=== PATIENT | female | born 1945 | race Caucasian/White ===

== ENCOUNTER 2018-10-01 12:56 | Outpatient (REF) | payer MEDICARE, SELFPAY ==
[2018-10-01 21:15] LABS: Anion Gap 10.9 mmol/L (3-11); BUN 9 mg/dL (7-18); CO2 28.1 mmol/L (21.0-32.0); CREATININE 0.77 mg/dL (0.55-1.02); Calcium 9.1 mg/dL (8.5-10.1); Chloride 94 mmol/L (98-107); Glucose 87 mg/dL (70-100); Potassium 4.7 mmol/L (3.5-5.1); Sodium 133 mmol/L (136-145)
== END 2018-10-01 13:16 ==
LOC: NCHCN 12:56
PROVIDERS: PCP Internal Medicine; Visit Provider Internal Medicine
DX: E78.5 Hyperlipidemia, unspecified (principal); I10 Essential (primary) hypertension; I25.10 Atherosclerotic heart disease of native coronary artery without angina pectoris; F32.9 Major depressive disorder, single episode, unspecified
CPT/HCPCS: 80048

== ENCOUNTER 2019-01-02 12:38 | Outpatient (REF) | payer MEDICARE, SELFPAY ==
[2019-01-02 22:15] LABS: Abs Immature Grans 0.01 k/cumm (0.0-0.09); Absolute Basophil Count 0.03 k/cumm (0.0-0.2); Absolute Eosinophil Count 0.17 k/cumm (0.0-0.7); Absolute Lymphocyte Count 0.64 k/cumm (1.2-3.4); Absolute Monocyte Count 0.81 k/cumm (0.11-0.7); Absolute Neutrophil Count 7.31 k/cumm (1.2-6.7); Basophils % 0.3; Eosinophils % 1.9; HCT 35.8 % (36.0-46.0); HGB 12.7 g/dL (12.0-15.5); Immature Grans % 0.1; Lymphocytes % 7.1; Mean Corp. HGB Concentration 35.5 g/dL (32.0-36.0); Mean Corpuscular Hemoglobin 39.1 pg (27.0-33.0); Mean Corpuscular Volume 110.2 fL (80-95); Mean Platelet Volume 11.1 fL (8.0-11.0); Neutrophils % 81.6; Platelet Count 246 x1000/uL (130-400); RBC 3.25 m/cumm (4.00-5.20); RBC Distribution Width 13.1 % (11.7-14.6); White Blood Cell Count 8.97 k/cumm (4.4-10.8)
[2019-01-02 22:22] LABS: ALT 22 U/L (12-78); AST 42 U/L (15-37); Albumin 3.4 g/dL (3.4-5.0); Alkaline Phosphatase 153 U/L (46-116); Anion Gap 14.2 mmol/L (3-11); BUN 5 mg/dL (7-18); Bilirubin, Total 0.6 mg/dL (0.2-1.0); C-Reactive Protein 1.33 mg/dL (0.0-0.3); CO2 22.8 mmol/L (21.0-32.0); CREATININE 0.86 mg/dL (0.55-1.02); Calcium 8.7 mg/dL (8.5-10.1); Chloride 95 mmol/L (98-107); Glucose 78 mg/dL (70-100); Potassium 4.5 mmol/L (3.5-5.1); Sodium 132 mmol/L (136-145); Total Protein 7.5 g/dL (6.4-8.2)
[2019-01-02 22:28] LABS: Macrocytosis 3+
== END 2019-01-02 12:58 ==
LOC: NCHCN 12:38
PROVIDERS: PCP Internal Medicine; Visit Provider Internal Medicine
DX: R21 Rash and other nonspecific skin eruption (principal)
CPT/HCPCS: 80053; 85025; 86140

== ENCOUNTER 2019-01-03 13:14 | Inpatient (IN) | payer MEDICARE, SELFPAY ==
[2019-01-03 13:16] VITALS: BP 108/72; PULSE 84; RESP 16; TEMP 36.4; O2SAT 96
[2019-01-03 14:16] LABS: Abs Immature Grans 0.02 k/cumm (0.0-0.09); Absolute Basophil Count 0.04 k/cumm (0.0-0.2); Absolute Eosinophil Count 0.15 k/cumm (0.0-0.7); Absolute Lymphocyte Count 0.64 k/cumm (1.2-3.4); Absolute Monocyte Count 0.88 k/cumm (0.11-0.7); Basophils % 0.4; Eosinophils % 1.4; HCT 36.7 % (36.0-46.0); Immature Grans % 0.2; Lymphocytes % 5.9; Mean Corp. HGB Concentration 35.4 g/dL (32.0-36.0); Mean Corpuscular Volume 110.2 fL (80-95); Mean Platelet Volume 10.3 fL (8.0-11.0); Monocytes % 8.1; Platelet Count 255 x1000/uL (130-400); RBC 3.33 m/cumm (4.00-5.20); RBC Distribution Width 13.1 % (11.7-14.6); White Blood Cell Count 10.85 k/cumm (4.4-10.8)
[2019-01-03 14:17] LABS: Absolute Neutrophil Count 9.11 k/cumm (1.2-6.7)
[2019-01-03 14:21] LABS: PTT Activated 22.3 sec (21.0-31.4); Prothrombin Time 9.9 sec (9.3-11.0)
--- NOTE | 2019-01-03 14:24 | DI.RAD_ITS ---
SYMPTOMS/DIAGNOSIS: RASH, CONCERN FOR BLAIR-JOHNSONS PA AND LATERAL CHEST: The heart is not enlarged. The lungs are predominantly clear and mildly hyperinflated. No pleural effusion seen. CONCLUSION: No evidence of acute disease.
[2019-01-03 14:39] LABS: Macrocytosis 3+
[2019-01-03 14:40] LABS: Hypochromasia 1+
[2019-01-03] MEDS: CLINDAMYCIN 600 MG/50 ML BAG 100 MG IVPB (14:52)
[2019-01-03] MEDS: Normal Saline 1,000 ML 1000 ML IV (14:53)
[2019-01-03 15:07] LABS: ESR 29 mm/hr (0-30)
[2019-01-03 15:08] LABS: ALT 14 U/L (12-78); AST 31 U/L (15-37); Albumin 3.4 g/dL (3.4-5.0); Alkaline Phosphatase 152 U/L (46-116); Anion Gap 12.2 mmol/L (3-11); BUN 8 mg/dL (7-18); Bilirubin, Total 1.3 mg/dL (0.2-1.0); C-Reactive Protein 2.71 mg/dL (0.0-0.3); CO2 21.8 mmol/L (21.0-32.0); CREATININE 0.92 mg/dL (0.55-1.02); Calcium 8.8 mg/dL (8.5-10.1); Chloride 96 mmol/L (98-107); Estimated GFR 59.67 (mL/min/1.73m2); Glucose 106 mg/dL (70-100); Potassium 4.7 mmol/L (3.5-5.1); Sodium 130 mmol/L (136-145); Total Protein 7.8 g/dL (6.4-8.2)
[2019-01-03] MEDS: methylPREDNISolone SUCC 125 MG VIAL 60 MG IVP (15:15)
[2019-01-03] MEDS: CIPROFLOXACIN 400 MG/200 ML BAG 200 MG IVPB (15:16)
--- NOTE | 2019-01-03 15:27 | ED.GENADUL_ITS ---
Discharge Plan Disposition Patient Disposition: [facility] INPATIENT Condition: Fair Discharge Details Chief Complaint: RashLesion Clinical Impression: Drug rash, Cellulitis Admit Date/Time: 01/03/19 16:27 Admit Provider: Fred Germain Attending Provider: Fred Germain Primary Care Provider: Jose Gonzalez ED Provider: Tariq Monsivais Discharge Data Discharge Date/Time-TO BE ENTERED AT DEPARTURE: 01/03/19 17:28 Medical Decision Making <Tariq Monsivais NP - Last Filed: 01/04/19 09:27> Patient presenting to the emergency department for chief complaint of left lower leg infection. Patient states that she was scratched by a cat almost a week ago. Patient thought this would heal up on its own but it did not and so she saw her primary care provider 3 days ago and was placed upon Bactrim. Patient had 4 doses of Bactrim and started developing a rash. Patient states that rash started around the site of the infection but then spread diffusely throughout her whole body. Patient denies any pain or discomfort, burning sensation or itching sensation. Physical exam shows a diffuse macular rash that is present on the entire body, palmar surfaces and does have some oral mucosal involvement. Patient has negative Nikolsky sign and no skin sloughing noted except for some crusting around the oral mucosa and around the naris. Patient does have some white patches to the tongue. Plan to establish IV access, check labs, treat patient's left lower leg infection with clindamycin and Cipro, give IV fluids, give steroids. Differential diagnosis to include severe drug reaction, cellulitis, diffuse reaction to cat scratch, SJS/TENS. Review of labs show a mild leukocytosis, CMP with some lab findings to suggest dehydration, negative urinalysis, negative chest x-ray. Using scorten grading system patient only scores a 1 for Tapia-Nikhil/tens syndrome. Called hospitalist Dr. Germain he for admission of the patient due to significant cellulitis with drug reaction rash but at this time I feel patient is stable to state our facility given question of SJS. After discussion of this case he requested dermatology consult before accepting patient. Sp[facility] with [facility] Ramos at [facility] who after thorough discussion of clinical course doubts its SJS and feels this is more diffuse drug reaction. She recommended topical steroid cream with hydrocortisone 2.5% to be used on the face and triamcinolone cream 0.1% to be used on the remainder of the body. She states that we may call for any further needs of consultation but at this time does not feel the patient needs to be transferred to their facility. Patient is in agreement with admission for further observation and IV antibiotics. Re-spoke with hospitalist who agreed to admit patient. <Rich Boone DO - Last Filed: 01/03/19 16:04> . HPI <Tariq Monsivais NP - Last Filed: 01/04/19 09:27> General Mode of arrival: ambulatory . Date/Time Provider Initiated Documentation: 01/03/19 13:23 . Limitations to Documentation: no limitations . Information obtained by: patient and RN notes reviewed . History of Present Illness 73 year old F presents to the emergency department with the chief complaint of Rash, infection from skin cat scratch, described as severe, Quality is described as other (Denies pain), and is localized to the left and lower extremity. Patient started experiencing this week(s) (1) and it has been constant. Other factors that worsen symptoms (Diffuse rash started after 4 doses of Bactrim) . Patient notes no other symptoms.. Related Data Home Medications Medication Instructions Recorded Confirmed aspirin, buffered 325 mg PO DAILY 01/29/13 01/03/19 fluoxetine 20 mg PO DAILY 01/29/13 01/03/19 loratadine [Claritin] 10 mg PO DAILY 01/29/13 01/03/19 lovastatin 20 mg PO QPM 01/29/13 01/03/19 amlodipine 5 mg PO DAILY 08/22/14 01/03/19 albuterol sulfate [Ventolin Hfa] 1 - 2 puff INHALATION QID PRN PRN 12/07/16 01/03/19 budesonide-formoterol [Symbicort 1 puff INHALATION BID 12/07/16 01/03/19 160/4.5 Mcg Inhaler] metoprolol tartrate 50 mg PO BID 12/07/16 01/03/19 nitroglycerin [Nitrostat] 0.4 mg SUBLINGUAL DIRECTED 12/07/16 01/03/19 bacitracin 1 applic TOPICAL DAILY 01/03/19 01/03/19 sulfamethoxazole-trimethoprim 1 tab PO BID 01/03/19 01/03/19 [Bactrim DS] Allergies Allergy/AdvReac Type Severity Reaction Status Date / Time lisinopril Allergy Intermediate lips Unverified 12/29/16 06:05 swelled sulfamethoxazole Allergy Intermediate Hives Unverified 01/03/19 13:30 [From Bactrim] trimethoprim [From Bactrim] Allergy Intermediate Hives Unverified 01/03/19 13:30 Penicillins AdvReac Intermediate Hives Unverified 12/29/16 06:05 General Stated Complaint: RashLesion TY: 3 Review of Systems <Tariq Monsivais NP - Last Filed: 01/04/19 09:27> Constitutional Denies body ache(s), Denies chills and Denies fever(s) Cardiovascular Denies chest pain and Denies dyspnea Respiratory Denies dyspnea Gastrointestinal Denies abdominal pain, Denies nausea and Denies vomiting Integumentary/Breasts Reports as per HPI and Reports rash Neurologic Denies sensory deficit PFSH <Tariq Monsivais NP - Last Filed: 01/04/19 09:27> Medical History (Updated 01/03/19 @ 18:43 by Fred Germain MD) Asthma (Chronic) CAD (coronary artery disease) (Chronic) Hyperlipidemia (Acute) Hypertension (Chronic) Social History Smoking/Tobacco Use Status: Former Tobacco Use Drug use: Never Do you feel safe at home: Yes Do you feel safe in your relationship?: Yes Exam <Tariq Monsivais NP - Last Filed: 01/04/19 09:27> Const General: cooperative, no acute distress and not ill appearing Orientation: alert, awake and oriented x3 HENMT Mouth: moist mucous membranes Resp Effort & Inspection: normal respiratory effort, able to speak in complete sentences and no respiratory distress Auscultation: clear to auscultation bilaterally Cardio Rate: regular rate Rhythm: regular rhythm Heart Sounds: S1 normal, S2 normal, no click, no gallops, no murmurs and no rubs Skin Rashes: rashes noted maculopapular rash diffuse full body borders irregular, color red, morphology, surface blanching, dry, erythematous and flaking (Around lips and nares) and other (Negative Nikolsky sign); nontender Wounds: wounds noted puncture wound left anterior lower leg with surrounding erythema Neuro General: alert, awake, oriented x3, moves all extremities and no focal motor deficits Sensory Exam: no sensory deficits noted Course <Tariq Monsivais NP - Last Filed: 01/04/19 09:27> Vital Signs Temperature 36.4 C L 01/03/19 13:16 Pulse 84 01/03/19 13:16 Respiratory Rate 16 01/03/19 13:16 Blood Pressure 108/72 01/03/19 13:16 Pulse Oximetry 96 01/03/19 13:16 Temperature 36.4 C L 01/03/19 13:16 Temperature Source Skin 01/03/19 13:16 Pulse 84 01/03/19 13:16 Respiratory Rate 16 01/03/19 13:16 Respiratory Effort Non-Labored 01/03/19 13:29 Blood Pressure 108/72 01/03/19 13:16 Blood Pressure Position Sitting 01/03/19 13:16 Pulse Oximetry 96 01/03/19 13:16 Oxygen Delivery Method Room Air 01/03/19 13:16 Oxygen Flow Rate 0 01/03/19 13:16 Pain Level 0 01/03/19 13:16 Lab/Test Results Lab/Test Results: Laboratory Tests Range/Units 01/03/19 01/03/19 01/03/19 13:55 13:55 14:47 WBC (4.4-10.8) k/cumm 10.85 H RBC (4.00-5.20) m/cumm 3.33 L Hgb (12.0-15.5) g/dL 13.0 Hct (36.0-46.0) % 36.7 MCV (80-95) fL 110.2 H MCH (27.0-33.0) pg 39.0 H MCHC (32.0-36.0) g/dL 35.4 RDW (11.7-14.6) % 13.1 Plt Count (130-400) x1000/uL 255 MPV (8.0-11.0) fL 10.3 Immature Gran % 0.2 Neutrophils % 84.0 Lymphocytes % 5.9 Monocytes % 8.1 Eosinophils % 1.4 Basophils % 0.4 Absolute Neutrophils (1.2-6.7) k/cumm 9.11 H Absolute Lymphocytes (1.2-3.4) k/cumm 0.64 L Absolute Monocytes (0.11-0.7) k/cumm 0.88 H Absolute Eosinophils (0.0-0.7) k/cumm 0.15 Absolute Basophils (0.0-0.2) k/cumm 0.04 Differential Comment RBC Morphology See below Hypochromasia 1+ Macrocytosis 3+ ESR (0-30) mm/hr 29 PT (9.3-11.0) sec 9.9 INR (0.9-1.1) 1.0 APTT (21.0-31.4) sec 22.3 Sodium (136-145) mmol/L 130 L Potassium (3.5-5.1) mmol/L 4.7 Chloride (98-107) mmol/L 96 L Carbon Dioxide (21.0-32.0) mmol/L 21.8 Anion Gap (3-11) mmol/L 12.2 H BUN (7-18) mg/dL 8 Creatinine (0.55-1.02) mg/dL 0.92 Estimated GFR/1.73 m2 (mL/min/1.73m2) 59.67 Glucose (70-100) mg/dL 106 H Calcium (8.5-10.1) mg/dL 8.8 Total Bilirubin (0.2-1.0) mg/dL 1.3 H AST (15-37) U/L 31 ALT (12-78) U/L 14 Alkaline Phosphatase (46-116) U/L 152 H C-Reactive Protein (0.0-0.3) mg/dL 2.71 H Total Protein (6.4-8.2) g/dL 7.8 Albumin (3.4-5.0) g/dL 3.4
[2019-01-03] MEDS: Normal Saline 500 ML IV (16:18)
[2019-01-03 17:14] LABS: Bilirubin Negative (Negative); Blood Negative (Negative); Clarity Clear (Clear); Glucose Negative (Negative); Ketones Trace mg/dL (Negative); Leukocyte Esterase Moderate (Negative); Nitrite Negative (Negative); Specific Gravity <= 1.005 (1.005-1.025)
[2019-01-03 17:22] LABS: Bacteria Negative HPF (Negative); C & S Indicated? No/Sq. Contamination; Casts Negative LPF (Negative); Crystals Negative HPF (Negative); Epithelial Cells Moderate HPF (Negative); Mucus Negative (Negative); Other Cells Negative (Negative); RBC Negative (0-2)
[2019-01-03] MEDS: Normal Saline 1,000 ML 150 ML IV ×2 (17:42→20:50)
[2019-01-03 17:47] VITALS: BP 126/88; PULSE 82; RESP 18; TEMP 36.8; O2SAT 97
[2019-01-03 17:50] VITALS: BP 126/88; PULSE 82; RESP 18; TEMP 36.8; O2SAT 97
--- NOTE | 2019-01-03 18:13 | HPE_ITS ---
Date of service: 01/03/19 Time of Service: 18:20 Assessment and Plan (1) Cellulitis: Current visit: Yes Status: Acute Evidence of nonpurulent LLE infection at site of abrasion - no signs of systemic toxicity with lack of hypotension, fever, or tachycardia, and presence of minimal leukocytosis only. - Will initiate oral therapy for b-hemolytic strep with oral Cephalexin and monitor closely. If systemic illness develops consider change to Ceftriaxone. Monitor for signs of allergic reaction given PCN allergy. If purulence develops will broaden to include MRSA coverage as well. (2) Drug rash: Current visit: Yes Status: Acute Likely drug reaction to treatment with Bactrim. Received IV Steroids in the ED. Recommendations for addition of low potency topical steroid to the face, and higher potency for the body. Consider addition of H1 onofre and prednisone as well. (3) CAD (coronary artery disease): Current visit: Yes Status: Chronic Continue daily ASA, statin, and BB. Appears quiescent. (4) Hypertension: Current visit: Yes Status: Chronic Continue CCB, BB therapy. (5) DVT prophylaxis: Current visit: Yes Status: Acute SC Lovenox. History of Present Illness Chief Complaint: Rash Narrative: 73 year old woman with a history of asthma, admitted from [facility] Emergency Department with a diagnosis of LLE Cellulitis and Drug rash. Mrs. Jiang has a past Medical History significant for CAD, HTN, asthma, Allergic Rhinitis, and Cataracts. She reports a scratch from her cat on the left leg that became infected. She subsequently sought care with her PCP who prescribed her TMP-SMX. Unfortunately after 4 doses of this medication she developed an onset of a fairly diffuse rash that involved her extremities, back, and face. She presented to the ED for further evaluation. Work-up revealed evidence of a mild leukocytosis, but she was afebrile, normotensive, and nontachycardic. Discussion with Derm via ED provider provided likely diagnosis of drug rash as opposed to Tapia Nikhil Syndrome or Toxic Epidermal Necrolysis. She was admitted for further evaluation and treatment of both the rash and the cellulitis. Review of Systems Review of Systems All systems reviewed & are unremarkable except as noted in HPI and below [facility] Medical History (Updated 01/03/19 @ 18:43 by Fred Germain MD) Asthma (Chronic) CAD (coronary artery disease) (Chronic) Hyperlipidemia (Acute) Hypertension (Chronic) Social History Smoking/Tobacco Use Status: Former Tobacco Use Drug use: Never Do you feel safe at home: Yes Do you feel safe in your relationship?: Yes Meds Home Medications Medication Instructions Recorded Confirmed Type aspirin, buffered 325 mg PO DAILY 01/29/13 01/03/19 History fluoxetine 20 mg PO DAILY 01/29/13 01/03/19 History loratadine [Claritin] 10 mg PO DAILY 01/29/13 01/03/19 History lovastatin 20 mg PO QPM 01/29/13 01/03/19 History amlodipine 5 mg PO DAILY 08/22/14 01/03/19 History albuterol sulfate [Ventolin Hfa] 1 - 2 puff INHALATION QID PRN PRN 12/07/16 01/03/19 History budesonide-formoterol [Symbicort 1 puff INHALATION BID 12/07/16 01/03/19 History 160/4.5 Mcg Inhaler] metoprolol tartrate 50 mg PO BID 12/07/16 01/03/19 History nitroglycerin [Nitrostat] 0.4 mg SUBLINGUAL DIRECTED 12/07/16 01/03/19 History bacitracin 1 applic TOPICAL DAILY 01/03/19 01/03/19 History sulfamethoxazole-trimethoprim 1 tab PO BID 01/03/19 01/03/19 History [Bactrim DS] Allergies Allergy/AdvReac Type Severity Reaction Status Date / Time lisinopril Allergy Intermediate lips Unverified 12/29/16 06:05 swelled sulfamethoxazole Allergy Intermediate Hives Unverified 01/03/19 13:30 [From Bactrim] trimethoprim [From Bactrim] Allergy Intermediate Hives Unverified 01/03/19 13:30 Penicillins AdvReac Intermediate Hives Unverified 12/29/16 06:05 Exam Narrative Exam Narrative: General: Patient appears comfortable, AAOX3, NAD Neck: Supple Skin: Evidence of a maculopapular rash on b/l LE, UE, and back. Also with dry appearing, erythematous rash with irregular borders around the lips and nares. LLE with evidence of warmth and erythema surrounding the lower anterior pedersen with circumferential spread across the leg surrounding the anterior puncture wound - warm to touch CV: Regular, nontachycardic, S1S2, No rubs, murmurs, or gallops. Pulmonary: Clear to auscultation bilaterally, no crackles, wheezing, or rhonchi Abdomen: + Bowel Sounds, soft, nontender, nondistended Vascular: No lower extremity edema Psych: Normal mood and affect. Results Labs : 01/03/19 13:55 01/03/19 14:47 Laboratory Results - last 24 hr 01/03/19 01/03/19 01/03/19 13:55 13:55 14:47 WBC 10.85 H RBC 3.33 L Hgb 13.0 Hct 36.7 MCV 110.2 H MCH 39.0 H MCHC 35.4 RDW 13.1 Plt Count 255 MPV 10.3 Immature Gran % 0.2 Neutrophils % 84.0 Lymphocytes % 5.9 Monocytes % 8.1 Eosinophils % 1.4 Basophils % 0.4 Absolute Neutrophils 9.11 H Absolute Lymphocytes 0.64 L Absolute Monocytes 0.88 H Absolute Eosinophils 0.15 Absolute Basophils 0.04 Differential Comment RBC Morphology See below Hypochromasia 1+ Macrocytosis 3+ ESR 29 PT 9.9 INR 1.0 APTT 22.3 Sodium 130 L Potassium 4.7 Chloride 96 L Carbon Dioxide 21.8 Anion Gap 12.2 H BUN 8 Creatinine 0.92 Estimated GFR/1.73 m2 59.67 Glucose 106 H Calcium 8.8 Total Bilirubin 1.3 H AST 31 ALT 14 Alkaline Phosphatase 152 H C-Reactive Protein 2.71 H Total Protein 7.8 Albumin 3.4 Urine Color Urine Clarity Urine pH Ur Specific Isabela Urine Protein Urine Ketones Urine Blood Urine Nitrite Urine Bilirubin Urine Urobilinogen Ur Leukocyte Esterase Urine RBC Urine WBC Ur Epithelial Cells Urine Crystals Urine Bacteria Urine Casts Urine Mucus Urine Other Ur Culture Indicated? Urine Glucose 01/03/19 17:00 WBC RBC Hgb Hct MCV MCH MCHC RDW Plt Count MPV Immature Gran % Neutrophils % Lymphocytes % Monocytes % Eosinophils % Basophils % Absolute Neutrophils Absolute Lymphocytes Absolute Monocytes Absolute Eosinophils Absolute Basophils Differential Comment RBC Morphology Hypochromasia Macrocytosis ESR PT INR APTT Sodium Potassium Chloride Carbon Dioxide Anion Gap BUN Creatinine Estimated GFR/1.73 m2 Glucose Calcium Total Bilirubin AST ALT Alkaline Phosphatase C-Reactive Protein Total Protein Albumin Urine Color Yellow Urine Clarity Clear Urine pH 6.0 Ur Specific Isabela <= 1.005 Urine Protein Negative Urine Ketones Trace H Urine Blood Negative Urine Nitrite Negative Urine Bilirubin Negative Urine Urobilinogen 1.0 H Ur Leukocyte Esterase Moderate H Urine RBC Negative Urine WBC 5-10 Ur Epithelial Cells Moderate Urine Crystals Negative Urine Bacteria Negative Urine Casts Negative Urine Mucus Negative Urine Other Negative Ur Culture Indicated? No/sq. contamination Urine Glucose Negative Last Vital Signs Temp 36.8 C 01/03/19 17:50 Pulse 82 01/03/19 17:50 Resp 18 01/03/19 17:50 BP 126/88 01/03/19 17:50 Pulse Ox 97 01/03/19 17:50
[2019-01-03] MEDS: Enoxaparin 40 MG/0.4 ML SYR SC (18:24)
[2019-01-03] MEDS: Cephalexin 500 MG CAP PO ×2 (18:24→23:28)
--- NOTE | 2019-01-03 18:58 | CMPROGNOTE_ITS ---
- If Service Date Differs Date of service: 01/03/19 Time of Service: 18:58 Care Management Progress Note S/O: CM met with Jamilah in the ED she is alert and engaged. She has a dog and one cat at home. CM assisted her in contacting a friend that will care for the animals while she is in the hospital. CM confirmed that friend Jordy will care for them and is able to get into the home. Jamilah is hopeful she will only be here over night. She lives alone in [place] and has friends that are [place] p[place]ive in the community. A: Jamilah is a 73 year old female admitted with cellulitis and drug rash. P: Jamilah will return home when medically ready for discharge CM to continue to provide support discharge planning.
[2019-01-03 19:55] VITALS: O2SAT 97
[2019-01-03] MEDS: Metoprolol 50 MG TAB PO (19:56)
[2019-01-03] MEDS: Lovastatin 20 MG TAB PO (19:56)
[2019-01-03] MEDS: Triamcinolone 0.1% CR 15 GM TUBE TP (19:56)
[2019-01-03] MEDS: Budesonide/Formoterol 160/4.5 6 GM 60 PUFF INH IH (19:56)
[2019-01-04] VITALS: BP 117/72; PULSE 73; RESP 16; TEMP 37; O2SAT 95
[2019-01-04] MEDS: Normal Saline 1,000 ML 150 ML IV ×4 (03:19→22:53)
[2019-01-04] MEDS: Cephalexin 500 MG CAP PO ×3 (06:38→18:28)
[2019-01-04 07:00] LABS: Absolute Lymphocyte Count 0.29 k/cumm (1.2-3.4); Absolute Monocyte Count 0.16 k/cumm (0.11-0.7); Absolute Neutrophil Count 4.06 k/cumm (1.2-6.7); HCT 30.6 % (36.0-46.0); HGB 10.6 g/dL (12.0-15.5); Lymphocytes % 6.4; Mean Corp. HGB Concentration 34.6 g/dL (32.0-36.0); Mean Corpuscular Hemoglobin 38.3 pg (27.0-33.0); Mean Corpuscular Volume 110.5 fL (80-95); Mean Platelet Volume 10.3 fL (8.0-11.0); Monocytes % 3.5; Neutrophils % 90.1; Platelet Count 183 x1000/uL (130-400); RBC 2.77 m/cumm (4.00-5.20); RBC Distribution Width 12.9 % (11.7-14.6); White Blood Cell Count 4.51 k/cumm (4.4-10.8)
[2019-01-04 07:05] LABS: Anion Gap 9.5 mmol/L (3-11); BUN 6 mg/dL (7-18); CO2 20.5 mmol/L (21.0-32.0); CREATININE 0.55 mg/dL (0.55-1.02); Calcium 7.7 mg/dL (8.5-10.1); Chloride 102 mmol/L (98-107); Glucose 135 mg/dL (70-100); Potassium 4.3 mmol/L (3.5-5.1); Sodium 132 mmol/L (136-145)
[2019-01-04 07:21] VITALS: BP 113/72; PULSE 89; RESP 17; TEMP 37.1; O2SAT 98
[2019-01-04] MEDS: FLUoxetine 20 MG CAP PO (08:00)
[2019-01-04] MEDS: amLODIPine 5 MG TAB PO (08:00)
[2019-01-04] MEDS: Loratidine 10 MG TAB PO (08:01)
[2019-01-04] MEDS: Metoprolol 50 MG TAB PO ×2 (08:01→19:59)
[2019-01-04] MEDS: Aspirin E.C. 325 MG TABEC PO (08:01)
[2019-01-04] MEDS: Triamcinolone 0.1% CR 15 GM TUBE TP ×3 (08:02→19:59)
[2019-01-04] MEDS: Budesonide/Formoterol 160/4.5 6 GM 60 PUFF INH IH ×2 (08:09→19:59)
--- NOTE | 2019-01-04 13:54 | WOUNDCARE ---
Wound Care Report Pt seen at bedside. Pleasant and agreeable to consult. JULIETA wrap and dry gauze removed from mis pedersen of LLE. No drainage, no open areas noted. Rash with purpura characteristics noted around LLE cellulitis area, currently being treated w/topical steroid creams per H&P report. Pt denies discomfort, pain 0/10. Weak pedal pulse palpated, foot cool, cap refill sluggish 6 seconds. I have no recommendations from a wound treatment standpoint at this time as there is no open area on the left lower leg to make recommendations for. If anything changes or the area deteriorates feel free to consult wound team again. photos in chart. Thank you.
--- NOTE | 2019-01-04 14:30 | PGE_ITS ---
Date of Service Date of service: 01/04/19 Time of Service: 14:30 Assessment and Plan (1) Cellulitis: Current visit: Yes Status: Acute Evidence of nonpurulent LLE infection at site of abrasion - no signs of systemic toxicity with lack of hypotension, fever, or tachycardia. Minimal initial leukocytosis has resolved. - Appears improved on oral therapy for b-hemolytic strep with oral Cephalexin. If systemic illness develops consider change to Ceftriaxone. No evidence of reaction given PCN allergy. If purulence develops will broaden to include MRSA coverage as well. Currently appears to be improving. Will monitor for additional 24 hours, and consider discharge if continued improvement tomorrow. (2) Drug rash: Current visit: Yes Status: Acute Likely drug reaction to treatment with Bactrim - improved. Received IV Steroids in the ED. Recommendations for addition of low potency topical steroid to the face, and higher potency for the body. Consider addition of H1 onofre and prednisone as well, but right now appears to be improving. Continue to mabel tor. (3) CAD (coronary artery disease): Current visit: Yes Status: Chronic Continue daily ASA, statin, and BB. Appears quiescent. (4) Hypertension: Current visit: Yes Status: Chronic Continue CCB, BB therapy. (5) DVT prophylaxis: Current visit: Yes Status: Acute SC Lovenox. Subjective Interval history since last seen: 73 year old woman with a history of asthma, admitted from [facility] Emergency Department with a diagnosis of LLE Cellulitis and Drug rash. Mrs. Jiang has a past Medical History significant for CAD, HTN, asthma, Allergic Rhinitis, and Cataracts. She reports a scratch from her cat on the left leg that became infected. She subsequently sought care with her PCP who prescribed her TMP-SMX. Unfortunately after 4 doses of this medication she developed an onset of a fairly diffuse rash that involved her extremities, back, and face. She presented to the ED for further evaluation. Work-up revealed evidence of a mild leukocytosis, but she was afebrile, normotensive, and nontachycardic. Discussion with Derm via ED provider provided a very likely diagnosis of drug rash as opposed to Tapia Nikhil Syndrome or Toxic Epidermal Necrolysis. She was admitted for further evaluation and treatment of both the rash and the cellulitis. This morning Mrs. Jiang appears improved. She reports improvement in the rash, and her exam appears to be progressing appropriately. No overnight events reported. Remains afebrile. Exam Narrative Exam Narrative: General: Patient appears comfortable, AAOX3, NAD Neck: Supple Skin: Maculopapular rash on b/l LE, UE, and back appears improved. Also with dry appearing, erythematous rash with irregular borders around the lips and nares, appears improved as well. LLE with evidence of warmth and erythema surrounding the lower anterior pedersen with circumferential spread across the leg surrounding the anterior puncture wound - warm to touch, now less erythematous and weepy, also appears to be improving. CV: Regular, nontachycardic, S1S2, No rubs, murmurs, or gallops. Pulmonary: Clear to auscultation bilaterally, no crackles, wheezing, or rhonchi Abdomen: + Bowel Sounds, soft, nontender, nondistended Vascular: Mild LLE extremity edema Psych: Normal mood and affect. Objective Objective Clinical Data: Abnormal lab results 01/03/19 01/03/19 01/04/19 Range/Units 14:47 17:00 06:25 RBC (4.00-5.20) m/cumm Hgb (12.0-15.5) g/dL Hct (36.0-46.0) % MCV (80-95) fL MCH (27.0-33.0) pg Absolute Lymphocytes (1.2-3.4) k/cumm Sodium 130 L 132 L (136-145) mmol/L Chloride 96 L (98-107) mmol/L Carbon Dioxide 20.5 L (21.0-32.0) mmol/L Anion Gap 12.2 H (3-11) mmol/L BUN 6 L (7-18) mg/dL Glucose 106 H 135 H (70-100) mg/dL Calcium 7.7 L (8.5-10.1) mg/dL Total Bilirubin 1.3 H (0.2-1.0) mg/dL Alkaline Phosphatase 152 H (46-116) U/L C-Reactive Protein 2.71 H (0.0-0.3) mg/dL Urine Ketones Trace H (Negative) mg/dL Urine Urobilinogen 1.0 H (Up TO 0.2) EU/dL Ur Leukocyte Esterase Moderate H (Negative) 01/04/19 Range/Units 06:25 RBC 2.77 L (4.00-5.20) m/cumm Hgb 10.6 L D (12.0-15.5) g/dL Hct 30.6 L (36.0-46.0) % MCV 110.5 H (80-95) fL MCH 38.3 H (27.0-33.0) pg Absolute Lymphocytes 0.29 L (1.2-3.4) k/cumm Sodium (136-145) mmol/L Chloride (98-107) mmol/L Carbon Dioxide (21.0-32.0) mmol/L Anion Gap (3-11) mmol/L BUN (7-18) mg/dL Glucose (70-100) mg/dL Calcium (8.5-10.1) mg/dL Total Bilirubin (0.2-1.0) mg/dL Alkaline Phosphatase (46-116) U/L C-Reactive Protein (0.0-0.3) mg/dL Urine Ketones (Negative) mg/dL Urine Urobilinogen (Up TO 0.2) EU/dL Ur Leukocyte Esterase (Negative) Vital Signs Temperature 37.1 C 01/04/19 07:21 Temperature Source Tympanic 01/04/19 07:21 Pulse 89 01/04/19 07:21 Pulse Rhythm Irregular 01/04/19 08:30 Respiratory Rate 17 01/04/19 07:21 Respiratory Effort Non-Labored 01/04/19 08:30 Respiratory Depth Normal 01/04/19 08:30 Respiratory Pattern Normal 01/04/19 08:30 Blood Pressure 113/72 01/04/19 07:21 Blood Pressure Position Sitting 01/03/19 13:16 Pulse Oximetry 98 01/04/19 07:21 Oxygen Delivery Method Room Air 01/04/19 07:21 Oxygen Flow Rate 0 01/04/19 07:21 Pain Level 0 01/04/19 07:21 Comment 01/03/19 17:47 Intake & Output 01/03/19 01/04/19 01/04/19 23:59 11:59 23:59 Intake Total 1520 / 1520 2.5 / 2342.5 250 / 2342.5 Balance 1520 / 1520 2.5 / 2342.5 250 / 2342.5 Weight 53.977 kg Intake: IV 1520 / 1520 1971.5 / 1971.5 Oral 120 / 370 250 / 370 Other: Urine Color Yellow Urine Appearance Clear Clear Comment pt flushed before I could measure Voiding Methods Toilet Toilet Laboratory Results WBC 4.51 k/cumm (4.4-10.8) D 01/04/19 06:25 RBC 2.77 m/cumm (4.00-5.20) L 01/04/19 06:25 Hgb 10.6 g/dL (12.0-15.5) L D 01/04/19 06:25 Hct 30.6 % (36.0-46.0) L 01/04/19 06:25 MCV 110.5 fL (80-95) H 01/04/19 06:25 MCH 38.3 pg (27.0-33.0) H 01/04/19 06:25 MCHC 34.6 g/dL (32.0-36.0) 01/04/19 06:25 RDW 12.9 % (11.7-14.6) 01/04/19 06:25 Plt Count 183 x1000/uL (130-400) 01/04/19 06:25 MPV 10.3 fL (8.0-11.0) 01/04/19 06:25 Immature Gran % 0.0 01/04/19 06:25 90.1 01/04/19 06:25 6.4 01/04/19 06:25 3.5 01/04/19 06:25 0.0 01/04/19 06:25 0.0 01/04/19 06:25 Absolute Neutrophils 4.06 k/cumm (1.2-6.7) 01/04/19 06:25 Absolute Lymphocytes 0.29 k/cumm (1.2-3.4) L 01/04/19 06:25 Absolute Monocytes 0.16 k/cumm (0.11-0.7) 01/04/19 06:25 Absolute Eosinophils 0.00 k/cumm (0.0-0.7) 01/04/19 06:25 Absolute Basophils 0.00 k/cumm (0.0-0.2) 01/04/19 06:25 01/03/19 13:55 RBC Morphology See below 01/03/19 13:55 1+ 01/03/19 13:55 3+ 01/03/19 13:55 ESR 29 mm/hr (0-30) 01/03/19 13:55 PT 9.9 sec (9.3-11.0) 01/03/19 13:55 INR 1.0 (0.9-1.1) 01/03/19 13:55 APTT 22.3 sec (21.0-31.4) 01/03/19 13:55 Sodium 132 mmol/L (136-145) L 01/04/19 06:25 Potassium 4.3 mmol/L (3.5-5.1) 01/04/19 06:25 Chloride 102 mmol/L (98-107) 01/04/19 06:25 Carbon Dioxide 20.5 mmol/L (21.0-32.0) L 01/04/19 06:25 9.5 mmol/L (3-11) 01/04/19 06:25 BUN 6 mg/dL (7-18) L 01/04/19 06:25 0.55 mg/dL (0.55-1.02) D 01/04/19 06:25 >= 60.00 (mL/min/1.73m2) 01/04/19 06:25 Glucose 135 mg/dL (70-100) H 01/04/19 06:25 Calcium 7.7 mg/dL (8.5-10.1) L 01/04/19 06:25 1.3 mg/dL (0.2-1.0) H 01/03/19 14:47 AST 31 U/L (15-37) 01/03/19 14:47 ALT 14 U/L (12-78) 01/03/19 14:47 152 U/L (46-116) H 01/03/19 14:47 2.71 mg/dL (0.0-0.3) H 01/03/19 14:47 7.8 g/dL (6.4-8.2) 01/03/19 14:47 3.4 g/dL (3.4-5.0) 01/03/19 14:47 Yellow (Yellow) 01/03/19 17:00 Clear (Clear) 01/03/19 17:00 6.0 (5-8) 01/03/19 17:00 Ur Specific [place] <= 1.005 (1.005-1.025) 01/03/19 17:00 Negative mg/dL (Negative) 01/03/19 17:00 Trace mg/dL (Negative) H 01/03/19 17:00 Negative (Negative) 01/03/19 17:00 Negative (Negative) 01/03/19 17:00 Negative (Negative) 01/03/19 17:00 1.0 EU/dL (Up TO 0.2) H 01/03/19 17:00 Ur Leukocyte Esterase Moderate (Negative) H 01/03/19 17:00 Negative (0-2) 01/03/19 17:00 5-10 HPF (0-5) 01/03/19 17:00 Ur Epithelial Cells Moderate HPF (Negative) 01/03/19 17:00 Negative HPF (Negative) 01/03/19 17:00 Negative HPF (Negative) 01/03/19 17:00 Negative LPF (Negative) 01/03/19 17:00 Negative (Negative) 01/03/19 17:00 Negative (Negative) 01/03/19 17:00 Ur Culture Indicated? No/sq. contamination 01/03/19 17:00 Negative mg/dL (Negative) 01/03/19 17:00
--- NOTE | 2019-01-04 15:03 | CHAPLAIN ---
Jamilah was sitting up watching tv when I visited. She told me she is likely not being discharged today and she disappointed about that. She has a friend taking care of her cat and dog for her so she is relieved about that. Jamilah lives in the apartment building next to the [facility]. Stephan knows Jr Arias, an [employer] employee who lives in the same apartment building, and she gave me permission to let Jr know that she is here. She would like him to turn her rent check into the advent for her. Jamilah was very pleasant and easily engaged in conversation. The reaction to her medication has given her a blistery rash on her face, and she is worried about how that looks, and will look when she goes out.
[2019-01-04 15:52] VITALS: BP 122/73; PULSE 82; RESP 17; TEMP 37.2; O2SAT 99
--- NOTE | 2019-01-04 15:55 | PHARADMIT ---
Addendum entered by Rodrigo Arango III 01/05/19 12:23: Pharmacy Note Subjective MD described ADR as Cuqtqw-Evwykwf-oive, has multiple lesions. Sent up Large TAC 0.1% tube and Magic Mouth wash for mouth lesions. Objective VS-OK K+3.4 Na-138 Other Labs-WNL, Assessment Cellulitis treated with Keflex (PCN allergy noted) Plan Patient report rash improving, continue present therapy. Original Note: Admission Pharmacy Clinical Review cellulitis, drug reaction Code Status Full Code Current Weight 53.977 kg Renally Cleared and Narrow Therapeutic Index Meds Crcl ~70.1 mL/min using IBW (vs LBW shown by [employer]) current meds okay QTc Value / Action Taken n/a BP Control, Fever BP 122/73 afebrile Electrolytes reviewed Na 132 DVT Prophylaxis enoxaparin Opiate Usage / Scheduled Bowel Regimen Ordered no/prn Plt/SCr for Heparin / Enoxaparin plt 183 SCr 0.55 INR for Warfarin n/a H/H stable, WBC/Bands h/h 10.6/30.6 wbc 4.51 Antibiotic appropriateness cephalexin Cultures and Sensitivities none Surgical ABX d/c within 24 hr n/a DM control / Insulin Dosing BG Heart Failure (Check EF%) (JULIETA's, B-Block, Diuretics) amlodipine, metoprolol IV to PO Switch n/a Home Meds Reviewed yes Home Meds Not Ordered albuterol, bacitracin, bactrim(pt had drug reaction to this med) Comments
--- NOTE | 2019-01-04 18:02 | PDOC.CMIN ---
- If Service Date Differs Date of service: 01/04/19 Time of Service: 18:02 Care Management Initial Assess REASON FOR HOSPITALIZATION:: Cellulitis, Drug reaction PAST MEDICAL HISTORY/PAST SURGICAL HISTORY:: Asthma (Chronic). CAD (coronary artery disease) (Chronic). Hyperlipidemia (Acute). Hypertension (Chronic) PREVIOUS FUNCTIONAL STATUS/SOCIAL/FAMILY SUPPORTS:: Jamilah lives in [place], [place] in an apartment with her Cat and Dog. She is independent with ADL's. She has several people in the community she sees as supportive. 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 She drives and is indepedent going to appointments. CURRENT FUNCTIONAL STATUS:: Jamilah is alert she is engaged during assessment. She feels her rash is improving. She is picking at it CM encourged her to not scratch at it to prevent furthur irritation. Jamilah reports she is independent at home and has some good friends in the community helping her with her animals. ADVANCE DIRECTIVES:: Advance directive on file Has patient been provided with information about the portal?: Yes Did the patient sign up for the portal?: No CODE STATUS:: Full Code INSURANCE COVERAGE / FINANCIAL ISSUES:: Medicare CURRENT HOME/COMMUNITY SERVICES/EQUIPMENT:: None PRIMARY CARE PHYSICIAN:: POTENTIAL DISCHARGE NEEDS:: Follow up with primary care as directed PATIENT/FAMILY EDUCATION NEEDS:: Discharged education and self management and limitations TRANSPORTATION:: Jamilah will transport herself home tme if discharge her car is in the parking lot. PLAN:: Jamilah is receiving IV fluids, and oral antibiotics she has a wound consult. Anticipate she will be discharged over the weekend. CM to continue to provide support discharge disposition.
[2019-01-04] MEDS: Enoxaparin 40 MG/0.4 ML SYR SC (18:28)
[2019-01-04 19:48] VITALS: BP 122/73; PULSE 83; RESP 17; TEMP 37.2; O2SAT 99
[2019-01-04] MEDS: Lovastatin 20 MG TAB PO (19:59)
[2019-01-05 00:03] VITALS: BP 127/76; PULSE 78; RESP 18; TEMP 37.2; O2SAT 98
[2019-01-05] MEDS: Cephalexin 500 MG CAP PO ×4 (00:06→17:30)
[2019-01-05] MEDS: Normal Saline 1,000 ML 150 ML IV ×3 (05:41→19:42)
[2019-01-05 07:27] VITALS: BP 131/64; PULSE 91; RESP 19; TEMP 36.7; O2SAT 98
[2019-01-05 07:27] LABS: Abs Immature Grans 0.01 k/cumm (0.0-0.09); Absolute Basophil Count 0.02 k/cumm (0.0-0.2); Absolute Eosinophil Count 0.08 k/cumm (0.0-0.7); Absolute Monocyte Count 0.57 k/cumm (0.11-0.7); Absolute Neutrophil Count 3.75 k/cumm (1.2-6.7); Basophils % 0.4; Eosinophils % 1.6; HCT 33.1 % (36.0-46.0); HGB 11.4 g/dL (12.0-15.5); Immature Grans % 0.2; Lymphocytes % 11.9; Mean Corp. HGB Concentration 34.4 g/dL (32.0-36.0); Mean Corpuscular Hemoglobin 38.8 pg (27.0-33.0); Mean Corpuscular Volume 112.6 fL (80-95); Mean Platelet Volume 10.1 fL (8.0-11.0); Monocytes % 11.3; Neutrophils % 74.6; Platelet Count 185 x1000/uL (130-400); RBC 2.94 m/cumm (4.00-5.20); RBC Distribution Width 13.4 % (11.7-14.6); White Blood Cell Count 5.03 k/cumm (4.4-10.8)
[2019-01-05 07:37] LABS: Anion Gap 9.6 mmol/L (3-11); BUN 7 mg/dL (7-18); CO2 24.4 mmol/L (21.0-32.0); CREATININE 0.52 mg/dL (0.55-1.02); Calcium 8.1 mg/dL (8.5-10.1); Chloride 104 mmol/L (98-107); Glucose 82 mg/dL (70-100); Potassium 3.4 mmol/L (3.5-5.1); Sodium 138 mmol/L (136-145)
[2019-01-05] MEDS: Budesonide/Formoterol 160/4.5 6 GM 60 PUFF INH IH ×2 (07:39→20:24)
[2019-01-05] MEDS: amLODIPine 5 MG TAB PO (07:59)
[2019-01-05] MEDS: FLUoxetine 20 MG CAP PO (08:00)
[2019-01-05] MEDS: Loratidine 10 MG TAB PO (08:00)
[2019-01-05] MEDS: Aspirin E.C. 325 MG TABEC PO (08:00)
[2019-01-05] MEDS: Metoprolol 50 MG TAB PO ×2 (08:00→20:23)
[2019-01-05 08:36] LABS: Diff Comment RBC Morph Reviewed; Macrocytosis 2+
[2019-01-05] MEDS: Triamcinolone 0.1% CR 15 GM TUBE TP (10:04)
[2019-01-05] MEDS: Potassium Chloride 20 MEQ TABCR 40 MEQ PO (10:49)
--- NOTE | 2019-01-05 14:10 | PDOC.CMPRO ---
Care Management Progress Note S/O: Jamilah was lying in bed when CM met with her. She was quite pleasant in interaction and shared concerns regarding returning home, possibly at a different functional level. CM reviewed hospitalization and safe discharge planning considerations and reviewed levels of support. Jamilah reporting her income monthly is approx $1,130: she reports having [employer] for prescription coverage. She reports being quite independent at baseline but shares concerns that it may take her a few weeks to return to her baseline. She will not consider SNF and reported she would consider other options reviewed by this specifications writer. A: 73 year old female admitted to [facility] 01/03/19 for Cellulitis, Drug Reaction P: CM reviewed community based supports with Jamilah including MOW and COA options counseling, SASH, VNA, home delivery. Jamilah reports wanting more help at home but is hesitant to agree and feels she will recover quickly once able to return home. CM continues to follow.
[2019-01-05] MEDS: Triamcinolone 0.1% CR 80 GM TUBE TP ×2 (14:56→20:24)
[2019-01-05 15:41] VITALS: BP 102/67; PULSE 81; RESP 18; TEMP 37; O2SAT 97
--- NOTE | 2019-01-05 16:42 | W.PM.PROGNOT ---
Date of Service Date of service: 01/05/19 Time of Service: 16:42 Assessment and Plan (1) Cellulitis: Current visit: Yes Status: Acute LLE - improving, but slowly Tolerating keflex - revisit tomorrow - if improving, ok to discharge home. If not, would convert to IV therapy. (2) Drug rash: Current visit: Yes Status: Acute Drug reaction to Bactrim - Slow to improve. Continue triamcinonolone (may have to upgrade to clobetasol). Will reassess in am. (3) CAD (coronary artery disease): Current visit: Yes Status: Chronic Continue daily ASA, statin, and BB. No signs/sx of ACS. (4) Hypertension: Current visit: Yes Status: Chronic Continue CCB, BB therapy. (5) DVT prophylaxis: Current visit: Yes Status: Acute SC Lovenox. Subjective Interval history since last seen: States she thinks her rash is getting better. Denies any lesions inside her mouth, but does have them outside on her lips. Rash is not itchy, but she has been picking at it. Denies dizziness, chest pain, shortness of breath, pain on swallowing, nausea, vomiting. Denies any genital lesions. Exam Narrative Exam Narrative: General: very pleasant elderly female, A&Ox3, seen picking at her crusted lesions and encouraged not to do that HEENT: EOMI, dry MM, crusted over lesions under the nose and around the mouth, but not inside the mouth Heart: RRR, no m/r/g Lungs: CTAB GI: abdomen is soft, nontender, nondistended Extremities: no e/c/c BLE's; maculopapular Rash B distal lower extremities, petechiae B feet. L tibial surface with an area of cellulitis, not actually adjacent to where the cat scratch was. Objective Objective Clinical Data: Abnormal lab results 01/05/19 01/05/19 Range/Units 06:37 06:37 RBC 2.94 L (4.00-5.20) m/cumm Hgb 11.4 L (12.0-15.5) g/dL Hct 33.1 L (36.0-46.0) % MCV 112.6 H (80-95) fL MCH 38.8 H (27.0-33.0) pg Absolute Lymphocytes 0.60 L (1.2-3.4) k/cumm Potassium 3.4 L (3.5-5.1) mmol/L Creatinine 0.52 L (0.55-1.02) mg/dL Calcium 8.1 L (8.5-10.1) mg/dL Vital Signs Temperature 37.0 C 01/05/19 15:41 Temperature Source Tympanic 01/05/19 15:41 Pulse 81 01/05/19 15:41 Pulse Rhythm Regular 01/04/19 20:03 Respiratory Rate 18 01/05/19 15:41 Respiratory Effort Non-Labored 01/05/19 04:36 Respiratory Depth Normal 01/05/19 04:36 Respiratory Pattern Normal 01/05/19 04:36 Blood Pressure 102/67 01/05/19 15:41 Blood Pressure Position Sitting 01/03/19 13:16 Pulse Oximetry 97 01/05/19 15:41 Oxygen Delivery Method Room Air 01/05/19 15:41 Oxygen Flow Rate 0 01/05/19 15:41 Pain Level 0 01/05/19 15:41 Comment 01/03/19 17:47 Intake & Output 01/04/19 01/05/19 01/05/19 23:59 11:59 23:59 Intake Total 2385 / 4477.5 2060 / 2840 780 / 2840 Balance 2385 / 4477.5 2060 / 2840 780 / 2840 Intake: IV 1895 / 3867.5 1500 / 1980 480 / 1980 Oral 490 / 610 560 / 860 300 / 860 Other: Urine Color Yellow Yellow Urine Appearance Clear Clear Urine Odor Normal Comment pt up to the bathroom several times this shift Stool Size Large Stool Characteristics Formed Brown Voiding Methods Toilet Toilet Toilet Laboratory Results WBC 5.03 k/cumm (4.4-10.8) 01/05/19 06:37 RBC 2.94 m/cumm (4.00-5.20) L 01/05/19 06:37 Hgb 11.4 g/dL (12.0-15.5) L 01/05/19 06:37 Hct 33.1 % (36.0-46.0) L 01/05/19 06:37 MCV 112.6 fL (80-95) H 01/05/19 06:37 MCH 38.8 pg (27.0-33.0) H 01/05/19 06:37 MCHC 34.4 g/dL (32.0-36.0) 01/05/19 06:37 RDW 13.4 % (11.7-14.6) 01/05/19 06:37 Plt Count 185 x1000/uL (130-400) 01/05/19 06:37 MPV 10.1 fL (8.0-11.0) 01/05/19 06:37 Immature Gran % 0.2 01/05/19 06:37 74.6 01/05/19 06:37 11.9 01/05/19 06:37 11.3 01/05/19 06:37 1.6 01/05/19 06:37 0.4 01/05/19 06:37 Absolute Neutrophils 3.75 k/cumm (1.2-6.7) 01/05/19 06:37 Absolute Lymphocytes 0.60 k/cumm (1.2-3.4) L 01/05/19 06:37 Absolute Monocytes 0.57 k/cumm (0.11-0.7) 01/05/19 06:37 Absolute Eosinophils 0.08 k/cumm (0.0-0.7) 01/05/19 06:37 Absolute Basophils 0.02 k/cumm (0.0-0.2) 01/05/19 06:37 Rbc morph reviewed 01/05/19 06:37 RBC Morphology See below 01/05/19 06:37 1+ 01/03/19 13:55 2+ 01/05/19 06:37 ESR 29 mm/hr (0-30) 01/03/19 13:55 PT 9.9 sec (9.3-11.0) 01/03/19 13:55 INR 1.0 (0.9-1.1) 01/03/19 13:55 APTT 22.3 sec (21.0-31.4) 01/03/19 13:55 Sodium 138 mmol/L (136-145) 01/05/19 06:37 Potassium 3.4 mmol/L (3.5-5.1) L 01/05/19 06:37 Chloride 104 mmol/L (98-107) 01/05/19 06:37 Carbon Dioxide 24.4 mmol/L (21.0-32.0) 01/05/19 06:37 9.6 mmol/L (3-11) 01/05/19 06:37 BUN 7 mg/dL (7-18) 01/05/19 06:37 0.52 mg/dL (0.55-1.02) L 01/05/19 06:37 >= 60.00 (mL/min/1.73m2) 01/05/19 06:37 Glucose 82 mg/dL (70-100) D 01/05/19 06:37 Calcium 8.1 mg/dL (8.5-10.1) L 01/05/19 06:37 1.3 mg/dL (0.2-1.0) H 01/03/19 14:47 AST 31 U/L (15-37) 01/03/19 14:47 ALT 14 U/L (12-78) 01/03/19 14:47 152 U/L (46-116) H 01/03/19 14:47 2.71 mg/dL (0.0-0.3) H 01/03/19 14:47 7.8 g/dL (6.4-8.2) 01/03/19 14:47 3.4 g/dL (3.4-5.0) 01/03/19 14:47 Yellow (Yellow) 01/03/19 17:00 Clear (Clear) 01/03/19 17:00 6.0 (5-8) 01/03/19 17:00 Ur Specific [place] <= 1.005 (1.005-1.025) 01/03/19 17:00 Negative mg/dL (Negative) 01/03/19 17:00 Trace mg/dL (Negative) H 01/03/19 17:00 Negative (Negative) 01/03/19 17:00 Negative (Negative) 01/03/19 17:00 Negative (Negative) 01/03/19 17:00 1.0 EU/dL (Up TO 0.2) H 01/03/19 17:00 Ur Leukocyte Esterase Moderate (Negative) H 01/03/19 17:00 Negative (0-2) 01/03/19 17:00 5-10 HPF (0-5) 01/03/19 17:00 Ur Epithelial Cells Moderate HPF (Negative) 01/03/19 17:00 Negative HPF (Negative) 01/03/19 17:00 Negative HPF (Negative) 01/03/19 17:00 Negative LPF (Negative) 01/03/19 17:00 Negative (Negative) 01/03/19 17:00 Negative (Negative) 01/03/19 17:00 Ur Culture Indicated? No/sq. contamination 01/03/19 17:00 Negative mg/dL (Negative) 01/03/19 17:00
[2019-01-05] MEDS: Enoxaparin 40 MG/0.4 ML SYR SC (17:30)
[2019-01-05] MEDS: Lovastatin 20 MG TAB PO (20:23)
[2019-01-05 20:28] VITALS: BP 115/73; PULSE 86; RESP 16; TEMP 37; O2SAT 96
[2019-01-06] MEDS: Cephalexin 500 MG CAP PO ×3 (01:05→11:24)
[2019-01-06] MEDS: Normal Saline 1,000 ML 150 ML IV (02:30)
[2019-01-06 07:50] LABS: Abs Immature Grans 0.02 k/cumm (0.0-0.09); Absolute Basophil Count 0.02 k/cumm (0.0-0.2); Absolute Eosinophil Count 0.12 k/cumm (0.0-0.7); Absolute Lymphocyte Count 0.75 k/cumm (1.2-3.4); Absolute Monocyte Count 0.39 k/cumm (0.11-0.7); Absolute Neutrophil Count 2.07 k/cumm (1.2-6.7); Basophils % 0.6; Eosinophils % 3.6; HCT 35.8 % (36.0-46.0); HGB 12.2 g/dL (12.0-15.5); Immature Grans % 0.6; Lymphocytes % 22.3; Mean Corp. HGB Concentration 34.1 g/dL (32.0-36.0); Mean Corpuscular Hemoglobin 38.6 pg (27.0-33.0); Mean Corpuscular Volume 113.3 fL (80-95); Mean Platelet Volume 9.5 fL (8.0-11.0); Monocytes % 11.6; Neutrophils % 61.3; Platelet Count 190 x1000/uL (130-400); RBC 3.16 m/cumm (4.00-5.20); RBC Distribution Width 13.5 % (11.7-14.6); White Blood Cell Count 3.37 k/cumm (4.4-10.8)
[2019-01-06 08:08] VITALS: BP 132/82; PULSE 82; RESP 17; TEMP 36.4; O2SAT 97
[2019-01-06 08:08] LABS: Basophilic Stippling Present; Diff Comment RBC Morph Reviewed; Macrocytosis 3+; Polychromasia Present
[2019-01-06 08:09] LABS: Anion Gap 9.1 mmol/L (3-11); BUN 10 mg/dL (7-18); C-Reactive Protein 0.86 mg/dL (0.0-0.3); CO2 25.9 mmol/L (21.0-32.0); Calcium 8.2 mg/dL (8.5-10.1); Chloride 102 mmol/L (98-107); Glucose 85 mg/dL (70-100); Magnesium 1.2 mg/dL (1.8-2.4); Potassium 3.7 mmol/L (3.5-5.1); Sodium 137 mmol/L (136-145)
[2019-01-06] MEDS: Budesonide/Formoterol 160/4.5 6 GM 60 PUFF INH IH ×2 (08:34→19:49)
[2019-01-06] MEDS: FLUoxetine 20 MG CAP PO (09:14)
[2019-01-06] MEDS: amLODIPine 5 MG TAB PO (09:14)
[2019-01-06] MEDS: Metoprolol 50 MG TAB PO (09:14)
[2019-01-06] MEDS: Aspirin E.C. 325 MG TABEC PO (09:15)
[2019-01-06] MEDS: Loratidine 10 MG TAB PO (09:15)
[2019-01-06] MEDS: predniSONE 20 MG TAB 40 MG PO (10:32)
[2019-01-06] MEDS: Normal Saline Flush 10 ML SYR IVP ×2 (11:07→19:51)
[2019-01-06] MEDS: Normal Saline 500 ML IV (11:23)
--- NOTE | 2019-01-06 11:24 | PDOC.CMPRO ---
Care Management Progress Note S/O: Jamilah was lying in bed when CM met with her. She reported feeling much more confident in returning home and feeling stronger and feels she will be able to manage without increased supports. CM continues to follow. A: 73 year old female admitted to [facility] 01/03/19 for Cellulitis, Drug Reaction P: CM reviewed community based supports with Jamilah including MOW and COA options counseling, SASH, VNA, home delivery. Jamilah reports feeling she will be able to manage on her own at home. CM continues to follow.
[2019-01-06] MEDS: MAGNESIUM SULFATE 4 GM/100 ML BAG IVPB (11:29)
[2019-01-06] MEDS: Triamcinolone 0.1% CR 80 GM TUBE TP ×3 (11:32→19:50)
[2019-01-06 15:25] VITALS: BP 126/64; PULSE 80; RESP 16; TEMP 36.6; O2SAT 98
--- NOTE | 2019-01-06 16:10 | PGE_ITS ---
Date of Service Date of service: 01/06/19 Time of Service: 16:11 Assessment and Plan (1) Cellulitis: Current visit: Yes Status: Acute LLE - improving slowly. Convert keflex to IV ancef. (2) Drug rash: Current visit: Yes Status: Acute Drug reaction to Bactrim - Slow to improve. Continue triamcinonolone (may have to upgrade to clobetasol). I added systemic prednisone and pepcid today. (3) CAD (coronary artery disease): Current visit: Yes Status: Chronic Continue daily ASA, statin, and BB. No signs/sx of ACS. (4) Hypertension: Current visit: Yes Status: Chronic Continue CCB, BB therapy. (5) DVT prophylaxis: Current visit: Yes Status: Acute SC Lovenox. Subjective Interval history since last seen: Ms Jiang states she is really looking forward to going home, but she is worried she may not be able to do everything she needs to for herself. She is requesting PT/OT consults. She thinks left her leg is less red and less swollen. The rash remains, it is not itchy and not tender. She denies dizziness, chest pain, shortness of breath, nausea. Exam Narrative Exam Narrative: General: very pleasant elderly female, A&Ox3, mildly anxious, sitting up in a chair HEENT: EOMI, MMM, crusted over lesions under the nose and around the mouth - look better; no stomatitis. Heart: RRR, no m/r/g Lungs: CTAB GI: abdomen is soft, nontender, nondistended Extremities: no e/c/c BLE's; maculopapular Rash B distal lower extremities, petechiae B feet - slightly better. L tibial surface with an area of cellulitis, not actually adjacent to where the cat scratch was - I am not sure that this truly looks better. Objective Objective Clinical Data: Abnormal lab results 01/06/19 01/06/19 Range/Units 07:30 07:30 WBC 3.37 L D (4.4-10.8) k/cumm RBC 3.16 L (4.00-5.20) m/cumm Hct 35.8 L (36.0-46.0) % MCV 113.3 H (80-95) fL MCH 38.6 H (27.0-33.0) pg Absolute Lymphocytes 0.75 L (1.2-3.4) k/cumm Calcium 8.2 L (8.5-10.1) mg/dL Magnesium 1.2 L (1.8-2.4) mg/dL C-Reactive Protein 0.86 H (0.0-0.3) mg/dL Vital Signs Temperature 36.6 C 01/06/19 15:25 Temperature Source Tympanic 01/06/19 15:25 Pulse 80 01/06/19 15:25 Pulse Rhythm Irregular 01/06/19 09:16 Respiratory Rate 16 01/06/19 15:25 Respiratory Effort Non-Labored 01/06/19 09:16 Respiratory Depth Normal 01/06/19 09:16 Respiratory Pattern Normal 01/06/19 09:16 Blood Pressure 126/64 01/06/19 15:25 Blood Pressure Position Sitting 01/03/19 13:16 Pulse Oximetry 98 01/06/19 15:25 Oxygen Delivery Method Room Air 01/06/19 15:25 Oxygen Flow Rate 0 01/06/19 15:25 Pain Level 0 01/06/19 08:08 Comment 01/03/19 17:47 Intake & Output 01/05/19 01/06/19 01/06/19 23:59 11:59 23:59 Intake Total 2205 / 4265 2355 / 2355 Balance 2205 / 4265 2355 / 2355 Intake: IV 1425 / 2925 1984 / 1984 Oral 780 / 1340 370 / 370 Other: Urine Color Yellow Urine Appearance Clear Clear Urine Odor Normal Comment pt up to the bathroom several times this shift Voided in toilet, not measured pt voiding independently in the bathroom Stool Size Small Stool Characteristics Liquid Liquid Brown Voiding Methods Toilet Toilet Laboratory Results WBC 3.37 k/cumm (4.4-10.8) L D 01/06/19 07:30 RBC 3.16 m/cumm (4.00-5.20) L 01/06/19 07:30 Hgb 12.2 g/dL (12.0-15.5) 01/06/19 07:30 Hct 35.8 % (36.0-46.0) L 01/06/19 07:30 MCV 113.3 fL (80-95) H 01/06/19 07:30 MCH 38.6 pg (27.0-33.0) H 01/06/19 07:30 MCHC 34.1 g/dL (32.0-36.0) 01/06/19 07:30 RDW 13.5 % (11.7-14.6) 01/06/19 07:30 Plt Count 190 x1000/uL (130-400) 01/06/19 07:30 MPV 9.5 fL (8.0-11.0) 01/06/19 07:30 Immature Gran % 0.6 01/06/19 07:30 61.3 01/06/19 07:30 22.3 01/06/19 07:30 11.6 01/06/19 07:30 3.6 01/06/19 07:30 0.6 01/06/19 07:30 Absolute Neutrophils 2.07 k/cumm (1.2-6.7) 01/06/19 07:30 Absolute Lymphocytes 0.75 k/cumm (1.2-3.4) L 01/06/19 07:30 Absolute Monocytes 0.39 k/cumm (0.11-0.7) 01/06/19 07:30 Absolute Eosinophils 0.12 k/cumm (0.0-0.7) 01/06/19 07:30 Absolute Basophils 0.02 k/cumm (0.0-0.2) 01/06/19 07:30 Rbc morph reviewed 01/06/19 07:30 RBC Morphology See below 01/06/19 07:30 Present 01/06/19 07:30 1+ 01/03/19 13:55 Present 01/06/19 07:30 3+ 01/06/19 07:30 ESR 29 mm/hr (0-30) 01/03/19 13:55 PT 9.9 sec (9.3-11.0) 01/03/19 13:55 INR 1.0 (0.9-1.1) 01/03/19 13:55 APTT 22.3 sec (21.0-31.4) 01/03/19 13:55 Sodium 137 mmol/L (136-145) 01/06/19 07:30 Potassium 3.7 mmol/L (3.5-5.1) 01/06/19 07:30 Chloride 102 mmol/L (98-107) 01/06/19 07:30 Carbon Dioxide 25.9 mmol/L (21.0-32.0) 01/06/19 07:30 9.1 mmol/L (3-11) 01/06/19 07:30 BUN 10 mg/dL (7-18) 01/06/19 07:30 0.60 mg/dL (0.55-1.02) 01/06/19 07:30 >= 60.00 (mL/min/1.73m2) 01/06/19 07:30 Glucose 85 mg/dL (70-100) 01/06/19 07:30 Calcium 8.2 mg/dL (8.5-10.1) L 01/06/19 07:30 Magnesium 1.2 mg/dL (1.8-2.4) L 01/06/19 07:30 1.3 mg/dL (0.2-1.0) H 01/03/19 14:47 AST 31 U/L (15-37) 01/03/19 14:47 ALT 14 U/L (12-78) 01/03/19 14:47 152 U/L (46-116) H 01/03/19 14:47 0.86 mg/dL (0.0-0.3) H 01/06/19 07:30 7.8 g/dL (6.4-8.2) 01/03/19 14:47 3.4 g/dL (3.4-5.0) 01/03/19 14:47 Yellow (Yellow) 01/03/19 17:00 Clear (Clear) 01/03/19 17:00 6.0 (5-8) 01/03/19 17:00 Ur Specific [place] <= 1.005 (1.005-1.025) 01/03/19 17:00 Negative mg/dL (Negative) 01/03/19 17:00 Trace mg/dL (Negative) H 01/03/19 17:00 Negative (Negative) 01/03/19 17:00 Negative (Negative) 01/03/19 17:00 Negative (Negative) 01/03/19 17:00 1.0 EU/dL (Up TO 0.2) H 01/03/19 17:00 Ur Leukocyte Esterase Moderate (Negative) H 01/03/19 17:00 Negative (0-2) 01/03/19 17:00 5-10 HPF (0-5) 01/03/19 17:00 Ur Epithelial Cells Moderate HPF (Negative) 01/03/19 17:00 Negative HPF (Negative) 01/03/19 17:00 Negative HPF (Negative) 01/03/19 17:00 Negative LPF (Negative) 01/03/19 17:00 Negative (Negative) 01/03/19 17:00 Negative (Negative) 01/03/19 17:00 Ur Culture Indicated? No/sq. contamination 01/03/19 17:00 Negative mg/dL (Negative) 01/03/19 17:00
[2019-01-06] MEDS: Lactobacillus Acidophilus CAP 1 CAP PO ×2 (16:33→19:47)
[2019-01-06] MEDS: Enoxaparin 40 MG/0.4 ML SYR SC (17:41)
[2019-01-06] MEDS: Famotidine 20 MG TAB PO (19:49)
[2019-01-06] MEDS: Lovastatin 20 MG TAB PO (19:49)
[2019-01-06] MEDS: Magnesium Chloride 64 MG TABCR PO (19:49)
[2019-01-06 23:22] VITALS: BP 119/77; PULSE 84; RESP 16; TEMP 36.7; O2SAT 97
[2019-01-07 07:45] LABS: Abs Immature Grans 0.02 k/cumm (0.0-0.09); Absolute Basophil Count 0.03 k/cumm (0.0-0.2); Absolute Eosinophil Count 0.03 k/cumm (0.0-0.7); Absolute Monocyte Count 0.56 k/cumm (0.11-0.7); Absolute Neutrophil Count 4.44 k/cumm (1.2-6.7); Basophils % 0.5; Eosinophils % 0.5; HCT 33.9 % (36.0-46.0); HGB 11.9 g/dL (12.0-15.5); Immature Grans % 0.4; Lymphocytes % 10.6; Mean Corp. HGB Concentration 35.1 g/dL (32.0-36.0); Mean Corpuscular Hemoglobin 39.4 pg (27.0-33.0); Mean Corpuscular Volume 112.3 fL (80-95); Mean Platelet Volume 10.4 fL (8.0-11.0); Monocytes % 9.9; Neutrophils % 78.1; Platelet Count 189 x1000/uL (130-400); RBC 3.02 m/cumm (4.00-5.20); RBC Distribution Width 13.1 % (11.7-14.6); White Blood Cell Count 5.68 k/cumm (4.4-10.8)
[2019-01-07 07:47] LABS: Anion Gap 7.9 mmol/L (3-11); BUN 20 mg/dL (7-18); CO2 27.1 mmol/L (21.0-32.0); Calcium 8.4 mg/dL (8.5-10.1); Chloride 102 mmol/L (98-107); Glucose 90 mg/dL (70-100); Magnesium 2.2 mg/dL (1.8-2.4); Potassium 3.9 mmol/L (3.5-5.1); Sodium 137 mmol/L (136-145)
[2019-01-07] MEDS: Budesonide/Formoterol 160/4.5 6 GM 60 PUFF INH IH ×2 (07:52→20:57)
[2019-01-07 08:17] VITALS: BP 124/84; PULSE 68; RESP 18; TEMP 36.6; O2SAT 97
[2019-01-07] MEDS: Magnesium Chloride 64 MG TABCR PO ×2 (09:13→20:56)
[2019-01-07] MEDS: FLUoxetine 20 MG CAP PO (09:14)
[2019-01-07] MEDS: Lactobacillus Acidophilus CAP 1 CAP PO ×3 (09:14→20:57)
[2019-01-07] MEDS: predniSONE 20 MG TAB 40 MG PO (09:15)
[2019-01-07] MEDS: Loratidine 10 MG TAB PO (09:15)
[2019-01-07] MEDS: Famotidine 20 MG TAB PO ×2 (09:15→20:57)
[2019-01-07] MEDS: Aspirin E.C. 325 MG TABEC PO (09:15)
[2019-01-07] MEDS: Metoprolol 50 MG TAB PO ×2 (09:16→20:57)
[2019-01-07] MEDS: amLODIPine 5 MG TAB PO (09:16)
[2019-01-07] MEDS: Normal Saline Flush 10 ML SYR IVP ×3 (09:17→21:48)
[2019-01-07] MEDS: Triamcinolone 0.1% CR 80 GM TUBE TP ×3 (09:18→20:57)
--- NOTE | 2019-01-07 09:18 | IN_ITS ---
Date of service: 01/07/19 Time of Service: 08:41 PT Notes Inpatient Physical Therapy Evaluation Date: 01/07/2019 Referring Doctor: Irlanda Tavarez MD PT Orders: PT CONSULT: Eval/treat Precautions: Fall. Standard. Patient Profile/Admitting Diagnosis: Patient is a 73-year-old female who presented to the ED on 01/03/2019 with chief complaints of leg left leg infection from a cat scratch last weekend. She was diagnosed with left leg cellulitis, drug-induced rash, CAD, and HTN. PMHX: Medical History (Updated 01/03/19 @ 18:43 by Fred Germain MD) Asthma (Chronic) CAD (coronary artery disease) (Chronic) Hyperlipidemia (Acute) Hypertension (Chronic) Social History/Home Situation: Patient lives alone and an apartment with 2 steps to enter, rails on both sides but she states that they are wide so she is only able to hold on one side at a time. She is independent with all aspects of ADLs and still drives. She goes to outpatient PT services under the minimally supervised program. Current Functional Limitations: None Equipment Owned/DME: None Subjective: Patient agreeable to a PT consult. She is pleasant and cooperative. She looks forward to going home today and is agreeable to continuing with outpatient physical therapy services as she had before. Objective: General Observation: Patient seen resting on recliner chair by the side of the bed. Erythema to distal half of left leg, scratch manuel seen on the left medial aspect middle shaft of the leg. Mental Status: Alert and oriented x4 Pain: 0/10 ROM: Right Lower Extremity: Hip flexion WFL. Hip abduction WFL. Knee flexion WFL. Ankle dorsiflexion WFL. Ankle plantarflexion WFL. Left Lower Extremity: Hip flexion WFL. Hip abduction WFL. Knee flexion WFL. Ankle dorsiflexion WFL. Ankle plantarflexion WFL. Strength: Right Lower Extremity: Hip flexors 4-/5. Hip abductors 4-/5. Knee flexors 4-/5. Knee extensors 4-/5. Ankle dorsiflexors 4-/5. Ankle plantarflexors 4-/5. Left Lower Extremity:Hip flexors 4/5. Hip abductors 4/5. Knee flexors 4/5. Knee extensors 4/5. Ankle dorsiflexors 4/5. Ankle plantarflexors 4/5. Sensation: Intact as to pain and pressure on bilateral lower extremities. Bed Mobility/Transfers: Rolling independent Supine to sit independent Sit to supine independent Sit to stand independent Stand to sit independent Bed to chair independent Chair to bed independent Gait: Patient was able to tolerate level surface ambulation of 150 feet without an assistive device with full weight bearing requiring only supervision from this therapist with minimal shortness of breath observed at the end of. Gait pattern on except for age-related decrease in gait velocity. Balance: Static Sitting: Normal Dynamic Sitting: Normal Static Standing: Good Dynamic Standing: Good Special Tests: Mobility Limitations Standardized Measure [facility] AM-PAC 6 clicks Basic Mobility Inpatient Short Form: Raw Score: 22 CMS Score: 20% deficit 30-second chair rice score 7 signifying fair lower extremity muscle strength and at moderate risk for falls. Informed Consent/Education: Patient instructed in purpose of PT consult and plan of care. Assessment: Patient presents with clinical signs and symptoms consistent with current/admitting diagnoses that have resulted to mobility limitations, gait instability, generalized weakness, and impairment of motor control as demonstrated by the following impairment level findings: 1. Decreased strength to B LE major muscle groups 2. Impaired sitting/standing balance 3. Impaired activity tolerance 4. Limitation of joint range of motion in [] Impairments are contributing to the following functional limitations: 1. Dependent bed mobility skills 2. Increased dependence with transfers 3. Inability to safely ambulate without assistive device and physical assistance 4. Increase completion time for mobility ADL performance 5. Increased fall risk 6. Inability to negotiate steps alone safely Patient is assessed as a 19269 low complexity based on the following: History: 73-year-old cognitively intact female with premorbid independent level now diagnosed with left leg cellulitis, drug rash, CAD, and hypertension Examination: Demonstrable impairment in strength, balance, and range of motion with underlying impairments and functional limitations as documented above Presentation:Evolving Decision Makin low complexity Goals: Goals X1 week 1. Supine-Sit independent 2. Sit-Supine independent 3. Sit-Stand independent 4. Stand-Sit independent 5. Bed-Chair independent 6. Chair-Bed independent 7. Independent gait on level surface with use of least restrictive device for at least 300 feet without report of pain nor dyspnea 8. Independent stair negotiation while holding onto bilateral rails for at least 10 steps without report of pain nor dyspnea 9. Independent with home exercise program 10. Good static and dynamic standing balance/tolerance Plan of Care/Treatment Plan: 1-2x/day, 7 days/week x 1 week. Plan of care has been reviewed with the [employer] providing the service under Physical Therapy direction. Initiate Physical Therapy intervention for strengthening, bed mobility, transfers, gait, stairs, balance training, use of assistive device. DISCHARGE RECOMMENDATIONS: Patient will benefit from outpatient PT services in order to progress mobility level using no device, assess home safety, identify additional equipment needs, and establish a functional maintenance program that will increase ability of patient to remain at home. TREATMENT CODE/TIME: 58619 x 27 minutes beginning at 8:41 AM. Thank you very much for this referral. Lanny Pedraza PT, DPT, CLT [facility]
--- NOTE | 2019-01-07 11:18 | OTIE_ITS ---
Occupational Therapy Notes Inpatient Occupational Therapy Evaluation Date: 01/07/19 Referring Doctor:Irlanda Tavarez MD OT Orders: Eval and Treat Precautions: Standard PATIENT PROFILE/ADMITTING DIAGNOSIS: Pt is a 73 year old female was admitted to [facility] for a drug rash and cellulitis in her (L) LE due to a cat scratch. She went to see her PCP who placed her on Bactrim. She had an allergic reaction to the drug and was admitted through the ER. Past Medical History: Medical History (Updated 01/03/19 @ 18:43 by Fred Germain MD) Asthma (Chronic) CAD (coronary artery disease) (Chronic) Hyperlipidemia (Acute) Hypertension (Chronic) Social History/Home Situation: Pt lives alone in an apartment in [facility] with her cat and dog. She is totally (I) at baseline with her ADLs/IADLs. She (I) drives and cooks and cleans. She notes that her car was recently told it was unsafe to drive. She is concerned about how she will get groceries when she gets home. She also states that this makes her worried about her meals because she knows she does not have food at home. Equipment owned/DME: Grab bars SUBJECTIVE: Pt was lying in bed when OT arrived. She was agreeable to OT session and notes that she at times is nervous about going back home. OBJECTIVE: General Observation: Pleasant and answers questions appropriately Mental Status: A&Ox4 Pain: no c/o pain ROM: RUE AROM WNL L UE AROM WNL STRENGTH: RUE 4/5 throughout LUE 4/5 throughout FUNCTIONAL MOBILITY/ADLS: Transfers no assistive device Supine-sit (I) Sit-Stand (I) Stand-sit (I) Bed-Chair (S) BATHING Sitting in chair Bathing UE (I) washing face Bathing LE NT DRESSING Sitting in chair Dressing UE NT Dressing LE (I) with don and doffing (B) socks, (I) with pulling up and down underwear. GROOMING Standing at sink (I) with brishing hair TOILETING on toilet, (I) EATING Sitting in chair (I) BALANCE: Static sitting Normal Dynamic Sitting Normal Static Standing Normal Dynamic Standing Good SPECIAL TESTS: Daily Activity Limitations Standardized Measure [facility] ?6 clicks? Daily Activity Inpatient Short Form: Raw score: 23 Standardized score: 51.12 CMS score: 15.86% INFORMED CONSENT/EDUCATION: Pt instructed in purpose of OT Consult and plan of care. ASSESSMENT: Patient is a 73-year-old female referred to occupational therapy services with diagnosis of drug rash and cellulitis. Patient presents with clinical signs and symptoms consistent with dx. Pt functionally is very (I) with her ADLs/IADLs. She is concerned about her community mobility with her car not being able to drive and her food because she has no way to get food. She has functional ROM required for ADLs. She is unsure about transferring in and out of her bathtub. Pt states that she is being discharged home today. If pt does not go home today OT will (A) pt with transfers in and out of tub/shower to increase (I) in her bathing routine. AMPAC score 23, CMS score 15.86% Patient is assessed as a Low 68835 complexity based on the following: History: See Above Examination: See Above Presentation: Evolving Decision Making: AMPAC score 23, CMS score 15.86% GOALS Goals x1 week 1. Transfers- Pt will be able to (I) transfer in and out of tub shower (I) without vc. PLAN OF CARE/TREATMENT PLAN: 1x/day, 5 days/ week x 1week Initiate Occupational Therapy Services for bathing, dressing, grooming, toileting, eating, transfer training. DISCHARGE RECOMMENDATIONS Home when medically cleared per MD. TREATMENT TIME/MINUTES/CODES 99737, 07901, 30 minutes (07:35) Simona He OTR/L [facility]
--- NOTE | 2019-01-07 13:42 | PT.INTREAT ---
Date of service: 01/07/19 Time of Service: 01:18 PT Notes Inpatient Physical Therapy Treatment Note [facility] Date: 01/07/2019 PRECAUTIONS: Fall. Standard. SUBJECTIVE: I need to build up my strength and need to get better at walking. Patient looks forward to going home whenever safe to do so. Patient denies dizziness, headache, and left leg pain throughout PT session. OBJECTIVE: Patient was in bathroom upon arrival of this PT. She was able to walk from bathroom back to chair on the side of the bed without any LOB. PAIN: 0/10 BED MOBILITY/TRANSFERS Rolling L/R: Independent Supine-sit: Independent Sit-supine: Independent Sit-stand: Independent Stand-sit: Independent Bed-Chair: Independent Chair-bed: Independent GAIT Assistive Device: No assistive device Weight bearing: FWB Assist: Supervision Distance: 150 feet on level surface ambulation with mild breathlessness observed. Deviation: Age-related decrease in gait velocity. THEREX: Patient was able to tolerate seated resistance exercises consisting of hip flexion, LAQ, hip ER/clamshell exercise, ankle eversion exercise. Patient was able to tolerate 30?second sit to stand exercises x6 with arms across chest. STAIRS: Patient was able to tolerate up-and-down three 4 inch steps and two 6 inch steps while holding onto one rail with only supervision assist provided without complaints of any discomfort on the left leg. ASSESSMENT: Patient demonstrates good tolerance to physical therapy session today without undue difficulty nor complaints of pain. PLAN: Continue per POC in anticipation of discharge to home whenever safe with plan to reinstate outpatient physical therapy services as previously. TREATMENT CODE/TIME: 9753 0 x 10 minutes, 9711 0 x 11 minutes, beginning at 1:18 PM.
--- NOTE | 2019-01-07 14:48 | PGE_ITS ---
Date of Service Date of service: 01/07/19 Time of Service: 14:48 Assessment and Plan (1) Cellulitis: Current visit: Yes Status: Acute LLE - much better on ancef. Will continue through tomorrow morning. (2) Drug rash: Current visit: Yes Status: Acute Drug reaction to Bactrim - improved. Continue triamcinonolone/hydrocortisone. Continue systemic prednisone (5 days total) and pepcid. (3) CAD (coronary artery disease): Current visit: Yes Status: Chronic Continue daily ASA, statin, and BB. No signs/sx of ACS. (4) Hypertension: Current visit: Yes Status: Chronic Continue CCB, BB therapy. (5) DVT prophylaxis: Current visit: Yes Status: Acute SC Lovenox. (6) Discharge planning issues: Current visit: Yes Status: Acute Full code Expected discharge tomorrow am with outpatient PT. Subjective Interval history since last seen: Ms Jiang states she is feeling better today. She recognizes her L leg looks better, but she is anxious about going home today because it's not yet back to normal. She did well with PT. Denies dizziness, chest pain, shortness of breath, nausea, vomiting. She feels she'll be ready to go home first thing tomorrow morning. Exam Narrative Exam Narrative: General: very pleasant elderly female, A&Ox3, mildly anxious, sitting up in a chair HEENT: EOMI, MMM, crusted over lesions under the nose and around the mouth are much improved, very few are still visible. Heart: RRR, no m/r/g Lungs: CTAB GI: abdomen is soft, nontender, nondistended Extremities: no e/c/c BLE's; maculopapular Rash B distal lower extremities - much better. L tibial surface with an area of cellulitis, much better, but still erythematous. Objective Objective Clinical Data: Abnormal lab results 01/07/19 01/07/19 Range/Units 06:25 06:25 RBC 3.02 L (4.00-5.20) m/cumm Hgb 11.9 L (12.0-15.5) g/dL Hct 33.9 L (36.0-46.0) % MCV 112.3 H (80-95) fL MCH 39.4 H (27.0-33.0) pg Absolute Lymphocytes 0.60 L (1.2-3.4) k/cumm BUN 20 H D (7-18) mg/dL Calcium 8.4 L (8.5-10.1) mg/dL Vital Signs Temperature 36.6 C 01/07/19 08:17 Temperature Source Tympanic 01/07/19 08:17 Pulse 68 01/07/19 08:17 Pulse Rhythm Regular 01/07/19 05:45 Respiratory Rate 18 01/07/19 08:17 Respiratory Effort Non-Labored 01/07/19 05:45 Respiratory Depth Normal 01/07/19 05:45 Respiratory Pattern Normal 01/07/19 05:45 Blood Pressure 124/84 01/07/19 08:17 Blood Pressure Position Sitting 01/03/19 13:16 Pulse Oximetry 97 01/07/19 08:17 Oxygen Delivery Method Room Air 01/07/19 08:17 Oxygen Flow Rate 0 01/07/19 08:17 Pain Level 0 01/07/19 08:17 Comment 01/03/19 17:47 Intake & Output 01/06/19 01/07/19 01/07/19 23:59 11:59 23:59 Intake Total 130 / 2485 830 / 1200 370 / 1200 Balance 130 / 2485 830 / 1200 370 / 1200 Intake: IV 1994 100 / 100 Oral 120 / 490 730 / 1100 370 / 1100 Other: Urine Appearance Clear Comment pt voiding independently in the bathroom Laboratory Results WBC 5.68 k/cumm (4.4-10.8) D 01/07/19 06:25 RBC 3.02 m/cumm (4.00-5.20) L 01/07/19 06:25 Hgb 11.9 g/dL (12.0-15.5) L 01/07/19 06:25 Hct 33.9 % (36.0-46.0) L 01/07/19 06:25 MCV 112.3 fL (80-95) H 01/07/19 06:25 MCH 39.4 pg (27.0-33.0) H 01/07/19 06:25 MCHC 35.1 g/dL (32.0-36.0) 01/07/19 06:25 RDW 13.1 % (11.7-14.6) 01/07/19 06:25 Plt Count 189 x1000/uL (130-400) 01/07/19 06:25 MPV 10.4 fL (8.0-11.0) 01/07/19 06:25 Immature Gran % 0.4 01/07/19 06:25 78.1 01/07/19 06:25 10.6 01/07/19 06:25 9.9 01/07/19 06:25 0.5 01/07/19 06:25 0.5 01/07/19 06:25 Absolute Neutrophils 4.44 k/cumm (1.2-6.7) 01/07/19 06:25 Absolute Lymphocytes 0.60 k/cumm (1.2-3.4) L 01/07/19 06:25 Absolute Monocytes 0.56 k/cumm (0.11-0.7) 01/07/19 06:25 Absolute Eosinophils 0.03 k/cumm (0.0-0.7) 01/07/19 06:25 Absolute Basophils 0.03 k/cumm (0.0-0.2) 01/07/19 06:25 Rbc morph reviewed 01/06/19 07:30 RBC Morphology See below 01/06/19 07:30 Present 01/06/19 07:30 1+ 01/03/19 13:55 Present 01/06/19 07:30 3+ 01/06/19 07:30 ESR 29 mm/hr (0-30) 01/03/19 13:55 PT 9.9 sec (9.3-11.0) 01/03/19 13:55 INR 1.0 (0.9-1.1) 01/03/19 13:55 APTT 22.3 sec (21.0-31.4) 01/03/19 13:55 Sodium 137 mmol/L (136-145) 01/07/19 06:25 Potassium 3.9 mmol/L (3.5-5.1) 01/07/19 06:25 Chloride 102 mmol/L (98-107) 01/07/19 06:25 Carbon Dioxide 27.1 mmol/L (21.0-32.0) 01/07/19 06:25 7.9 mmol/L (3-11) 01/07/19 06:25 BUN 20 mg/dL (7-18) H D 01/07/19 06:25 0.70 mg/dL (0.55-1.02) 01/07/19 06:25 >= 60.00 (mL/min/1.73m2) 01/07/19 06:25 Glucose 90 mg/dL (70-100) 01/07/19 06:25 Calcium 8.4 mg/dL (8.5-10.1) L 01/07/19 06:25 Magnesium 2.2 mg/dL (1.8-2.4) 01/07/19 06:25 1.3 mg/dL (0.2-1.0) H 01/03/19 14:47 AST 31 U/L (15-37) 01/03/19 14:47 ALT 14 U/L (12-78) 01/03/19 14:47 152 U/L (46-116) H 01/03/19 14:47 0.86 mg/dL (0.0-0.3) H 01/06/19 07:30 7.8 g/dL (6.4-8.2) 01/03/19 14:47 3.4 g/dL (3.4-5.0) 01/03/19 14:47 Yellow (Yellow) 01/03/19 17:00 Clear (Clear) 01/03/19 17:00 6.0 (5-8) 01/03/19 17:00 Ur Specific [place] <= 1.005 (1.005-1.025) 01/03/19 17:00 Negative mg/dL (Negative) 01/03/19 17:00 Trace mg/dL (Negative) H 01/03/19 17:00 Negative (Negative) 01/03/19 17:00 Negative (Negative) 01/03/19 17:00 Negative (Negative) 01/03/19 17:00 1.0 EU/dL (Up TO 0.2) H 01/03/19 17:00 Ur Leukocyte Esterase Moderate (Negative) H 01/03/19 17:00 Negative (0-2) 01/03/19 17:00 5-10 HPF (0-5) 01/03/19 17:00 Ur Epithelial Cells Moderate HPF (Negative) 01/03/19 17:00 Negative HPF (Negative) 01/03/19 17:00 Negative HPF (Negative) 01/03/19 17:00 Negative LPF (Negative) 01/03/19 17:00 Negative (Negative) 01/03/19 17:00 Negative (Negative) 01/03/19 17:00 Ur Culture Indicated? No/sq. contamination 01/03/19 17:00 Negative mg/dL (Negative) 01/03/19 17:00 Path Cons Comment 01/06/19 07:30
--- NOTE | 2019-01-07 15:36 | CHAPLAIN ---
Jamilah was sitting up in a chair having her lunch when I visited. She said she is feeling better and more confident about going home. She has been doing PT with therapists that she knows and she said she is feeling ready to go home. Her face looks much more clear today than when I saw her on Monday (01/04). She is looking forward to being home with her cat and dog, and getting out to do some walking. She drove herself here last week and a friend then came and picked up her car to take it to her electric shaver mechanic. Since looking at the car, her electric shaver mechanic has told her she shouldn't be driving this one and so she needs to get a new one, so this is a new worry for her.
[2019-01-07 16:09] VITALS: BP 98/66; PULSE 76; RESP 18; TEMP 36.6; O2SAT 99
--- NOTE | 2019-01-07 16:09 | PDOC.CMPRO ---
- If Service Date Differs Date of service: 01/07/19 Time of Service: 16:09 Care Management Progress Note S/O: CM met with Jamilah at the bedside she is alert she engaged with PT today and did well. PT recommends out patient PT Jamilah will consider. She is not ready for discharge home today anticipate she will be discharged on Monday pending improvement of cellutlitis. A:Jamilah is a 73 year old female admitted with Cellulitis, and Drug reaction. P: Jamilah continues to be monitored as inpatient and receive IV antibiotics. Anticipate she will be discharged home with outpatient PT services she will need a referral. Her car is here in the parking lot and she will transport herself home when medically ready.
[2019-01-07] MEDS: Enoxaparin 40 MG/0.4 ML SYR SC (17:24)
[2019-01-07] MEDS: Lovastatin 20 MG TAB PO (20:57)
[2019-01-07] MEDS: Normal Saline 500 ML IV (21:48)
[2019-01-08 00:04] VITALS: BP 127/79; PULSE 80; RESP 16; TEMP 36.8; O2SAT 97
[2019-01-08 07:20] VITALS: BP 127/80; PULSE 73; RESP 19; TEMP 37; O2SAT 98
[2019-01-08] MEDS: Budesonide/Formoterol 160/4.5 6 GM 60 PUFF INH IH (08:08)
--- NOTE | 2019-01-08 08:24 | PDOC.CMPRO ---
Care Management Progress Note Jamilah will transport home via private car with friend she had her car brought home. She would like to attend PT through [facility] and will need a referral at time of discharge. Addendum dictated by Liza Zambrano 01/07/192233 <Electronically signed by Liza Zambrano > 01/07/192233 Transcribed By: Liza Zambrano 01/07/192233 Cosigned by - If Service Date Differs Date of service: 01/07/19 Time of Service: 16:09 Care Management Progress Note S/O: CM met with Jamilah at the bedside she is alert she engaged with PT today and did well. PT recommends out patient PT Jamilah will consider. She is not ready for discharge home today anticipate she will be discharged on Monday pending improvement of cellutlitis. A:Jamilah is a 73 year old female admitted with Cellulitis, and Drug reaction. P: Jamilah continues to be monitored as inpatient and receive IV antibiotics. Anticipate she will be discharged home with outpatient PT services she will need a referral. Her car is here in the parking lot and she will transport herself home when medically ready. cc:
[2019-01-08] MEDS: Triamcinolone 0.1% CR 80 GM TUBE TP (09:05)
[2019-01-08] MEDS: Lactobacillus Acidophilus CAP 1 CAP PO (09:06)
[2019-01-08] MEDS: Famotidine 20 MG TAB PO (09:06)
[2019-01-08] MEDS: amLODIPine 5 MG TAB PO (09:06)
[2019-01-08] MEDS: Magnesium Chloride 64 MG TABCR PO (09:06)
[2019-01-08] MEDS: FLUoxetine 20 MG CAP PO (09:06)
[2019-01-08] MEDS: Aspirin E.C. 325 MG TABEC PO (09:06)
[2019-01-08] MEDS: Loratidine 10 MG TAB PO (09:06)
[2019-01-08] MEDS: predniSONE 20 MG TAB 40 MG PO (09:06)
[2019-01-08] MEDS: Metoprolol 50 MG TAB PO (09:07)
--- NOTE | 2019-01-08 10:10 | OT.INDS ---
Date of service: 01/08/19 Time of Service: 09:25 Occupational Therapy Notes Occupational Therapy Inpatient Discharge Summary Date: 01/08/19 Dates of Service: 01/07/19-01/08/19 Referring Doctor:Irlanda Tavarez MD OT Orders: Eval and Treat Precautions: Standard PATIENT PROFILE/ADMITTING DIAGNOSIS: Pt is a 73 year old female was admitted to [facility] for a drug rash and cellulitis in her (L) LE due to a cat scratch. She went to see her PCP who placed her on Bactrim. She had an allergic reaction to the drug and was admitted through the ER. Past Medical History: Medical History (Updated 01/03/19 @ 18:43 by Fred Germain MD) Asthma (Chronic) CAD (coronary artery disease) (Chronic) Hyperlipidemia (Acute) Hypertension (Chronic) Social History/Home Situation: Pt lives alone in an apartment in [facility] with her cat and dog. She is totally (I) at baseline with her ADLs/IADLs. She (I) drives and cooks and cleans. She notes that her car was recently told it was unsafe to drive. She is concerned about how she will get groceries when she gets home. She also states that this makes her worried about her meals because she knows she does not have food at home. Equipment owned/DME: Grab bars SUBJECTIVE: Pt was sitting in chair when OT arrived. She was agreeable to OT session and states that she plans to return home today. OBJECTIVE: ROM: RUE AROM WNL L UE AROM WNL STRENGTH: RUE 4/5 throughout LUE 4/5 throughout FUNCTIONAL MOBILITY/ADLS: Transfers no assistive device Supine-sit (I) Sit-Stand (I) Stand-sit (I) Bed-Chair (S) BATHING Sitting in chair Bathing UE (I) washing face standing at sink Transfers into bathtub- (I) with use of grab bar which pt has in her home environment. DRESSING Sitting in chair Dressing LE (I) with don and doffing (B) socks, (I) with pulling up and down underwear. GROOMING Standing at sink (I) with brushing hair, (I) brushing teeth TOILETING on toilet, (I) EATING Sitting in chair (I) BALANCE: Static sitting Normal Dynamic Sitting Normal Static Standing Normal Dynamic Standing Good ASSESSMENT: Patient is a 73-year-old female referred to occupational therapy services with diagnosis of drug rash and cellulitis. Patient was nervous at initial evaluation about going home and performing her ADLs. Based on assessment today she is totally (I) in her ADL routines and back to her baseline level of function. Pt was able to demonstrate increased (I) in transfers into bathtub. She performed this with out need of vc and (I). OT does feel that pt will be able to perform her ADLs safely in her home environment. OT will plan to discharge pt from skilled OT services at this time. GOALS- Met 1. Transfers- Pt will be able to (I) transfer in and out of tub shower (I) without vc. PLAN OF CARE/TREATMENT PLAN: Discharge pt from skilled OT services. DISCHARGE RECOMMENDATIONS Home when medically cleared per MD. OT recommends a shower seat/bench to increase pts functional safety with bathing routine. TREATMENT TIME/MINUTES/CODES [id number], 25 minutes (09:25) [facility]
--- NOTE | 2019-01-08 12:07 | W.PM.DS.N ---
Date of service: 01/08/19 Time of Service: 12:07 DS: Diagnosis Discharge Diagnosis (1) Cellulitis: Status: Acute (2) Drug rash: Status: Acute (3) CAD (coronary artery disease): Status: Chronic (4) Hypertension: Status: Chronic Discharge Plan Disposition Patient Disposition: HOME Condition: Improving Discharge Details Chief Complaint: RashLesion Clinical Impression: Drug rash, Cellulitis Reason For Visit: CELLULITIS, DRUG REACTION Admit Date/Time: 01/03/19 16:27 Admit Provider: Fred Germain Attending Provider: Fred Germain Primary Care Provider: Jose Gonzalez ED Provider: Tariq Monsivais Hospital Course Hospital Course: Jamilah Jiang is a very pleasant 73-year-old female with a past medical history significant for asthma, coronary artery disease, hypertension, allergic rhinitis and cataracts. She presented to the emergency department on 01/03/2019 with left lower extremity cellulitis and a drug rash. She reported that her cat had previously scratched her, she reports that she picked at the site, she subsequently saw her primary care provider who prescribed Bactrim. Unfortunately, after 4 doses of this medication she developed an onset of a fairly diffuse rash that involved her extremities, back, and face. She presented to the ED for further evaluation. Work-up revealed evidence of a mild leukocytosis, but she was afebrile, normotensive, and nontachycardic. Discussion with Derm via ED provider provided likely diagnosis of drug rash as opposed to Tapia Nikhil Syndrome or Toxic Epidermal Necrolysis. She was admitted for further evaluation and treatment of both the rash and the cellulitis. She was initially placed on oral cephalexin for the cellulitis. Dermatology recommendations included low potency topical steroids to her face and higher potency steroids topically to her body with consideration of an H1 onofre and prednisone if indicated. Her cellulitis was slow to improve, she was transitioned to IV Ancef with improvement in her cellulitis. She admits to significant improvement in the swelling and erythema of her left lower leg. Her drug rash was slow to resolve using only topical steroids, Pepcid and prednisone were added. She is currently on day #3 of a 5-day prednisone burst. Given the improvement in her cellulitis with Ancef, she will transition back to oral cephalexin to complete her antibiotic course (currently on day #5 of antibiotic therapy, will write for 5 more days due to intensity of cellulitis and slow response, her PCP will determine actual length of therapy based on evaluation at follow-up visit). She will remain on probiotics. She will complete her prednisone burst as an outpatient. She will follow-up with her primary care provider as scheduled, within the next week. In regard to her coronary artery disease, appear to remain quiescent. She remained on her usual aspirin, statin and beta-onofre dosing as well as her calcium channel onofre for her hypertension. She remained on her usual inhaled corticosteroids for asthma. She will resume her usual medications upon discharge home. Home Meds and New Rx's Prescriptions: New prednisone 20 mg Tablet 40 mg PO DAILY Qty: 4 RF: 0 famotidine 20 mg Tablet 20 mg PO BID Qty: 14 RF: 0 hydrocortisone 2.5 % Cream 0 g topical TID Qty: 0 RF: 0 acidophilus-pectin, citrus 25 million cell -100 mg Tablet 1 cap PO TID Qty: 21 RF: 0 magnesium chloride [Mag 64] 64 mg Tablet,Delayed Release (Dr/Ec) 64 mg PO DAILY Qty: 14 RF: 0 triamcinolone acetonide 0.1 % Cream 0 g topical TID Qty: 0 RF: 0 cephalexin [Keflex] 500 mg capsule 500 mg PO Q6H Qty: 20 RF: 0 Continued aspirin, buffered 325 MG tablet 325 mg PO DAILY RF: 0 lovastatin 20 MG tablet 20 mg PO QPM RF: 0 fluoxetine 20 MG capsule 20 mg PO DAILY RF: 0 loratadine [Claritin] 10 MG tablet 10 mg PO DAILY RF: 0 amlodipine 5 MG tablet 5 mg PO DAILY RF: 0 metoprolol tartrate 50 MG tablet 50 mg PO BID RF: 0 nitroglycerin [Nitrostat] 0.4 MG tablet, sublingual 0.4 mg Sublingual DIRECTED RF: 0 albuterol sulfate [Ventolin HFA] 200 PUFF HFA aerosol inhaler 1 - 2 puff Inhalation QID PRN PRNRF: 0 Symbicort 60 PUFF HFA aerosol inhaler 1 puff Inhalation BID RF: 0 Discontinued bacitracin 500 unit/gram Ointment 1 applic TOPICAL DAILY RF: 0 sulfamethoxazole-trimethoprim [Bactrim DS] 800-160 mg Tablet 1 tab PO BID RF: 0 Discharge Instructions Instructions: Cellulitis (DC), Adverse Drug Reaction (GEN) Additional Instructions: Continue taking prednisone for 2 more days. Continue topical treatment per nursing instructions. Take antibiotics until they are gone (unless directed otherwise by PCP). Continue taking probiotics. Continue taking Pepcid. Your magnesium was low, continue daily magnesium supplementation. Follow up with your PCP as scheduled. Take care! Stand Alone Forms: Nursing Discharge Form Referrals: Barbara Elena [ [facility] STAFF PHYSICIAN] - 01/11/19 1:15 pm Activity:: Activity as Tolerated Equipment/Supplies:: No Equipment Needed Diet:: Heart healthy as tolerated. Discharge Orders Discharge Orders: Discharge Order (Routine); Ordered 01/08/19 Ordered By: Lola Iglesias Exam Narrative Exam Narrative: General: very pleasant, elderly female, A&Ox3, sitting up in a chair, in NAD. HEENT: EOMI, MMM, crusted over lesions around Right nare, right-side lower lip and to chin clearing. Heart: heart has regular rate and rhythm, no murmur appreciated. Lungs: Respirations even and unlabored, lung sounds clear to auscultation bilaterally. GI: normal bowel sounds, abdomen is soft, nontender on plapation, nondistended Extremities: No clubbing, cyanosis or edema. Erythema noted to distal 1/3 of tibial surface with dry, flaking skin. Maculopapular rash to bilateral distal lower extremities improving (left > right). DS: Data Vitals/I&O Vitals and I&O: Vital Signs Temperature 37.0 C 01/08/19 07:20 Temperature Source Tympanic 01/08/19 07:20 Pulse 73 01/08/19 07:20 Pulse Rhythm Regular 01/08/19 04:00 Respiratory Rate 19 01/08/19 07:20 Respiratory Effort Non-Labored 01/08/19 04:00 Respiratory Depth Normal 01/08/19 04:00 Respiratory Pattern Normal 01/08/19 04:00 Blood Pressure 127/80 01/08/19 07:20 Blood Pressure Position Sitting 01/03/19 13:16 Pulse Oximetry 98 01/08/19 07:20 Oxygen Delivery Method Room Air 01/08/19 07:20 Oxygen Flow Rate 0 01/08/19 07:20 Pain Level 0 01/08/19 07:20 Comment 01/03/19 17:47 Intake & Output 08/05/1601/08/19 01/08/19 23:59 11:59 23:59 Intake Total 940.344 / 1780.344 350 / 350 Balance 940.344 / 1780.344 350 / 350 Intake: IV 210.344 / 320.344 100 / 100 Oral 730 / 1460 250 / 250 Other: Urine Appearance Clear Completed studies during hospitalization [Text1]: 01/03/19: PA AND LATERAL CHEST: The heart is not enlarged. The lungs are predominantly clear and mildly hyperinflated. No pleural effusion seen. CONCLUSION: No evidence of acute disease. [facility] Medical History Asthma (Chronic) CAD (coronary artery disease) (Chronic) Hyperlipidemia (Acute) Hypertension (Chronic) Social History Smoking/Tobacco Use Status: Former Tobacco Use Drug use: Never Do you feel safe at home: Yes Do you feel safe in your relationship?: Yes
--- NOTE | 2019-01-08 12:48 | PT.INDS ---
Date of service: 01/08/19 Time of Service: 10:26 PT Notes Inpatient Physical Therapy Discharge Summary Dates: 01/08/2019 Dates of Service: 01/07/2019 through 01/08/2019 Referring Doctor: Irlanda Tavarez MD PT Orders: PT CONSULT: Eval/treat Precautions: Fall. Standard. Patient Profile/Admitting Diagnosis: Patient is a 73-year-old female who presented to the ED on 01/03/2019 with chief complaints of leg left leg infection from a cat scratch last weekend. She was diagnosed with left leg cellulitis, drug-induced rash, CAD, and HTN. PMHX: Medical History (Updated 01/03/19 @ 18:43 by Fred Germain MD) Asthma (Chronic) CAD (coronary artery disease) (Chronic) Hyperlipidemia (Acute) Hypertension (Chronic) Social History/Home Situation: Patient lives alone and an apartment with 2 steps to enter, rails on both sides but she states that they are wide so she is only able to hold on one side at a time. She is independent with all aspects of ADLs and still drives. She goes to outpatient PT services under the minimally supervised program. Current Functional Limitations: None Equipment Owned/DME: None Subjective: Patient agreeable to a PT session. She looks forward to going home today and is agreeable to continuing with outpatient physical therapy services as she had before. Objective: General Observation: Patient seen resting on recliner chair by the side of the bed. Erythema to distal half of left leg, scratch manuel seen on the left medial aspect middle shaft of the leg. Mental Status: Alert and oriented x4 Pain: 0/10 ROM: Right Lower Extremity: Hip flexion WFL. Hip abduction WFL. Knee flexion WFL. Ankle dorsiflexion WFL. Ankle plantarflexion WFL. Left Lower Extremity: Hip flexion WFL. Hip abduction WFL. Knee flexion WFL. Ankle dorsiflexion WFL. Ankle plantarflexion WFL. Strength: Right Lower Extremity: Hip flexors 4-/5. Hip abductors 4-/5. Knee flexors 4-/5. Knee extensors 4-/5. Ankle dorsiflexors 4-/5. Ankle plantarflexors 4-/5. Left Lower Extremity:Hip flexors 4/5. Hip abductors 4/5. Knee flexors 4/5. Knee extensors 4/5. Ankle dorsiflexors 4/5. Ankle plantarflexors 4/5. Sensation: Intact as to pain and pressure on bilateral lower extremities. Bed Mobility/Transfers: Rolling independent Supine to sit independent Sit to supine independent Sit to stand independent Stand to sit independent Bed to chair independent Chair to bed independent Gait: Patient was able to tolerate level surface ambulation of 300 feet without an assistive device with full weight bearing requiring only supervision from this therapist with minimal shortness of breath observed at the end of. Gait pattern unremarkable except for age-related decrease in gait velocity. Balance: Static Sitting: Normal Dynamic Sitting: Normal Static Standing: Good Dynamic Standing: Good 30-second chair rice score 9 signifying fair lower extremity muscle strength and at low risk for falls. Goals: Goals X1 week 1. Supine-Sit independent MET 2. Sit-Supine independent MET 3. Sit-Stand independent MET 4. Stand-Sit independent MET 5. Bed-Chair independent MET 6. Chair-Bed independent MET 7. Independent gait on level surface with use of least restrictive device for at least 300 feet without report of pain nor dyspnea MET 8. Independent stair negotiation while holding onto bilateral rails for at least 10 steps without report of pain nor dyspnea MET 9. Independent with home exercise program MET 10. Good static and dynamic standing balance/tolerance MET DISCHARGE RECOMMENDATIONS: Patient will benefit from outpatient PT services in order to progress mobility level using no device, assess home safety, identify additional equipment needs, and establish a functional maintenance program that will increase ability of patient to remain at home. TREATMENT CODE/TIME: TX Thank you very much for this referral. Lanny Pedraza PT, DPT, CLT [facility]
--- NOTE | 2019-01-08 14:24 | CHAPLAIN ---
Jamilah said she expects to go home today. She feels like the works she has done with PT has gotten her back in shape enough to head home, and she'll be going to PT after she is discharged. She seemed especially pleased about this. Her major concern now is getting a new car. Her ceramic tile mechanic told her that her current car is no longer safe to drive. Not having a car would be difficult, she said.
--- NOTE | 2019-01-08 17:38 | PDOC.CMDIS ---
LACE Index Scoring Tool - Questions: Length of Stay (in days): 4 - 6 Acuity (Admit via E.D.?): Yes E.D. Visits: 2 - Answers: Total Score: 9 Risk of Readmission: Low Risk Care Management Discharge Reason for Hospitalization: Cellulitis, Drug reaction Discharge Plan: Jamilah will return home when medically cleared for discharge. No services needed. Friend will transport by car. Patient/Family Education Needs: Discharge instructions.
== END 2019-01-08 14:08 | disposition home or self-care (01) | DRG 603 ==
LOC: ER 16:58 → MS 17:25
PROVIDERS: Internal Medicine; Admitting Provider Internal Medicine; Emergency Provider Nurse Practitioner Family; PCP Internal Medicine; Visit Provider Nurse Practitioner
DX: L03.116 Cellulitis of left lower limb (principal); L27.0 Generalized skin eruption due to drugs and medicaments taken internally; T36.8X5A Adverse effect of other systemic antibiotics, initial encounter; S80.812A Abrasion, left lower leg, initial encounter; W55.03XA Scratched by cat, initial encounter; I25.10 Atherosclerotic heart disease of native coronary artery without angina pectoris; I10 Essential (primary) hypertension; Z88.0 Allergy status to penicillin
CPT/HCPCS: 36415; 80048; 80053; 85652; 94640; 96361; 96365; 97110; 97161; 97165; 97530; 97535; 99219; 99232; 99239; 99285; J1650; 71046; 81003; 81015; 83735; 85025; 85610; 85730; 86140; 99222; 99284; J0690; J0744; J2930; J3475; J7512

== ENCOUNTER 2019-01-18 16:52 | Outpatient (REF) | payer MEDICARE, SELFPAY ==
[2019-01-18 21:21] LABS: Folate 3.5 ng/mL (8.6-20.0); Vitamin B12 189 pg/mL (193-986)
== END 2019-01-18 17:12 ==
LOC: NCHCN 16:52
PROVIDERS: PCP Internal Medicine; Visit Provider Internal Medicine
DX: D75.89 Other specified diseases of blood and blood-forming organs (principal)
CPT/HCPCS: 82607; 82746

== ENCOUNTER 2019-04-04 13:23 | Outpatient (REF) | payer MEDICARE, SELFPAY ==
[2019-04-04 22:13] LABS: HCT 41.5 % (36.0-46.0); HGB 14.2 g/dL (12.0-15.5); Mean Corp. HGB Concentration 34.2 g/dL (32.0-36.0); Mean Corpuscular Hemoglobin 36.6 pg (27.0-33.0); Platelet Count 216 x1000/uL (130-400); RBC 3.88 m/cumm (4.00-5.20); RBC Distribution Width 12.6 % (11.7-14.6); White Blood Cell Count 7.37 k/cumm (4.4-10.8)
[2019-04-04 23:07] LABS: Vitamin B12 1850 pg/mL (193-986)
[2019-04-04 23:18] LABS: Folate > 20.0 ng/mL (8.6-20.0)
== END 2019-04-04 13:43 ==
LOC: NCHCN 13:23
PROVIDERS: PCP Internal Medicine; Visit Provider Internal Medicine
DX: E53.8 Deficiency of other specified B group vitamins (principal); D53.1 Other megaloblastic anemias, not elsewhere classified; D75.89 Other specified diseases of blood and blood-forming organs
CPT/HCPCS: 85027; 82607; 82746

== ENCOUNTER 2019-11-19 21:39 | Outpatient (REF) | payer MEDICARE, SELFPAY ==
[2019-11-19 20:42] LABS: HCT 37.5 % (36.0-46.0); HGB 12.7 g/dL (12.0-15.5); Mean Corp. HGB Concentration 33.9 g/dL (32.0-36.0); Mean Corpuscular Hemoglobin 36.7 pg (27.0-33.0); Mean Corpuscular Volume 108.4 fL (80-95); Platelet Count 159 x1000/uL (130-400); RBC 3.46 m/cumm (4.00-5.20); RBC Distribution Width 12.9 % (11.7-14.6); White Blood Cell Count 5.56 k/cumm (4.4-10.8)
[2019-11-19 21:26] LABS: ALT 18 U/L (14-59); AST 42 U/L (15-37); Albumin 3.5 g/dL (3.4-5.0); Alkaline Phosphatase 129 U/L (46-116); Anion Gap 7.8 mmol/L (3-11); BUN 11 mg/dL (7-18); CO2 27.2 mmol/L (21.0-32.0); CREATININE 0.95 mg/dL (0.55-1.02); Calcium 9.1 mg/dL (8.5-10.1); Chloride 98 mmol/L (98-107); Estimated GFR 57.35 (mL/min/1.73m2); Folate 16.4 ng/mL (8.6-20.0); Glucose 93 mg/dL (74-106); Potassium 4.7 mmol/L (3.5-5.1); Sodium 133 mmol/L (136-145); TSH 4.04 uIU/mL (0.36-3.74); Total Protein 7.3 g/dL (6.4-8.2); Vitamin B12 415 pg/mL (193-986)
[2019-11-19 22:58] LABS: FREE T4 0.98 ng/dL (0.76-1.46)
[2019-11-21 12:54] LABS: Albumin 52.5 % (55.8-66.1); Total Protein 7.4 g/dL (6.3-8.2)
== END 2019-11-19 21:59 ==
LOC: NCHCN 21:39
PROVIDERS: PCP Internal Medicine; Visit Provider Internal Medicine
DX: D53.1 Other megaloblastic anemias, not elsewhere classified (principal); E53.8 Deficiency of other specified B group vitamins; I10 Essential (primary) hypertension; G60.9 Hereditary and idiopathic neuropathy, unspecified
CPT/HCPCS: 80053; 85027; 82607; 82746; 84165; 84439; 84443

== ENCOUNTER 2019-12-20 21:56 | Outpatient (REF) | payer MEDICARE, SELFPAY ==
[2019-12-20 21:01] LABS: HCT 38.9 % (36.0-46.0); HGB 13.4 g/dL (12.0-15.5); Mean Corp. HGB Concentration 34.4 g/dL (32.0-36.0); Mean Corpuscular Hemoglobin 37.9 pg (27.0-33.0); Mean Corpuscular Volume 109.9 fL (80-95); Mean Platelet Volume 11.2 fL (8.0-11.0); Platelet Count 193 x1000/uL (130-400); RBC 3.54 m/cumm (4.00-5.20); RBC Distribution Width 14.2 % (11.7-14.6)
[2019-12-20 21:25] LABS: ALT 20 U/L (14-59); AST 51 U/L (15-37); Albumin 3.6 g/dL (3.4-5.0); Alkaline Phosphatase 141 U/L (46-116); Anion Gap 8.8 mmol/L (3-11); BUN 8 mg/dL (7-18); CO2 28.2 mmol/L (21.0-32.0); CREATININE 0.81 mg/dL (0.55-1.02); Calcium 8.9 mg/dL (8.5-10.1); Chloride 96 mmol/L (98-107); Glucose 90 mg/dL (74-106); Hemoglobin A1C 4.8 % (3.8-5.6); Potassium 4.8 mmol/L (3.5-5.1); Sodium 133 mmol/L (136-145); TSH 3.74 uIU/mL (0.36-3.74); Total Protein 7.7 g/dL (6.4-8.2)
[2019-12-20 22:21] LABS: Creatine Kinase 62 U/L (26-192); Vitamin B12 > 2000 pg/mL (193-986)
[2019-12-23 13:51] LABS: Albumin 50.7 % (55.8-66.1); Total Protein 7.6 g/dL (6.3-8.2)
== END 2019-12-20 22:16 ==
LOC: NCHCN 21:56
PROVIDERS: PCP Internal Medicine; Visit Provider Internal Medicine
DX: G60.9 Hereditary and idiopathic neuropathy, unspecified (principal)
CPT/HCPCS: 80053; 82550; 85027; 82607; 83036; 84165; 84439; 84443

== ENCOUNTER 2020-01-26 11:01 | Inpatient (IN) | payer MEDICARE, SELFPAY ==
[2020-01-26] VITALS (42 sets, daily range): BP systolic 104–141; BP diastolic 61–102; PULSE 91–131; RESP 12–18; TEMP 36–37.3; O2SAT 91–98
--- NOTE | 2020-01-26 11:00 | RT.EKG_ITS ---
APPROVED REPORT Exam: Resting ECG Patient Location: E HR:123 bpm ECG Measurements Heart Rate 123 AXIS TN 147 P -4 QRSd 74 QRS -5 QT 348 T 71 QTc 499 Conclusion Sinus tachycardia with irregular rate...V-rate 103-155, variation>10% Anteroseptal infarct, age indeterminate...Q >35mS, T neg, V1-V2 I disagree with autointerpretation: suspect afib with rvr.
--- NOTE | 2020-01-26 11:03 | ED.GENADUL_ITS ---
Discharge Plan Disposition Condition: Improving Discharge Details Chief Complaint: GenMedical Admit Date/Time: 01/26/20 14:26 Admit Provider: Irlanda Tavarez Attending Provider: Irlanda Tavarez Primary Care Provider: Jose Gonzalez ED Provider: Erika Fallon Discharge Instructions Activity:: Activity as Tolerated Equipment/Supplies:: Walker Diet:: As Tolerated Discharge Orders Discharge Orders: Discharge Order (Routine); Ordered 01/30/20 Ordered By: Minnie Joshua Discharge Data Discharge Date/Time-TO BE ENTERED AT DEPARTURE: 01/26/20 15:08 Medical Decision Making Patient is a pleasant 74-year-old female presented with chief complaint of weakness. Past medical history pertinent for asthma, CAD, folate deficiency, hypertension, asthma, depression, peripheral neuropathy. She reports that her weakness is progressively worsening over the past several months. She was seen by her primary care on 12/20/2027 with same complaint. At that time, while the patient was endorsing some weakness and paresthesias, exam was nonfocal. Labs were completed at that time and no significant abnormality was noted. Patient did have a decrease in her metoprolol from 50-25 twice daily. There was question of a bradycardia or hypotension was contributing to her weakness. Patient denies any chest pain, shortness of breath, abdominal pain. No change in bowel or bladder habits. She does report decreased appetite over the past several months. She denies any fevers or chills. On exam, patient appears chronically ill. Patient appears very weak and has been having difficulty sitting up for lung field examination. She needed 2 person assist to transfer from wheelchair to the bed. She does have a jaundiced appearance intraorally. She does look pale. Lungs sound rhonchorous. Heart is irregularly irregular and tachycardic. Exam of her bilateral lower extremities are ruborous below the knee. She has intact sensation to cold, intact proprioception. 1+ distal pulses equal bilaterally. No lower extremity edema. Calves are soft and nontender. Abdomen is benign. She does have hepatomegaly on exam. Patient is thin and her BMI is down from her recent visit. EKG was reviewed by myself and Dr. Quinn. Patient is in irregularly irregular rhythm consistent with atrial fibrillation with a heart rate in the 120s. She has no history of this on chart review or oral history. Again, she is not having any chest pain. This may be contributing to her weakness. Unknown time of onset. Patient is not having any palpitations. Patient did not take her oral metoprolol this morning will give this to her now. I am also concerned the patient has lost weight, is decreased appetite and does appear slightly jaundiced. Would like to image the patient's chest and abdomen. I am concerned for potential Spoke with patient's close friend, Cathie, to have permission from the patient to speak with her. She lives nearby and to drop the patient off today. She reports that she does check on the patient's daily and takes care of her animals. She reports that she is noted a progressive decline in gain. States that this week she is unable to get off the couch and often has difficulty getting out of bed. She states the patient is also been endorsing muscle spasms and back pain. Reports decreased appetite*been worsening over the past several months. She is wondering if the patient gave up. She reports the patient does not have any family locally and that typically she is the only person to see the patient routinely. Cathie will be away this week in [place] with her daughter. She may be reached at [phone]. Labs are reviewed. Significant for d-dimer of 1662. Sodium is low at 138. Magnesium is low at 1.6, total bili slightly elevated at 1.2. Alk phos 160. TSH within normal limits. Troponin less than 0.05. Urine is pending. CT reviewed by radiologist: FINDINGS: Pulmonary arteries: No evidence of pulmonary embolus to the segmental level. Aorta: No aneurysm of the aorta. No dissection of the aorta. Lungs: Mild panlobular emphysematous changes Pleural space: Unremarkable. No pneumothorax. No pleural effusion. Heart: Unremarkable. No cardiomegaly. No pericardial effusion. Lymph nodes: Unremarkable. No enlarged lymph nodes. Bones/joints: Unremarkable. No acute fracture. Soft tissues: Unremarkable. IMPRESSION: 1. No evidence of pulmonary embolus to the segmental level. 2. No aneurysm of the aorta. 3. No dissection of the aorta. FINDINGS: Aorta: No aneurysm of the aorta. No dissection of the aorta. Celiac trunk and mesenteric arteries: No occlusion or significant stenosis. Renal arteries: No occlusion or significant stenosis. Right iliac arteries: No occlusion or significant stenosis. Left iliac arteries: No occlusion or significant stenosis. Liver: No mass. Gallbladder and bile ducts: Unremarkable. No calcified stones. No ductal d ilation. Pancreas: Unremarkable. No mass. No ductal dilation. Spleen: Unremarkable. No splenomegaly. Adrenals: Unremarkable. No mass. Kidneys and ureters: Subcentimeter low attenuation areas in both kidneys are too small for characterization. Stomach and bowel: Diverticulosis of the rectosigmoid. No liudmila diverticulitis Appendix: No evidence of appendicitis. Intraperitoneal space: Unremarkable. No free air. No significant fluid collection. Lymph nodes: Unremarkable. No enlarged lymph node Bladder: Asymmetric bladder wall thickening with enhancing mucosa. Bladder wall measures up to 7 mm. . This is nonspecific and may represent inflammation or infection. Neoplastic process and neurogenic bladder are included in the differential. Reproductive: Varices around the uterus Bones/joints: Broad-based disc bulge at L3/L4 and L4/L5 and L5/S1 Soft tissues: Unremarkable. IMPRESSION: 1. No aneurysm of the aorta. 2. No dissection of the aorta. 3. Asymmetric bladder wall thickening with enhancing mucosa. Bladder wall measures up to 7 mm. . This is nonspecific and may represent inflammation or infection.Neoplastic process and neurogenic bladder are included in the differential. Recommend urology consult Discussed these findings with the patient as well as her friend over the phone. He is very concerned regarding the patient's severe weakness and feel that inpatient admission for hydration, further evaluation is appropriate. Consulted with hospitalist regarding admission. She reviewed the imaging and history and especially with the patient may have cauda equina. Rectal exam was performed by myself, with good sensation and rectal tone. No midline tenderness along the thoracic or lumbar spine Spoke with hospitalist again who agrees to admission. 50.9kg Urinalysis came back after the patient transferred upstairs, positive for nitrates, moderate leukocyte esterase. A call hospitalist and relay this. HPI General Mode of arrival: EMS . Date/Time Provider Initiated Documentation: 01/26/20 11:02 . Limitations to Documentation: no limitations . Information obtained by: patient, family (at patients request, spoke with friend frequently who can aid in history), RN notes reviewed and old records reviewed . HPI Narrative: Patient is a pleasant 74 year old female presenting today with c/c of increased weakness. Per patient as well as her friend, she has been having difficulty out of bed. States that she has been seen by her primary care. She does not have any focal complaints but rather general malaise and weakness. States that she has had a very poor appetite. Unclear if she is lost any weight. States that she is now having difficulty ambulating about her home and doing most basic of ADLs. Related Data Home Medications Medication Instructions Recorded Confirmed aspirin,buffd-calcium carb-mag 325 mg PO DAILY 01/29/13 01/26/20 loratadine [Claritin] 10 mg PO DAILY 01/29/13 01/26/20 lovastatin 20 mg PO QPM 01/29/13 01/26/20 albuterol sulfate [Ventolin HFA] 1 - 2 puff INHALATION QID PRN PRN 12/07/16 01/26/20 budesonide-formoterol [Symbicort] 1 puff INHALATION BID 12/07/16 01/26/20 metoprolol tartrate 25 mg PO BID 12/07/16 01/26/20 nitroglycerin [Nitrostat] 0.4 mg SUBLINGUAL DIRECTED 12/07/16 01/26/20 famotidine 20 mg PO BID #14 tab 01/08/19 01/26/20 hydrocortisone 0 g TOPICAL TID #0 g 01/08/19 01/26/20 triamcinolone acetonide 0 g TOPICAL TID #0 g 01/08/19 01/26/20 albuterol sulfate 90 mcg/actuation 2 puff IH Q6H PRN 12/26/19 01/26/20 aerosol inhaler fluoxetine 20 mg tablet 20 mg PO DAILY 12/26/19 01/26/20 mecobalamin (vitamin B12) 1,000 1,000 mcg PO DAILY 12/26/19 01/26/20 mcg chewable tablet Previous Rx's Medication Instructions Recorded famotidine 20 mg PO BID #14 tab 01/08/19 hydrocortisone 0 g TOPICAL TID #0 g 01/08/19 triamcinolone acetonide 0 g TOPICAL TID #0 g 01/08/19 Allergies Allergy/AdvReac Type Severity Reaction Status Date / Time lisinopril Allergy Intermediate lips Unverified 01/26/20 11:18 swelled sulfamethoxazole Allergy Intermediate Hives Unverified 01/26/20 11:18 [From Bactrim] trimethoprim [From Bactrim] Allergy Intermediate Hives Unverified 01/26/20 11:18 Penicillins AdvReac Intermediate Hives Unverified 01/26/20 11:18 General TY: 3 Review of Systems Constitutional Constitutional: Reports as per HPI, Denies chills, Reports daytime sleepiness, Reports fatigue, Denies fever(s), Denies headache(s), Reports lethargy, Reports malaise, Reports poor appetite and Reports weakness (Generalized) Eyes Eyes: Denies change in vision ENT Ears, Nose, Mouth, and Throat: Denies dizziness and Denies headache(s) Cardiovascular Cardiovascular: Reports as per HPI, Denies chest pain, Denies lightheadedness, Denies radiating jaw, neck or arm pain, Denies dyspnea and Denies dyspnea on exertion Respiratory Respiratory: Reports as per HPI, Denies chest congestion, Denies cough, Denies pain on inspiration, Denies pain with cough, Denies dyspnea, Denies dyspnea on exertion and Denies wheezing Gastrointestinal Gastrointestinal: Reports as per HPI, Denies abdominal pain, Denies diarrhea, Denies nausea and Denies vomiting Musculoskeletal Musculoskeletal: Reports as per HPI and Denies back pain Integumentary/Breasts Skin/Breast: Reports as per HPI and Denies rash Neurologic Neurologic: Reports as per HPI, Denies dizziness, Denies headache(s) and Reports weakness (Generalized) Endocrine Endocrine: Reports fatigue Allergic/Immunologic Allergic/Immunologic: Denies wheezing [facility] Medical History (Updated 01/28/20 @ 08:50 by Apoorva Crawford MD, [place]) Abnormal CT scan, bladder (Acute) Asthma (Chronic) CAD (coronary artery disease) (Chronic) Cellulitis (Inactive) Disorder of both eustachian tubes (Acute) Drug rash (Inactive) Folate deficiency (Acute) H/O: HTN (hypertension) (Acute) History of asthma (Acute) History of depression (Acute) History of tobacco use (Acute) Hyperlipidemia (Acute) Hypertension (Chronic) Low back pain (Acute) Macrocytosis (Acute) Peripheral neuropathy (Acute) Rash, skin (Acute) Tremor (Acute) Unintentional weight loss (Acute) Vitamin B12 deficiency (dietary) anemia (Acute) Social History Smoking/Tobacco Use Status: Former Tobacco Use Alcohol Intake: never Drug use: Never Do you feel safe at home: Yes Do you feel safe in your relationship?: Yes Exam Const General: cooperative, no acute distress, disheveled and frail appearing Nutritional Appearance: well nourished and malnourished Orientation: alert, awake and oriented x3 [facility] Head: normal to inspection Ears: hearing grossly normal bilaterally Mouth: moist mucous membranes Chest Chest: normal inspection of the chest, normal palpation of entire chest wall and no crepitus Resp Effort & Inspection: normal respiratory effort, able to speak in complete sentences and no respiratory distress Auscultation: clear to auscultation bilaterally, no rales, no rhonchi and no wheezes Cardio Rate: regular rate Rhythm: regular rhythm Heart Sounds: S1 normal and S2 normal GI Inspection: normal to inspection, no edema and non-distended Palpation: soft, no hepatosplenomegaly, not firm, no guarding, not rigid and nontender Auscultation: normal bowel sounds Back/Spine/Pelvis Back: no CVA tenderness Thoracic/Lumbar Spine: thoracic and lumbar spine normal to inspection Skin General skin exam: no rashes or lesions noted Trauma: no lacerations or abrasions Neuro General: patient alert, patient awake and patient oriented x3 Cognition: normal cognition Speech: speech normal Gait: normal gait Extrem General: normal to inspection, capillary refill normal, no pedal edema, no calf tenderness and normal gait Psych Appearance: grossly normal and well kempt Mental Status: mental status grossly normal Speech and Movement: speech and movement normal
[2020-01-26 11:39] LABS: Abs Immature Grans 0.02 10^3/uL (0.0-0.06); Absolute Basophil Count 0.01 10^3/uL (0.0-0.2); Absolute Lymphocyte Count 0.63 10^3/uL (1.2-3.4); Absolute Monocyte Count 0.97 10^3/uL (0.1-0.8); Absolute Neutrophil Count 5.96 10^3/uL (1.2-6.7); Basophils % 0.1; HCT 32.7 % (36.0-46.0); HGB 11.6 g/dL (11.2-15.7); Immature Grans % 0.3; Lymphocytes % 8.3; MCH 38.9 pg (27.0-33.0); MCHC 35.5 % (32.0-36.0); MCV 109.7 fL (80-95); MPV 9.7 fL (8.0-11.0); Monocytes % 12.8; Neutrophils % 78.5; Nucleated RBC 0 %; Platelet Count 202 10^3/uL (130-400); RBC 2.98 10^6/uL (3.93-5.22); RDW 13.3 % (11.7-14.6); RDW-SD 53.4 fL; WBC 7.59 10^3/uL (4.4-10.8)
[2020-01-26 12:01] LABS: ALT 11 U/L (14-59); AST 24 U/L (15-37); Albumin 2.7 g/dL (3.4-5.0); Alkaline Phosphatase 160 U/L (46-116); Anion Gap 9.4 mmol/L (3-11); BUN 16 mg/dL (7-18); Bilirubin, Total 1.2 mg/dL (0.2-1.0); CO2 26.6 mmol/L (21.0-32.0); CREATININE 0.97 mg/dL (0.55-1.02); Chloride 94 mmol/L (98-107); Estimated GFR 55.98 (mL/min/1.73m2); Glucose 114 mg/dL (74-106); Sodium 130 mmol/L (136-145); Total Protein 7.3 g/dL (6.4-8.2)
[2020-01-26] MEDS: Metoprolol 25 MG TAB PO (12:02)
[2020-01-26] MEDS: Lactated Ringers 1,000 ML 500 ML IV (12:02)
[2020-01-26 12:08] LABS: Diff Comment RBC Morph Reviewed; Hypochromasia 1+; Macrocytosis 2+
[2020-01-26 12:22] LABS: D-Dimer 1626 ng/mlFEU (<500)
[2020-01-26 12:30] LABS: Magnesium 1.6 mg/dL (1.8-2.4); TSH (W/Ref FT4) 2.95 uIU/mL (0.36-3.74)
[2020-01-26 12:34] LABS: Troponin I < 0.05 ng/mL (<0.06)
[2020-01-26] MEDS: Normal Saline - Diluent 50 ML VIAL IV (12:49)
[2020-01-26] MEDS: Omnipaque 350 MG/ML 100 ML BTL IJ (12:50)
--- NOTE | 2020-01-26 12:55 | DI.CT_ITS ---
EXAM: CT CHEST PE ABD PELVIS W CLINICAL HISTORY: SOB, elevated dimer, weight loss, decreased appeti. TECHNIQUE: Imaging Protocol: Axial CT angiography was performed with multi-slice acquisition and mu lti-planar and/or 3D reconstructions. CONTRAST MATERIAL: Intravenous: Omnipaque 350 Contrast volume:100 mL COMPARISON: No exams were available for comparison FINDINGS: CHEST: Pulmonary Arteries: No evidence of filling defect to suggest pulmonary emboli. Tracheobronchial tree: Patent where visualized. Mediastinum and Guillermina: No dominant adenopathy or fluid collection. Pulmonary parenchyma: No consolidation or dominant measurable mass. Centrilobular emphysema. Pleura: No effusion or pneumothorax. Heart: The heart is not dilated. Moderate coronary artery calcification. No pericardial effusion. Aorta: Thoracic aorta non-dilated. Atherosclerosis. No dissection. Bones: Degenerative changes. ABDOMEN: Liver: Normal density. No measurable mass. Portal, Superior Mesenteric, and Splenic Veins: Unremarkable. Gallbladder and Biliary Tract: No radiodense calculus or dilation. Pancreas: Normal density, no abnormal calcifications or inflammatory process. Spleen: Normal. Adrenals: No masses seen. Kidneys: Normal size, contour and axis. No radiodense stones or obstructive uropathy. Tiny hypodensit ies in the kidneys likely reflecting small cysts. Abdominal Aorta: Abdominal portion non-dilated. Atherosclerosis. Bowel: No obstruction or bowel wall thickening. No evidence of acute appendicitis. Colonic diverticu losis without evidence of acute diverticulitis. Peritoneal Cavity: No ascites, collection or mesenteric inflammatory response. Lymph Nodes: Within normal limits. Bones: Degenerative changes. Soft Tissues: Unremarkable. PELVIS: Bladder: Diffuse thickening of the wall of the urinary bladder. This may be due to underdistention b ut an inflammatory infectious process cannot be excluded. Reproductive Organs: Unremarkable as visualized. Lymph Nodes: Within normal limits. Bones: Degenerative changes. IMPRESSION: 1. No evidence of pulmonary embolism, thoracic aortic dissection or aneurysm. 2. Diffuse thickening of the wall of the urinary bladder. This may represent an infectious or inflam matory process. Neurogenic bladder neoplasm cannot be entirely excluded. Please correlate clinicall y. Urology consult should be considered. RADIATION DOSE DELIVERED: 1,113.32mGy.cm Total DLP 1,113.32mGy.cm Total DLP DATA REPOSITORY: All CT scans at this facility are submitted to the National Radiology Data Registry (NRDR) Dose Index Registry (DIR) with the [employer] ([employer]). RADIATION OPTIMIZATION: All CT scans at this facility use at least one of these dose optimization te chniques: automated exposure control; mA and/or kV adjustment per patient size (includes targeted exa ms where dose is matched to clinical indication); or iterative reconstruction.
--- NOTE | 2020-01-26 14:00 | RT.EKG_ITS ---
APPROVED REPORT Exam: Resting ECG Patient Location: E HR:93 bpm ECG Measurements Heart Rate 93 AXIS TN 189 P 3 QRSd 67 QRS 40 QT 387 T 64 QTc 482 Conclusion Sinus rhythm...normal P axis, V-rate 60- 99 Atrial premature complex...SV complex w/ short R-R interval Anterior infarct, age indeterminate...Q >35mS, T neg, in V2-V5
--- NOTE | 2020-01-26 14:03 | DI.VRAD_ITS ---
PROCEDURE INFORMATION: Exam: CT Angiography Chest With Contrast Exam date and time: 01/26/2020 12:49 PM Age: 74 years old Clinical indication: Other: SOB, elevated dimer, weight loss, decreased appetite TECHNIQUE: Imaging protocol: Computed tomographic angiography of the chest with intravenous contrast. 3D rendering (Not supervised by radiologist): MIP and/or 3D reconstructed images were created by the technologist. Radiation optimization: All CT scans at this facility use at least one of these dose optimization techniques: automated exposure control; mA and/or kV adjustment per patient size (includes targeted exams where dose is matched to clinical indication); or iterative reconstruction. Contrast material: OMNIPAQUE 350; Contrast volume: 100 ml; Contrast route: INTRAVENOUS (IV); COMPARISON: CR XR CHEST 2V PA LATERAL 01/03/2019 2:22 PM FINDINGS: Pulmonary arteries: No evidence of pulmonary embolus to the segmental level. Aorta: No aneurysm of the aorta. No dissection of the aorta. Lungs: Mild panlobular emphysematous changes Pleural space: Unremarkable. No pneumothorax. No pleural effusion. Heart: Unremarkable. No cardiomegaly. No pericardial effusion. Lymph nodes: Unremarkable. No enlarged lymph nodes. Bones/joints: Unremarkable. No acute fracture. Soft tissues: Unremarkable. IMPRESSION: 1. No evidence of pulmonary embolus to the segmental level. 2. No aneurysm of the aorta. 3. No dissection of the aorta. PROCEDURE INFORMATION: Exam: CT Angiography Abdomen and Pelvis With Contrast Exam date and time: 01/26/2020 12:49 PM Age: 74 years old Clinical indication: Other: SOB, elevated dimer, weight loss, decreased appetite TECHNIQUE: Imaging protocol: Computed tomographic angiography of the abdomen and pelvis with intravenous contrast material. 3D rendering (Not supervised by radiologist): MIP and/or 3D reconstructed images were created by the technologist. Radiation optimization: All CT scans at this facility use at least one of these dose optimization techniques: automated exposure control; mA and/or kV adjustment per patient size (includes targeted exams where dose is matched to clinical indication); or iterative reconstruction. Contrast material: OMNIPAQUE 350; Contrast route: INTRAVENOUS (IV); COMPARISON: CR XR CHEST 2V PA LATERAL 01/03/2019 2:22 PM FINDINGS: Aorta: No aneurysm of the aorta. No dissection of the aorta. Celiac trunk and mesenteric arteries: No occlusion or significant stenosis. Renal arteries: No occlusion or significant stenosis. Right iliac arteries: No occlusion or significant stenosis. Left iliac arteries: No occlusion or significant stenosis. Liver: No mass. Gallbladder and bile ducts: Unremarkable. No calcified stones. No ductal dilation. Pancreas: Unremarkable. No mass. No ductal dilation. Spleen: Unremarkable. No splenomegaly. Adrenals: Unremarkable. No mass. Kidneys and ureters: Subcentimeter low attenuation areas in both kidneys are too small for characterization. Stomach and bowel: Diverticulosis of the rectosigmoid. No liudmila diverticulitis Appendix: No evidence of appendicitis. Intraperitoneal space: Unremarkable. No free air. No significant fluid collection. Lymph nodes: Unremarkable. No enlarged lymph nodes. Bladder: Asymmetric bladder wall thickening with enhancing mucosa. Bladder wall measures up to 7 mm. . This is nonspecific and may represent inflammation or infection. Neoplastic process and neurogenic bladder are included in the differential. Reproductive: Varices around the uterus Bones/joints: Broad-based disc bulge at L3/L4 and L4/L5 and L5/S1 Soft tissues: Unremarkable. IMPRESSION: 1. No aneurysm of the aorta. 2. No dissection of the aorta. 3. Asymmetric bladder wall thickening with enhancing mucosa. Bladder wall measures up to 7 mm. . This is nonspecific and may represent inflammation or infection.Neoplastic process and neurogenic bladder are included in the differential. Recommend urology consult Dictated and Authenticated by: Coreen Banks MD. Ordering:RICH James MD
[2020-01-26 14:12] LABS: Bilirubin Negative (Negative); Blood Small (Negative); Clarity Clear (Clear); Glucose Negative (Negative); Ketones Negative (Negative); Leukocyte Esterase Small (Negative); Nitrite Positive (Negative); Specific Gravity 1.015 (1.005-1.025)
[2020-01-26 14:21] LABS: Bacteria Many HPF (Negative); C & S Indicated? Yes; Casts Negative LPF (Negative); Crystals Few Amorphous HPF (Negative); Epithelial Cells Rare HPF (Negative); Mucus Negative (Negative); WBC >50 HPF (0-5)
--- NOTE | 2020-01-26 14:25 | HPE_ITS ---
Date of service: 01/26/20 Time of Service: 14:32 Assessment and Plan Assessment and plan (1) UTI (urinary tract infection): Start date: 01/26/20 Start time: 15:18 Status: Acute Assessment and plan: Reports to ED with c/o worsening fatigue and weakness and decreased appetite. UA positive for nitrates, leuko est and greater 50 wbc. Started on ceftriaxone, will monitor given allergy to PCN. Could also contribute to weakness. CT pelvis revealing mucuosal wall thickening, neoplasm considered, Urology consulted. Bladder scan for PVR Wait for urine culture (2) Urinary bladder neoplasm: Start date: 01/26/20 Start time: 15:22 Status: Acute Assessment and plan: Questionable neoplasm, wt loss, weakness, fatigue, FTT Seen by CT as above, consult urology PVR (3) New onset a-fib: Start date: 01/26/20 Start time: 15:23 Status: Acute Assessment and plan: No history of afib on record, found by EKG rate of 120-130, also could be contributing to weakness. Oral metoprolol was given in the ED, HR decreased to 90's in afib She will be on telemetry Echo for tomorrow Hydrate with IVF Trend troponin repeat EKG for am (4) Failure to thrive: Start date: 01/26/20 Start time: 15:25 Status: Acute Assessment and plan: Patient has had wt loss with a decrease in appetite. Thin, slightly icteric sclera, she does endorse nightly drinking 1-2 glasses gin per night, she has not had any in a couple of nights. Will order liver u/s r/o cirrohsis Will consult nutrition Palliative care consult. (5) Weakness: Start date: 01/26/20 Start time: 15:26 Status: Acute Assessment and plan: Could be due to several contributing factors Check iron studies PT/OT (6) Hyponatremia: Start date: 01/26/20 Start time: 15:27 Status: Acute Assessment and plan: This does not appear to be new by chart review however lower than usual. FTT with decreased appetite likely contributing to electrolyte imbalance, will give IV magnesium and repeat mag level in am Will hydrated with IVF. (7) Hypomagnesemia: Start date: 01/26/20 Start time: 15:28 Status: Acute Assessment and plan: FTT with decreased appetite likely contributing to electrolyte imbalance, will give IV magnesium and repeat mag level in am (8) Hypertension: Start date: 01/26/20 Start time: 15:32 Status: Chronic Assessment and plan: Recent drop in metoprolol from 50-25 due to hypotension, will continue 25 mg dose along with amlodipine. Normotensive bp at this time. Continue to monitor. Qualifiers: Hypertension type: essential hypertension Qualified Code(s): I10 - Essential (primary) hypertension (9) Hyperlipidemia: Start date: 01/26/20 Start time: 15:33 Status: Acute Assessment and plan: Continue statin Qualifiers: Hyperlipidemia type: unspecified Qualified Code(s): E78.5 - Hyperlipidemia, unspecified (10) Asthma: Start date: 01/26/20 Start time: 15:34 Status: Chronic Assessment and plan: Not exacerbated at this time. Continue home inhalers Qualifiers: Asthma complication type: uncomplicated Asthma persistence: unspecified Asthma severity: mild Qualified Code(s): J45.909 - Unspecified asthma, uncomplicated (11) DVT prophylaxis: Start date: 01/26/20 Start time: 15:35 Status: Acute Assessment and plan: Heparin Subcu q 8 hours. (12) Discharge planning issues: Start date: 01/26/20 Start time: 15:35 Status: Acute Assessment and plan: Full code at this time. Will have palliative meet with patient and discuss goals of care. May need SNIF placement, will also depend on diagnosis Above case discussed with Dr. Tavarez who is in agreement. History of Present Illness History of Present Illness Chief Complaint: FTT, Afib, UTI Narrative: 74 y.o female with PMH of CAD, HLD, HTN, Asthma presents to [facility] ED for weakness that has been progressing over the past several months. On 12/19 she was seen by her PCP for the same complaint. There was found to be no abnormality at that time. This is a new diagnosis. 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 Her back has also been in pain when getting up and she states that it feels best when she does not move. Upon arrival to the ED EKG revealed Afib with HR 120-130's, she did was given her dose of metoprolol and rate decreased to 90's, she has no known history of afib. Labs in the ED significant from sodium 130, mag 1.6, alk phosphate 160. CT abd/pelvis with bulging disc l3/l4/L5/S1 Diffuse thickening of wall of urinary bladder, may represent infectious or inflammatory process, neurogenic bladder neoplasm can not be entirely excluded. Urology consult should be considered. Urine revealing small amount of blood, positive nitrate, small leuk es and WBC greater than 50. She has been asked to be admitted to m/s for further management. She is being admitted to hospitalist service on telemetry. Urology consult placed. Review of Systems All systems reviewed & are unremarkable except as noted in HPI and below PFSH Medical History (Updated 01/26/20 @ 15:33 by Carol Marquez NP) Asthma (Chronic) CAD (coronary artery disease) (Chronic) Cellulitis (Inactive) Disorder of both eustachian tubes (Acute) Drug rash (Inactive) Folate deficiency (Acute) H/O: HTN (hypertension) (Acute) History of asthma (Acute) History of depression (Acute) History of tobacco use (Acute) Hyperlipidemia (Acute) Hypertension (Chronic) Low back pain (Acute) Macrocytosis (Acute) Peripheral neuropathy (Acute) Rash, skin (Acute) Tremor (Acute) Unintentional weight loss (Acute) Vitamin B12 deficiency (dietary) anemia (Acute) Social History Smoking/Tobacco Use Status: Former Tobacco Use Alcohol Intake: never Drug use: Never Do you feel safe at home: Yes Do you feel safe in your relationship?: Yes Meds Home Medications and Allergies Home Medications Medication Instructions Recorded Confirmed Type aspirin,buffd-calcium carb-mag 325 mg PO DAILY 01/29/13 01/26/20 History loratadine [Claritin] 10 mg PO DAILY 01/29/13 01/26/20 History lovastatin 20 mg PO QPM 01/29/13 01/26/20 History amlodipine 5 mg PO DAILY 08/22/14 01/26/20 History albuterol sulfate [Ventolin HFA] 1 - 2 puff INHALATION QID PRN PRN 12/07/16 01/26/20 History budesonide-formoterol [Symbicort] 1 puff INHALATION BID 12/07/16 01/26/20 History metoprolol tartrate 25 mg PO BID 12/07/16 01/26/20 History nitroglycerin [Nitrostat] 0.4 mg SUBLINGUAL DIRECTED 12/07/16 01/26/20 History famotidine 20 mg PO BID #14 tab 01/08/19 01/26/20 Rx hydrocortisone 0 g TOPICAL TID #0 g 01/08/19 01/26/20 Rx triamcinolone acetonide 0 g TOPICAL TID #0 g 01/08/19 01/26/20 Rx albuterol sulfate 90 mcg/actuation 2 puff IH Q6H PRN 12/26/19 01/26/20 History aerosol inhaler fluoxetine 20 mg tablet 20 mg PO DAILY 12/26/19 01/26/20 History mecobalamin (vitamin B12) 1,000 1,000 mcg PO DAILY 12/26/19 01/26/20 History mcg chewable tablet Allergies Allergy/AdvReac Type Severity Reaction Status Date / Time lisinopril Allergy Intermediate lips Unverified 01/26/20 11:18 swelled sulfamethoxazole Allergy Intermediate Hives Unverified 01/26/20 11:18 [From Bactrim] trimethoprim [From Bactrim] Allergy Intermediate Hives Unverified 01/26/20 11:18 Penicillins AdvReac Intermediate Hives Unverified 01/26/20 11:18 Exam Const General: cooperative, comfortable, no acute distress and ill appearing chronically Nutritional Appearance: average body habitus Orientation: alert, awake and oriented x3 HENMT Head: normal to inspection, normocephalic and atraumatic Ears: hearing grossly normal bilaterally Mouth: moist mucous membranes Eyes General: appearance normal, both eyes and all related structures Sclera: scleral abnormality (icteric, and pale) Pupils: PERRL EOM: EOM intact bilaterally Neck Neck: normal visual inspection, full ROM and no JVD Lymphatic: no lymphadenopathy noted and no lymphedema noted Chest Chest: normal inspection of the chest Resp Effort & Inspection: normal respiratory effort and able to speak in complete sentences Auscultation: crackles (fine at the bases) bilaterally and diminished lung sounds Cardio Jugular venous pressure: no JVD Rate: abnormal rate Rhythm: abnormal rhythm and abnormal rhythm irregularly irregular GI Inspection: normal to inspection Palpation: soft and no hepatosplenomegaly Auscultation: normal bowel sounds General: No CVA tenderness and deferred Back/Spine/Pelvis Back: no CVA tenderness Cervical Spine: cervical ROM normal Thoracic/Lumbar Spine: No thoracic and lumbar spine normal to inspection and kyphosis Skin General skin exam: decreased turgor and ecchymosis (bilateral shins and arms. multiple areas) Trauma: no lacerations or abrasions Neuro General: patient alert, patient awake and patient oriented x3 Cognition: normal cognition Speech: speech normal Motor: strength not 5/5 throughout Other: upper extremity bilateral applications systems analyst equally weak Extrem General: abnormal to inspection and no clubbing, cyanosis or edema Psych Appearance: grossly normal Speech and Movement: speech and movement normal Results Labs Result diagrams: 01/26/20 11:25 01/26/20 11:25 Labs: Laboratory Results - last 24 hr 01/26/20 01/26/20 01/26/20 11:25 11:25 11:25 WBC 7.59 RBC 2.98 L Hgb 11.6 Hct 32.7 L MCV 109.7 H MCH 38.9 H MCHC 35.5 RDW 13.3 Plt Count 202 MPV 9.7 Immature Gran % 0.3 Neutrophils % 78.5 Lymphocytes % 8.3 Monocytes % 12.8 Eosinophils % 0.0 Basophils % 0.1 Nucleated RBC % 0 Absolute Neutrophils 5.96 Absolute Lymphocytes 0.63 L Absolute Monocytes 0.97 H Absolute Eosinophils 0.00 Absolute Basophils 0.01 RBC Morphology See below Hypochromasia 1+ Macrocytosis 2+ D-Dimer Sodium 130 L Potassium 4.0 Chloride 94 L Carbon Dioxide 26.6 Anion Gap 9.4 BUN 16 Creatinine 0.97 Estimated GFR/1.73 m2 55.98 Glucose 114 H Calcium 9.0 Magnesium 1.6 L Total Bilirubin 1.2 H AST 24 ALT 11 L Alkaline Phosphatase 160 H Troponin I < 0.05 Total Protein 7.3 Albumin 2.7 L TSH 2.95 Urine Color Urine Clarity Urine pH Ur Specific [place] Urine Protein Urine Ketones Urine Blood Urine Nitrite Urine Bilirubin Urine Urobilinogen Ur Leukocyte Esterase Urine RBC Urine WBC Ur Epithelial Cells Urine Crystals Urine Bacteria Urine Casts Urine Mucus Ur Culture Indicated? Urine Glucose 01/26/20 01/26/20 11:25 14:05 WBC RBC Hgb Hct MCV MCH MCHC RDW Plt Count MPV Immature Gran % Neutrophils % Lymphocytes % Monocytes % Eosinophils % Basophils % Nucleated RBC % Absolute Neutrophils Absolute Lymphocytes Absolute Monocytes Absolute Eosinophils Absolute Basophils RBC Morphology Hypochromasia Macrocytosis D-Dimer 1626 H Sodium Potassium Chloride Carbon Dioxide Anion Gap BUN Creatinine Estimated GFR/1.73 m2 Glucose Calcium Magnesium Total Bilirubin AST ALT Alkaline Phosphatase Troponin I Total Protein Albumin TSH Urine Color Yellow Urine Clarity Clear Urine pH 8.0 Ur Specific [place] 1.015 Urine Protein Negative Urine Ketones Negative Urine Blood Small H Urine Nitrite Positive H Urine Bilirubin Negative Urine Urobilinogen 2.0 H Ur Leukocyte Esterase Small H Urine RBC 5-10 H Urine WBC >50 H Ur Epithelial Cells Rare Urine Crystals Few amorphous Urine Bacteria Many Urine Casts Negative Urine Mucus Negative Ur Culture Indicated? Yes Urine Glucose Negative Last Vital Signs Temp 36.6 C 01/26/20 11:13 Pulse 91 H 01/26/20 14:16 Resp 13 01/26/20 14:16 BP 123/78 01/26/20 14:16 Pulse Ox 94 L 01/26/20 14:16 COVID-19 Screening Have you,or household,traveled outside [place] in last 14 days?: No Had IN PERSON contact w/suspected or confirmed C-19 person: No
[2020-01-26 15:32] LABS: Troponin I < 0.05 ng/mL (<0.06)
[2020-01-26] MEDS: Normal Saline 1,000 ML 100 ML IV (16:31)
[2020-01-26] MEDS: cefTRIAXone 1 GM/50 ML BAG IVPB (16:32)
[2020-01-26] MEDS: Normal Saline Flush 10 ML SYR IVP (16:34)
[2020-01-26] MEDS: Thiamine 100 MG TAB PO (16:34)
[2020-01-26] MEDS: MAGNESIUM SULFATE 2 GM/50 ML BAG IVPB (17:43)
[2020-01-26 20:35] LABS: Troponin I < 0.05 ng/mL (<0.06)
[2020-01-26] MEDS: Heparin 5,000 UNITS/ML VIAL 5000 UNITS SC (21:37)
--- NOTE | 2020-01-27 | DI.US_ITS ---
EXAM: US ABDOMEN CLINICAL HISTORY: liver r/o cirrhosis TECHNIQUE: Ultrasound abdomen performed using standard protocol. COMPARISON: No exams were available for comparison FINDINGS: ABDOMINAL AORTA AND IVC: Visualized portions normal caliber. PANCREAS: Normal where visualized. LIVER: Increased echogenicity consistent with fatty infiltration. Hepatopedal flow in the Portal Vei n. 17.2 cm in length. GALLBLADDER: No evidence of cholelithiasis. No evidence of wall thickening. No pericholecystic fluid identified. BILIARY SYSTEM: Common bile duct measures < 7 mm. No intrahepatic biliary ductal dilation. SANDERS'S SIGN: Negative. KIDNEYS: Kidneys are symmetric in size. No evidence of renal calculi. No evidence of hydronephrosis. No renal mass or cyst identified. SPLEEN: Not enlarged. ASCITES: None seen. IMPRESSION: 1. Mild hepatomegaly. Fatty infiltration of the liver. 2. No sonographic evidence of an abdominal aortic aneurysm. DATA REPOSITORY:
[2020-01-27 03:00] VITALS: BP 128/82; PULSE 103; RESP 17; TEMP 36; O2SAT 97
[2020-01-27] MEDS: Normal Saline 1,000 ML 100 ML IV ×2 (04:49→17:35)
[2020-01-27] MEDS: Heparin 5,000 UNITS/ML VIAL 5000 UNITS SC ×3 (06:44→22:48)
[2020-01-27 07:17] VITALS: BP 126/75; PULSE 98; RESP 18; TEMP 36.3; O2SAT 97
[2020-01-27 07:22] LABS: Abs Immature Grans 0.02 10^3/uL (0.0-0.06); Absolute Basophil Count 0.01 10^3/uL (0.0-0.2); Absolute Eosinophil Count 0.01 10^3/uL (0.0-0.7); Absolute Lymphocyte Count 0.68 10^3/uL (1.2-3.4); Absolute Monocyte Count 0.54 10^3/uL (0.1-0.8); Absolute Neutrophil Count 3.85 10^3/uL (1.2-6.7); Basophils % 0.2; Eosinophils % 0.2; HCT 28.5 % (36.0-46.0); HGB 9.9 g/dL (11.2-15.7); Immature Grans % 0.4; Lymphocytes % 13.3; MCH 38.5 pg (27.0-33.0); MCHC 34.7 % (32.0-36.0); MCV 110.9 fL (80-95); MPV 9.5 fL (8.0-11.0); Monocytes % 10.6; Neutrophils % 75.3; Nucleated RBC 0 %; Platelet Count 173 10^3/uL (130-400); RBC 2.57 10^6/uL (3.93-5.22); RDW-SD 52.3 fL; WBC 5.11 10^3/uL (4.4-10.8)
[2020-01-27 07:41] LABS: ALT 9 U/L (14-59); AST 19 U/L (15-37); Alkaline Phosphatase 128 U/L (46-116); Anion Gap 5.8 mmol/L (3-11); BUN 11 mg/dL (7-18); Bilirubin, Direct 0.35 mg/dL (0.00-0.20); Bilirubin, Total 0.7 mg/dL (0.2-1.0); CO2 27.2 mmol/L (21.0-32.0); CREATININE 0.71 mg/dL (0.55-1.02); Chloride 98 mmol/L (98-107); Glucose 85 mg/dL (74-106); Macrocytosis 2+; Magnesium 1.9 mg/dL (1.8-2.4); Potassium 3.3 mmol/L (3.5-5.1); Sodium 131 mmol/L (136-145); Total Protein 5.9 g/dL (6.4-8.2)
[2020-01-27] MEDS: Multivitamin w/Minerals TAB 1 TAB PO (07:50)
[2020-01-27] MEDS: Thiamine 100 MG TAB PO (07:50)
[2020-01-27 08:24] LABS: Calculated LDL 33 mg/dL (<100); Cholesterol 86 mg/dL (<200); Ferritin 434 ng/mL (8-252); Folate 10.8 ng/mL (8.6-20.0); HDL Cholesterol 41 mg/dL (40-60); Triglyceride 60 mg/dL (<150)
[2020-01-27 08:28] LABS: Vitamin B12 > 2000 pg/mL (193-986)
--- NOTE | 2020-01-27 08:41 | W.PM.PROGNOT ---
Date of Service Date of service: 01/27/20 Time of Service: 08:41 Assessment and Plan Assessment and plan (1) Weakness: Status: Acute Assessment and plan: generalized with failure to thrive at home, likely multifactorial with new onset of afib and UTI noted on general ED evaluation. 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 the patient reports a generalized decline in her health over several months, including generalized weakness and poor appetite. She denies saddle anesthesia, bowel incontinence or numbness, no dysuria or frequency. denies palpitations, chest pain or shortness of breath A MRI of lumbar spine was obtained to r/o cauda equina and shows normal appearance and location of the conus medullaris and marked degenerative changes seen in the lumbar spine resulting in multilevel central spinal canal and neural foraminal stenosis with mild to moderate from L2 to S1. She also underwent an abdominal ultrasound which showed mild hepatomegaly and fatty infiltration of the liver. (2) UTI (urinary tract infection): Status: Acute Assessment and plan: ceftriaxone day 07/05. urine cultures pending. she has no dysuria or frequency. has been afebrile. CT showed bladder wall thickening. I suspect this is most likely d/t UTI. A urology consultation was placed on admission and is pending. (3) CAD (coronary artery disease): Status: Chronic Assessment and plan: troponin have been negative. echo today EF 55% with no WMA's. continue asa, beta onofre and statin (4) Hypertension: Status: Chronic Assessment and plan: blood pressure has been controlled, continue to monitor and adjust medication as needed. is taking metoprolol. Qualifiers: Hypertension type: essential hypertension Qualified Code(s): I10 - Essential (primary) hypertension (5) New onset a-fib: Status: Acute Assessment and plan: rate controlled to uncontrolled, troponins have been negative, echo with no WMA's, no significant valvular disease. EF 55%. electrolyte replacement, TSH normal. continue thiamine. is on full dose aspirin. will defer anticoagulation to pcp d/t high fall risk (6) Hyperlipidemia: Status: Acute Assessment and plan: continue statin Qualifiers: Hyperlipidemia type: unspecified Qualified Code(s): E78.5 - Hyperlipidemia, unspecified (7) DVT prophylaxis: Status: Acute Assessment and plan: heparin sc and teds (8) Discharge planning issues: Status: Acute Assessment and plan: case management consulted, suspect swing level discharge prior to returning home. discussed with DR Tavarez who is in agreement Subjective Subjective Patient reports: feels better, tolerating liquids well, tolerating a regular diet and afebrile Interval history since last seen: no new issues overnight. feels like her symptoms are slowly improving. denies saddle anesthesia or bowel incontinence. denies dysuria or frequency. no nausea or abdominal pain, states she just has a poor appetite which has been consistent with recent history Exam Const General: cooperative, comfortable, no acute distress, frail appearing (older than stated age) and ill appearing chronically Nutritional Appearance: average body habitus Orientation: alert, awake and oriented x3 HENMT Head: normal to inspection, normocephalic and atraumatic Mouth: oral mucosae normal Resp Effort & Inspection: normal respiratory effort Auscultation: diminished lung sounds bilaterally in the lower lung watkins Cardio Rate: regular rate and tachycardic (controlled to uncontrolled atrial fibrillation on the monitor. ) Rhythm: abnormal rhythm irregularly irregular GI Inspection: normal to inspection Palpation: soft Auscultation: normal bowel sounds Skin General skin exam: no rashes or lesions noted Neuro General: patient alert, patient awake, patient oriented x3 and moves all extremities Extrem General: normal to inspection, full ROM and no pedal edema Objective Objective Clinical Data: Abnormal lab results 01/26/20 01/26/20 01/26/20 Range/Units 11:25 11:25 11:25 RBC 2.98 L (3.93-5.22) 10^6/uL Hgb (11.2-15.7) g/dL Hct 32.7 L (36.0-46.0) % MCV 109.7 H (80-95) fL MCH 38.9 H (27.0-33.0) pg Absolute Lymphocytes 0.63 L (1.2-3.4) 10^3/uL Absolute Monocytes 0.97 H (0.1-0.8) 10^3/uL D-Dimer (<500) ng/mlFEU Sodium 130 L (136-145) mmol/L Potassium (3.5-5.1) mmol/L Chloride 94 L (98-107) mmol/L Glucose 114 H (74-106) mg/dL Calcium (8.5-10.1) mg/dL Magnesium 1.6 L (1.8-2.4) mg/dL Ferritin (8-252) ng/mL Total Bilirubin 1.2 H (0.2-1.0) mg/dL Conjugated Bilirubin (0.00-0.20) mg/dL ALT 11 L (14-59) U/L Alkaline Phosphatase 160 H (46-116) U/L Total Protein (6.4-8.2) g/dL Albumin 2.7 L (3.4-5.0) g/dL Vitamin B12 (193-986) pg/mL Urine Blood (Negative) Urine Nitrite (Negative) Urine Urobilinogen (Up TO 0.2) EU/dL Ur Leukocyte Esterase (Negative) Urine RBC (0-2) HPF Urine WBC (0-5) HPF 01/26/20 01/26/20 01/27/20 Range/Units 11:25 14:05 07:05 RBC (3.93-5.22) 10^6/uL Hgb (11.2-15.7) g/dL Hct (36.0-46.0) % MCV (80-95) fL MCH (27.0-33.0) pg Absolute Lymphocytes (1.2-3.4) 10^3/uL Absolute Monocytes (0.1-0.8) 10^3/uL D-Dimer 1626 H (<500) ng/mlFEU Sodium 131 L (136-145) mmol/L Potassium 3.3 L (3.5-5.1) mmol/L Chloride (98-107) mmol/L Glucose (74-106) mg/dL Calcium 8.0 L (8.5-10.1) mg/dL Magnesium (1.8-2.4) mg/dL Ferritin 434 H (8-252) ng/mL Total Bilirubin (0.2-1.0) mg/dL Conjugated Bilirubin 0.35 H (0.00-0.20) mg/dL ALT 9 L (14-59) U/L Alkaline Phosphatase 128 H (46-116) U/L Total Protein 5.9 L (6.4-8.2) g/dL Albumin 2.0 L (3.4-5.0) g/dL Vitamin B12 > 2000 H (193-986) pg/mL Urine Blood Small H (Negative) Urine Nitrite Positive H (Negative) Urine Urobilinogen 2.0 H (Up TO 0.2) EU/dL Ur Leukocyte Esterase Small H (Negative) Urine RBC 5-10 H (0-2) HPF Urine WBC >50 H (0-5) HPF 01/27/20 Range/Units 07:05 RBC 2.57 L (3.93-5.22) 10^6/uL Hgb 9.9 L (11.2-15.7) g/dL Hct 28.5 L (36.0-46.0) % MCV 110.9 H (80-95) fL MCH 38.5 H (27.0-33.0) pg Absolute Lymphocytes 0.68 L (1.2-3.4) 10^3/uL Absolute Monocytes (0.1-0.8) 10^3/uL D-Dimer (<500) ng/mlFEU Sodium (136-145) mmol/L Potassium (3.5-5.1) mmol/L Chloride (98-107) mmol/L Glucose (74-106) mg/dL Calcium (8.5-10.1) mg/dL Magnesium (1.8-2.4) mg/dL Ferritin (8-252) ng/mL Total Bilirubin (0.2-1.0) mg/dL Conjugated Bilirubin (0.00-0.20) mg/dL ALT (14-59) U/L Alkaline Phosphatase (46-116) U/L Total Protein (6.4-8.2) g/dL Albumin (3.4-5.0) g/dL Vitamin B12 (193-986) pg/mL Urine Blood (Negative) Urine Nitrite (Negative) Urine Urobilinogen (Up TO 0.2) EU/dL Ur Leukocyte Esterase (Negative) Urine RBC (0-2) HPF Urine WBC (0-5) HPF Vital Signs Temperature 36.3 C L 01/27/20 07:17 Temperature Source Tympanic 01/27/20 07:17 Pulse 98 H 01/27/20 07:17 Pulse Rhythm Irregular 01/27/20 00:15 Pulse 98 H 01/26/20 14:50 Respiratory Rate 18 01/27/20 07:17 Respiratory Effort 01/27/20 00:15 Respiratory Depth Normal 01/27/20 00:15 Respiratory Pattern Normal 01/27/20 00:15 Blood Pressure 126/75 01/27/20 07:17 Blood Pressure Mean 91 01/26/20 14:45 Blood Pressure Position Supine 01/26/20 11:13 Pulse Oximetry 97 01/27/20 07:17 Oxygen Delivery Method Room Air 01/27/20 07:17 Oxygen Flow Rate 0 01/27/20 07:17 Pain Level 0 01/27/20 07:17 Comment RN notified 01/26/20 19:15 Intake & Output 01/26/20 01/26/20 01/27/20 11:59 23:59 11:59 Intake Total 870 / 870 1010 / 1010 Output Total 325 / 325 400 / 400 Balance 545 / 545 610 / 610 Weight 52.163 kg 52.163 kg 53.2 kg Intake: IV 510 / 510 1010 / 1010 Oral 360 / 360 Output: Urine 325 / 325 400 / 400 Other: Urine Color Light Yanique Yellow Urine Appearance Clear Clear Urine Odor Strong Normal Comment Last void at 1730 Voiding Methods Bedside Commode Bedside Commode Laboratory Results WBC 5.11 10^3/uL (4.4-10.8) D 01/27/20 07:05 RBC 2.57 10^6/uL (3.93-5.22) L 01/27/20 07:05 Hgb 9.9 g/dL (11.2-15.7) L 01/27/20 07:05 Hct 28.5 % (36.0-46.0) L 01/27/20 07:05 MCV 110.9 fL (80-95) H 01/27/20 07:05 MCH 38.5 pg (27.0-33.0) H 01/27/20 07:05 MCHC 34.7 % (32.0-36.0) 01/27/20 07:05 RDW 13.0 % (11.7-14.6) 01/27/20 07:05 Plt Count 173 10^3/uL (130-400) 01/27/20 07:05 MPV 9.5 fL (8.0-11.0) 01/27/20 07:05 Immature Gran % 0.4 01/27/20 07:05 Neutrophils % 75.3 01/27/20 07:05 Lymphocytes % 13.3 01/27/20 07:05 Monocytes % 10.6 01/27/20 07:05 Eosinophils % 0.2 01/27/20 07:05 Basophils % 0.2 01/27/20 07:05 Nucleated RBC % 0 % 01/27/20 07:05 Absolute Neutrophils 3.85 10^3/uL (1.2-6.7) 01/27/20 07:05 Absolute Lymphocytes 0.68 10^3/uL (1.2-3.4) L 01/27/20 07:05 Absolute Monocytes 0.54 10^3/uL (0.1-0.8) 01/27/20 07:05 Absolute Eosinophils 0.01 10^3/uL (0.0-0.7) 01/27/20 07:05 Absolute Basophils 0.01 10^3/uL (0.0-0.2) 01/27/20 07:05 RBC Morphology See below 01/27/20 07:05 Hypochromasia 1+ 01/26/20 11:25 Macrocytosis 2+ 01/27/20 07:05 D-Dimer 1626 ng/mlFEU (<500) H 01/26/20 11:25 Sodium 131 mmol/L (136-145) L 01/27/20 07:05 Potassium 3.3 mmol/L (3.5-5.1) L 01/27/20 07:05 Chloride 98 mmol/L (98-107) 01/27/20 07:05 Carbon Dioxide 27.2 mmol/L (21.0-32.0) 01/27/20 07:05 Anion Gap 5.8 mmol/L (3-11) 01/27/20 07:05 BUN 11 mg/dL (7-18) 01/27/20 07:05 Creatinine 0.71 mg/dL (0.55-1.02) 01/27/20 07:05 Estimated GFR/1.73 m2 >= 60.00 (mL/min/1.73m2) 01/27/20 07:05 Glucose 85 mg/dL (74-106) 01/27/20 07:05 Calcium 8.0 mg/dL (8.5-10.1) L 01/27/20 07:05 Magnesium 1.9 mg/dL (1.8-2.4) 01/27/20 07:05 Ferritin 434 ng/mL (8-252) H 01/27/20 07:05 Total Bilirubin 0.7 mg/dL (0.2-1.0) 01/27/20 07:05 Conjugated Bilirubin 0.35 mg/dL (0.00-0.20) H 01/27/20 07:05 AST 19 U/L (15-37) 01/27/20 07:05 ALT 9 U/L (14-59) L 01/27/20 07:05 Alkaline Phosphatase 128 U/L (46-116) H 01/27/20 07:05 Troponin I < 0.05 ng/mL (<0.06) 01/26/20 19:51 Total Protein 5.9 g/dL (6.4-8.2) L 01/27/20 07:05 Albumin 2.0 g/dL (3.4-5.0) L 01/27/20 07:05 Triglycerides 60 mg/dL (<150) 01/27/20 07:05 Total Cholesterol 86 mg/dL (<200) 01/27/20 07:05 LDL Cholesterol, Calc 33 mg/dL (<100) 01/27/20 07:05 HDL Cholesterol 41 mg/dL (40-60) 01/27/20 07:05 Vitamin B12 > 2000 pg/mL (193-986) H 01/27/20 07:05 Folate 10.8 ng/mL (8.6-20.0) 01/27/20 07:05 TSH 2.95 uIU/mL (0.36-3.74) 01/26/20 11:25 Urine Color Yellow (Yellow) 01/26/20 14:05 Urine Clarity Clear (Clear) 01/26/20 14:05 Urine pH 8.0 (5-8) 01/26/20 14:05 Ur Specific [place] 1.015 (1.005-1.025) 01/26/20 14:05 Urine Protein Negative mg/dL (Negative) 01/26/20 14:05 Urine Ketones Negative mg/dL (Negative) 01/26/20 14:05 Urine Blood Small (Negative) H 01/26/20 14:05 Urine Nitrite Positive (Negative) H 01/26/20 14:05 Urine Bilirubin Negative (Negative) 01/26/20 14:05 Urine Urobilinogen 2.0 EU/dL (Up TO 0.2) H 01/26/20 14:05 Ur Leukocyte Esterase Small (Negative) H 01/26/20 14:05 Urine RBC 5-10 HPF (0-2) H 01/26/20 14:05 Urine WBC >50 HPF (0-5) H 01/26/20 14:05 Ur Epithelial Cells Rare HPF (Negative) 01/26/20 14:05 Urine Crystals Few amorphous HPF (Negative) 01/26/20 14:05 Urine Bacteria Many HPF (Negative) 01/26/20 14:05 Urine Casts Negative LPF (Negative) 01/26/20 14:05 Urine Mucus Negative (Negative) 01/26/20 14:05 Ur Culture Indicated? Yes 01/26/20 14:05 Urine Glucose Negative mg/dL (Negative) 01/26/20 14:05
[2020-01-27 08:45] LABS: Iron 55 ug/dL (50-170); Total Iron Binding Capacity 94 ug/dL (250-450); Transferrin Sat 59 % (15-50)
--- NOTE | 2020-01-27 08:51 | OT.INIE ---
Occupational Therapy Notes Inpatient Occupational Therapy Evaluation Date: 01/27/20 Referring Doctor:Irlanda Tavarez MD OT Orders: Non-Urgent Precautions: Standard PATIENT PROFILE/ADMITTING DIAGNOSIS: Pt is a 74 year old female was admitted to [facility] after presenting to the ER on 01/26/20. She was admitted for c/o weakness and parasthesias with previous falls, new onset of A-Fib, urinary bladder neoplasm, hypomagnesium, hyponatremia, failure to thrive, UTI, hyperlipidemia, asthma, HTN. Past Medical History: Medical History (Updated 12/25/19 @ 15:52 by Virgie Crawford) Asthma (Chronic) CAD (coronary artery disease) (Chronic) Disorder of both eustachian tubes (Acute) Folate deficiency (Acute) H/O: HTN (hypertension) (Acute) History of asthma (Acute) History of depression (Acute) History of tobacco use (Acute) Hyperlipidemia (Acute) Hypertension (Chronic) Low back pain (Acute) Macrocytosis (Acute) Peripheral neuropathy (Acute) Rash, skin (Acute) Tremor (Acute) Unintentional weight loss (Acute) Vitamin B12 deficiency (dietary) anemia (Acute) Social History/Home Situation: Pt lives alone in an apartment in [facility] with her dog. She is totally (I) at baseline with her ADLs/IADLs. She (I) drives and cooks and cleans. She notes that her car was recently told it was unsafe to drive. She is concerned about how she will get groceries when she gets home. She also states that this makes her worried about her meals. She was admitted to [facility] about 1 year ago and notes that since her admission she has noticed increased (B) LE weakness this has made it more difficult for her to perform her ADL routines and she has a neighbor who comes and checks on her 4 times per day and walks her dog for her. She states that her (B) LE are affecting her driving and she is not sure if she should still be driving or not. Equipment owned/DME: Grab bars SUBJECTIVE: Pt was lying in bed when OT arrived. She was agreeable to OT session and notes that she is not doing well. She states that she is better than she was yesterday when she was admitted but notes that she is tired and her legs seem to be getting worse. OBJECTIVE: General Observation: Pleasant and answers questions appropriately, she was visibly tired and fatigued she mentions multiple times throughout session that her (B) LE are weak. Mental Status: A&Ox4 Pain: no c/o pain ROM: RUE AROM WNL L UE AROM WNL STRENGTH: RUE 3/5 throughout LUE 3/5 throughout Cloud Administrator is weak (B) FUNCTIONAL MOBILITY/ADLS: Transfers no assistive device Supine-sit (I) Sit-Supine (I) BATHING Sitting in bed- pt denies and reports that she is too tired. She was able to demonstrate functional ability with AROM sitting in her bed and demonstrate good crossing midline, (B) UE and (B) LE with min vc for leg placement. DRESSING Sitting in bed, increased performance time. Dressing UE Able to doff and [facility] gown with min vc Dressing LE Mod (A) (B) socks due to weakness and fatigue GROOMING NT as pt states that she was too tired but she was able to demonstrate good ROM required for performance of task. TOILETING on commode with min (A) EATING NT BALANCE: Static sitting Good Dynamic Sitting Good Static Standing Fair-Good Dynamic Standing Fair-Good SPECIAL TESTS: Daily Activity Limitations Standardized Measure [facility] AM -PAC ?6 clicks? Daily Activity Inpatient Short Form: Raw score: 17 Standardized score: 37.26 CMS score: 50.11% INFORMED CONSENT/EDUCATION: Pt instructed in purpose of OT Consult and plan of care. ASSESSMENT: Patient is a 74-year-old female referred to occupational therapy services with diagnosis of c/o weakness and parasthesias, new onset of A-Fib, urinary bladder neoplasm, hypomagnesium, hyponatremia, failure to thrive, UTI, hyperlipidemia, asthma, HTN. Patient presents with clinical signs and symptoms consistent with dx. Pt functionally is very (I) with her ADLs/IADLs at her baseline level of function. She was seen today for OT consult with the following functional impairments/limitations, decreased sensation in (B) LE limiting her functional mobility, decreased gross and fine motor control of (B) UE due to decreased functional activity tolerance, decreased strength in (B) UE, decreased strength (B) LE, decreased performance of (B) LE dressing and bathing, increased fatigue, decreased ability to perform her ADLs at her baseline level of function. AMPAC score 17, CMS score 50.11% Patient is assessed as a Moderate 53334 complexity based on the following: History: See Above Examination: See Above Presentation: Evolving Decision Making: AMPAC score 17, CMS score 50.11% GOALS Goals x1 week 1. Transfers- with FWW (I) 2. Bathing- pt will be able to perform her bathing routine (I) in seated position 3. Pt will be (I) with LE dressing in seated position and (I) with UE dressing 4. Pt will be able to stand at the sink and brush her teeth and hair (I) PLAN OF CARE/TREATMENT PLAN: 1x/day, 5 days/ week x 1week Initiate Occupational Therapy Services for bathing, dressing, grooming, toileting, eating, transfer training. DISCHARGE RECOMMENDATIONS Pt is very weak and unable to perform her ADL routines without (A), the decline in her (B) LE impacts her ability to perform her ADLs in a safe manner. Based on pts current level of function, OT feels that pt would benefit from short term stay in SNF vs. home with HH services. TREATMENT TIME/MINUTES/CODES 72035, [id number], 20 minutes (07:20) Simona He OTR/L [facility]
--- NOTE | 2020-01-27 09:39 | PT.INIE ---
Date of service: 01/27/20 Time of Service: 09:39 PT Notes Visit Reasons: UTI, NEW ONSET AFIB, SUSPECTED, BLADDER CANCER, FA Physical Therapy Inpatient Initial Evaluation Date: 01/27/2020 Referring Doctor: Irlanda Tavarez MD PT Orders: PT CONSULT: Limited ability Precautions: Fall. Standard. Activity as tolerated. Patient Profile/Admitting Diagnosis: Jamilah is a 74-year-old female who presented to the ED on 01/26/2020 with chief complaint of progressive weakness and difficulty with sitting up and getting out of bed. She is diagnosed with urinary tract infection, urine urinary bladder neoplasm, new onset atrial fibrillation, failure to thrive, generalized weakness, hyponatremia, hypomagnesemia, hyperlipidemia, with a palliative consult in place. PMHX: Medical History (Updated 01/26/20 @ 15:33 by Carol Marquez NP) Asthma (Chronic) CAD (coronary artery disease) (Chronic) Cellulitis (Inactive) Disorder of both eustachian tubes (Acute) Drug rash (Inactive) Folate deficiency (Acute) H/O: HTN (hypertension) (Acute) History of asthma (Acute) History of depression (Acute) History of tobacco use (Acute) Hyperlipidemia (Acute) Hypertension (Chronic) Low back pain (Acute) Macrocytosis (Acute) Peripheral neuropathy (Acute) Rash, skin (Acute) Tremor (Acute) Unintentional weight loss (Acute) Vitamin B12 deficiency (dietary) anemia (Acute) Social History/Home Situation: Jamilah lives alone in an apartment with 2 steps to enter, rails on both sides but she states that they are wide so she is only able to hold on one side at a time. She states that she receives Meals on Wheels Mondays and Fridays only and had been able to manage on her own for the other days of the week. She has a neighbor who comes in every day to help take care of her dog and cat. She is independent with all aspects of ADLs and had not had a need of any assistive device. She was discontinued from skilled physical therapy services the last time she was hospitalized here on 01/08/2019 at independent level without an assistive device for 300 feet. Equipment Owned/DME: None Subjective: Reports being progressively weak which led to her most recent hospitalization. States that she gets tired easily and does not know how well she will be managed home alone. Denies headache, chest pain, and dizziness throughout PT session. She remarks that she moves a lot better today than she did yesterday. Objective: General Observation: Telemetry monitoring in place. Antithromboembolic pumps to both legs. TEDS to both legs. IV in the left UE. Mental Status: Alert and oriented x 4 Pain: 3-4/10 pain in her low back area with movement ROM: Right Upper Extremity: Shoulder Flexion allows about 95 degrees. Shoulder abduction allows about 90 degrees. Elbow flexion WFL. Wrist flexion WFL. Opening and closing of hand WFL. Left Upper Extremity: Shoulder Flexion allows about 95 degrees. Shoulder abduction allows about 90 degrees. Elbow flexion WFL. Wrist flexion WFL. Opening and closing of hand WFL. Right Lower Extremity: Hip flexion allows about 10 degrees beyond 90 while seated at edge of bed.. Hip abduction WFL. Knee flexion up to 100 degrees. Ankle dorsiflexion up to 10 degrees beyond neutral. Ankle plantarflexion WFL. Left Lower Extremity: Hip flexion allows about 10 degrees beyond 90 while seated at edge of bed.. Hip abduction WFL. Knee flexion up to 100 degrees. Ankle dorsiflexion up to 10 degrees beyond neutral. Ankle plantarflexion WFL. Strength: Right Upper Extremity: Shoulder flexors 3-/5. Shoulder abductors 3-/5. Elbow flexors 3+/5. Elbow extensors 3+/5. Marketing Senior Recruiter weak but functional. Left Upper Extremity: Shoulder flexors 3-/5. Shoulder abductors 3-/5. Elbow flexors 3+/5. Elbow extensors 3+/5. Marketing Senior Recruiter weak but functional. Right Lower Extremity: Hip flexors 3-/5. Hip abductors 4-/5. Knee flexors 3-/5. Knee extensors 4-/5. Ankle dorsiflexors 3-/5. Ankle plantarflexors 4-/5. Left Lower Extremity: Hip flexors 3-/5. Hip abductors 4-/5. Knee flexors 3-/5. Knee extensors 4-/5. Ankle dorsiflexors 3-/5. Ankle plantarflexors 4-/5. Sensation: Intact as to pain and pressure on bilateral lower extremities. Bed Mobility/Transfers: Supine to sit minimal assist Stand to sit contact-guard assist, requires use of front wheel walker Bed to chair contact-guard assist, requires use of front wheel walker Chair to bed contact-guard assist, requires use of front wheel walker Gait: 10 feet using front wheeled walker with contact-guard assist from bedside to wheelchair with decreased keyla but with a swing through gait pattern. No report of increased pain in the back with activity. Denies headache, pain, and dizziness throughout. Balance: Static Sitting: Normal Dynamic Sitting: Normal Static Standing: Fair Dynamic Standing: Fair Straight Leg Raise: Only able to tolerate up to 5 straight leg raises due to fatigue on each side with minimal increase in low back pain to 4?5/10 complaint but no lateralization of pain to BLE reported. Special Tests: Mobility Limitations Standardized Measure [facility] AM-PAC 6 clicks Basic Mobility Inpatient Short Form: Raw Score: 18 CMS Score: 47% deficit Informed Consent/Education: Patient instructed in purpose of PT consult and plan of care. Assessment: Jamilah demonstrates significant functional mobility decline requiring the use of a front wheel walker for all mobility ADL performance, unsteadiness of gait, decreased activity tolerance, and difficulty with walking resulting from admitting diagnoses. She is having her low back area tested with MRI to identify potential cause(s) for her progressive BLE weakness. Jamilah is a 74-year-old female who presented to the ED on 01/26/2020 with chief complaint of progressive weakness and difficulty with sitting up and getting out of bed. She is diagnosed with urinary tract infection, urine urinary bladder neoplasm, new onset atrial fibrillation, failure to thrive, generalized weakness, hyponatremia, hypomagnesemia, hyperlipidemia, with a palliative consult in place. Patient presents with clinical signs and symptoms consistent with current/admitting diagnoses that have resulted to mobility limitations, gait instability, generalized weakness, and impairment of motor control as demonstrated by the following impairment level findings: 1. Decreased strength to B UEs/LE major muscle groups 2. Impaired standing balance 3. Impaired activity tolerance 4. Limitation of joint range of motion in B shoulders, hips, knees Impairments are contributing to the following functional limitations: 1. Dependent bed mobility skills 2. Increased dependence with transfers 3. Inability to safely ambulate without assistive device and physical assistance 4. Increase completion time for mobility ADL performance 5. Increased fall risk 6. Inability to negotiate steps alone safely Patient is assessed as a 19216 moderate complexity based on the following: History: 74-year-old female with impairment level findings, functional limitations, and past medical history as indicated above Examination: Demonstrable impairment in strength, balance, and mobility level with underlying impairments and functional limitations as documented above Presentation:Evolving Decision Makin moderate complexity Goals: Goals X1 week 1. Supine-Sit independent 2. Sit-Supine independent 3. Sit-Stand independent 4. Stand-Sit independent 5. Bed-Chair independent 6. Chair-Bed independent 7. Independent gait on level surface with use of front wheeled walker for at least 300 feet without report of pain nor dyspnea 8. Independent stair negotiation while holding onto bilateral rails for at least 10 steps without report of pain nor dyspnea 9. Independent with home exercise program 10. Good static and dynamic standing balance/tolerance Plan of Care/Treatment Plan: 1-2x/day, 7 days/week x 1 week. Plan of care has been reviewed with the SOFTWARE PROGRAMMER providing the service under Physical Therapy direction. Initiate Physical Therapy intervention for strengthening, bed mobility, transfers, gait, stairs, balance training, use of assistive device. DISCHARGE RECOMMENDATIONS: Will determine between SNF versus PT depending on patient's mobility status with skilled services. TREATMENT CODE/TIME: 83257 x 24 minutes beginning at 9:39 AM. Thank you for the opportunity to participate in the care of this patient. Lanny Pedraza PT, DPT, CLT [facility] [place], [place]
[2020-01-27] MEDS: Potassium Chloride 20 MEQ TABCR PO ×3 (10:01→20:26)
--- NOTE | 2020-01-27 10:29 | DI.US_ITS ---
APPROVED REPORT EXAM: Comprehensive 2D, Doppler, and color-flow Echocardiogram Patient Location: In-Patient Room/Bed: 205 Medical Scheduler: Joslyn Painter RDCS (AE) Indications: New onset A Fib Other Information Technically limited study due to inability to position patient. Conclusion Technically difficult study Normal left ventricular wall thickness and chamber size. Estimated ejection fraction is 55 to 60%. There are no segmental wall motion abnormalities Right ventricle is not well visualized The left atrium and right atrium are normal in size Aortic valve sclerosis without stenosis or regurgitation Structurally normal mitral valve, trace regurgitation Structurally normal tricuspid valve, trace regurgitation The pulmonic valve is not well visualized Small circumferential pericardial effusion Wall motion Left Ventricle The left ventricle is normal size. The left ventricular systolic function is normal. The left ventric ular ejection fraction is within the normal range. There is normal left ventricular wall thickness. T here is normal LV segmental wall motion. There is no ventricular septal defect visualized. LVEF is 55 -60%. Right Ventricle Right ventricle is not well visualized. Right ventricular systolic function could not be assessed. Th e RVSP is 33.7 mmHg. Atria The left atrium size is normal. The right atrium size is normal. The interatrial septum is intact wit h no evidence for an atrial septal defect. Aortic Valve The Aortic valve is sclerotic. Aortic valve is trileaflet. There is no aortic valvular stenosis. No a ortic regurgitation is present. Mitral Valve The mitral valve is normal in structure. No evidence of mitral valve stenosis. Trace mitral regurgita tion. Tricuspid Valve The tricuspid valve is normal in structure. There is no tricuspid valve stenosis. Trace tricuspid reg urgitation. Pulmonic Valve Pulmonic valve is not well visualized. There is no pulmonic valvular stenosis. There is no pulmonic v alvular regurgitation. Great Vessels The aortic root is normal in size. Aortic arch is normal in caliber. IVC is normal in size and collap ses >50% with inspiration. Pericardium Mild circumferential pericardial effusion. 2D Dimensions IVSD d PLAX 0.75 cm F: 0.6-1.0 LV Vol A2C d MOD 52.1 mL LVPW d PLAX 0.75 cm F: 0.6 - 1.0 LV Vol A4C d MOD 46.7 mL LVID d PLAX 3.50 cm F: 3.8 - 5.2 LA vol/ BSA A4C s A-L 21.3 mL/m2 LVDs 2.55 cm F: 2.2 - 3.5 LA Area A4C s MOD 13.41 cm2 Ao Root d 2.72 cm F: 2.7 - 3.3 LV EF A4C MOD 51.7 % RA Area A4C 9.95 cm2 LV EF A2C MOD 49.7 % RA Vol/ BSA A4C s A-L 14.3 mL/m2 LV EF Biplane MOD 51.2 % Ao Asc Diam d 3.32 cm F: 2.3 - 3.1 SV 25.56 mL LV EF Teichholz 52.4 % SV Index 16.59 mL/m2 LVEF (Ramirez's) 51.21 % F: 54 - 74 LV Volume 41.16 mL F: 46 - 106 LV Volume Index 26.72 mL/m2 F: 29 - 61 LV Vol Biplane MOD 49.9 mL FS 26.15 % M-Mode TAPSE 1.80 cm (M/F) >1.7 LV Diastology MV E' medial 0.068 (>0.07 m/s) E/A Ratio 0.7 LV E/e MED 8.25 (<14) MV E Vmax 0.57 (0.4-1.3 m/s) MV E' lateral 0.061 (>0.1 m/s) MV A Vmax 0.85 (0.4-1.3 m/s) LV E/e LAT 9.25 (<14) MV E/A Ratio 0.65 MV E/E' medial 8.29 MV E/E' lateral 9.28 Aortic Valve LVOT Area 2.88 cm2 AoV Area Vmax 2.22 cm2 LVOT Vmax 0.63 m/s AoV Area/ BSA (Vmax) 1.44 cm2/m2 LVOT Mean Chris. 0.52 m/s MANUEL Mean Chris. 2.32 cm2 LVOT Peak Grad 1.6 mmHg MANUEL Mean Chris. Index 1.50 cm2/m2 LVOT Mean Grad 1.1 mmHg LVOT VTI 0.133 m LVOT Diam s 1.90 cm AoV Vmax 0.81 m/s Velocity Ratio 0.77 AoV Mean Chris. 0.64 m/s AoV Peak Grad 2.7 mmHg LVOT SV 38.16 mL AoV Mean Grad 1.8 mmHg AoV VTI 0.151 m AoV Area VTI 2.52 cm2 AoV Area/ BSA (VTI) 1.64 cm/m2 Mitral Valve MV DT 152 (160-240 msec) MV PHT 44 msec MV Area PHT 5.00 cm2 Pulmonary Valve PV Vmax 0.82 (0.5-1.5 m/s) RVOT Peak Gr. 1.44 mmHg PV Peak Grad 2.7 mmHg RVOT Mean Gr. 0.60 mmHg PV Mean Grad 1.1 mmHg RVOT VTI 0.115 m PV VTI 0.174 m RVOT Vmax 0.60 m/s Tricuspid Valve TR Peak Grad 30.6 mmHg TR Vmax 2.77 m/s RA Pressure 3.00 mmHg RVSP (TR) 33.7 mmHg
--- NOTE | 2020-01-27 12:30 | DI.MRI_ITS ---
EXAM: MR LUMBAR SPINE WO CLINICAL HISTORY: leg weakness, bulging discs, ? cauda equina. TECHNIQUE: Multiplanar multisequence MRI of the Lumbar spine was performed. COMPARISON: No exams were available for comparison FINDINGS: Bones: The last intervertebral disc space is designated the L5/S1 level for the numbering purpose of this examination. The vertebral body heights are well maintained. Grade 1 pseudo spondylolisthesis of L5 on S1 is noted. Multilevel degenerative endplate signal changes are noted. The findings are m ost marked from T12-L1 through L2-L3. Cord: The conus tip ends at the L1 level. It is of normal size and signal intensity. T12-L1: There is a mild diffuse disc bulge. No central spinal canal or neural foraminal stenosis. L1-2: Is a mild diffuse disc bulge. No significant central spinal canal stenosis is seen. No signif icant left neural foraminal stenosis is seen. There is mild right neural foraminal stenosis. L2-3: There is a diffuse disc bulge and hypertrophy of the ligamentum flavum. There is srmp-km-pzegz ate narrowing of the central spinal canal. Mild to moderate bilateral neural foraminal stenosis is s een. L3-4: There is a mild diffuse disc bulge. There is mild hypertrophy of the ligamentum flavum. Degen erative changes of the facets are seen. These all contribute to cause moderate narrowing of the cent ral spinal canal. Moderate bilateral neural foraminal stenosis is seen. L4-5: There is a diffuse disc bulge and hypertrophy of the ligamentum flavum. There are hypertrophic changes of the facets. These all contribute to cause moderate narrowing of the central spinal canal .Mild bilateral neural foraminal stenosis is seen. L5-S1: There is a diffuse disc bulge. Facet arthropathy is present. There is mild narrowing of the central spinal canal. There is marked narrowing of the right neural foramen and exdb-wa-llnygjfe kristal rowing of the left neural foramen. Soft tissues: The visualized SI joints and sacrum are well maintained. The paraspinal soft tissues ar e unremarkable. IMPRESSION: 1. Normal appearance and location of the conus medullaris. 2. Marked degenerative changes seen in the lumbar spine resulting in multilevel central spinal canal and neural foraminal stenosis as described above. DATA REPOSITORY:
[2020-01-27] MEDS: Metoprolol 50 MG TAB 25 MG PO ×2 (13:44→20:26)
--- NOTE | 2020-01-27 15:07 | PT.INNT ---
Date of service: 01/27/20 Time of Service: 14:00 PT Notes Visit Reasons: UTI, NEW ONSET AFIB, SUSPECTED, BLADDER CANCER, FA screw that Pt refused PT this pm stating that she had a busy morning with testing etc and was going to get into bed and take a nap. Will check in with her tomorrow.
--- NOTE | 2020-01-27 16:15 | PHACLINREV_ITS ---
Pharmacy Admission Review - Admission Clinical Review (Last Updated 01/26/20 @ 15:18 by Carol Marquez NP) Urinary bladder neoplasm (Acute) New onset a-fib (Acute) Weakness (Acute) Hypomagnesemia (Acute) Hyponatremia (Acute) Failure to thrive (Acute) UTI (urinary tract infection) (Acute) Discharge planning issues (Acute) DVT prophylaxis (Acute) Hyperlipidemia (Acute) lisinopril Allergy (Intermediate, Unverified 01/26/20 11:18) lips swelled sulfamethoxazole [From Bactrim] Allergy (Intermediate, Unverified 01/26/20 11:18) Hives trimethoprim [From Bactrim] Allergy (Intermediate, Unverified 01/26/20 11:18) Hives Penicillins Adverse Reaction (Intermediate, Unverified 01/26/20 11:18) Hives Height 5 ft 4.17 in Weight 53.2 kg - Renal Dosing Renal Dosing: BUN 11 mg/dL (7-18) 01/27/20 07:05 Creatinine 0.71 mg/dL (0.55-1.02) 01/27/20 07:05 Medications needing adjustments: Reviewed (Crcl ~51.02 mL/min current meds okay) - Anticoagulation Anticoagulation: Hgb 9.9 g/dL (11.2-15.7) L 01/27/20 07:05 Hct 28.5 % (36.0-46.0) L 01/27/20 07:05 Plt Count 173 10^3/uL (130-400) 01/27/20 07:05 Creatinine 0.71 mg/dL (0.55-1.02) 01/27/20 07:05 DVT Prohphylaxis: Reviewed Medications: Heparin Therapeutic Anticoagulation: N/A - Opiate Usage Evaluate Pain Scale/Pains Meds: Reviewed Scheduled Bowel Reg ordered if on Opiates?: No (has prn meds ordered) - Relevant Labs Sodium 131 mmol/L (136-145) L 01/27/20 07:05 Potassium 3.3 mmol/L (3.5-5.1) L 01/27/20 07:05 Chloride 98 mmol/L (98-107) 01/27/20 07:05 Magnesium 1.9 mg/dL (1.8-2.4) 01/27/20 07:05 Electrolytes, C-Reactive P, ESR: Reviewed (potassium replacement ordered TID scheduled) - DM Control DM Control: Glucose 85 mg/dL (74-106) 01/27/20 07:05 Insulin Dosing: N/A - Heart Failure/TX Heart Failure/TX: Troponin I < 0.05 ng/mL (<0.06) 01/26/20 19:51 EF%, JULIETA's, B-Blockers, Diuretics: N/A - BP Control BP Control: Blood Pressure 126/75 If elevated: N/A - Qtc Review If Elevated: Reviewed (QTc 482) - IV to PO Switch IV Medications: Reviewed - Home Meds Home Med List reviewed: Reviewed Relevent Home Meds Not ordered & why?: albuterol, amlodipine, budesonide/formoterol, famotidine, fluoxetine, hydrocortisone, loratadine, lo vastatin, vit B12, nitroglycerin, triamcinolone. Unsure if home med list updated as some of meds on list haven't been picked up since 2019. PCP's office already closed today, reach out tomorrow to get updated home med list. - Current meds Current Medication Order Review: Intervened (discontinued DI meds (already given), entered patch removal order for 12 hours after start of lidocaine patch) - Comments Comments/Follow Ups: Watch sodium, K+, H/H, and for med changes (change in K+ order, QTc prolonging meds, possible IV to PO abx). Antibiotic Activity - Pharmacy Antibiotic Review Pharmacy Antibiotic Activity: C/S review (Ceftriaxone (day 2) continues. Urine culture growing gram positive and negative tim (probable contaminant per micro report).)
[2020-01-27] MEDS: cefTRIAXone 1 GM/50 ML BAG IVPB (16:18)
[2020-01-27 16:40] VITALS: BP 125/84; PULSE 82; RESP 17; TEMP 37.6; O2SAT 100
[2020-01-27 17:39] LABS: Bilirubin Small (Negative); Blood Trace-intact (Negative); Clarity Turbid (Clear); Glucose Negative (Negative); Ketones 15 mg/dL (Negative); Leukocyte Esterase Moderate (Negative); Nitrite Positive (Negative)
--- NOTE | 2020-01-27 17:54 | INITIAL_ITS ---
- If Service Date Differs Date of service: 01/27/20 Time of Service: 17:54 Care Management Initial Assess REASON FOR HOSPITALIZATION:: UTI PAST MEDICAL HISTORY/PAST SURGICAL HISTORY:: Medical History (Updated 01/26/20 @ 15:33 by Carol Marquez NP). Asthma (Chronic). CAD (coronary artery disease) (Chronic). Cellulitis (Inactive). Disorder of both eustachian tubes (Acute). Drug rash (Inactive). Folate deficiency (Acute). H/O: HTN (hypertension) (Ac [place]). History of asthma (Acute). History of depression (Acute). History of tobacco use (Acute). Hyperlipidemia (Acute). Hypertension (Chronic). Low back pain (Acute). Macrocytosis (Acute). Peripheral neuropathy (Acute). Rash, skin (Acute). Tremor (Acute). Unintentional weight loss (Acute). Vitamin B12 deficiency (dietary) anemia (Acute) PREVIOUS FUNCTIONAL STATUS/SOCIAL/FAMILY SUPPORTS:: Jamilah lives alone in an apartment in [facility]. She has several close friends who check on her regularly and help her whenever needed. Jamilah's closest relative is a nephew who lives in [place], [place]. Jamilah stated that prior to becoming ill in November, she was very independent and active. CURRENT FUNCTIONAL STATUS:: Jamilah was sitting up in a chair when CM met with her. She was pleasant and agreeable to conversation. Jamilah described her recent illness and that fact that she has lost her appetite and has become very weak over that past couple of months. Jamilah has a dog that she is very fond of who is currently being cared for by a close friend. ADVANCE DIRECTIVES:: on file. Jessica DODSON Has patient been provided with info about the portal/API?: Yes Did the patient sign up for the portal?: No CODE STATUS:: Full Code INSURANCE COVERAGE / FINANCIAL ISSUES:: Medicare CURRENT HOME/COMMUNITY SERVICES/EQUIPMENT:: [employer] PRIMARY CARE PHYSICIAN:: Jose Gonzalez POTENTIAL DISCHARGE NEEDS:: Follow up with PCP and discharge plan of care PATIENT/FAMILY EDUCATION NEEDS:: Discharge plan, limitations, Ask Me Three TRANSPORTATION:: to be determined by final destination PLAN:: Jamilah will likely be discharged home, possibly with new home health services. She will follow up with her PCP and discharge plan of care and transport with friends. CM will continue to support Jamilah and assess for discharge concerns.
[2020-01-27 17:57] LABS: Epithelial Cells Many HPF (Negative)
[2020-01-27 17:59] LABS: Bacteria Packed HPF (Negative); Crystals Many Triple Phos HPF (Negative)
[2020-01-27 18:00] LABS: C & S Indicated? Yes; WBC >50 HPF (0-5)
[2020-01-27 20:19] VITALS: BP 106/75; PULSE 94; RESP 17; TEMP 36.8; O2SAT 100
[2020-01-27] MEDS: Atorvastatin 20 MG TAB PO (20:26)
[2020-01-27] MEDS: traMADol 50 MG TAB PO (20:27)
--- NOTE | 2020-01-27 20:34 | PCNE_ITS ---
Date of service: 01/27/20 Time of Service: 18:34 History of Present Illness History of Present Illness Chief Complaint: Fraility Narrative: H and P Note 12/2019: History of Present Illness History of Present Illness Chief Complaint: FTT, Afib, UTI Narrative: 74 y.o female with PMH of CAD, HLD, HTN, Asthma presents to [facility] ED for weakness that has been progressing over the past several months. On 12/19 she was seen by her PCP for the same complaint. There was found to be no abnormality at that time. This is a new diagnosis. 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 Her back has also been in pain when getting up and she states that it feels best when she does not move. Upon arrival to the ED EKG revealed Afib with HR 120-130's, she did was given her dose of metoprolol and rate decreased to 90's, she has no known history of afib. Labs in the ED significant from sodium 130, mag 1.6, alk phosphate 160. CT abd/pelvis with bulging disc l3/l4/L5/S1 Diffuse thickening of wall of urinary bladder, may represent infectious or inflammatory process, neurogenic bladder neoplasm can not be entirely excluded. Urology consult should be considered. Urine revealing small amount of blood, positive nitrate, small leuk es and WBC greater than 50. She has been asked to be admitted to /s for further manage ment. She is being admitted to hospitalist service on telemetry. Urology consult placed. Jamilah states that she is feeling better, but is definitely tired from all of the testing and seeing different providers today. She said that normally she is very active and participates in sports but recently (I tried to pin her down on what she meant by recently but could not) she has been finding it harder to walk move etc. she continues to drive. She does have a director of admissions who comes in mostly to walk her dog. She loves her dog. She does have a history of high alcohol intake and recently was having a couple of gins per day. She became increasingly dehydrated, hyponatremic and had a urinary tract infection. She was admitted for further management Also during initial work-up her bladder wall was thickened questioning whether she had infectious inflammatory or neoplastic disease. Urology has been consulted Consults Consult date: 01/27/20 Requesting physician: Irlanda Tavarez Assessment and Plan Assessment and plan (1) Neuropathy: Status: Acute (2) Failure to thrive: Status: Acute (3) CAD (coronary artery disease): Status: Chronic (4) Palliative care patient: Status: Acute Assessment and plan: She was very tired of all the testing and physician visits. We decided to concentrate on CODE Status. After a lengthy discussion she chose to be DNR/DNI. She didn't want intubation or compressions. She is only interested in making her life better, not longer. We completed the CO LST form today and I did change her CODE STATUS I have spent more than 50% of time in counseling with this patient. I would like to continue to follow her outpatient and would like an outpatient palliative consult to be scheduled when she leaves. Jamilah agreed to this. This document was created by [employer] software. Content was screened for misspellings, grammatical mistakes, etc. I apologize for any problems, but please contact me for further clarification if needed. (5) DNR (do not resuscitate): Status: Acute (6) Physician orders for life-sustaining treatment (POLST) form indicates patient wish for ih-ndy-gjrjhvchlyy status: Status: Acute (7) UTI (urinary tract infection): Status: Acute Review of Systems Narrative: Jamilah says that she is feeling better than she did when she came in. She knows that hydration has helped. She still cannot ambulate but is working with physical therapy. She cannot remember having a fever. No shortness of breath no difficulty breathing [facility] Medical History (Updated 01/28/20 @ 08:50 by Apoorva Crawford MD, DC) Abnormal CT scan, bladder (Acute) Asthma (Chronic) CAD (coronary artery disease) (Chronic) Cellulitis (Inactive) Disorder of both eustachian tubes (Acute) Drug rash (Inactive) Folate deficiency (Acute) H/O: HTN (hypertension) (Acute) History of asthma (Acute) History of depression (Acute) History of tobacco use (Acute) Hyperlipidemia (Acute) Hypertension (Chronic) Low back pain (Acute) Macrocytosis (Acute) Peripheral neuropathy (Acute) Rash, skin (Acute) Tremor (Acute) Unintentional weight loss (Acute) Vitamin B12 deficiency (dietary) anemia (Acute) Social History Smoking/Tobacco Use Status: Former Tobacco Use Alcohol Intake: never Drug use: Never Do you feel safe at home: Yes Do you feel safe in your relationship?: Yes Exam Narrative Exam Narrative: She is sitting in bed. She has eaten her meal. She remembers my name throughout our time together and does say goodbye to me by name as I am leaving. She also understood that it was late at night when I was seeing her. She stated appreciation for me coming to see her even though it was so late (730). Her heart was irregular. She had fairly good aeration of her lungs. Her abdomen was nontender. Results Last Vital Signs Temp 98.2 F 01/27/20 20:19 Pulse 94 H 01/27/20 20:19 Resp 17 01/27/20 20:19 BP 106/75 01/27/20 20:19 Pulse Ox 100 01/27/20 20:19 Labs Result diagrams: 01/27/20 07:05 01/28/20 06:50 Labs: Laboratory Results - last 24 hr 01/26/20 01/27/20 01/27/20 19:51 07:05 07:05 WBC RBC Hgb Hct MCV MCH MCHC RDW Plt Count MPV Immature Gran % Neutrophils % Lymphocytes % Monocytes % Eosinophils % Basophils % Nucleated RBC % Absolute Neutrophils Absolute Lymphocytes Absolute Monocytes Absolute Eosinophils Absolute Basophils RBC Morphology Macrocytosis Sodium 131 L Potassium 3.3 L Chloride 98 Carbon Dioxide 27.2 Anion Gap 5.8 BUN 11 Creatinine 0.71 Estimated GFR/1.73 m2 >= 60.00 Glucose 85 Calcium 8.0 L Magnesium 1.9 Iron 55 TIBC 94 L Transferrin % Sat 59 H Ferritin 434 H Total Bilirubin 0.7 Conjugated Bilirubin 0.35 H AST 19 ALT 9 L Alkaline Phosphatase 128 H Troponin I < 0.05 Total Protein 5.9 L Albumin 2.0 L Triglycerides 60 Total Cholesterol 86 LDL Cholesterol, Calc 33 HDL Cholesterol 41 Vitamin B12 > 2000 H Folate 10.8 Urine Color Urine Clarity Urine pH Ur Specific [place] Urine Protein Urine Ketones Urine Blood Urine Nitrite Urine Bilirubin Urine Urobilinogen Ur Leukocyte Esterase Urine RBC Urine WBC Ur Epithelial Cells Urine Crystals Urine Bacteria Urine Mucus Urine Other Ur Culture Indicated? Urine Glucose 01/27/20 01/27/20 07:05 16:25 WBC 5.11 D RBC 2.57 L Hgb 9.9 L Hct 28.5 L MCV 110.9 H MCH 38.5 H MCHC 34.7 RDW 13.0 Plt Count 173 MPV 9.5 Immature Gran % 0.4 Neutrophils % 75.3 Lymphocytes % 13.3 Monocytes % 10.6 Eosinophils % 0.2 Basophils % 0.2 Nucleated RBC % 0 Absolute Neutrophils 3.85 Absolute Lymphocytes 0.68 L Absolute Monocytes 0.54 Absolute Eosinophils 0.01 Absolute Basophils 0.01 RBC Morphology See below Macrocytosis 2+ Sodium Potassium Chloride Carbon Dioxide Anion Gap BUN Creatinine Estimated GFR/1.73 m2 Glucose Calcium Magnesium Iron TIBC Transferrin % Sat Ferritin Total Bilirubin Conjugated Bilirubin AST ALT Alkaline Phosphatase Troponin I Total Protein Albumin Triglycerides Total Cholesterol LDL Cholesterol, Calc HDL Cholesterol Vitamin B12 Folate Urine Color Urine Clarity Turbid Urine pH 8.0 Ur Specific [place] 1.020 Urine Protein 30 H Urine Ketones 15 H Urine Blood Trace-intact H Urine Nitrite Positive H Urine Bilirubin Small H Urine Urobilinogen 4.0 H Ur Leukocyte Esterase Moderate H Urine RBC Urine WBC >50 H Ur Epithelial Cells Many Urine Crystals Many triple phos Urine Bacteria Packed Urine Mucus Not Applicable Urine Other Many transitional Ur Culture Indicated? Yes Urine Glucose Negative Laboratory Tests 01/26/20 01/26/20 01/27/20 11:25 14:05 07:05 Hct D-Dimer 1626 H Sodium 131 L Calcium 8.0 L Ferritin 434 H Alkaline Phosphatase 128 H Albumin 2.0 L Vitamin B12 > 2000 H Urine Urobilinogen Urine RBC 5-10 H Urine WBC 01/27/20 01/27/20 07:05 16:25 Hct 28.5 L D-Dimer Sodium Calcium Ferritin Alkaline Phosphatase Albumin Vitamin B12 Urine Urobilinogen 4.0 H Urine RBC Urine WBC >50 H MRI 01/27/2020 INDINGS: Bones: The last intervertebral disc space is designated the L5/S1 level for the numbering purpose of this examination. The vertebral body heights are well maintained. Grade 1 pseudo spondylolisthesis of L5 on S1 is noted. Multilevel degenerative endplate signal changes are noted. The findings are most marked from T12-L1 through L2-L3. Cord: The conus tip ends at the L1 level. It is of normal size and signal intensity. T12-L1: There is a mild diffuse disc bulge. No central spinal canal or neural foraminal stenosis. L1-2: Is a mild diffuse disc bulge. No significant central spinal canal stenosis is seen. No significant left neural foraminal stenosis is seen. There is mild right neural foraminal stenosis. L2-3: There is a diffuse disc bulge and hypertrophy of the ligamentum flavum. There is oauj-en-rxdnbswz narrowing of the central spinal canal. Mild to moderate bilateral neural foraminal stenosis is seen. L3-4: There is a mild diffuse disc bulge. There is mild hypertrophy of the ligamentum flavum. Degenerative changes of the facets are seen. These all co ntribute to cause moderate narrowing of the central spinal canal. Moderate bilateral neural foraminal stenosis is seen. L4-5: There is a diffuse disc bulge and hypertrophy of the ligamentum flavum. There are hypertrophic changes of the facets. These all contribute to cause moderate narrowing of the central spinal canal.Mild bilateral neural foraminal stenosis is seen. L5-S1: There is a diffuse disc bulge. Facet arthropathy is present. There is mild narrowing of the central spinal canal. There is marked narrowing of the right neural foramen and gymq-jh-ooicuhwx narrowing of the left neural foramen. Soft tissues: The visualized SI joints and sacrum are well maintained. The paraspinal soft tissues are unremarkable. IMPRESSION: 1. Normal appearance and location of the conus medullaris. 2. Marked degenerative changes seen in the lumbar spine resulting in multilevel central spinal canal and neural foraminal stenosis as described above. CT chest/abd/pelvis 01/26/2020: MPRESSION: 1. No evidence of pulmonary embolism, thoracic aortic dissection or aneurysm. 2. Diffuse thickening of the wall of the urinary bladder. This may represent an infectious or inflammatory process. Neurogenic bladder neoplasm cannot be entirely excluded. Please correlate clinically. Urology consult should be considered.
[2020-01-27 21:31] LABS: COVID-19 RT-PCR UVMMC Result Negative (Negative)
[2020-01-27 23:38] VITALS: BP 102/71; PULSE 86; RESP 17; TEMP 36.3; O2SAT 96
[2020-01-28 03:29] VITALS: BP 114/72; PULSE 92; RESP 18; TEMP 36.2; O2SAT 95
[2020-01-28] MEDS: Normal Saline 1,000 ML 100 ML IV (03:33)
[2020-01-28] MEDS: Heparin 5,000 UNITS/ML VIAL 5000 UNITS SC ×3 (06:27→21:21)
--- NOTE | 2020-01-28 07:20 | UCONE_ITS ---
Date of service: 01/27/20 Time of Service: 16:20 Assessment and Plan Assessment and plan (1) Abnormal CT scan, bladder: Status: Acute Assessment and plan: Her CT scan findings are very nonspecific but c ertainly could be evaluated with a cystoscopy if the patient so chooses. I do not see any evidence of metastatic disease (if her bladder finding actually is a neoplasm), so I do not think any of her current symptoms can be attributed to her bladder. When we see bladder cancer patients with these failure to thrive type symptoms, they usually have metastatic disease. Localized bladder cancers are more likely to simply cause hematuria. On my initial discussions with the patient, she is not sure that she wants to do any type of invasive testing like cystoscopy. I can revisit this issue with her again. History of Present Illness History of Present Illness Chief Complaint: Abnormal CT scan Narrative: This is a 74-year-old woman was admitted through the emergency room with weakness and weight loss. She had a CT of the chest abdomen and pelvis which showed some nonspecific bladder wall thickening. A urology consult was suggested by the reading radiologist. The patient tells me that she is not noticing any change in her voiding symptoms. She has no gross hematuria. She has not had any prior urologic surgeries. She denies any history of frequent UTIs or kidney stones. Her last positive urine culture in our EMR system is from 2012 (E. coli) She has been a smoker in the past but she quit over 10 years ago. She has no family history of urologic malignancy. Review of Systems Narrative: No fevers or chills No vision change or dysphasia No diabetes or thyroid No sputum production or hemoptysis No chest pain. New onset Atrial Fibrillation No hepatitis, ulcers, jaundice, diarrhea or constipation No seizures, strokes. Hx peripheral neuropathy No bleeding disorders No gout [facility] Medical History (Updated 01/28/20 @ 07:52 by Drake Flores MD) Abnormal CT scan, bladder (Acute) Asthma (Chronic) CAD (coronary artery disease) (Chronic) Cellulitis (Inactive) Disorder of both eustachian tubes (Acute) Drug rash (Inactive) Folate deficiency (Acute) H/O: HTN (hypertension) (Acute) History of asthma (Acute) History of depression (Acute) History of tobacco use (Acute) Hyperlipidemia (Acute) Hypertension (Chronic) Low back pain (Acute) Macrocytosis (Acute) Peripheral neuropathy (Acute) Rash, skin (Acute) Tremor (Acute) Unintentional weight loss (Acute) Vitamin B12 deficiency (dietary) anemia (Acute) Social History Smoking/Tobacco Use Status: Former Tobacco Use Alcohol Intake: never Drug use: Never Do you feel safe at home: Yes Do you feel safe in your relationship?: Yes Exam Narrative Exam Narrative: She is a pleasant, older, frail woman in no current distress Her vital signs are documented elsewhere She has no CVA tenderness Her abdomen is soft with no mass She is awake and alert Her urinalysis showed many epithelial cells most consistent with a vaginal contaminant. Her urine culture is also suggestive of a contaminant I reviewed her CT scan on the PACS system. There is some very nonspecific thickening of the bladder wall. I do not see any sign of pelvic adenopathy or findings suggestive of metastasis. Results Last Vital Signs Temp 36.2 C L 01/28/20 03:29 Pulse 92 H 01/28/20 03:29 Resp 18 01/28/20 03:29 BP 114/72 01/28/20 03:29 Pulse Ox 95 01/28/20 03:29 Labs Result diagrams: 01/27/20 07:05 01/27/20 07:05 Labs: Laboratory Results - last 24 hr 01/26/20 01/27/20 01/27/20 14:40 07:05 07:05 WBC RBC Hgb Hct MCV MCH MCHC RDW Plt Count MPV Immature Gran % Neutrophils % Lymphocytes % Monocytes % Eosinophils % Basophils % Nucleated RBC % Absolute Neutrophils Absolute Lymphocytes Absolute Monocytes Absolute Eosinophils Absolute Basophils RBC Morphology Macrocytosis Sodium 131 L Potassium 3.3 L Chloride 98 Carbon Dioxide 27.2 Anion Gap 5.8 BUN 11 Creatinine 0.71 Estimated GFR/1.73 m2 >= 60.00 Glucose 85 Calcium 8.0 L Magnesium 1.9 Iron 55 TIBC 94 L Transferrin % Sat 59 H Ferritin 434 H Total Bilirubin 0.7 Conjugated Bilirubin 0.35 H AST 19 ALT 9 L Alkaline Phosphatase 128 H Total Protein 5.9 L Albumin 2.0 L Triglycerides 60 Total Cholesterol 86 LDL Cholesterol, Calc 33 HDL Cholesterol 41 Vitamin B12 > 2000 H Folate 10.8 Urine Color Urine Clarity Urine pH Ur Specific [place] Urine Protein Urine Ketones Urine Blood Urine Nitrite Urine Bilirubin Urine Urobilinogen Ur Leukocyte Esterase Urine RBC Urine WBC Ur Epithelial Cells Urine Crystals Urine Bacteria Urine Mucus Urine Other Ur Culture Indicated? Urine Glucose COVID-19 PCR Negative Nasopharyn COVID-19 PCR Not Applicable Ref Test Perform Site [facility] lab 01/27/20 01/27/20 07:05 16:25 WBC 5.11 D RBC 2.57 L Hgb 9.9 L Hct 28.5 L MCV 110.9 H MCH 38.5 H MCHC 34.7 RDW 13.0 Plt Count 173 MPV 9.5 Immature Gran % 0.4 Neutrophils % 75.3 Lymphocytes % 13.3 Monocytes % 10.6 Eosinophils % 0.2 Basophils % 0.2 Nucleated RBC % 0 Absolute Neutrophils 3.85 Absolute Lymphocytes 0.68 L Absolute Monocytes 0.54 Absolute Eosinophils 0.01 Absolute Basophils 0.01 RBC Morphology See below Macrocytosis 2+ Sodium Potassium Chloride Carbon Dioxide Anion Gap BUN Creatinine Estimated GFR/1.73 m2 Glucose Calcium Magnesium Iron TIBC Transferrin % Sat Ferritin Total Bilirubin Conjugated Bilirubin AST ALT Alkaline Phosphatase Total Protein Albumin Triglycerides Total Cholesterol LDL Cholesterol, Calc HDL Cholesterol Vitamin B12 Folate Urine Color Urine Clarity Turbid Urine pH 8.0 Ur Specific [place] 1.020 Urine Protein 30 H Urine Ketones 15 H Urine Blood Trace-intact H Urine Nitrite Positive H Urine Bilirubin Small H Urine Urobilinogen 4.0 H Ur Leukocyte Esterase Moderate H Urine RBC Urine WBC >50 H Ur Epithelial Cells Many Urine Crystals Many triple phos Urine Bacteria Packed Urine Mucus Not Applicable Urine Other Many transitional Ur Culture Indicated? Yes Urine Glucose Negative COVID-19 PCR Nasopharyn COVID-19 PCR Ref Test Perform Site
--- NOTE | 2020-01-28 07:37 | CMPROGNOTE_ITS ---
- If Service Date Differs Date of service: 01/28/20 Time of Service: 07:37 Care Management Progress Note S/O:Jamilah was sitting up in a chair when CM met with her. She was pleasant and engaged readily with CM. Jamilah has admitted that she is very weak and at this time is unable to care for herself at home. While she has good friends that check on her often, they are not there 19/12. Jamilah has agreed to seek placement in a SNF for short term rehab. She stated that she hopes that with additional ti me with PT and more regular meals, that she will get strong enough to return home. She has a dog that she misses greatly, but she assured CM that he is being well cared for by a close friend. Jamilah asked CM to contact her nephew and update him re: her current situation and plan of care. The contact information in her record for him is inaccurate so additional measures will be sought to reach him. A: Jamilah is a 74 year old woman admitted on 01/26/20 with a UTI and new onset afib P: Jamilah will likely be discharged to a SNF for short term rehab, before returning home with additional supports. She will follow up with the plan of care at the facility. Transportation will be determined by the facility she chooses. CM will continue to support Jamilah and assess for discharge concerns.
[2020-01-28 07:51] LABS: Anion Gap 8.7 mmol/L (3-11); BUN 9 mg/dL (7-18); CO2 22.3 mmol/L (21.0-32.0); CREATININE 0.56 mg/dL (0.55-1.02); Calcium 7.9 mg/dL (8.5-10.1); Chloride 101 mmol/L (98-107); Glucose 79 mg/dL (74-106); Magnesium 1.6 mg/dL (1.8-2.4); Sodium 132 mmol/L (136-145)
[2020-01-28 07:52] VITALS: BP 133/86; PULSE 85; RESP 19; TEMP 36.7; O2SAT 99
--- NOTE | 2020-01-28 08:02 | W.PM.PROGNOT ---
Date of Service Date of service: 01/28/20 Time of Service: 08:02 Assessment and Plan Assessment and plan (1) Weakness: Status: Acute Assessment and plan: generalized with failure to thrive at home, likely multifactorial with new onset of afib and UTI noted on general ED evaluation. Her healthcare advisory services manager is out of town likely prompting the ED visit. the patient reports a generalized decline in her health over several months, including generalized weakness and poor appetite. She denies saddle anesthesia, bowel incontinence or numbness, no dysuria or frequency. denies palpitations, chest pain or shortness of breath A MRI of lumbar spine was obtained to r/o cauda equina and shows normal appearance and location of the conus medullaris and marked degenerative changes seen in the lumbar spine resulting in multilevel central spinal canal and neural foraminal stenosis with mild to moderate from L2 to S1. She also underwent an abdominal ultrasound which showed mild hepatomegaly and fatty infiltration of the liver. (2) UTI (urinary tract infection): Status: Acute Assessment and plan: ceftriaxone day 3. urine cultures pending. she has no dysuria or frequency. has been afebrile. CT showed bladder wall thickening. I suspect this is most likely d/t UTI. A urology consultation was placed on admission and is pending. (3) CAD (coronary artery disease): Status: Chronic Assessment and plan: troponin have been negative. echo today EF 55% with no WMA's. continue asa, beta onofre and statin (4) Hypertension: Status: Chronic Assessment and plan: blood pressure has been controlled, continue to monitor and adjust medication as needed. is taking metoprolol. Qualifiers: Hypertension type: essential hypertension Qualified Code(s): I10 - Essential (primary) hypertension (5) New onset a-fib: Status: Acute Assessment and plan: rate controlled to uncontrolled, troponins have been negative, echo with no WMA's, no significant valvular disease. EF 55%. electrolyte replacement, TSH normal. continue thiamine. is on full dose aspirin. will defer anticoagulation to pcp d/t high fall risk (6) Hyperlipidemia: Status: Acute Assessment and plan: continue statin Qualifiers: Hyperlipidemia type: unspecified Qualified Code(s): E78.5 - Hyperlipidemia, unspecified (7) DVT prophylaxis: Status: Acute Assessment and plan: heparin sc and teds (8) Discharge planning issues: Status: Acute Assessment and plan: case management consulted, suspect swing level discharge prior to returning home. discussed with DR Tavarez who is in agreement Subjective Subjective Patient reports: no new complaints, tolerating liquids well and tolerating a regular diet Interval history since last seen: c/o back pain which is chronic. Exam Const General: cooperative, comfortable, no acute distress, frail appearing (older than stated age) and ill appearing chronically Nutritional Appearance: average body habitus Orientation: alert, awake and oriented x3 HENAZ Head: normal to inspection, normocephalic and atraumatic Mouth: oral mucosae normal Resp Effort & Inspection: normal respiratory effort Auscultation: diminished lung sounds bilaterally in the lower lung watkins Cardio Rate: regular rate and tachycardic (controlled to uncontrolled atrial fibrillation on the monitor. ) Rhythm: abnormal rhythm irregularly irregular GI Inspection: normal to inspection Palpation: soft Auscultation: normal bowel sounds Skin General skin exam: no rashes or lesions noted Neuro General: patient alert, patient awake, patient oriented x3 and moves all extremities Extrem General: normal to inspection, full ROM and pedal edema bilaterally (trace) Objective Objective Clinical Data: Abnormal lab results 01/27/20 01/27/20 01/27/20 Range/Units 07:05 07:05 16:25 Sodium (136-145) mmol/L Calcium (8.5-10.1) mg/dL Magnesium (1.8-2.4) mg/dL TIBC 94 L (250-450) ug/dL Transferrin % Sat 59 H (15-50) % Ferritin 434 H (8-252) ng/mL Vitamin B12 > 2000 H (193-986) pg/mL Urine Protein 30 H (Negative) mg/dL Urine Ketones 15 H (Negative) mg/dL Urine Blood Trace-intact H (Negative) Urine Nitrite Positive H (Negative) Urine Bilirubin Small H (Negative) Urine Urobilinogen 4.0 H (Up TO 0.2) EU/dL Ur Leukocyte Esterase Moderate H (Negative) Urine WBC >50 H (0-5) HPF 01/28/20 Range/Units 06:50 Sodium 132 L (136-145) mmol/L Calcium 7.9 L (8.5-10.1) mg/dL Magnesium 1.6 L (1.8-2.4) mg/dL TIBC (250-450) ug/dL Transferrin % Sat (15-50) % Ferritin (8-252) ng/mL Vitamin B12 (193-986) pg/mL Urine Protein (Negative) mg/dL Urine Ketones (Negative) mg/dL Urine Blood (Negative) Urine Nitrite (Negative) Urine Bilirubin (Negative) Urine Urobilinogen (Up TO 0.2) EU/dL Ur Leukocyte Esterase (Negative) Urine WBC (0-5) HPF Vital Signs Temperature 36.7 C 01/28/20 07:52 Temperature Source Tympanic 01/28/20 07:52 Pulse 85 01/28/20 07:52 Pulse Rhythm Irregular 01/28/20 07:00 Pulse 98 H 01/26/20 14:50 Respiratory Rate 19 01/28/20 07:52 Respiratory Effort Non-Labored 01/28/20 07:00 Respiratory Depth Normal 01/28/20 07:00 Respiratory Pattern Normal 01/28/20 07:00 Blood Pressure 133/86 01/28/20 07:52 Blood Pressure Mean 91 01/26/20 14:45 Blood Pressure Position Supine 01/26/20 11:13 Pulse Oximetry 99 01/28/20 07:52 Oxygen Delivery Method Room Air 01/28/20 07:52 Oxygen Flow Rate 0 01/28/20 07:52 Pain Level 0 01/28/20 07:52 Comment RN notified 01/26/20 19:15 Intake & Output 01/27/20 01/27/20 01/28/20 11:59 23:59 11:59 Intake Total 1010 / 2980 1970 / 2980 2233.334 / 2233.334 Output Total 400 / 800 400 / 800 Balance 610 / 2180 1570 / 2180 2233.334 / 2233.334 Weight 53.2 kg 54.4 kg Intake: IV 1009 / 20190 2019 1993.334 / 1992.334 Oral 960 / 960 240 / 240 Output: Urine 400 / 800 400 / 800 Other: Urine Color Yellow Yellow Urine Appearance Clear Clear Clear Urine Odor Normal Normal Comment incontinent Stool Size Moderate Stool Characteristics Liquid Brown Voiding Methods Bedside Commode Bedside Commode Diaper Laboratory Results WBC 5.11 10^3/uL (4.4-10.8) D 01/27/20 07:05 RBC 2.57 10^6/uL (3.93-5.22) L 01/27/20 07:05 Hgb 9.9 g/dL (11.2-15.7) L 01/27/20 07:05 Hct 28.5 % (36.0-46.0) L 01/27/20 07:05 MCV 110.9 fL (80-95) H 01/27/20 07:05 MCH 38.5 pg (27.0-33.0) H 01/27/20 07:05 MCHC 34.7 % (32.0-36.0) 01/27/20 07:05 RDW 13.0 % (11.7-14.6) 01/27/20 07:05 Plt Count 173 10^3/uL (130-400) 01/27/20 07:05 MPV 9.5 fL (8.0-11.0) 01/27/20 07:05 Immature Gran % 0.4 01/27/20 07:05 Neutrophils % 75.3 01/27/20 07:05 Lymphocytes % 13.3 01/27/20 07:05 Monocytes % 10.6 01/27/20 07:05 Eosinophils % 0.2 01/27/20 07:05 Basophils % 0.2 01/27/20 07:05 Nucleated RBC % 0 % 01/27/20 07:05 Absolute Neutrophils 3.85 10^3/uL (1.2-6.7) 01/27/20 07:05 Absolute Lymphocytes 0.68 10^3/uL (1.2-3.4) L 01/27/20 07:05 Absolute Monocytes 0.54 10^3/uL (0.1-0.8) 01/27/20 07:05 Absolute Eosinophils 0.01 10^3/uL (0.0-0.7) 01/27/20 07:05 Absolute Basophils 0.01 10^3/uL (0.0-0.2) 01/27/20 07:05 RBC Morphology See below 01/27/20 07:05 Hypochromasia 1+ 01/26/20 11:25 Macrocytosis 2+ 01/27/20 07:05 D-Dimer 1626 ng/mlFEU (<500) H 01/26/20 11:25 Sodium 132 mmol/L (136-145) L 01/28/20 06:50 Potassium 4.0 mmol/L (3.5-5.1) D 01/28/20 06:50 Chloride 101 mmol/L (98-107) 01/28/20 06:50 Carbon Dioxide 22.3 mmol/L (21.0-32.0) 01/28/20 06:50 Anion Gap 8.7 mmol/L (3-11) 01/28/20 06:50 BUN 9 mg/dL (7-18) 01/28/20 06:50 Creatinine 0.56 mg/dL (0.55-1.02) 01/28/20 06:50 Estimated GFR/1.73 m2 >= 60.00 (mL/min/1.73m2) 01/28/20 06:50 Glucose 79 mg/dL (74-106) 01/28/20 06:50 Calcium 7.9 mg/dL (8.5-10.1) L 01/28/20 06:50 Magnesium 1.6 mg/dL (1.8-2.4) L 01/28/20 06:50 Iron 55 ug/dL (50-170) 01/27/20 07:05 TIBC 94 ug/dL (250-450) L 01/27/20 07:05 Transferrin % Sat 59 % (15-50) H 01/27/20 07:05 Ferritin 434 ng/mL (8-252) H 01/27/20 07:05 Total Bilirubin 0.7 mg/dL (0.2-1.0) 01/27/20 07:05 Conjugated Bilirubin 0.35 mg/dL (0.00-0.20) H 01/27/20 07:05 AST 19 U/L (15-37) 01/27/20 07:05 ALT 9 U/L (14-59) L 01/27/20 07:05 Alkaline Phosphatase 128 U/L (46-116) H 01/27/20 07:05 Troponin I < 0.05 ng/mL (<0.06) 01/26/20 19:51 Total Protein 5.9 g/dL (6.4-8.2) L 01/27/20 07:05 Albumin 2.0 g/dL (3.4-5.0) L 01/27/20 07:05 Triglycerides 60 mg/dL (<150) 01/27/20 07:05 Total Cholesterol 86 mg/dL (<200) 01/27/20 07:05 LDL Cholesterol, Calc 33 mg/dL (<100) 01/27/20 07:05 HDL Cholesterol 41 mg/dL (40-60) 01/27/20 07:05 Vitamin B12 > 2000 pg/mL (193-986) H 01/27/20 07:05 Folate 10.8 ng/mL (8.6-20.0) 01/27/20 07:05 TSH 2.95 uIU/mL (0.36-3.74) 01/26/20 11:25 Urine Color (Yellow) 01/27/20 16:25 Urine Clarity Turbid (Clear) 01/27/20 16:25 Urine pH 8.0 (5-8) 01/27/20 16:25 Ur Specific [place] 1.020 (1.005-1.025) 01/27/20 16:25 Urine Protein 30 mg/dL (Negative) H 01/27/20 16:25 Urine Ketones 15 mg/dL (Negative) H 01/27/20 16:25 Urine Blood Trace-intact (Negative) H 01/27/20 16:25 Urine Nitrite Positive (Negative) H 01/27/20 16:25 Urine Bilirubin Small (Negative) H 01/27/20 16:25 Urine Urobilinogen 4.0 EU/dL (Up TO 0.2) H 01/27/20 16:25 Ur Leukocyte Esterase Moderate (Negative) H 01/27/20 16:25 Urine RBC HPF (0-2) 01/27/20 16:25 Urine WBC >50 HPF (0-5) H 01/27/20 16:25 Ur Epithelial Cells Many HPF (Negative) 01/27/20 16:25 Urine Crystals Many triple phos HPF (Negative) 01/27/20 16:25 Urine Bacteria Packed HPF (Negative) 01/27/20 16:25 Urine Casts Negative LPF (Negative) 01/26/20 14:05 Urine Mucus Not Applicable 01/27/20 16:25 Urine Other Many transitional (Negative) 01/27/20 16:25 Ur Culture Indicated? Yes 01/27/20 16:25 Urine Glucose Negative mg/dL (Negative) 01/27/20 16:25 COVID-19 PCR Negative (Negative) 01/26/20 14:40 Nasopharyn COVID-19 PCR Not Applicable 01/26/20 14:40 Ref Test Perform Site [facility] 01/26/20 14:40
[2020-01-28] MEDS: Lidocaine 5% Patch 2 PATCH TP (08:48)
[2020-01-28] MEDS: MAGNESIUM SULFATE 2 GM/50 ML BAG IVPB (08:49)
[2020-01-28] MEDS: Metoprolol 50 MG TAB 25 MG PO ×2 (08:50→19:57)
[2020-01-28] MEDS: Multivitamin w/Minerals TAB 1 TAB PO (08:50)
[2020-01-28] MEDS: Aspirin E.C. 325 MG TABEC PO (08:50)
[2020-01-28] MEDS: Thiamine 100 MG TAB PO (08:50)
--- NOTE | 2020-01-28 09:43 | OT.INNT ---
Date of service: 01/28/20 Time of Service: 09:43 Occupational Therapy Notes 01/28/20 OT attempted to see pt 4x this morning, the first 3- pt denied as she reports that she did not sleep well and is too tired. The 4th time- pt states that she would like to hold until later to perform her ADLs as she is just exhausted. Pt was pleasant in all interactions and OT will resume skilled occupational therapy services tomorrow. Simona He, OTR/[facility] [place]
[2020-01-28] MEDS: Loratidine 10 MG TAB PO (10:06)
[2020-01-28] MEDS: Acetaminophen 325 MG TAB 650 MG PO ×2 (10:58→19:56)
[2020-01-28 11:29] VITALS: BP 120/81; PULSE 100; RESP 19; TEMP 36.7; O2SAT 98
--- NOTE | 2020-01-28 12:22 | W.NUTCONSULT ---
Date of service: 01/28/20 Time of Service: 12:22 Nutritional Consult ASSESSMENT: 74 year old female admitted with UTI, with urinary neoplasm, has hx of Adult Failure to Thrive with malaise and poor intake x 8 weeks. Chart review indicates current weight has been stable > 1 year. BMI on low end of normal for age. Met with Jamilah today. She reports having appetite today for first time in weeks, able to complete 100% of breakfast. She does not want ensure or boost and prefers to eat whole foods instead. She enjoys pudding, ice cream, desserts. Recent labs indicate low albumin (2.0 mg/dl). In view of hx of poor intake, low visceral protein stores, presents with non severe malnutrition putting her at risk for skin breakdown and overall decline. She is a pallative care patient and does not want life sustaining treatments such as tube feeding if unable to meet nutrient needs by mouth. Estimated Needs: 4573-1109 kcal, 55-65 g protein, 1800 ml fluid NUTRITIONAL DIAGNOSIS: Malnutrition in context of chronic illness INTERVENTION: Continue current diet order, will provide additional foods such as pudding /desserts to meet nutrient needs. Will monitor po intake, labs, weight and intervene as needed. CDM will provide meal preferences daily to optimize nutrient intake for repletion. Time Spent in Nutritional Counseling and Treatment: 15 min spent face to face
--- NOTE | 2020-01-28 12:57 | PT.INTREAT ---
Date of service: 01/28/20 Time of Service: 11:30 PT Notes Visit Reasons: UTI, NEW ONSET AFIB, SUSPECTED, BLADDER CANCER, FA Inpatient Physical Therapy Treatment Note [facility] Date: 01/28/2020 PRECAUTIONS: Fall SUBJECTIVE: Jamilah reports that she is very tired, but is agreeable to participating in PT because I know I have to do it. She states that she is considering going to SNF for continued rehab and to build her strength before returning to home. OBJECTIVE: PAIN: No c/o pain BED MOBILITY/TRANSFERS Supine-sit: S with HOB at 30 degrees Sit-stand: SBA Stand-sit: SBA Bed-Chair: SBA Chair-bed: SBA GAIT Assistive Device: FWW Weight bearing: Full Assist: SBA Distance: 10' + 30' + 20' Deviation: Seated rest x2, increased fatigue TOILETING: Patient toileted with supervision for transfers ASSESSMENT: Patient tolerated session with complaints of increased fatigue with activity. She was able to tolerate a progression in gait distance, utilizing FWW for support. She would benefit from continued gait training and strengthening for improved ability to perform functional daily tasks at a more independent level. PLAN: Continue gait training, strengthening, and include stair training TREATMENT CODE/TIME: 35 minutes; 62790 x2
[2020-01-28 15:34] VITALS: BP 90/58; PULSE 99; RESP 18; TEMP 37.1; O2SAT 97
[2020-01-28] MEDS: Potassium Chloride 20 MEQ TABCR PO (15:44)
[2020-01-28] MEDS: cefTRIAXone 1 GM/50 ML BAG IVPB (16:26)
[2020-01-28 19:37] VITALS: BP 111/70; PULSE 101; RESP 18; TEMP 36.3; O2SAT 99
[2020-01-28] MEDS: Atorvastatin 20 MG TAB PO (19:56)
[2020-01-28] MEDS: Normal Saline Flush 10 ML SYR IVP (19:59)
[2020-01-28] MEDS: Lidocaine Patch Removal 2 EACH TD (20:05)
[2020-01-29 00:11] VITALS: BP 101/68; PULSE 85; RESP 18; TEMP 36.5; O2SAT 97
[2020-01-29 03:40] VITALS: BP 116/79; PULSE 85; RESP 17; TEMP 36.5; O2SAT 97
[2020-01-29] MEDS: Heparin 5,000 UNITS/ML VIAL 5000 UNITS SC ×3 (06:16→21:18)
[2020-01-29 06:53] LABS: Abs Immature Grans 0.04 10^3/uL (0.0-0.06); Absolute Basophil Count 0.02 10^3/uL (0.0-0.2); Absolute Eosinophil Count 0.07 10^3/uL (0.0-0.7); Absolute Lymphocyte Count 0.95 10^3/uL (1.2-3.4); Absolute Monocyte Count 0.52 10^3/uL (0.1-0.8); Absolute Neutrophil Count 2.37 10^3/uL (1.2-6.7); Basophils % 0.5; Eosinophils % 1.8; HCT 31.3 % (36.0-46.0); HGB 10.7 g/dL (11.2-15.7); Lymphocytes % 23.9; MCH 38.6 pg (27.0-33.0); MCHC 34.2 % (32.0-36.0); MPV 9.5 fL (8.0-11.0); Monocytes % 13.1; Neutrophils % 59.7; Nucleated RBC 0 %; Platelet Count 191 10^3/uL (130-400); RBC 2.77 10^6/uL (3.93-5.22); RDW-SD 54.4 fL; WBC 3.97 10^3/uL (4.4-10.8)
[2020-01-29 07:08] VITALS: BP 145/90; PULSE 82; RESP 17; TEMP 36.9; O2SAT 98
[2020-01-29 07:10] LABS: BUN 7 mg/dL (7-18); CREATININE 0.74 mg/dL (0.55-1.02); Calcium 8.4 mg/dL (8.5-10.1); Chloride 99 mmol/L (98-107); Glucose 75 mg/dL (74-106); Magnesium 1.9 mg/dL (1.8-2.4); Potassium 4.1 mmol/L (3.5-5.1); Sodium 131 mmol/L (136-145)
[2020-01-29 07:29] LABS: Diff Comment RBC Morph Reviewed; Macrocytosis 3+
[2020-01-29] MEDS: Thiamine 100 MG TAB PO (08:53)
[2020-01-29] MEDS: Acetaminophen 325 MG TAB 650 MG PO ×2 (08:54→20:01)
[2020-01-29] MEDS: Multivitamin w/Minerals TAB 1 TAB PO (08:54)
[2020-01-29] MEDS: Loratidine 10 MG TAB PO (08:54)
[2020-01-29] MEDS: Aspirin E.C. 325 MG TABEC PO (08:54)
[2020-01-29] MEDS: Lidocaine 5% Patch 2 PATCH TP (08:54)
[2020-01-29] MEDS: Metoprolol 50 MG TAB 25 MG PO ×2 (08:54→20:01)
[2020-01-29] MEDS: Potassium Chloride 20 MEQ TABCR PO (08:54)
--- NOTE | 2020-01-29 09:59 | OTTR_ITS ---
Date of service: 01/29/20 Time of Service: 09:00 Occupational Therapy Notes Occupational Therapy Inpatient Treatment Note Date: 01/29/20 PRECAUTIONS: Fall, Standard, DNR/DNI SUBJECTIVE: Pt was sitting in chair when OT arrived, she was agreeable to OT session. OBJECTIVE: PAIN:no c/o pain FUNCTIONAL MOBILITY Sit-stand: SBA, FWW Stand-sit: SBA, FWW BATHING: sitting in chair with max (A) set up/clean up Upper Body: (I) face, (B) UE, abdomen, mod (A) hair Lower Body: (I) (B) LE to (B) Feet, denies naye area DRESSING: sitting in chair Upper Extremity: Min (A) don and doffing [facility] gown Lower Extremity: Min (A) with don and doffing (B) socks GROOMING: Seated in chair (I) With brushing hair TOILETING: NT EATING: Sitting in chair (I) ASSESSMENT/PLAN: Pt required increased performance time for her bathing and reports fatigue post session. She denied performance of standing ADLs at the sink for today. She did require (A) with her dressing and was receptive to education and training for (B) UE hand use during ADLs. TREATMENT CODES/TIME: [id number], 27 minutes (09:00) ERMIAS Arias/[facility]
--- NOTE | 2020-01-29 10:09 | W.PM.PROGNOT ---
Date of Service Date of service: 01/29/20 Time of Service: 10:09 Assessment and Plan Assessment and plan (1) Weakness: Status: Acute Assessment and plan: generalized with failure to thrive at home, likely multifactorial with new onset of afib and UTI noted on general ED evaluation. Her symptoms are improving with treatment and she is slowly gaining strength. Her managed care provider is out of town likely prompting the ED visit. the patient reports a generalized decline in her health over several months, including generalized weakness and poor appetite. She denies saddle anesthesia, bowel incontinence or numbness, no dysuria or frequency. denies palpitations, chest pain or shortness of breath A MRI of lumbar spine was obtained to r/o cauda equina and shows normal appearance and location of the conus medullaris and marked degenerative changes seen in the lumbar spine resulting in multilevel central spinal canal and neural foraminal stenosis with mild to moderate from L2 to S1. She also underwent an abdominal ultrasound which showed mild hepatomegaly and fatty infiltration of the liver. (2) UTI (urinary tract infection): Status: Acute Assessment and plan: ceftriaxone day 09/02. urine cultures pending. she has no dysuria or frequency. has been afebrile. CT showed bladder wall thickening. I suspect this is most likely d/t UTI. A urology consultation was placed on admission and is pending. (3) CAD (coronary artery disease): Status: Chronic Assessment and plan: troponin have been negative. echo today EF 55% with no WMA's. continue asa, beta onofre and statin (4) Hypertension: Status: Chronic Assessment and plan: blood pressure has been controlled, continue to monitor and adjust medication as needed. is taking metoprolol. Qualifiers: Hypertension type: essential hypertension Qualified Code(s): I10 - Essential (primary) hypertension (5) New onset a-fib: Status: Acute Assessment and plan: now in sinus rhythm, troponins have been negative, echo with no WMA's, no significant valvular disease. EF 55%. electrolyte replacement, TSH normal. continue thiamine. is on full dose aspirin. will defer anticoagulation to pcp d/t high fall risk (6) Hyperlipidemia: Status: Acute Assessment and plan: continue statin Qualifiers: Hyperlipidemia type: unspecified Qualified Code(s): E78.5 - Hyperlipidemia, unspecified (7) DVT prophylaxis: Status: Acute Assessment and plan: heparin sc and teds (8) Discharge planning issues: Status: Acute Assessment and plan: case management consulted, referrals placed and bed secured at [facility] and rehab, plan to discharge tomorrow after covid screening. discussed with DR Tavarez who is in agreement Subjective Subjective Patient reports: no new complaints, feels better, tolerating liquids well, tolerating a regular diet, voiding w/o difficulty and afebrile Interval history since last seen: working with physical therapy and progressing slowly. Exam Const General: cooperative, comfortable, no acute distress, frail appearing (older than stated age) and ill appearing chronically Nutritional Appearance: average body habitus Orientation: alert, awake and oriented x3 HENMT Head: normal to inspection, normocephalic and atraumatic Mouth: oral mucosae normal Resp Effort & Inspection: normal respiratory effort Auscultation: diminished lung sounds bilaterally in the lower lung watkins Cardio Rate: regular rate (sinus rhythm, no afib on monitor) Rhythm: regular rhythm GI Inspection: normal to inspection Palpation: soft Auscultation: normal bowel sounds Skin General skin exam: no rashes or lesions noted Neuro General: patient alert, patient awake, patient oriented x3 and moves all extremities Extrem General: normal to inspection, full ROM and pedal edema bilaterally (trace) Objective Objective Clinical Data: Abnormal lab results 01/29/20 01/29/20 Range/Units 06:15 06:15 WBC 3.97 L (4.4-10.8) 10^3/uL RBC 2.77 L (3.93-5.22) 10^6/uL Hgb 10.7 L (11.2-15.7) g/dL Hct 31.3 L (36.0-46.0) % MCV 113.0 H (80-95) fL MCH 38.6 H (27.0-33.0) pg Absolute Lymphocytes 0.95 L (1.2-3.4) 10^3/uL Sodium 131 L (136-145) mmol/L Calcium 8.4 L (8.5-10.1) mg/dL Vital Signs Temperature 36.9 C 01/29/20 07:08 Temperature Source Tympanic 01/29/20 07:08 Pulse 82 01/29/20 07:08 Pulse Rhythm Regular 01/29/20 05:19 Pulse 98 H 01/26/20 14:50 Respiratory Rate 17 09/02/20 07:08 Respiratory Effort Non-Labored 01/29/20 05:19 Respiratory Depth Normal 01/29/20 05:19 Respiratory Pattern Normal 01/29/20 05:19 Blood Pressure 145/90 H 01/29/20 07:08 Blood Pressure Mean 91 01/26/20 14:45 Blood Pressure Position Supine 01/26/20 11:13 Pulse Oximetry 98 01/29/20 07:08 Oxygen Delivery Method Room Air 01/29/20 07:08 Oxygen Flow Rate 0 01/29/20 07:08 Pain Level 0 01/29/20 08:54 Comment 01/29/20 08:52 Intake & Output 01/28/20 01/28/20 01/29/20 11:59 23:59 11:59 Intake Total 3310.001 / 3600.001 290 / 3600.001 810 / 810 Output Total 600 / 900 300 / 900 Balance 2710.001 / 2700.001 -10 / 2700.001 810 / 810 Weight 54.4 kg 54.5 kg Intake: IV 2590.001 / 2590.001 10 10 Oral 720 / 1010 290 / 1010 800 / 800 Output: Urine 600 / 600 Stool 300 / 300 Other: Urine Color Light [place] Yellow Yellow Urine Appearance Clear Clear Clear Urine Odor None Normal Normal Comment spontaneous void Stool Occult Blood Negative Stool Size Moderate Stool Characteristics Soft Brown Voiding Methods Bedside Commode Toilet Toilet Laboratory Results WBC 3.97 10^3/uL (4.4-10.8) L 01/29/20 06:15 RBC 2.77 10^6/uL (3.93-5.22) L 01/29/20 06:15 Hgb 10.7 g/dL (11.2-15.7) L 01/29/20 06:15 Hct 31.3 % (36.0-46.0) L 01/29/20 06:15 MCV 113.0 fL (80-95) H 01/29/20 06:15 MCH 38.6 pg (27.0-33.0) H 01/29/20 06:15 MCHC 34.2 % (32.0-36.0) 01/29/20 06:15 RDW 13.0 % (11.7-14.6) 01/29/20 06:15 Plt Count 191 10^3/uL (130-400) 01/29/20 06:15 MPV 9.5 fL (8.0-11.0) 01/29/20 06:15 Immature Gran % 1.0 01/29/20 06:15 Neutrophils % 59.7 01/29/20 06:15 Lymphocytes % 23.9 01/29/20 06:15 Monocytes % 13.1 01/29/20 06:15 Eosinophils % 1.8 01/29/20 06:15 Basophils % 0.5 01/29/20 06:15 Nucleated RBC % 0 % 01/29/20 06:15 Absolute Neutrophils 2.37 10^3/uL (1.2-6.7) 01/29/20 06:15 Absolute Lymphocytes 0.95 10^3/uL (1.2-3.4) L 01/29/20 06:15 Absolute Monocytes 0.52 10^3/uL (0.1-0.8) 01/29/20 06:15 Absolute Eosinophils 0.07 10^3/uL (0.0-0.7) 01/29/20 06:15 Absolute Basophils 0.02 10^3/uL (0.0-0.2) 01/29/20 06:15 RBC Morphology See below 01/29/20 06:15 Hypochromasia 1+ 01/26/20 11:25 Macrocytosis 3+ 01/29/20 06:15 D-Dimer 1626 ng/mlFEU (<500) H 01/26/20 11:25 Sodium 131 mmol/L (136-145) L 01/29/20 06:15 Potassium 4.1 mmol/L (3.5-5.1) 01/29/20 06:15 Chloride 99 mmol/L (98-107) 01/29/20 06:15 Carbon Dioxide 25.0 mmol/L (21.0-32.0) 01/29/20 06:15 Anion Gap 7.0 mmol/L (3-11) 01/29/20 06:15 BUN 7 mg/dL (7-18) 01/29/20 06:15 Creatinine 0.74 mg/dL (0.55-1.02) 01/29/20 06:15 Estimated GFR/1.73 m2 >= 60.00 (mL/min/1.73m2) 01/29/20 06:15 Glucose 75 mg/dL (74-106) 01/29/20 06:15 Calcium 8.4 mg/dL (8.5-10.1) L 01/29/20 06:15 Magnesium 1.9 mg/dL (1.8-2.4) 01/29/20 06:15 Iron 55 ug/dL (50-170) 01/27/20 07:05 TIBC 94 ug/dL (250-450) L 01/27/20 07:05 Transferrin % Sat 59 % (15-50) H 01/27/20 07:05 Ferritin 434 ng/mL (8-252) H 01/27/20 07:05 Total Bilirubin 0.7 mg/dL (0.2-1.0) 01/27/20 07:05 Conjugated Bilirubin 0.35 mg/dL (0.00-0.20) H 01/27/20 07:05 AST 19 U/L (15-37) 01/27/20 07:05 ALT 9 U/L (14-59) L 01/27/20 07:05 Alkaline Phosphatase 128 U/L (46-116) H 01/27/20 07:05 Troponin I < 0.05 ng/mL (<0.06) 01/26/20 19:51 Total Protein 5.9 g/dL (6.4-8.2) L 01/27/20 07:05 Albumin 2.0 g/dL (3.4-5.0) L 01/27/20 07:05 Triglycerides 60 mg/dL (<150) 01/27/20 07:05 Total Cholesterol 86 mg/dL (<200) 01/27/20 07:05 LDL Cholesterol, Calc 33 mg/dL (<100) 01/27/20 07:05 HDL Cholesterol 41 mg/dL (40-60) 01/27/20 07:05 Vitamin B12 > 2000 pg/mL (193-986) H 01/27/20 07:05 Folate 10.8 ng/mL (8.6-20.0) 01/27/20 07:05 TSH 2.95 uIU/mL (0.36-3.74) 01/26/20 11:25 Urine Color (Yellow) 01/27/20 16:25 Urine Clarity Turbid (Clear) 01/27/20 16:25 Urine pH 8.0 (5-8) 01/27/20 16:25 Ur Specific [place] 1.020 (1.005-1.025) 01/27/20 16:25 Urine Protein 30 mg/dL (Negative) H 01/27/20 16:25 Urine Ketones 15 mg/dL (Negative) H 01/27/20 16:25 Urine Blood Trace-intact (Negative) H 01/27/20 16:25 Urine Nitrite Positive (Negative) H 01/27/20 16:25 Urine Bilirubin Small (Negative) H 01/27/20 16:25 Urine Urobilinogen 4.0 EU/dL (Up TO 0.2) H 01/27/20 16:25 Ur Leukocyte Esterase Moderate (Negative) H 01/27/20 16:25 Urine RBC HPF (0-2) 01/27/20 16:25 Urine WBC >50 HPF (0-5) H 01/27/20 16:25 Ur Epithelial Cells Many HPF (Negative) 01/27/20 16:25 Urine Crystals Many triple phos HPF (Negative) 01/27/20 16:25 Urine Bacteria Packed HPF (Negative) 01/27/20 16:25 Urine Casts Negative LPF (Negative) 01/26/20 14:05 Urine Mucus Not Applicable 01/27/20 16:25 Urine Other Many transitional (Negative) 01/27/20 16:25 Ur Culture Indicated? Yes 01/27/20 16:25 Urine Glucose Negative mg/dL (Negative) 01/27/20 16:25 COVID-19 PCR Negative (Negative) 01/26/20 14:40 Nasopharyn COVID-19 PCR Not Applicable 01/26/20 14:40 Ref Test Perform Site [facility] 01/26/20 14:40
[2020-01-29 11:08] VITALS: BP 101/65; PULSE 81; RESP 18; TEMP 36.7; O2SAT 99
--- NOTE | 2020-01-29 11:32 | NUR.NOTE ---
Nursing Note: Earlier this morning (01/29/20), the RN received a message from the community outreach manager that a family member (Court - who is on the [employer]IP[employer]) had called wanting an update regarding the pt. At this time (1132), the RN has attempted to return the phone call three times throughout the morning, but the phone call keeps going to voicemail each time. RN will attempt to return the phone call again later on this afternoon.
[2020-01-29 15:14] VITALS: BP 118/75; PULSE 89; RESP 18; TEMP 36.5; O2SAT 98
--- NOTE | 2020-01-29 15:53 | PT.INTREAT ---
Date of service: 01/29/20 Time of Service: 15:53 PT Notes Visit Reasons: UTI, NEW ONSET AFIB, SUSPECTED, BLADDER CANCER, FA Inpatient Physical Therapy Treatment Note [facility] Date: 01/29/2020 PRECAUTIONS: Fall SUBJECTIVE: Jamilah reports that she is feeling better. She states that she will transfer to SNF tomorrow for continued rehab and to build her strength before returning to home. OBJECTIVE: PAIN: No c/o pain BED MOBILITY/TRANSFERS Supine-sit: S Sit-supine: S Sit-stand: SBA Stand-sit: SBA Bed-Chair: SBA Chair-bed: SBA GAIT Assistive Device: FWW Weight bearing: Full Assist: SBA Distance: 20' + 150' Deviation: Stand rests throughout due to increased LE fatigue TOILETING: Patient toileted with assist due to incontinence ASSESSMENT: Patient tolerated session with complaints of increased LE fatigue with gait training. She was able to tolerate a progression in gait distance, utilizing FWW for support, although requires standing rests t/o due to increased LE fatigue. She would benefit from continued gait training and strengthening for improved ability to perform functional daily tasks at a more independent level. PLAN: Continue gait training, strengthening, and include stair training TREATMENT CODE/TIME: 30 minutes; 78928 x2
--- NOTE | 2020-01-29 16:32 | PDOC.CMPRO ---
- If Service Date Differs Date of service: 01/29/20 Time of Service: 16:32 Care Management Progress Note S/O:Jamilah was sitting up in a chair when CM met with her. She was pleasant and engaged readily with CM. Jamilah has admitted that she is very weak and at this time is unable to care for herself at home. She has agreed to go to a SNF for short term rehab. Referrals were sent and she has accepted a bed offer at [facility] for tomorrow. CM contacted her nephew Sherwin today and had a lengthy discussion about Jamilah and some of her history. He shared that she used to drink heavily but that she has decreased her alcohol intake in recent times . He also shared that she has always had unusual eating habits and rarely consumes a full meal, eating only bites at most meals. According to Sherwin, Jamilah used to be very active and outgoing but for the past few years has been reluctant to leave home to come visit or do many things. A: Jamilah is a 74 year old woman admitted on 01/26/20 with a UTI and new onset afib P: Jamilah will likely be discharged to a SNF for short term rehab, before returning home with additional supports. She has accepted a bed offer at [facility] for tomorrow. She will follow up with the plan of care at the facility. Transportation will be via the facility W/C van. CM will continue to support Jamilah and assess for discharge concerns. c
[2020-01-29] MEDS: cefTRIAXone 1 GM/50 ML BAG IVPB (16:33)
[2020-01-29] MEDS: Normal Saline 500 ML 30 ML IV (16:33)
[2020-01-29] MEDS: Normal Saline Flush 10 ML SYR IVP ×2 (16:34→17:54)
[2020-01-29 19:09] VITALS: BP 120/80; PULSE 91; RESP 17; TEMP 37.7; O2SAT 98
[2020-01-29] MEDS: Atorvastatin 20 MG TAB PO (20:01)
[2020-01-29] MEDS: Lidocaine Patch Removal 2 EACH TD (20:07)
[2020-01-30 01:45] VITALS: BP 149/96; PULSE 90; RESP 18; TEMP 36.1; O2SAT 98
[2020-01-30] MEDS: Heparin 5,000 UNITS/ML VIAL 5000 UNITS SC (06:20)
[2020-01-30 07:15] VITALS: BP 117/76; PULSE 79; RESP 18; TEMP 36.7; O2SAT 97
--- NOTE | 2020-01-30 08:23 | W.PM.DS.N ---
Date of service: 01/30/20 Time of Service: 08:23 DS: Diagnosis Discharge Diagnosis (1) Weakness: Status: Acute (2) UTI (urinary tract infection): Status: Acute (3) CAD (coronary artery disease): Status: Chronic (4) Hypertension: Status: Chronic (5) New onset a-fib: Status: Acute (6) Hyperlipidemia: Status: Acute Discharge Plan Disposition Patient Disposition: SNF (LEVEL 1) [facility] Condition: Improving Discharge Details Chief Complaint: GenMedical Reason For Visit: UTI, NEW ONSET AFIB, SUSPECTED, BLADDER CANCER, FA Admit Date/Time: 01/26/20 14:26 Admit Provider: Irlanda Tavarez Attending Provider: Irlanda Tavarez Primary Care Provider: Jose Gonzalez ED Provider: Erika Fallon [facility] Hospital Course: This is a 74 year old female who presented to the ED with generalized weakness and failure to thrive at home, likely multifactorial with new onset of afib and UTI noted on general ED evaluation. A friend who checks in on her 4 times daily was out of town likely prompting the ED visit. The patient reports a generalized decline in her health over several months, including generalized weakness and poor appetite. She denies saddle anesthesia, bowel incontinence or numbness, no dysuria or frequency. denies palpitations, chest pain or shortness of breath A MRI of lumbar spine was obtained to r/o cauda equina and shows normal appearance and location of the conus medullaris and marked degenerative changes seen in the lumbar spine resulting in multilevel central spinal canal and neural foraminal stenosis with mild to moderate from L2 to S1. She also underwent an abdominal ultrasound which showed mild hepatomegaly and fatty infiltration of the liver. She does reportedly drinking daily but has had no withdrawal symptoms. She was given IV lopressor in the ED with good rate control and then converted back to sinus rhythm where she has remained. An echo showed EF 55% with no WMA's, no significant valvular disease. she has remained in sinus rhythm with no recurrent episodes. She is on full dose aspirin. Her amlodipine was placed on hold in anticipation of possibly titrating lopressor. her blood pressure remained well controlled. will defer resuming amlodipine to outpatient team. She was treated with ceftriaxone for UTI with no helpful cultures to guide treatment, her weakness has improved and has remained afebrile with no dysuria or frequency or other urinary c/o. she is voiding well. urology referral has been placed d/t findings of bladder thickening on CT, this is possibly d/t UTI and defers any further evaluation at this point. She has completed a 5 day course of IV ceftriaxone. She has been working with physical therapy and has been progressing well, she still remains too weak to safely return home and recommendations have been made for rehabilitation prior to returning home. case management has been following, referrals has been placed and she is being discharge to [facility] for further physical therapy prior to returning home. case discussed with Dr Tavarez who is in agreement Home Meds and New Rx's Prescriptions: Continued mecobalamin (vitamin B12) 1,000 mcg tablet,chewable 1,000 mcg PO DAILY RF: 0 albuterol sulfate [Ventolin HFA] 90 mcg/actuation HFA aerosol inhaler 2 puff IH Q6H PRNRF: 0 fluoxetine 20 mg tablet 20 mg PO DAILY RF: 0 aspirin,buffd-calcium carb-mag 325 MG tablet 325 mg PO DAILY RF: 0 lovastatin 20 MG tablet 20 mg PO QPM RF: 0 loratadine [Claritin] 10 MG tablet 10 mg PO DAILY RF: 0 metoprolol tartrate 50 MG tablet 25 mg PO BID RF: 0 nitroglycerin [Nitrostat] 0.4 MG tablet, sublingual 0.4 mg Sublingual DIRECTED RF: 0 albuterol sulfate [Ventolin HFA] 200 PUFF HFA aerosol inhaler 1 - 2 puff Inhalation QID PRN PRNRF: 0 budesonide-formoterol [Symbicort] 60 PUFF HFA aerosol inhaler 1 puff Inhalation BID RF: 0 famotidine 20 mg Tablet 20 mg PO BID Qty: 14 RF: 0 hydrocortisone 2.5 % Cream 0 g topical TID Qty: 0 RF: 0 triamcinolone acetonide 0.1 % Cream 0 g topical TID Qty: 0 RF: 0 Discontinued amlodipine 5 MG tablet 5 mg PO DAILY RF: 0 Discharge Instructions Instructions: Urinary Tract Infection in Women (DC) Referrals: Drake Flores MD [ [facility] STAFF PHYSICIAN] - Jose Gonzalez MD [Primary Care Provider] - Activity:: Activity as Tolerated Equipment/Supplies:: Walker Diet:: As Tolerated Discharge Orders Discharge Orders: Discharge Order (Routine); Ordered 01/30/20 Ordered By: Minnie Joshua DS: Summary Status at Discharge Functional status at discharge: uses cane/walker Overall status at discharge: patient is progressing back to baseline Mental Status: mental status grossly normal Speech and Movement: speech and movement normal Mood: congruent mood Affect: normal affect Exam Const General: cooperative, comfortable, no acute distress, frail appearing (older than stated age) and ill appearing chronically Nutritional Appearance: average body habitus Orientation: alert, awake and oriented x3 HENMT Head: normal to inspection, normocephalic and atraumatic Mouth: oral mucosae normal Resp Effort & Inspection: normal respiratory effort Auscultation: diminished lung sounds bilaterally in the lower lung watkins Cardio Rate: regular rate (sinus rhythm, no afib on monitor) Rhythm: regular rhythm GI Inspection: normal to inspection Palpation: soft Auscultation: normal bowel sounds Skin General skin exam: no rashes or lesions noted Neuro General: patient alert, patient awake, patient oriented x3 and moves all extremities Extrem General: normal to inspection, full ROM and pedal edema bilaterally (trace) Psych Mental Status: mental status grossly normal Speech and Movement: speech and movement normal Mood: congruent mood Affect: normal affect DS: Data Vitals/I&O Vitals and I&O: Vital Signs Temperature 36.7 C 01/30/20 07:15 Temperature Source Temporal Artery Scan 01/30/20 07:15 Pulse 79 01/30/20 07:15 Pulse Rhythm Regular 01/29/20 20:15 Pulse 98 H 01/26/20 14:50 Respiratory Rate 18 01/30/20 07:15 Respiratory Effort Non-Labored 01/29/20 20:15 Respiratory Depth Normal 01/29/20 20:15 Respiratory Pattern Normal 01/29/20 20:15 Blood Pressure 117/76 01/30/20 07:15 Blood Pressure Mean 91 01/26/20 14:45 Blood Pressure Position Supine 01/26/20 11:13 Pulse Oximetry 97 01/30/20 07:15 Oxygen Delivery Method Room Air 01/30/20 07:15 Oxygen Flow Rate 0 01/30/20 07:15 Pain Level 0 01/30/20 07:15 Comment 01/29/20 18:00 Intake & Output 01/29/20 01/29/20 01/30/20 11:59 23:59 11:59 Intake Total 1410 / 2106.0 696.0 / 2106.0 Output Total 200 / 1350 1150 / 1350 1400 / 1400 Balance 1210 / 756.0 -454.0 / 756.0 -1400 / -1400 Weight 54.5 kg Intake: IV 60 / 166.0 106.0 / 166.0 Oral 1350 / 1940 590 / 1940 Output: Urine 200 / 1350 1150 / 1350 1400 / 1400 Other: Urine Color Yellow Yellow Yellow Urine Appearance Clear Clear Clear Urine Odor Normal Normal Normal Comment Void x1 in the toilet. Stool Occult Blood Negative Stool Size Small Stool Characteristics Soft Voiding Methods Toilet Toilet Toilet [facility] Medical History (Updated 01/28/20 @ 08:50 by Apoorva Crawford MD, [place]) Abnormal CT scan, bladder (Acute) Asthma (Chronic) CAD (coronary artery disease) (Chronic) Cellulitis (Inactive) Disorder of both eustachian tubes (Acute) Drug rash (Inactive) Folate deficiency (Acute) H/O: HTN (hypertension) (Acute) History of asthma (Acute) History of depression (Acute) History of tobacco use (Acute) Hyperlipidemia (Acute) Hypertension (Chronic) Low back pain (Acute) Macrocytosis (Acute) Peripheral neuropathy (Acute) Rash, skin (Acute) Tremor (Acute) Unintentional weight loss (Acute) Vitamin B12 deficiency (dietary) anemia (Acute) Social History Smoking/Tobacco Use Status: Former Tobacco Use Alcohol Intake: never Drug use: Never Do you feel safe at home: Yes Do you feel safe in your relationship?: Yes
--- NOTE | 2020-01-30 08:54 | OT.INTREAT ---
Date of service: 01/30/20 Time of Service: 08:45 Occupational Therapy Notes Occupational Therapy Inpatient Treatment Note Date: 01/30/20 PRECAUTIONS: Fall, Standard, DNR/DNI SUBJECTIVE: Pt was lying in bed sideways and notes that she is trying to get up to go to the bathroom. She states that the plan is for her to go to SNF today. OBJECTIVE: PAIN:no c/o pain FUNCTIONAL MOBILITY Rolling L/R: (I) Supine-sit: Min (A) Sit-stand: (S) Stand-sit: (S) Bed-Chair: (S) BATHING: Pt refuses at this time. GROOMING: Standing at sink with FWW (I) with brushing hair, denies teeth TOILETING: Device: toilet Assist: (I) with increased performance time EATING: (I) with increased performance time ASSESSMENT/PLAN: Pt is demonstrating increased function (I) but requires increased performance time for her ADLs, she does require min vc for reaching back to chair and using her FWW for safety. She is receptive to education and training. The plan is for pt to transition to SNF today. TREATMENT CODES/TIME: 67325, 20 minutes (08:45) Simona He, OTR/L [facility]
[2020-01-30] MEDS: Lidocaine 5% Patch 2 PATCH TP (09:18)
[2020-01-30] MEDS: Acetaminophen 325 MG TAB 650 MG PO (09:21)
[2020-01-30] MEDS: Thiamine 100 MG TAB PO (09:22)
[2020-01-30] MEDS: Aspirin E.C. 325 MG TABEC PO (09:22)
[2020-01-30] MEDS: Metoprolol 50 MG TAB 25 MG PO (09:22)
[2020-01-30] MEDS: Loratidine 10 MG TAB PO (09:22)
[2020-01-30] MEDS: Potassium Chloride 20 MEQ TABCR PO (09:22)
[2020-01-30] MEDS: Multivitamin w/Minerals TAB 1 TAB PO (09:22)
--- NOTE | 2020-01-30 13:16 | CMDISCH_ITS ---
- If Service Date Differs Date of service: 01/30/20 Time of Service: 13:16 LACE Index Scoring Tool - Questions: Length of Stay (in days): 4 - 6 Acuity (Admit via E.D.?): Yes E.D. Visits: 1 - Answers: Total Score: 8 Risk of Readmission: Low Risk Care Management Discharge Reason for Hospitalization: UTI Discharge Plan: Jamilah will be discharged to [facility]. Transportation will be via the facility W/C van. Jamilah will follow up with the providers and plan of care of the facility. Patient/Family Education Needs: Limitations and expectations, Ask Me Three Additional educational needs. to be determined by staff at the facility Services Needed at Discharge: Long-Term Facility
--- NOTE | 2020-01-31 07:28 | OTDS_ITS ---
Date of service: 01/31/20 Time of Service: 07:29 Occupational Therapy Notes Occupational Therapy Inpatient Discharge Summary Date: 01/31/20 Dates of Service: 01/27/20-01/30/20 Referring Doctor:Irlanda Tavarez MD OT Orders: Non-Urgent Precautions: Standard PATIENT PROFILE/ADMITTING DIAGNOSIS: Pt is a 74 year old female was admitted to [facility] after presenting to the ER on 01/26/20. She was admitted for c/o weakness and parasthesias with previous falls, new onset of A-Fib, urinary bladder neoplasm, hypomagnesium, hyponatremia, failure to thrive, UTI, hyperlipidemia, asthma, HTN. Past Medical History: Medical History (Updated 12/25/19 @ 15:52 by Virgie Crawford) Asthma (Chronic) CAD (coronary artery disease) (Chronic) Disorder of both eustachian tubes (Acute) Folate deficiency (Acute) H/O: HTN (hypertension) (Acute) History of asthma (Acute) History of depression (Acute) History of tobacco use (Acute) Hyperlipidemia (Acute) Hypertension (Chronic) Low back pain (Acute) Macrocytosis (Acute) Peripheral neuropathy (Acute) Rash, skin (Acute) Tremor (Acute) Unintentional weight loss (Acute) Vitamin B12 deficiency (dietary) anemia (Acute) Social History/Home Situation: Pt lives alone in an apartment in [place] with her dog. She is totally (I) at baseline with her ADLs/IADLs. She (I) drives and cooks and cleans. She notes that her car was recently told it was unsafe to drive. She is concerned about how she will get groceries when she gets home. She also states that this makes her worried about her meals. She was admitted to [facility] about 1 year ago and notes that since her admission she has noticed increased (B) LE weakness this has made it more difficult for her to perform her ADL routines and she has a neighbor who comes and checks on her 4 times per day and walks her dog for her. She states that her (B) LE are affecting her driving and she is not sure if she should still be driving or not. Equipment owned/DME: Grab bars SUBJECTIVE:NT OBJECTIVE: ROM: RUE AROM WNL L UE AROM WNL STRENGTH: RUE 3/5 throughout LUE 3/5 throughout [employer] is weak (B) FUNCTIONAL MOBILITY/ADLS: Transfers no assistive device Supine-sit (I) Sit-Supine (I) Sit-stand (S) Stand-sit (S) BATHING Sitting in chair with increased performance time and set up/clean up (A) (I) with UE and min (A) with lower body. Pt does have the functional ROM to perform her LE but this is tasking to her and she has decreased functional activity tolerance. DRESSING Sitting in bed, increased performance time. Dressing UE Able to [facility] gown with min vc Dressing LE Min (A) (B) socks due to weakness and fatigue GROOMING standing at sink with FWW and min vc (I) with brushing her hair, denies teeth TOILETING on toilet (I) EATING (I) with eating seated in her chair with increased performance time for eating routine. BALANCE: Static sitting Normal Dynamic Sitting Good Static Standing Good Dynamic Standing Good ASSESSMENT: Patient is a 74-year-old female referred to occupational therapy services with diagnosis of c/o weakness and parasthesias, new onset of A-Fib, urinary bladder neoplasm, hypomagnesium, hyponatremia, failure to thrive, UTI, hyperlipidemia, asthma, HTN. Pt was seen for 3 skilled OT sessions, she was able to perform her ADLs but required increased performance time and vc throughout. She denied all standing ADLs and reported multiple times that she just did not want to perform them. She was receptive to education and training and would benefit from stay at SNF to increase her functional activity tolerance, increase her strength and increase her LE dressing and bathing. GOALS 1. Transfers- with FWW (I)- met 2. Bathing- pt will be able to perform her bathing routine (I) in seated position- progressing towards 3. Pt will be (I) with LE dressing in seated position and (I) with UE dressing- Met with increased performance time 4. Pt will be able to stand at the sink and brush her teeth and hair (I)- not met PLAN OF CARE/TREATMENT PLAN: Pt was discharged to [facility] on 01/[facility]/20 DISCHARGE RECOMMENDATIONS Pt is very weak and unable to perform her ADL routines without (A), the decline in her (B) LE impacts her ability to perform her ADLs in a safe manner. Based on pts current level of function, OT feels that pt would benefit from short term stay in SNF vs. home with HH services. TREATMENT TIME/MINUTES/CODES N/A Simona He, OTR/L [facility]
--- NOTE | 2020-02-04 16:40 | PT.INDS ---
Date of service: 02/04/20 PT Notes Visit Reasons: UTI, NEW ONSET AFIB, SUSPECTED, BLADDER CANCER, FA Inpatient Physical Therapy Discharge Summary Dates: 02/04/2020 Dates of Service: 01/27/2020 through 01/29/2020 This is a clinical summary of care provided on the duration of dates listed above. No charge was made in the completion of this documentation. Referring Doctor: Irlanda Tavarez MD PT Orders: PT CONSULT: Limited ability Precautions: Fall. Standard. Activity as tolerated. Patient Profile/Admitting Diagnosis: Jamilah is a 74-year-old female who presented to the ED on 01/26/2020 with chief complaint of progressive weakness and difficulty with sitting up and getting out of bed. She is diagnosed with urinary tract infection, urine urinary bladder neoplasm, new onset atrial fibrillation, failure to thrive, generalized weakness, hyponatremia, hypomagnesemia, hyperlipidemia, with a palliative consult in place. PMHX: Medical History (Updated 01/26/20 @ 15:33 by Carol Marquez NP) Asthma (Chronic) CAD (coronary artery disease) (Chronic) Cellulitis (Inactive) Disorder of both eustachian tubes (Acute) Drug rash (Inactive) Folate deficiency (Acute) H/O: HTN (hypertension) (Acute) History of asthma (Acute) History of depression (Acute) History of tobacco use (Acute) Hyperlipidemia (Acute) Hypertension (Chronic) Low back pain (Acute) Macrocytosis (Acute) Peripheral neuropathy (Acute) Rash, skin (Acute) Tremor (Acute) Unintentional weight loss (Acute) Vitamin B12 deficiency (dietary) anemia (Acute) Social History/Home Situation: Jamilah lives alone in an apartment with 2 steps to enter, rails on both sides but she states that they are wide so she is only able to hold on one side at a time. She states that she receives Meals on Wheels Mondays and Fridays only and had been able to manage on her own for the other days of the week. She has a neighbor who comes in every day to help take care of her dog and cat. She is independent with all aspects of ADLs and had not had a need of any assistive device. She was discontinued from skilled physical therapy services the last time she was hospitalized here on 01/08/2019 at independent level without an assistive device for 300 feet. Equipment Owned/DME: None Subjective: NT. See most recent MAINTENANCE PLANNER notes. Objective: General Observation: NT. See most recent MAINTENANCE PLANNER notes. Mental Status: NT. See most recent MAINTENANCE PLANNER notes. Pain: NT. See most recent MAINTENANCE PLANNER notes. ROM: Right Upper Extremity: Shoulder Flexion allows about 95 degrees. Shoulder abduction allows about 90 degrees. Elbow flexion WFL. Wrist flexion WFL. Opening and closing of hand WFL. Left Upper Extremity: Shoulder Flexion allows about 95 degrees. Shoulder abduction allows about 90 degrees. Elbow flexion WFL. Wrist flexion WFL. Opening and closing of hand WFL. Right Lower Extremity: Hip flexion allows about 10 degrees beyond 90 while seated at edge of bed.. Hip abduction WFL. Knee flexion up to 100 degrees. Ankle dorsiflexion up to 10 degrees beyond neutral. Ankle plantarflexion WFL. Left Lower Extremity: Hip flexion allows about 10 degrees beyond 90 while seated at edge of bed.. Hip abduction WFL. Knee flexion up to 100 degrees. Ankle dorsiflexion up to 10 degrees beyond neutral. Ankle plantarflexion WFL. Strength: Right Upper Extremity: Shoulder flexors 3-/5. Shoulder abductors 3-/5. Elbow flexors 3+/5. Elbow extensors 3+/5. Health Safety Coordinator weak but functional. Left Upper Extremity: Shoulder flexors 3-/5. Shoulder abductors 3-/5. Elbow flexors 3+/5. Elbow extensors 3+/5. Health Safety Coordinator weak but functional. Right Lower Extremity: Hip flexors 3-/5. Hip abductors 4-/5. Knee flexors 3-/5. Knee extensors 4-/5. Ankle dorsiflexors 3-/5. Ankle plantarflexors 4-/5. Left Lower Extremity: Hip flexors 3-/5. Hip abductors 4-/5. Knee flexors 3-/5. Knee extensors 4-/5. Ankle dorsiflexors 3-/5. Ankle plantarflexors 4-/5. Sensation: Intact as to pain and pressure on bilateral lower extremities. Bed Mobility/Transfers: Supine to sit supervision Stand to sit standby assist Bed to chair standby assist Chair to bed standby assist Gait: 150 feet using front wheeled walker with standby assist from bedside to wheelchair with swing through gait pattern. Balance: Static Sitting: Normal Dynamic Sitting: Normal Static Standing: Fair Dynamic Standing: Fair Assessment: Jamilah demonstrates meaningful functional mobility gains during this episode of care as evidenced by current mobility level above and goal status below. Jamilah is a 74-year-old female who presented to the ED on 01/26/2020 with chief complaint of progressive weakness and difficulty with sitting up and getting out of bed. She is diagnosed with urinary tract infection, urine urinary bladder neoplasm, new onset atrial fibrillation, failure to thrive, generalized weakness, hyponatremia, hypomagnesemia, hyperlipidemia, with a palliative consult in place. Patient appears to present with clinical signs and symptoms consistent with current/admitting diagnoses that have resulted to mobility limitations, gait instability, generalized weakness, and impairment of motor control as demonstrated by the following impairment level findings: 1. Decreased strength to B UEs/LE major muscle groups 2. Impaired standing balance 3. Impaired activity tolerance 4. Limitation of joint range of motion in B shoulders, hips, knees Impairments are doing to contribute to the following functional limitations: 1. Increased dependence with transfers 2. Inability to safely ambulate without assistive device and physical assistance 3. Increase completion time for mobility ADL performance 4. Increased fall risk 5. Inability to negotiate steps alone safely Goals: Goals X1 week 1. Supine-Sit independent NOT MET 2. Sit-Supine independent NOT MET 3. Sit-Stand independent NOT MET 4. Stand-Sit independent NOT MET 5. Bed-Chair independent NOT MET 6. Chair-Bed independent NOT MET 7. Independent gait on level surface with use of front wheeled walker for at least 300 feet without report of pain nor dyspnea NOT MET 8. Independent stair negotiation while holding onto bilateral rails for at least 10 steps without report of pain nor dyspnea NOT MET 9. Independent with home exercise program NOT MET 10. Good static and dynamic standing balance/tolerance NOT MET DISCHARGE RECOMMENDATIONS: Patient will benefit from senior care facility placement for continued skilled physical therapy services in order to progress mobility level, strength, and balance in preparation for a safe discharge to home. TREATMENT CODE/TIME: CA Thank you for the opportunity to participate in the care of this patient. Lanny Pedraza PT, DPT, CLT [facility] [place], [place]
--- NOTE | 2020-02-17 10:16 | CMPROGNOTE_ITS ---
- If Service Date Differs Date of service: 02/17/20 Time of Service: 10:16 Care Management Progress Note CM received a call from Jamilah's nephew Sherwin (Armando Donis), expressinbg concern about Jamilah's condition at home. Her friend Cathie has been contacting him about her concerns since Jamilah's discharge from a SNF recently. CM contacted [facility] who is scheduled to visit today and relayed Sherwin's concerns. CM also contacted Jamilah's PCP's (Dr. Gonzalez) office and appraised them of the situation . Sherwin was also advised that if he or Cathie have ongoing concerns, they can arrange for Jamilah to go to the hospital ED.
== END 2020-01-30 10:45 | disposition skilled nursing facility (03) | DRG 690 ==
LOC: ER 14:46 → MS 15:13
PROVIDERS: Nurse Practitioner Acute Care; Admitting Provider Internal Medicine; Emergency Provider Physician Assistant; PCP Internal Medicine; Visit Provider Internal Medicine
DX: N39.0 Urinary tract infection, site not specified (principal); E87.1 Hypo-osmolality and hyponatremia; R53.1 Weakness; J45.909 Unspecified asthma, uncomplicated; I25.10 Atherosclerotic heart disease of native coronary artery without angina pectoris; I10 Essential (primary) hypertension; F32.9 Major depressive disorder, single episode, unspecified; G62.9 Polyneuropathy, unspecified; I48.91 Unspecified atrial fibrillation; Z87.891 Personal history of nicotine dependence; M54.5 Low back pain; D51.9 Vitamin B12 deficiency anemia, unspecified; R63.4 Abnormal weight loss; Z68.20 Body mass index [BMI] 20.0-20.9, adult; E83.42 Hypomagnesemia; R62.7 Adult failure to thrive; E78.5 Hyperlipidemia, unspecified; R93.89 Abnormal findings on diagnostic imaging of other specified body structures; M48.061 Spinal stenosis, lumbar region without neurogenic claudication; K76.0 Fatty (change of) liver, not elsewhere classified
CPT/HCPCS: 36415; 71275; 74177; 80048; 80053; 80061; 80076; 93005; 93306; 94640; 96360; 96361; 97110; 97162; 97166; 97530; 97535; 99221; 99223; 99233; 99239; 99252; 99254; 99285; U0003; 72148; 76700; 81003; 81015; 82607; 82728; 82746; 83540; 83550; 83735; 84443; 84484; 85025; 85379; 87086; 93010; 99222; J0696; J1644; J3490

== ENCOUNTER 2020-02-04 15:42 | Outpatient (REF) | payer SELFPAY ==
[2020-02-05 17:29] LABS: COVID-19 RT-PCR Result Not Detected ((See Note))
== END 2020-02-04 16:02 ==
LOC: LBN 15:42
PROVIDERS: PCP Internal Medicine; Visit Provider Nurse Practitioner Adult Health
DX: Z11.59 Encounter for screening for other viral diseases (principal)
CPT/HCPCS: U0003

== ENCOUNTER → 2020-02-13 11:02 | Outpatient (BNVA) | payer MEDICARE, SELFPAY | PROVIDERS: PCP Internal Medicine; Referring Provider Internal Medicine; Visit Provider Urology | DX: R93.41 Abnormal radiologic findings on diagnostic imaging of renal pelvis, ureter, or bladder (principal); R63.0 Anorexia; I48.91 Unspecified atrial fibrillation; Z79.01 Long term (current) use of anticoagulants; I10 Essential (primary) hypertension | CPT/HCPCS: 52000; 99213 ==

== ENCOUNTER 2020-02-17 15:35 | Inpatient (IN) | payer MEDICARE, SELFPAY ==
[2020-02-17] VITALS (22 sets, daily range): BP systolic 99–155; BP diastolic 62–98; PULSE 69–109; RESP 13–24; TEMP 36–38.1; O2SAT 86–98
--- NOTE | 2020-02-17 15:30 | DI.RAD_ITS ---
EXAM: XR HIP RT COMPLETE AP PELVIS CLINICAL HISTORY: Generalized weakness, pain with movement right hip. TECHNIQUE: 2D digital imaging was performed. COMPARISON: CT CT LOWER EXTREMITY RT WO from 02/17/2020 FINDINGS: BONES: No acute fracture is present. No bony destructive lesion is seen. JOINTS: No dislocation present. SOFT TISSUE: Normal. IMPRESSION: No acute fracture or dislocation. DATA REPOSITORY: RADIATION DOSE DELIVERED:
--- NOTE | 2020-02-17 15:30 | RT.EKG_ITS ---
APPROVED REPORT Exam: Resting ECG Patient Location: E HR:108 bpm ECG Measurements Heart Rate 108 AXIS KS 161 P 57 QRSd 75 QRS 59 QT 345 T 103 QTc 463 Conclusion Sinus tachycardia with irregular rate...V-rate 87-155, variation>10% Nonspecific T abnormalities, lateral leads...T <-0.10mV, I aVL V5 V6 No STEMI, non-diagnostic EKG I have reviewed and interpreted ECG and agree with software generated interpretation.
--- NOTE | 2020-02-17 15:30 | DI.RAD_ITS ---
EXAM: XR CHEST 2V PA LATERAL CLINICAL HISTORY: weakness TECHNIQUE: 2D digital imaging was performed. COMPARISON: CR XR CHEST 2V PA LATERAL from 01/03/2019 FINDINGS: MEDIASTINUM: Normal. HEART: Normal. PULMONARY VASCULATURE: Normal. LUNGS: Mild interstitial fibrosis. No focal consolidating infiltrate. PLEURAL SPACE: No pleural effusion or pneumothorax. BONE:Degenerative changes seen in the spine. OTHER FINDINGS:Normal. IMPRESSION: No acute pulmonary findings. DATA REPOSITORY: RADIATION DOSE DELIVERED:
--- NOTE | 2020-02-17 15:35 | W.ED.GENAD ---
Discharge Plan Disposition Patient Disposition: [facility] INPATIENT Condition: Improving Discharge Details Chief Complaint: Urinary Clinical Impression: Urinary tract infection Primary Care Provider: Jose Gonzalez ED Provider: Silver Saenz Home Meds and New Rx's Prescriptions: No Action Xarelto 20 mg tablet 20 mg PO DAILY RF: 0 mecobalamin (vitamin B12) 1,000 mcg tablet,chewable 1,000 mcg PO DAILY RF: 0 albuterol sulfate [Ventolin HFA] 90 mcg/actuation HFA aerosol inhaler 2 puff IH Q6H PRNRF: 0 fluoxetine 20 mg tablet 20 mg PO DAILY RF: 0 aspirin,buffd-calcium carb-mag 325 MG tablet 325 mg PO DAILY RF: 0 lovastatin 20 MG tablet 20 mg PO QPM RF: 0 loratadine [Claritin] 10 MG tablet 10 mg PO DAILY RF: 0 metoprolol tartrate 50 MG tablet 25 mg PO BID RF: 0 nitroglycerin [Nitrostat] 0.4 MG tablet, sublingual 0.4 mg Sublingual DIRECTED RF: 0 albuterol sulfate [Ventolin HFA] 200 PUFF HFA aerosol inhaler 1 - 2 puff Inhalation QID PRN PRNRF: 0 budesonide-formoterol [Symbicort] 60 PUFF HFA aerosol inhaler 1 puff Inhalation BID RF: 0 famotidine 20 mg Tablet 20 mg PO BID Qty: 14 RF: 0 hydrocortisone 2.5 % Cream 0 g topical TID Qty: 0 RF: 0 triamcinolone acetonide 0.1 % Cream 0 g topical TID Qty: 0 RF: 0 lidocaine [Aspercreme (lidocaine HCl)] 4 % Adhesive Patch,Medicated 1 patch TOPICAL DAILY RF: 0 Medical Decision Making 74-year-old female presents from home via EMS. She describes 3 days of worsening weakness and now with difficulty walking. No falls, no syncope. She denies fever or chills. States she felt weak when she had a urinary tract infection recently. Of note her pulse is 100 210 and her room air oxygen was approximately 86% on arrival. Differential diagnosis includes pulmonary edema, PE, UTI, dehydration, electrolyte abnormality. Patient IV access established, screening EKG, x-rays of the chest and pelvis, laboratory obtained. X-rays reveal heterogeneity in the right acetabulum which is the painful hip. Chest x-ray with interstitial edema. Laboratories note evidence of urinary tract infection, reassuring CBC, note of sodium 129, negative troponin but elevated d-dimer. Patient referred for CT of the chest as well as noncontrast CT of the pelvis to rule out acetabular fracture. She is given ceftriaxone for her UTI. Review of records reveals recent admission for urinary tract infection and weakness. No recent cultures. She was discharged to [facility] and rehab. She had a palliative health consult on January 26 and wished to be DNR DNI. Remainder of diagnostic studies in the emergency department: No evidence of bony acetabular pathology. CT of the chest shows atelectatic changes, no PE or focal consolidation. See formal report. Most consistent with generalized weakness, persistent urinary tract infection. Case discussed with Dr. August and patient to be admitted. Lab Data Lab results reviewed: Yes I reviewed the patient's lab results. Labs: Laboratory Results - last 24 hr 02/17/20 02/17/20 02/17/20 16:42 16:42 16:42 WBC RBC Hgb Hct MCV MCH MCHC RDW Plt Count MPV Immature Gran % Neutrophils % Lymphocytes % Monocytes % Eosinophils % Basophils % Nucleated RBC % Absolute Neutrophils Absolute Lymphocytes Absolute Monocytes Absolute Eosinophils Absolute Basophils PT 16.1 H INR 1.6 H APTT 39.9 H D-Dimer 1795 H Sodium 129 L Potassium 3.5 Chloride 94 L Carbon Dioxide 26.5 Anion Gap 8.5 BUN 18 Creatinine 0.83 Estimated GFR/1.73 m2 >= 60.00 Glucose 103 Calcium 9.3 Magnesium 1.8 Total Bilirubin 1.0 AST 34 ALT 19 Alkaline Phosphatase 132 H Troponin I < 0.05 NT-Pro-B Natriuret Pep 551 H Total Protein 7.9 Albumin 2.8 L Urine Color Urine Clarity Urine pH Ur Specific [place] Urine Protein Urine Ketones Urine Blood Urine Nitrite Urine Bilirubin Urine Urobilinogen Ur Leukocyte Esterase Urine Glucose 02/17/20 02/17/20 16:42 17:20 WBC 8.94 RBC 3.11 L Hgb 11.5 Hct 34.3 L MCV 110.3 H MCH 37.0 H MCHC 33.5 RDW 12.2 Plt Count 289 MPV 10.1 Immature Gran % 0.4 Neutrophils % 75.2 Lymphocytes % 10.2 Monocytes % 13.8 Eosinophils % 0.2 Basophils % 0.2 Nucleated RBC % 0 Absolute Neutrophils 6.72 H Absolute Lymphocytes 0.91 L Absolute Monocytes 1.23 H Absolute Eosinophils 0.02 Absolute Basophils 0.02 PT INR APTT D-Dimer Sodium Potassium Chloride Carbon Dioxide Anion Gap BUN Creatinine Estimated GFR/1.73 m2 Glucose Calcium Magnesium Total Bilirubin AST ALT Alkaline Phosphatase Troponin I NT-Pro-B Natriuret Pep Total Protein Albumin Urine Color Yellow Urine Clarity Sl cloudy Urine pH 8.0 Ur Specific [place] 1.020 Urine Protein 30 H Urine Ketones Negative Urine Blood Negative Urine Nitrite Positive H Urine Bilirubin Negative Urine Urobilinogen 2.0 H Ur Leukocyte Esterase Moderate H Urine Glucose Negative HPI General Mode of arrival: EMS. Date/Time Provider Initiated Documentation: 02/17/20 15:57. Limitations to Documentation: no limitations. Information obtained by: patient and EMS. History of Present Illness 74 year old F presents to the emergency department with the chief complaint of Weakness, worse past 3 days, described as moderate, Quality is described as dull, constant and other (Generalized and lower extremity), and is localized to the lower extremity. Patient reports no radiation. Patient started experiencing this day(s) and it has been constant. No relieving factors improve symptom(s), Movement worsens symptoms . Patient notes denies confusion, chest pain, fever/chills and syncope. Patient did receive the following treatments prior to arrival, none Related Data Home Medications Medication Instructions Recorded Confirmed aspirin,buffd-calcium carb-mag 325 mg PO DAILY 01/29/13 02/13/20 loratadine [Claritin] 10 mg PO DAILY 01/29/13 02/17/20 lovastatin 20 mg PO QPM 01/29/13 02/17/20 albuterol sulfate [Ventolin HFA] 1 - 2 puff INHALATION QID PRN PRN 12/07/16 02/17/20 budesonide-formoterol [Symbicort] 1 puff INHALATION BID 12/07/16 02/17/20 metoprolol tartrate 25 mg PO BID 12/07/16 02/17/20 nitroglycerin [Nitrostat] 0.4 mg SUBLINGUAL DIRECTED 12/07/16 02/17/20 famotidine 20 mg PO BID #14 tab 01/08/19 02/13/20 hydrocortisone 0 g TOPICAL TID #0 g 01/08/19 02/13/20 triamcinolone acetonide 0 g TOPICAL TID #0 g 01/08/19 02/13/20 albuterol sulfate 90 mcg/actuation 2 puff IH Q6H PRN 12/26/19 02/13/20 aerosol inhaler fluoxetine 20 mg tablet 20 mg PO DAILY 12/26/19 02/17/20 mecobalamin (vitamin B12) 1,000 1,000 mcg PO DAILY 12/26/19 02/17/20 mcg chewable tablet rivaroxaban 20 mg tablet 20 mg PO DAILY 02/13/20 02/17/20 lidocaine [Aspercreme (lidocaine 1 patch TOPICAL DAILY 02/17/20 02/17/20 HCl)] Previous Rx's Medication Instructions Recorded famotidine 20 mg PO BID #14 tab 01/08/19 hydrocortisone 0 g TOPICAL TID #0 g 01/08/19 triamcinolone acetonide 0 g TOPICAL TID #0 g 01/08/19 Allergies Allergy/AdvReac Type Severity Reaction Status Date / Time lisinopril Allergy Intermediate lips Unverified 02/17/20 19:06 swelled sulfamethoxazole Allergy Intermediate Hives Unverified 02/17/20 19:06 [From Bactrim] trimethoprim [From Bactrim] Allergy Intermediate Hives Unverified 02/17/20 19:06 Penicillins AdvReac Intermediate Hives Unverified 02/17/20 19:06 General Stated Complaint: Urinary TY: 3 Review of Systems Narrative: Recent UTI. Denies fever or chills. No chest pain or palpitations. No syncope at home. Feels her legs are weak. No falls. 8 systems reviewed and otherwise negative [facility] Medical History Abnormal CT scan, bladder Asthma CAD (coronary artery disease) Cellulitis Disorder of both eustachian tubes Drug rash Folate deficiency H/O: HTN (hypertension) History of asthma History of depression History of tobacco use Hyperlipidemia Hypertension Low back pain Macrocytosis Peripheral neuropathy Rash, skin Tremor Unintentional weight loss Vitamin B12 deficiency (dietary) anemia Social History Smoking/Tobacco Use Status: Former Tobacco Use Alcohol Intake: never Drug use: Never Do you feel safe at home: Yes Do you feel safe in your relationship?: Yes Exam Narrative Exam Narrative: GEN: awake, alert, oriented 3. Pleasant, well groomed, interactive. HEAD: Normocephalic, atraumatic ENT: Mucous membranes moist, oropharynx unremarkable, External ear exam unremarkable EYES: PERRL, EOMI NECK: Full ROM, no MILLER, no menigismus CHEST/RESP: Nontender, clear to auscultation bilateral, no wheeze/rhonchi/rales CARDIOVASCULAR: Borderline regular tachycardia approximately 100 bpm., no murmur, rub lizet. 2+ Rad pulse bilateral Back: No midline tenderness, step-off or deformity no rash or ecchymosis ABDOMEN: Soft, nontender, no mass. +Bowel sounds EXT: Full ROM, no significant edema, no rash. Healing skin tears anterior tibia bilaterally. The right leg she is just able to hold against gravity. Left leg against mild resistance. Neuro: Grossly normal neurologic exam, conversant, interactive. Psych: Speech fluent, thoughts congruent, affect normal Course Vital Signs Vital signs: Vital Signs Temperature 36 C L 02/17/20 15:23 Pulse 69 02/17/20 15:23 Respiratory Rate 18 02/17/20 15:23 Blood Pressure 139/83 02/17/20 15:23 Pulse Oximetry 86 L 02/17/20 15:23 Temperature 36 C L 02/17/20 15:23 Temperature Source Skin 02/17/20 15:23 Pulse 69 02/17/20 15:23 Respiratory Rate 18 02/17/20 15:23 Blood Pressure 139/83 02/17/20 15:23 Blood Pressure Position Sitting 02/17/20 15:23 Pulse Oximetry 86 L 02/17/20 15:23 Oxygen Delivery Method Room Air 02/17/20 15:23 Oxygen Flow Rate 0 02/17/20 15:23 Pain Level 0 02/17/20 15:23
[2020-02-17] MEDS: Normal Saline Flush 10 ML SYR IVP (16:10)
[2020-02-17] MEDS: Normal Saline 1,000 ML 500 ML IV (16:16)
--- NOTE | 2020-02-17 16:26 | NUR.NOTE ---
pt provided with meal tray Nursing Note:
[2020-02-17 17:02] LABS: Abs Immature Grans 0.04 10^3/uL (0.0-0.06); Absolute Basophil Count 0.02 10^3/uL (0.0-0.2); Absolute Eosinophil Count 0.02 10^3/uL (0.0-0.7); Absolute Lymphocyte Count 0.91 10^3/uL (1.2-3.4); Absolute Monocyte Count 1.23 10^3/uL (0.1-0.8); Absolute Neutrophil Count 6.72 10^3/uL (1.2-6.7); Basophils % 0.2; Eosinophils % 0.2; HCT 34.3 % (36.0-46.0); HGB 11.5 g/dL (11.2-15.7); Immature Grans % 0.4; Lymphocytes % 10.2; MCHC 33.5 % (32.0-36.0); MCV 110.3 fL (80-95); MPV 10.1 fL (8.0-11.0); Monocytes % 13.8; Neutrophils % 75.2; Nucleated RBC 0 %; Platelet Count 289 10^3/uL (130-400); RBC 3.11 10^6/uL (3.93-5.22); RDW 12.2 % (11.7-14.6); RDW-SD 49.8 fL; WBC 8.94 10^3/uL (4.4-10.8)
[2020-02-17 17:14] LABS: ALT 19 U/L (14-59); AST 34 U/L (15-37); Albumin 2.8 g/dL (3.4-5.0); Alkaline Phosphatase 132 U/L (46-116); Anion Gap 8.5 mmol/L (3-11); BUN 18 mg/dL (7-18); CO2 26.5 mmol/L (21.0-32.0); CREATININE 0.83 mg/dL (0.55-1.02); Calcium 9.3 mg/dL (8.5-10.1); Chloride 94 mmol/L (98-107); Glucose 103 mg/dL (74-106); Magnesium 1.8 mg/dL (1.8-2.4); Potassium 3.5 mmol/L (3.5-5.1); Sodium 129 mmol/L (136-145); Total Protein 7.9 g/dL (6.4-8.2)
[2020-02-17 17:15] LABS: Troponin I < 0.05 ng/mL (<0.06)
[2020-02-17 17:20] LABS: INR 1.6 (0.9-1.1); NT-proBNP 551 pg/mL (<300); PTT Activated 39.9 sec (21.0-31.4); Prothrombin Time 16.1 sec (9.3-11.0)
[2020-02-17 17:40] LABS: D-Dimer 1795 ng/mlFEU (<500)
[2020-02-17 17:45] LABS: Bilirubin Negative (Negative); Blood Negative (Negative); Clarity Sl Cloudy (Clear); Glucose Negative (Negative); Ketones Negative (Negative); Leukocyte Esterase Moderate (Negative); Nitrite Positive (Negative)
--- NOTE | 2020-02-17 17:45 | DI.CT_ITS ---
EXAM: CT CHEST PE CTA CLINICAL HISTORY: Weakness, hypoxia, elevated d-dimer. TECHNIQUE: Imaging Protocol: Axial CT angiography was performed with multi-slice acquisition and mu lti-planar and/or 3D reconstructions. CONTRAST MATERIAL: Intravenous: Omnipaque 350 Contrast volume:structured data in ml COMPARISON: CT CT CHEST PE ABD PELVIS W from 01/26/2020 FINDINGS: Pulmonary Arteries: No evidence of filling defect to suggest pulmonary emboli. Tracheobronchial tree: Patent where visualized. Mediastinum and Guillermina: No dominant adenopathy or fluid collection. Pulmonary parenchyma: 4 mm noncalcified pulmonary nodule in the left apex. Moderate centrilobular pu lmonary emphysema. Mild pulmonary fibrosis particularly in the upper lobes. Scarring or atelectasis in the lower lobes. Pleura: No effusion or pneumothorax. Heart: The heart is not dilated. Coronary artery calcification. No significant pericardial effusion. Aorta: Thoracic aorta non-dilated. No evidence of dissection. Atherosclerosis. Upper abdomen: Unremarkable. Bones: Degenerative changes in the spine. Soft tissues: Unremarkable. IMPRESSION: 1. No evidence of pulmonary embolism, thoracic aortic dissection or aneurysm. 2. 4 mm noncalcified pulmonary nodule in the left apex. Follow-up according to patient's risk factor s. For high risk patient CT scan in 12 months is recommended. 3. Pulmonary emphysema and fibrosis. RADIATION DOSE DELIVERED: 232.93mGy.cm Total DLP DATA REPOSITORY: All CT scans at this facility are submitted to the National Radiology Data Registry (NRDR) Dose Index Registry (DIR) with the [employer] (ACR). RADIATION OPTIMIZATION: All CT scans at this facility use at least one of these dose optimization te chniques: automated exposure control; mA and/or kV adjustment per patient size (includes targeted exa ms where dose is matched to clinical indication); or iterative reconstruction.
--- NOTE | 2020-02-17 17:49 | DI.VRAD_ITS ---
PROCEDURE INFORMATION: Exam: XR Chest, 2 Views Exam date and time: 02/17/2020 5:26 PM Age: 74 years old Clinical indication: Other: Weakness TECHNIQUE: Imaging protocol: XR of the chest Views: 2 views. COMPARISON: CT CHEST PE ABD PELVIS W 01/26/2020 12:44 PM FINDINGS: Lungs: Increased interstitial lung markings suggesting edema, infection or fibrotic changes. COPD. Pleural space: Unremarkable. No pleural effusion. No pneumothorax. Heart/Mediastinum: Unremarkable. No cardiomegaly. Bones/joints: Degenerative spine. IMPRESSION: 1. No acute findings. 2. Increased interstitial lung markings suggesting edema, infection or fibrotic changes. 3. COPD. Dictated and Authenticated by: Tere Barnett MD. Ordering:HELLEN Sheppard MD
--- NOTE | 2020-02-17 17:50 | DI.VRAD_ITS ---
PROCEDURE INFORMATION: Exam: XR Right Hip with Pelvis when Performed Exam date and time: 02/17/2020 5:39 PM Age: 74 years old Clinical indication: Patient HX: Generalized weakness, pain with movement right hip TECHNIQUE: Imaging protocol: XR Right hip with pelvis when performed. Views: 2 or 3 views. COMPARISON: No relevant prior studies available. FINDINGS: Bones/joints: Heterogeneity in the acetabulum. Underlying fracture is not excluded. Consider MRI. Soft tissues: Unremarkable. IMPRESSION: Heterogeneity in the acetabulum. Underlying fracture is not excluded. Consider MRI. Dictated and Authenticated by: Tere Barnett MD. Ordering:HELLEN Sheppard MD
--- NOTE | 2020-02-17 18:00 | DI.CT_ITS ---
EXAM: CT LOWER EXTREMITY RT WO CLINICAL HISTORY: Right hip pain, heterogeneity of the acetabulum. TECHNIQUE: Imaging Protocol: Axial computed tomography images with coronal and sagittal reformatted images were created and reviewed. COMPARISON: CR,XR XR HIP RT COMPLETE AP PELVIS from 02/17/2020 FINDINGS: Bones: The osseous structures and articular surfaces are intact. There is no evidence of fracture or dislocation. Bony alignment is satisfactory. No cellulitic or osteomyelitic changes are identified. There is no evidence of joint space narrowing or cystic degeneration seen. No lytic or sclerotic le sions are identified. Soft Tissues: Atherosclerosis. IMPRESSION: No acute fracture or dislocation. RADIATION DOSE DELIVERED: 367.04mGy.cm Total DLP 367.04mGy.cmTotal DLP 367.04mGy.cm Total DLP 367.04mGy.cm Total DLP DATA REPOSITORY: All CT scans at this facility are submitted to the National Radiology Data Registry (NRDR) Dose Index Registry (DIR) with the [employer] (ACR). RADIATION OPTIMIZATION: All CT scans at this facility use at least one of these dose optimization te chniques: automated exposure control; mA and/or kV adjustment per patient size (includes targeted exa ms where dose is matched to clinical indication); or iterative reconstruction.
[2020-02-17 18:09] LABS: Diff Comment RBC Morph Reviewed; Macrocytosis 2+
[2020-02-17 18:13] LABS: Bacteria Many HPF (Negative); C & S Indicated? No/Sq. Contamination; Casts Negative LPF (Negative); Crystals Many Amorphous HPF (Negative); Epithelial Cells Moderate HPF (Negative); Mucus Heavy (Negative); RBC Negative HPF (0-2); WBC >50 HPF (0-5)
[2020-02-17] MEDS: cefTRIAXone 1 GM/50 ML BAG IVPB (18:23)
--- NOTE | 2020-02-17 18:43 | W.PM.HP.N ---
Date of service: 02/17/20 Time of Service: 18:43 Assessment and Plan Assessment and plan (1) Weakness: Status: Acute Assessment and plan: Weakness. Non-specific, I strongly suspect UTI is the issue. Will continue Rocephin pending cxx. As to hypoxia, no s/s pointing to specific cause, perhaps simply her underlying COPD? Will update once CTA in. If neg I might try updraft and monitor response. Note patient remains DNR. History of Present Illness History of Present Illness Chief Complaint: weakness Narrative: 74 female with h/o UTI. Here 01/15 with UTI/weakness (similar to prior), s/p course Rehab, now back home. Comes in now with several days of weakness. No dysuria, frequency or back pain. In ER findings of note for pyuria, given dose of Rocephin. Other findings of elevated d-Dimer (1795, though this was similarly elevated 01/15 and had neg CTA at that time. Note also she is on Xarelto for AF). Other findings of O2 sat 86, with h/o COPD, though baseline sats 90s. Denies CP or SOB but is en route at present for repeat CTA. Sats mid 90s on 1L NC. Other issues: patient reports chronic right hip pain, film shows some acetabular irregularities, CT pending Chronic hyponatremia and anemia, Na 129, Hct 34 -- both approx baseline Review of Systems All systems reviewed & are unremarkable except as noted in HPI and below PFSH Medical History Abnormal CT scan, bladder Asthma CAD (coronary artery disease) Cellulitis Disorder of both eustachian tubes Drug rash Folate deficiency H/O: HTN (hypertension) History of asthma History of depression History of tobacco use Hyperlipidemia Hypertension Low back pain Macrocytosis Peripheral neuropathy Rash, skin Tremor Unintentional weight loss Vitamin B12 deficiency (dietary) anemia Social History Smoking/Tobacco Use Status: Former Tobacco Use Alcohol Intake: never Drug use: Never Do you feel safe at home: Yes Do you feel safe in your relationship?: Yes Meds Home Medications and Allergies Home Medications Medication Instructions Recorded Confirmed Type aspirin,buffd-calcium carb-mag 325 mg PO DAILY 01/29/13 02/13/20 History loratadine [Claritin] 10 mg PO DAILY 01/29/13 02/13/20 History lovastatin 20 mg PO QPM 01/29/13 02/13/20 History albuterol sulfate [Ventolin HFA] 1 - 2 puff INHALATION QID PRN PRN 12/07/16 02/13/20 History budesonide-formoterol [Symbicort] 1 puff INHALATION BID 12/07/16 02/13/20 History metoprolol tartrate 25 mg PO BID 12/07/16 02/13/20 History nitroglycerin [Nitrostat] 0.4 mg SUBLINGUAL DIRECTED 12/07/16 02/13/20 History famotidine 20 mg PO BID #14 tab 01/08/19 02/13/20 Rx hydrocortisone 0 g TOPICAL TID #0 g 01/08/19 02/13/20 Rx triamcinolone acetonide 0 g TOPICAL TID #0 g 01/08/19 02/13/20 Rx albuterol sulfate 90 mcg/actuation 2 puff IH Q6H PRN 12/26/19 02/13/20 History aerosol inhaler fluoxetine 20 mg tablet 20 mg PO DAILY 12/26/19 02/13/20 History mecobalamin (vitamin B12) 1,000 1,000 mcg PO DAILY 12/26/19 02/13/20 History mcg chewable tablet rivaroxaban 20 mg tablet 20 mg PO DAILY 02/13/20 02/13/20 History Allergies Allergy/AdvReac Type Severity Reaction Status Date / Time lisinopril Allergy Intermediate lips Unverified 01/26/20 11:18 swelled sulfamethoxazole Allergy Intermediate Hives Unverified 01/26/20 11:18 [From Bactrim] trimethoprim [From Bactrim] Allergy Intermediate Hives Unverified 01/26/20 11:18 Penicillins AdvReac Intermediate Hives Unverified 01/26/20 11:18 Exam Narrative Exam Narrative: 139/83, 69, 36.6, 18, 94% 1L. HEENT atraumatic; neck supple; lungs very diminished; heart irr/irr; abdomen soft and NT; extremities w/o edema; neuro Ox3, moves all 4s Results Labs Result diagrams: 02/17/20 16:42 02/17/20 16:42 Labs: Laboratory Results - last 24 hr 02/17/20 02/17/20 02/17/20 16:42 16:42 16:42 WBC RBC Hgb Hct MCV MCH MCHC RDW Plt Count MPV Immature Gran % Neutrophils % Lymphocytes % Monocytes % Eosinophils % Basophils % Nucleated RBC % Absolute Neutrophils Absolute Lymphocytes Absolute Monocytes Absolute Eosinophils Absolute Basophils RBC Morphology Macrocytosis PT 16.1 H INR 1.6 H APTT 39.9 H D-Dimer 1795 H Sodium 129 L Potassium 3.5 Chloride 94 L Carbon Dioxide 26.5 Anion Gap 8.5 BUN 18 Creatinine 0.83 Estimated GFR/1.73 m2 >= 60.00 Glucose 103 Calcium 9.3 Magnesium 1.8 Total Bilirubin 1.0 AST 34 ALT 19 Alkaline Phosphatase 132 H Troponin I < 0.05 NT-Pro-B Natriuret Pep 551 H Total Protein 7.9 Albumin 2.8 L Urine Color Urine Clarity Urine pH Ur Specific [place] Urine Protein Urine Ketones Urine Blood Urine Nitrite Urine Bilirubin Urine Urobilinogen Ur Leukocyte Esterase Urine RBC Urine WBC Ur Epithelial Cells Urine Crystals Urine Bacteria Urine Casts Urine Mucus Ur Culture Indicated? Urine Glucose 02/17/20 02/17/20 16:42 17:20 WBC 8.94 RBC 3.11 L Hgb 11.5 Hct 34.3 L MCV 110.3 H MCH 37.0 H MCHC 33.5 RDW 12.2 Plt Count 289 MPV 10.1 Immature Gran % 0.4 Neutrophils % 75.2 Lymphocytes % 10.2 Monocytes % 13.8 Eosinophils % 0.2 Basophils % 0.2 Nucleated RBC % 0 Absolute Neutrophils 6.72 H Absolute Lymphocytes 0.91 L Absolute Monocytes 1.23 H Absolute Eosinophils 0.02 Absolute Basophils 0.02 RBC Morphology See below Macrocytosis 2+ PT INR APTT D-Dimer Sodium Potassium Chloride Carbon Dioxide Anion Gap BUN Creatinine Estimated GFR/1.73 m2 Glucose Calcium Magnesium Total Bilirubin AST ALT Alkaline Phosphatase Troponin I NT-Pro-B Natriuret Pep Total Protein Albumin Urine Color Yellow Urine Clarity Sl cloudy Urine pH 8.0 Ur Specific [place] 1.020 Urine Protein 30 H Urine Ketones Negative Urine Blood Negative Urine Nitrite Positive H Urine Bilirubin Negative Urine Urobilinogen 2.0 H Ur Leukocyte Esterase Moderate H Urine RBC Negative Urine WBC >50 H Ur Epithelial Cells Moderate Urine Crystals Many amorphous Urine Bacteria Many Urine Casts Negative Urine Mucus Heavy Ur Culture Indicated? No/sq. contamination Urine Glucose Negative Last Vital Signs Temp 36 C L 02/17/20 15:23 Pulse 69 02/17/20 15:23 Resp 18 02/17/20 15:23 BP 139/83 02/17/20 15:23 Pulse Ox 86 L 02/17/20 15:23 COVID-19 Screening Have you,or household,traveled outside [place] in last 14 days?: No Had IN PERSON contact w/suspected or confirmed C-19 person: No
[2020-02-17] MEDS: Omnipaque 350 MG/ML 50 ML BTL IJ (18:50)
--- NOTE | 2020-02-17 19:22 | DI.VRAD_ITS ---
PROCEDURE INFORMATION: Exam: CT Angiography Chest With Contrast Exam date and time: 02/17/2020 6:52 PM Age: 74 years old Clinical indication: Abnormal findings; Abnormal diagnostic tests; Patient HX: Weakness, hypoxia, elevated d-dimer TECHNIQUE: Imaging protocol: Computed tomographic angiography of the chest with intravenous contrast. 3D rendering (Not supervised by radiologist): MIP and/or 3D reconstructed images were created by the technologist. COMPARISON: CT CHEST PE ABD PELVIS W 01/26/2020 12:44 PM FINDINGS: Pulmonary arteries: Normal. No pulmonary emboli. Aorta: Aortic and coronary atherosclerosis. Lungs: Moderate centrilobular pulmonary emphysema. 4 mm nodule in the left apex (4/5). Subsegmental atelectasis versus scarring in the lower lung watkins. Minimal fine fibrotic changes in the upper lobes. Pleural space: Unremarkable. No pneumothorax. No pleural effusion. Heart: Unremarkable. No cardiomegaly. No pericardial effusion. Lymph nodes: Unremarkable. No enlarged lymph nodes. Bones/joints: Degenerative changes in the spine. Soft tissues: Unremarkable. IMPRESSION: 1. No pulmonary embolism. 2. Moderate centrilobular pulmonary emphysema. 3. 4 mm nodule in the left apex (4/5). For patients at low risk (minimal or absent history of smoking and of other known risk factors), no routine follow-up is indicated. For patients at high risk (history of smoking or of other known risk factors), consider optional CT at 12 months. (Jimmy et al., Fleischner Society, 2017)Subsegmental atelectasis versus scarring in the lower lung watkins. 4. Minimal fine fibrotic changes in the upper lobes. Dictated and Authenticated by: Tere Barnett MD. Ordering:HELLEN Sheppard MD
--- NOTE | 2020-02-17 19:25 | DI.VRAD_ITS ---
PROCEDURE INFORMATION: Exam: CT Right Lower Extremity Without Contrast, Hip Exam date and time: 02/17/2020 6:04 PM Age: 74 years old Clinical indication: Patient HX: Right hip pain, heterogeneity of acetabulum TECHNIQUE: Imaging protocol: CT of the Right lower extremity without contrast was performed. Exam focused on the hip. COMPARISON: CR XR HIP RT COMPLETE AP PELVIS 02/17/2020 5:39 PM FINDINGS: Bones/joints: No acute fracture or dislocation. Soft tissues: Normal. Vasculature: Mild atherosclerosis. IMPRESSION: No acute fracture or dislocation. Dictated and Authenticated by: Tere Barnett MD. Ordering:HELLEN Sheppard MD
[2020-02-17] MEDS: Metoprolol 50 MG TAB 25 MG PO (21:43)
[2020-02-17] MEDS: Melatonin 3 MG TAB PO (21:44)
[2020-02-17] MEDS: Acetaminophen 325 MG TAB 650 MG PO (21:44)
[2020-02-17 22:29] LABS: Troponin I < 0.05 ng/mL (<0.06)
[2020-02-18] VITALS (7 sets, daily range): BP systolic 100–159; BP diastolic 71–102; PULSE 72–98; RESP 12–18; TEMP 35.9–37; O2SAT 95–100
[2020-02-18] MEDS: Budesonide/Formoterol 160/4.5 6 GM 60 PUFF INH IH ×2 (07:50→19:57)
--- NOTE | 2020-02-18 08:46 | INITIAL_ITS ---
- If Service Date Differs Date of service: 02/18/20 Time of Service: 08:46 Care Management Initial Assess REASON FOR HOSPITALIZATION:: Weakness PAST MEDICAL HISTORY/PAST SURGICAL HISTORY:: Medical History . Abnormal CT scan, bladder. Asthma. CAD (coronary artery disease). Cellulitis. Disorder of both eustachian tubes. Drug rash. Folate deficiency. H/O: HTN (hypertension). History of asthma. History of depression. History of tobacco use. Hyperlipidemia. Hypertension. Low back pain. Macrocytosis. Peripheral neuropathy. Rash, skin. Tremor. Unintentional weight loss. Vitamin B12 deficiency (dietary) anemia PREVIOUS FUNCTIONAL STATUS/SOCIAL/FAMILY SUPPORTS:: Jamilah lives alone in an apartment in [facility]. She has several close friends who check on her regularly and help her whenever needed. Jamilah's closest relative is a nephew who lives in [place], [place]. Jamilah stated that prior to becoming ill in November, she was very independent and active. CURRENT FUNCTIONAL STATUS:: Jamilah was sitting up in bed when CM met with her. She was smiling and readily engaged with CM. Jamilah shared her recent experience at [facility], which she stated was terrible. She informed CM that she will never agree to go to a SNF again. She reported that her plan is to stay at [facility] until she is strong enough to go home. She assured CM that she will work very hard with PT to achieve that goal. ADVANCE DIRECTIVES:: On file. Jessica DODSON Has patient been provided with info about the portal/API?: Yes Did the patient sign up for the portal?: No CODE STATUS:: DNR/DNI INSURANCE COVERAGE / FINANCIAL ISSUES:: Medicare CURRENT HOME/COMMUNITY SERVICES/EQUIPMENT:: Meals on Wheels, HH SN and PT PRIMARY CARE PHYSICIAN:: Jose Gonzalez POTENTIAL DISCHARGE NEEDS:: follow up with PCP and discharge plan of care PATIENT/FAMILY EDUCATION NEEDS:: Discharge plan, limitations, follow up plan, Ask Me Three TRANSPORTATION:: via private vehicle with friends PLAN:: Jamilah will likely return home with a resumption of services when medically ready. She may need a stay in -1 before she is strong enough to go home alone. She will follow up with her PCP and discharge plan of care. CM will continue to support Jamilah and her family and assess for discharge planning neeeds. Readmission - Within the Past 30 Days Yes or No: Y - Date of First Admission Date of 1st Admission: 01/26/20 - Date of this Admission Date of Admission: 02/17/20 This admission was: Through ED
[2020-02-18] MEDS: Metoprolol 50 MG TAB 25 MG PO ×2 (09:51→19:55)
[2020-02-18] MEDS: Cyanocobalamin 500 MCG TAB 1000 MCG PO (09:51)
[2020-02-18] MEDS: Loratidine 10 MG TAB PO (09:52)
[2020-02-18] MEDS: Rivaroxaban 10 MG TABLET 20 MG PO (09:52)
[2020-02-18] MEDS: FLUoxetine 20 MG CAP PO (09:52)
[2020-02-18] MEDS: Lidocaine 5% Patch 1 PATCH TD (09:52)
[2020-02-18] MEDS: Normal Saline 1,000 ML 75 ML IV ×2 (09:53→23:42)
--- NOTE | 2020-02-18 11:54 | W.PM.PROGNOT ---
Date of Service Date of service: 02/18/20 Time of Service: 11:54 Assessment and Plan Assessment and plan (1) Urinary tract infection: Status: Acute Assessment and plan: + UA Urine cx ordered Cont ceftriaxone (2) Weakness: Status: Acute Assessment and plan: Likely related to her UTI H/O weakness with UTI PT ordered (3) CAD (coronary artery disease): Status: Chronic Assessment and plan: No angina Cont BB (4) COPD (chronic obstructive pulmonary disease): Status: Chronic Assessment and plan: Did endorse some SOA on admission CT chest showed no acute processes or P.E. Cont Symbicort. PRN albuterol Subjective Subjective Patient reports: no new complaints, feels better and tolerating a regular diet; denies diarrhea, nausea, vomiting and shortness of breath Interval history since last seen: No fever, dysuria Exam Const General: cooperative and no acute distress Nutritional Appearance: underweight Orientation: alert, oriented to person and oriented to place Resp Effort & Inspection: normal respiratory effort Auscultation: clear to auscultation bilaterally Cardio Jugular venous pressure: no JVD Rate: regular rate Rhythm: regular rhythm Heart Sounds: S1 normal and S2 normal GI Palpation: soft and nontender Auscultation: normal bowel sounds Extrem General: no clubbing, cyanosis or edema Psych Appearance: grossly normal Mental Status: mental status grossly normal Speech and Movement: speech and movement normal Affect: normal affect Attitude: cooperative Thought Process: normal Objective Last Vital Signs Temp 37.0 C 02/18/20 07:20 Pulse 76 02/18/20 07:20 Resp 12 02/18/20 07:52 BP 111/74 02/18/20 07:20 Pulse Ox 95 02/18/20 09:59 Laboratory Results - last 24 hr 02/17/20 02/17/20 02/17/20 16:42 16:42 16:42 WBC RBC Hgb Hct MCV MCH MCHC RDW Plt Count MPV Immature Gran % Neutrophils % Lymphocytes % Monocytes % Eosinophils % Basophils % Nucleated RBC % Absolute Neutrophils Absolute Lymphocytes Absolute Monocytes Absolute Eosinophils Absolute Basophils RBC Morphology Macrocytosis PT 16.1 H INR 1.6 H APTT 39.9 H D-Dimer 1795 H Sodium 129 L Potassium 3.5 Chloride 94 L Carbon Dioxide 26.5 Anion Gap 8.5 BUN 18 Creatinine 0.83 Estimated GFR/1.73 m2 >= 60.00 Glucose 103 Calcium 9.3 Magnesium 1.8 Total Bilirubin 1.0 AST 34 ALT 19 Alkaline Phosphatase 132 H Troponin I < 0.05 NT-Pro-B Natriuret Pep 551 H Total Protein 7.9 Albumin 2.8 L Urine Color Urine Clarity Urine pH Ur Specific [place] Urine Protein Urine Ketones Urine Blood Urine Nitrite Urine Bilirubin Urine Urobilinogen Ur Leukocyte Esterase Urine RBC Urine WBC Ur Epithelial Cells Urine Crystals Urine Bacteria Urine Casts Urine Mucus Ur Culture Indicated? Urine Glucose 02/17/20 02/17/20 02/17/20 16:42 17:20 21:55 WBC 8.94 RBC 3.11 L Hgb 11.5 Hct 34.3 L MCV 110.3 H MCH 37.0 H MCHC 33.5 RDW 12.2 Plt Count 289 MPV 10.1 Immature Gran % 0.4 Neutrophils % 75.2 Lymphocytes % 10.2 Monocytes % 13.8 Eosinophils % 0.2 Basophils % 0.2 Nucleated RBC % 0 Absolute Neutrophils 6.72 H Absolute Lymphocytes 0.91 L Absolute Monocytes 1.23 H Absolute Eosinophils 0.02 Absolute Basophils 0.02 RBC Morphology See below Macrocytosis 2+ PT INR APTT D-Dimer Sodium Potassium Chloride Carbon Dioxide Anion Gap BUN Creatinine Estimated GFR/1.73 m2 Glucose Calcium Magnesium Total Bilirubin AST ALT Alkaline Phosphatase Troponin I < 0.05 NT-Pro-B Natriuret Pep Total Protein Albumin Urine Color Yellow Urine Clarity Sl cloudy Urine pH 8.0 Ur Specific [place] 1.020 Urine Protein 30 H Urine Ketones Negative Urine Blood Negative Urine Nitrite Positive H Urine Bilirubin Negative Urine Urobilinogen 2.0 H Ur Leukocyte Esterase Moderate H Urine RBC Negative Urine WBC >50 H Ur Epithelial Cells Moderate Urine Crystals Many amorphous Urine Bacteria Many Urine Casts Negative Urine Mucus Heavy Ur Culture Indicated? No/sq. contamination Urine Glucose Negative
--- NOTE | 2020-02-18 14:11 | PHA.REVIEW ---
Pharmacy Admission Review - Admission Clinical Review (Last Reviewed 02/17/20 @ 18:48 by Maximiliano August MD) Urinary tract infection (Acute) Weakness (Acute) lisinopril Allergy (Intermediate, Unverified 02/17/20 19:06) lips swelled sulfamethoxazole [From Bactrim] Allergy (Intermediate, Unverified 02/17/20 19:06) Hives trimethoprim [From Bactrim] Allergy (Intermediate, Unverified 02/17/20 19:06) Hives Penicillins Adverse Reaction (Intermediate, Unverified 02/17/20 19:06) Hives Height 5 ft 4 in Weight 52.617 kg - Renal Dosing Renal Dosing: BUN 18 mg/dL (7-18) 02/17/20 16:42 Creatinine 0.83 mg/dL (0.55-1.02) 02/17/20 16:42 Medications needing adjustments: Reviewed (crcl ~49ml/min) - Anticoagulation Anticoagulation: Hgb 11.5 g/dL (11.2-15.7) 02/17/20 16:42 Hct 34.3 % (36.0-46.0) L 02/17/20 16:42 Plt Count 289 10^3/uL (130-400) 02/17/20 16:42 INR 1.6 (0.9-1.1) H 02/17/20 16:42 Creatinine 0.83 mg/dL (0.55-1.02) 02/17/20 16:42 DVT Prohphylaxis: Reviewed Medications: Rivaroxaban Therapeutic Anticoagulation: Reviewed Medications: Rivaroxaban - Opiate Usage Evaluate Pain Scale/Pains Meds: N/A - Relevant Labs Sodium 129 mmol/L (136-145) L 02/17/20 16:42 Potassium 3.5 mmol/L (3.5-5.1) 02/17/20 16:42 Chloride 94 mmol/L (98-107) L 02/17/20 16:42 Magnesium 1.8 mg/dL (1.8-2.4) 02/17/20 16:42 Electrolytes, C-Reactive P, ESR: Reviewed (NS IVF) - DM Control DM Control: Glucose 103 mg/dL (74-106) 02/17/20 16:42 Insulin Dosing: N/A - Heart Failure/WY Heart Failure/[place]: Troponin I < 0.05 ng/mL (<0.06) 02/17/20 21:55 NT-Pro-B Natriuret Pep 551 pg/mL (<300) H 02/17/20 16:42 - BP Control BP Control: Blood Pressure 111/74 Blood Pressure 106/73 If elevated: N/A - Qtc Review If Elevated: N/A - IV to PO Switch IV Medications: Reviewed (IVF and IV abx) - Home Meds Home Med List reviewed: Reviewed Relevent Home Meds Not ordered & why?: nitrostat, lovastatin ordered but rx most recently filled was for atorvastatin- will ask provider - Current meds Current Medication Order Review: Reviewed (ceftriaxone for UTI, UC ordered but not collected yet)
[2020-02-18 15:03] LABS: COVID-19 RT-PCR UVMMC Result Negative (Negative)
[2020-02-18] MEDS: cefTRIAXone 1,000 MG in Normal Saline 50 ML 100 MG IVPB (18:49)
[2020-02-18] MEDS: Normal Saline Flush 10 ML SYR IVP (19:56)
[2020-02-18] MEDS: Atorvastatin 20 MG TAB PO (19:56)
[2020-02-18] MEDS: Patch Removal 1 EACH TP (19:58)
[2020-02-18] MEDS: Acetaminophen 325 MG TAB 650 MG PO (21:47)
[2020-02-19 07:31] LABS: Anion Gap 7.4 mmol/L (3-11); BUN 10 mg/dL (7-18); CO2 24.6 mmol/L (21.0-32.0); CREATININE 0.83 mg/dL (0.55-1.02); Calcium 8.2 mg/dL (8.5-10.1); Chloride 101 mmol/L (98-107); Glucose 91 mg/dL (74-106); Potassium 3.4 mmol/L (3.5-5.1); Sodium 133 mmol/L (136-145)
[2020-02-19] MEDS: Lidocaine 5% Patch 1 PATCH TD (07:43)
[2020-02-19] MEDS: Cyanocobalamin 500 MCG TAB 1000 MCG PO (07:44)
[2020-02-19] MEDS: Rivaroxaban 10 MG TABLET 20 MG PO (07:45)
[2020-02-19] MEDS: Metoprolol 50 MG TAB 25 MG PO (07:45)
[2020-02-19] MEDS: Loratidine 10 MG TAB PO (07:45)
[2020-02-19] MEDS: FLUoxetine 20 MG CAP PO (07:45)
[2020-02-19 07:50] VITALS: BP 148/89; PULSE 81; RESP 16; TEMP 36.1; O2SAT 98
[2020-02-19] MEDS: Potassium Chloride 20 MEQ TABCR PO (08:01)
[2020-02-19 09:53] LABS: Abs Immature Grans 0.02 10^3/uL (0.0-0.06); Absolute Basophil Count 0.02 10^3/uL (0.0-0.2); Absolute Eosinophil Count 0.08 10^3/uL (0.0-0.7); Absolute Lymphocyte Count 0.89 10^3/uL (1.2-3.4); Absolute Monocyte Count 0.52 10^3/uL (0.1-0.8); Basophils % 0.5; Eosinophils % 2.1; HCT 28.7 % (36.0-46.0); HGB 9.6 g/dL (11.2-15.7); Immature Grans % 0.5; Lymphocytes % 23.2; MCH 36.9 pg (27.0-33.0); MCHC 33.4 % (32.0-36.0); MCV 110.4 fL (80-95); MPV 10.8 fL (8.0-11.0); Monocytes % 13.6; Neutrophils % 60.1; Nucleated RBC 0 %; Platelet Count 265 10^3/uL (130-400); RDW 12.3 % (11.7-14.6); RDW-SD 50.1 fL; WBC 3.83 10^3/uL (4.4-10.8)
[2020-02-19] MEDS: Gabapentin 100 MG CAP 200 MG PO (10:09)
[2020-02-19 10:12] LABS: Diff Comment RBC Morph Reviewed; Macrocytosis 3+
--- NOTE | 2020-02-19 11:02 | CMPROGNOTE_ITS ---
- If Service Date Differs Date of service: 02/19/20 Time of Service: 11:02 Care Management Progress Note S/O:Jamilah was sitting up in bed when CM met with her. She shared that she is tired because she was up late last night and vomited. A lengthy discussion was held with Jamilah about discharge plans. She recognizes that she is too weak to care for herself independently but refuses to consider a SNF stay for STR . CM discussed the possibility of swing bed-1 for 2 weeks and Jamilah was very enthusia stic about this option. A discussion was held with the provider, clinical coordinator and PT and all are in agreement. The plan will be for her to go into SB status on Monday. A: Jamilah is a 74 year old woman admitted on 02/17/20 with a UTI and weakness P:Jamilah will likely return home with a resumption of services when medically ready. She will need a stay in SB-1 before she is strong enough to go home alone with HH services. She will follow up with her PCP and discharge plan of care. CM will continue to support Jamilah and her family and assess for discharge planning needs.
--- NOTE | 2020-02-19 11:34 | PT.INIE ---
Date of service: 02/19/20 Time of Service: 10:45 PT Notes Visit Reasons: UTI, WEAKNESS Inpatient Physical Therapy Evaluation Date: 02/19/2020 Referring Doctor: Franco Rosales PT Orders: PT CONSULT: Non-urgent evaluation Precautions: Standard, fall risk Patient Profile/Admitting Diagnosis: 74-year-old female admitted for management of UTI in the presence of COPD. Patient had a prior admission on 01/16/2020 with the same diagnosis. She is status post a rehab stay. She refuses to return to rehab, due to poor facility conditions and care. She wishes to return home. PMHX: Medical History Abnormal CT scan, bladder Asthma CAD (coronary artery disease) Cellulitis Disorder of both eustachian tubes Drug rash Folate deficiency H/O: HTN (hypertension) History of asthma History of depression History of tobacco use Hyperlipidemia Hypertension Low back pain Macrocytosis Peripheral neuropathy Rash, skin Tremor Unintentional weight loss Vitamin B12 deficiency (dietary) anemia Social History/Home Situation: Jamilah lives alone in an apartment with 2 steps to enter, rails on both sides but she states that they are wide so she is only able to hold on one side at a time. She states that she receives Meals on Wheels Mondays and Fridays only and had been able to manage on her own for the other days of the week. She has a neighbor who comes in every day to help take care of her dog and cat. She was independent with all aspects of ADLs and had not had a need of any assistive device, as of 1.5 - 2 months ago. She was admitted on 01/15 for UTI, with functional limitations requiring discharge to SNF. Equipment Owned/DME: None Subjective: Reports being progressively weak, and is realistic in regards to need for caregiver and inability to function independently. She is strong is denying return to [facility]. She does not have a life line, but would like one. Denies any discomfort. C/o feet feeling funny and numb. Objective: General Observation: IV in the right UE. Mental Status: Alert and oriented x 4 Pain: 0/10 pain in her low back area with movement ROM: Right Upper Extremity: Shoulder Flexion allows about 95 degrees. Shoulder abduction allows about 90 degrees. Elbow flexion WFL. Wrist flexion WFL. Opening and closing of hand WFL. Left Upper Extremity: Shoulder Flexion allows about 95 degrees. Shoulder abduction allows about 90 degrees. Elbow flexion WFL. Wrist flexion WFL. Opening and closing of hand WFL. Right Lower Extremity: Hip flexion allows about 10 degrees beyond 90 while seated at edge of bed.. Hip abduction WFL. Knee flexion up to 120 degrees. Ankle dorsiflexion up to 10 degrees beyond neutral. Ankle plantarflexion WFL. Left Lower Extremity: Hip flexion allows about 10 degrees beyond 90 while seated at edge of bed.. Hip abduction WFL. Knee flexion up to 120 degrees. Ankle dorsiflexion up to 10 degrees beyond neutral. Ankle plantarflexion WFL. Strength: Right Upper Extremity: Shoulder flexors 3/5. Shoulder abductors 3/5. Elbow flexors 3+/5. Elbow extensors 3+/5. Bank Consultant weak but functional. Left Upper Extremity: Shoulder flexors 3/5. Shoulder abductors 3/5. Elbow flexors 3+/5. Elbow extensors 3+/5. Bank Consultant weak but functional. Right Lower Extremity: Hip flexors 3/5. Hip abductors 3/5. Knee flexors 3/5. Knee extensors 3+/5. Ankle dorsiflexors 3/5. Ankle plantarflexors 3+/5. Left Lower Extremity: Hip flexors 3/5. Hip abductors 3/5. Knee flexors 3/5. Knee extensors 3+/5. Ankle dorsiflexors 3/5. Ankle plantarflexors 3+/5. Sensation: Intact as to pain and pressure on bilateral lower extremities. Bed Mobility/Transfers: Supine to sit minimal assist Stand to sit contact-guard assist, requires use of front wheel walker Bed to chair contact-guard assist, requires use of front wheel walker Chair to bed contact-guard assist, requires use of front wheel walker Gait: 20 feet using front wheeled walker stand-by assist from bedside to toilet, and back, with decreased keyla but with a swing through gait pattern. Steady. Balance: Static Sitting: Normal Dynamic Sitting: Fair Static Standing: Fair Dynamic Standing: Fair Stage IV Balance test: Fails to stage II. Special Tests: Mobility Limitations Standardized Measure [facility]-PAC 6 clicks Basic Mobility Inpatient Short Form: Raw Score: 15 Standardized Score: CMS Score: 57% disability Informed Consent/Education: Patient instructed in purpose of PT consult and plan of care. Assessment: Patient is a 74 year old female referred to physical therapy services with the diagnosis of weakness secondary to UTI, in the presence of COPD. She is S/P prior admission on 01/15 for the same complications, required discharge to SNF, due to functional deficits leaving her unable to return home. Patient presents with clinical signs and symptoms consistent with progressive weakness, as demonstrated by the following impairment level findings: UE and LE weakness and poor performance with Stage 4 balance test. Impairments are contributing to the following functional limitations: AMPAC score of 57% disability, poor balance, SBA with ambulation, min assist with sit to supine (and vice versa). Patient requires PT service to improve functional status, and further develop discharge planning. Patient is assessed as a High 84167 complexity based on the following: History: See comorbidities, recent admission and independent living situation. Examination: See above Presentation: High Decision Making: Easy Goals: Goals X1 week 1. Supine-Sit Supervision 2. Sit-Supine Supervision 3. Sit-Stand Supervision at RW 4. Stand-Sit Supervision at RW 5. Bed-Chair SBA with RW 6. Chair-Bed SBA with RW 7. Gait 40 ft with RW, supervision 8. Stairs 2, with rail, CG 9. Independent with home exercise program 10. Balance maintained at fair with all dynamic weightbearing activities. Plan of Care/Treatment Plan: 1-2x/day, 7 days/week x 1 week. Plan of care has been reviewed with the [employer]MENT MANAGER providing the service under Physical Therapy direction. Initiate Physical Therapy intervention for strengthening, bed mobility, transfers, gait, stairs, balance training, use of assistive device. DISCHARGE RECOMMENDATIONS: SNF, or 19/12 caregiver at her apt. if this can be arranged. Patient will require RW for safety and fall prevention with functional ambulation and transfers. TREATMENT CODE/TIME: 19021, 40 min
[2020-02-19 12:36] LABS: Folate 5.9 ng/mL (8.6-20.0)
[2020-02-19 12:46] LABS: Vitamin B12 889 pg/mL (193-986)
[2020-02-19] MEDS: Budesonide/Formoterol 160/4.5 6 GM 60 PUFF INH IH ×2 (13:36→19:32)
--- NOTE | 2020-02-19 14:14 | W.PM.PROGNOT ---
Date of Service Date of service: 02/19/20 Time of Service: 14:14 Assessment and Plan Assessment and plan (1) Weakness: Status: Acute Assessment and plan: Initial concern that this was related to a UTI which has been her past experience. Urine cx, however, grew mixed tim. PT evaluation showed need for further PT; unsafe to d/c to home w/o 24 hour assistance. Pt refuses to d/c to a SNF Will plan on swing bed status. (2) CAD (coronary artery disease): Status: Chronic Assessment and plan: No angina. Cont BB and statin (3) Anemia: Status: Chronic Assessment and plan: Hgb 9.6 (10.7 > 11.5 > 9.6) Elevated MCV Normal B12 Low folate. Start supplementation. Monitor Qualifiers: Anemia type: unspecified type Qualified Code(s): D64.9 - Anemia, unspecified (4) Hypokalemia: Status: Acute Assessment and plan: Oral replacement Monitor Subjective Subjective Interval history since last seen: Pt feels better overall. Ate breakfast Last PM after dinner she developed a sudden headache and nausea. Then had an episode of emesis. Her symptoms resolved. Exam Const General: cooperative and no acute distress Nutritional Appearance: average body habitus Orientation: alert and oriented x3 HENMT Head: normocephalic and atraumatic Eyes Sclera: sclerae normal Pupils: PERRL Resp Effort & Inspection: normal respiratory effort Auscultation: clear to auscultation bilaterally Cardio Rate: regular rate Rhythm: regular rhythm Heart Sounds: S1 normal and S2 normal Extrem General: no clubbing, cyanosis or edema Objective Last Vital Signs Temp 36.1 C L 02/19/20 07:50 Pulse 81 02/19/20 07:50 Resp 16 02/19/20 07:50 BP 148/89 H 02/19/20 07:50 Pulse Ox 98 02/19/20 07:50 Laboratory Results - last 24 hr 02/17/20 02/19/20 02/19/20 21:00 06:11 06:11 WBC 3.83 L RBC 2.60 L Hgb 9.6 L Hct 28.7 L MCV 110.4 H MCH 36.9 H MCHC 33.4 RDW 12.3 Plt Count 265 MPV 10.8 Immature Gran % 0.5 Neutrophils % 60.1 Lymphocytes % 23.2 Monocytes % 13.6 Eosinophils % 2.1 Basophils % 0.5 Nucleated RBC % 0 Absolute Neutrophils 2.30 Absolute Lymphocytes 0.89 L Absolute Monocytes 0.52 Absolute Eosinophils 0.08 Absolute Basophils 0.02 RBC Morphology See below Macrocytosis 3+ Sodium 133 L Potassium 3.4 L Chloride 101 Carbon Dioxide 24.6 Anion Gap 7.4 BUN 10 D Creatinine 0.83 Estimated GFR/1.73 m2 >= 60.00 Glucose 91 Calcium 8.2 L Vitamin B12 Folate COVID-19 PCR Negative Nasopharyn COVID-19 PCR Not Applicable Ref Test Perform Site [place] [facility] 02/19/20 02/19/20 06:11 06:11 WBC RBC Hgb Hct MCV MCH MCHC RDW Plt Count MPV Immature Gran % Neutrophils % Lymphocytes % Monocytes % Eosinophils % Basophils % Nucleated RBC % Absolute Neutrophils Absolute Lymphocytes Absolute Monocytes Absolute Eosinophils Absolute Basophils RBC Morphology Macrocytosis Sodium Potassium Chloride Carbon Dioxide Anion Gap BUN Creatinine Estimated GFR/1.73 m2 Glucose Calcium Vitamin B12 889 Folate 5.9 L COVID-19 PCR Nasopharyn COVID-19 PCR Ref Test Perform Site
[2020-02-19] MEDS: Folic Acid 1 MG TAB PO (15:07)
[2020-02-19 15:21] VITALS: BP 109/79; PULSE 95; RESP 18; TEMP 36.8; O2SAT 99
--- NOTE | 2020-02-19 15:42 | PT.INTREAT ---
Date of service: 02/19/20 Time of Service: 15:42 PT Notes Visit Reasons: UTI, WEAKNESS Inpatient Physical Therapy Treatment Note [facility] Date: 02/20/2020 PRECAUTIONS: Fall SUBJECTIVE: Jamilah states that she is happy that she will stay here for the Swing Bed program for continued rehab in hopes to go home safely, soon. OBJECTIVE: PAIN: No c/o pain BED MOBILITY/TRANSFERS Supine-sit: Min A with HOB at 30 degrees Sit-stand: SBA Stand-sit: SBA GAIT Assistive Device: FWW Weight bearing: Full Assist: SBA Distance: 150' Deviation: Slow keyla THEREX: Patient was instructed in a LE strengthening program, in a seated position, as per flow sheet. She requires verbal and occasional visual cueing for proper exercise performance. ASSESSMENT: Patient tolerated a progression in gait distance, well, with FWW support and SBA, demonstrating slow keyla. She would benefit from continued gait training using least restrictive device for improved mobility and continued progression toward independence and baseline level of function. PLAN: Continue with gait training with least restrictive device and global strengthening TREATMENT CODE/TIME: 30 minutes; 17064, [id number]
--- NOTE | 2020-02-19 15:42 | CHAPLAIN ---
Jamilah and I remembered each other from a previous admission. Jamilah lives with her cat, Robert, in an apartment on [facility] [facility] [place] [facility] [facility]. She said she is beginning to feel better. She has someone taking care of her cat.
[2020-02-19] MEDS: Normal Saline Flush 10 ML SYR IVP (18:07)
[2020-02-19] MEDS: cefTRIAXone 1 GM/50 ML BAG IVPB (18:07)
[2020-02-19] MEDS: Normal Saline 500 ML 30 ML IV (18:07)
[2020-02-19] MEDS: Atorvastatin 20 MG TAB PO (19:33)
[2020-02-19] MEDS: Acetaminophen 325 MG TAB 650 MG PO (19:33)
[2020-02-19] MEDS: Metoprolol 25 MG TAB PO (19:34)
[2020-02-19] MEDS: Patch Removal 1 EACH TP (19:42)
[2020-02-19 23:24] VITALS: BP 110/80; PULSE 93; RESP 17; TEMP 36.6; O2SAT 98
[2020-02-20 06:48] LABS: Abs Immature Grans 0.03 10^3/uL (0.0-0.06); Absolute Basophil Count 0.02 10^3/uL (0.0-0.2); Absolute Lymphocyte Count 1.17 10^3/uL (1.2-3.4); Absolute Monocyte Count 0.65 10^3/uL (0.1-0.8); Basophils % 0.4; Eosinophils % 2.1; HCT 34.4 % (36.0-46.0); HGB 11.1 g/dL (11.2-15.7); Immature Grans % 0.6; Lymphocytes % 24.5; MCH 36.4 pg (27.0-33.0); MCHC 32.3 % (32.0-36.0); MCV 112.8 fL (80-95); MPV 10.1 fL (8.0-11.0); Monocytes % 13.6; Neutrophils % 58.8; Nucleated RBC 0 %; Platelet Count 318 10^3/uL (130-400); RBC 3.05 10^6/uL (3.93-5.22); RDW 12.4 % (11.7-14.6); RDW-SD 51.9 fL; WBC 4.77 10^3/uL (4.4-10.8)
[2020-02-20 06:57] LABS: Anion Gap 6.9 mmol/L (3-11); BUN 7 mg/dL (7-18); CO2 26.1 mmol/L (21.0-32.0); CREATININE 0.77 mg/dL (0.55-1.02); Calcium 8.8 mg/dL (8.5-10.1); Chloride 102 mmol/L (98-107); Glucose 94 mg/dL (74-106); Potassium 3.8 mmol/L (3.5-5.1); Sodium 135 mmol/L (136-145)
[2020-02-20 07:40] VITALS: BP 151/97; PULSE 79; RESP 16; TEMP 36.6; O2SAT 99
[2020-02-20] MEDS: Metoprolol 25 MG TAB PO ×2 (07:42→19:58)
[2020-02-20] MEDS: Lidocaine 5% Patch 1 PATCH TD (07:42)
[2020-02-20] MEDS: Cyanocobalamin 500 MCG TAB 1000 MCG PO (07:42)
[2020-02-20] MEDS: Potassium Chloride 20 MEQ TABCR PO (07:42)
[2020-02-20] MEDS: Folic Acid 1 MG TAB PO (07:42)
[2020-02-20] MEDS: Loratidine 10 MG TAB PO (07:42)
[2020-02-20] MEDS: Rivaroxaban 10 MG TABLET 20 MG PO (07:42)
[2020-02-20] MEDS: FLUoxetine 20 MG CAP PO (07:42)
[2020-02-20] MEDS: Budesonide/Formoterol 160/4.5 6 GM 60 PUFF INH IH ×2 (08:03→19:57)
--- NOTE | 2020-02-20 08:26 | PDOC.CMPRO ---
Care Management Progress Note S/O: Jamilah was sitting up in bed when CM met with her. She shared that she is tired because she was up late last night and vomited. A lengthy discussion was held with Jamilah about discharge plans. She recognizes that she is too weak to care for herself independently but refuses to consider a SNF stay for STR. CM discussed the possibility of swing bed-1 for 2 weeks and Jamilah was very enthusiastic about this option. A discussion was held with the provider, clinical coordinator and PT and all are in agreement. The plan will be for her to go into SB status on Monday. A: Jamilah is a 74 year old woman admitted on 02/17/20 with a UTI and weakness P: Jamilah will likely return home with a resumption of services when medically ready. Plan remains for Jamilah to enter swing bed 1 status for continued strengthening prior to discharging home alone with VNA support. She will follow up with her PCP and discharge plan of care. CM will continue to support Jamilah and her family and assess for discharge planning needs. Transportation to be determined.
--- NOTE | 2020-02-20 10:30 | W.NUTRFU ---
Date of service: 02/20/20 Time of Service: 10:30 Nutritional Follow up NOTE: 74 year old female admitted with UTI and weakness. BMI on low end of normal but has been stable > 1 year. Following regular meal plan with adequate intake to meet 100% nutrient and fluid needs. Not at nutritional risk at this time. Will continue to follow. Time Spent in Nutritional Counseling and Treatment: 0 time spent face to face
--- NOTE | 2020-02-20 10:57 | W.PM.PROGNOT ---
Date of Service Date of service: 02/20/20 Time of Service: 09:57 Assessment and Plan Assessment and plan (1) Hypokalemia: Status: Acute Assessment and plan: Corrected. K now 3.8 (2) Anemia: Status: Chronic Assessment and plan: Hgb has been variable; 10.7 > 11.5 > 9.6 > 11.1. Folate was low at 5.9. Supplementing. Monitor Qualifiers: Anemia type: unspecified type Qualified Code(s): D64.9 - Anemia, unspecified (3) UTI (urinary tract infection): Status: Acute Assessment and plan: UA grew mixed organisms Ruled out and abx d/c'd (4) Weakness: Status: Acute Assessment and plan: Initially she though her weakness might be secondary to a UTI. This does not appear to be the case. Today she does endorse that the weakness has been slowly progressing. No SOA, dyspnea. Cont PT. She is thing with a BMI of 19. She is eating well here. (5) Hyponatremia: Status: Acute Assessment and plan: Now mild with Na increasing to 135. Monitor Subjective Subjective Patient reports: no new complaints, bowel movement and afebrile; denies nausea, vomiting and shortness of breath Exam Const General: cooperative and no acute distress Nutritional Appearance: thin Orientation: alert and oriented x3 Resp Effort & Inspection: normal respiratory effort Auscultation: clear to auscultation bilaterally Cardio Rate: regular rate Rhythm: regular rhythm Heart Sounds: S1 normal and S2 normal GI Palpation: soft and nontender Auscultation: normal bowel sounds Extrem General: no clubbing, cyanosis or edema Objective Last Vital Signs Temp 36.6 C 02/20/20 07:40 Pulse 79 02/20/20 07:40 Resp 16 02/20/20 07:40 BP 151/97 H 02/20/20 07:40 Pulse Ox 99 02/20/20 07:40 Laboratory Results - last 24 hr 02/19/20 02/19/20 02/20/20 06:11 06:11 06:03 WBC RBC Hgb Hct MCV MCH MCHC RDW Plt Count MPV Immature Gran % Neutrophils % Lymphocytes % Monocytes % Eosinophils % Basophils % Nucleated RBC % Absolute Neutrophils Absolute Lymphocytes Absolute Monocytes Absolute Eosinophils Absolute Basophils Sodium 135 L Potassium 3.8 Chloride 102 Carbon Dioxide 26.1 Anion Gap 6.9 BUN 7 Creatinine 0.77 Estimated GFR/1.73 m2 >= 60.00 Glucose 94 Calcium 8.8 Vitamin B12 889 Folate 5.9 L 02/20/20 06:03 WBC 4.77 RBC 3.05 L Hgb 11.1 L Hct 34.4 L MCV 112.8 H MCH 36.4 H MCHC 32.3 RDW 12.4 Plt Count 318 MPV 10.1 Immature Gran % 0.6 Neutrophils % 58.8 Lymphocytes % 24.5 Monocytes % 13.6 Eosinophils % 2.1 Basophils % 0.4 Nucleated RBC % 0 Absolute Neutrophils 2.80 Absolute Lymphocytes 1.17 L Absolute Monocytes 0.65 Absolute Eosinophils 0.10 Absolute Basophils 0.02 Sodium Potassium Chloride Carbon Dioxide Anion Gap BUN Creatinine Estimated GFR/1.73 m2 Glucose Calcium Vitamin B12 Folate
[2020-02-20] MEDS: Senna TAB 1 TAB PO (14:23)
[2020-02-20] MEDS: Polyethylene Glycol 3350 17 GM PACKET PO (14:23)
--- NOTE | 2020-02-20 14:27 | DI.RAD_ITS ---
EXAM: 2D digital imaging was performed. CLINICAL HISTORY: nausea/emesis. COMPARISON: No exams were available for comparison TECHNIQUE: Supine views of the abdomen performed. FINDINGS: BOWEL GAS PATTERN: Nondistended. CALCIFICATIONS: No radiopaque calcifications. OSSEOUS STRUCTURES: Multilevel degenerative changes in the spine. OTHER FINDINGS: None. IMPRESSION: Nonobstructive bowel gas pattern. DATA REPOSITORY: RADIATION DOSE DELIVERED:
--- NOTE | 2020-02-20 15:43 | PDOC.CMPRO ---
- If Service Date Differs Date of service: 02/20/20 Time of Service: 15:43 Care Management Progress Note S/O: Jamilah was sitting up in bed when CM met with her. She was pleasant and engaged in conversation. CM discussed the plan for Jamilah to transition to [facility] tomorrow for strengthening prior to returning home. She stated that she was happy with the plan. CM will continue to follow. A: Jamilah is a 74 year old woman admitted on 02/17/20 with a UTI and weakness P: Jamilah will likely return home with a resumption of services when medically ready. Plan remains for Jamilah to enter swing bed 1 status for continued strengthening prior to discharging home alone with VNA support. She will follow up with her PCP and discharge plan of care. CM will continue to support Jamilah and her family and assess for discharge planning needs. Transportation to be determined.
[2020-02-20 15:56] VITALS: BP 152/89; PULSE 82; RESP 18; TEMP 37.1; O2SAT 100
[2020-02-20] MEDS: Acetaminophen 325 MG TAB 650 MG PO ×2 (16:12→21:07)
[2020-02-20 19:16] VITALS: BP 108/72; PULSE 93; RESP 18; TEMP 35.8; O2SAT 98
[2020-02-20] MEDS: Atorvastatin 20 MG TAB PO (19:58)
[2020-02-20] MEDS: Patch Removal 1 EACH TP (19:58)
[2020-02-21 07:38] VITALS: BP 137/87; PULSE 83; RESP 19; TEMP 36.9; O2SAT 98
[2020-02-21] MEDS: Budesonide/Formoterol 160/4.5 6 GM 60 PUFF INH IH (07:43)
[2020-02-21] MEDS: Rivaroxaban 10 MG TABLET 20 MG PO (07:52)
[2020-02-21] MEDS: Cyanocobalamin 500 MCG TAB 1000 MCG PO (07:52)
[2020-02-21] MEDS: Potassium Chloride 20 MEQ TABCR PO (07:52)
[2020-02-21] MEDS: Folic Acid 1 MG TAB PO (07:52)
[2020-02-21] MEDS: Metoprolol 25 MG TAB PO (07:52)
[2020-02-21] MEDS: FLUoxetine 20 MG CAP PO (07:52)
[2020-02-21] MEDS: Lidocaine 5% Patch 1 PATCH TD (07:52)
[2020-02-21] MEDS: Loratidine 10 MG TAB PO (07:52)
--- NOTE | 2020-02-21 10:48 | DSE_ITS ---
Date of service: 02/21/20 Time of Service: 10:48 DS: Diagnosis Discharge Diagnosis (1) Hypokalemia: Status: Acute (2) Anemia: Status: Chronic (3) UTI (urinary tract infection): Status: Ruled-out (4) Weakness: Status: Acute (5) Hyponatremia: Status: Acute Discharge Plan Disposition Patient Disposition: [facility] SWING BED LEVEL 1 Condition: Improving Discharge Details Reason For Visit: WEAKNESS Admit Date/Time: 02/17/20 19:01 Admit Provider: Maximiliano August Attending Provider: Maximiliano August Primary Care Provider: Jose Gonzalez Hospital Course Hospital Course: 74 female with h/o UTI. Here 01/15 with UTI/weakness (similar to prior UTI symptom). She is s/p a course of Rehab of only 6 days. She was not happy with the care at the rehab facility and went back home. She presented with several days of weakness. No dysuria, frequency or back pain. In ER findings of note for pyuria, given dose of Rocephin. Other findings of elevated d-Dimer (1795, though this was similarly elevated 01/15 and had neg CTA at that time. Note also she is on Xarelto for AF). Other findings of O2 sat 86, with h/o COPD, though baseline sats 90s. Denies CP or SOB. CTA chest negative for acute findings / no pulmonary embolism. Her urine culture grew mixed tim in less than 100,000cfu's. Antibiotic was stopped. She did have 2 episodes of sudden nausea with emesis x1 at time of one episode. She is eating well and has no complaints other than diminished overall strength. She is working well with PT and is motivated to improve so she can return home. Her hgb readings were variable between 9.6 and 11.1. The later was on 02/20/2020. Her folate was low and she was started on supplementation. D/C to swing bed for further rehab efforts with plan to transition back to her independent living at home. Home Meds and New Rx's Prescriptions: No Action Xarelto 20 mg tablet 20 mg PO DAILY RF: 0 mecobalamin (vitamin B12) 1,000 mcg tablet,chewable 1,000 mcg PO DAILY RF: 0 aspirin,buffd-calcium carb-mag 325 MG tablet 325 mg PO DAILY RF: 0 loratadine [Claritin] 10 MG tablet 10 mg PO DAILY RF: 0 metoprolol tartrate 50 MG tablet 25 mg PO BID RF: 0 nitroglycerin [Nitrostat] 0.4 MG tablet, sublingual 0.4 mg Sublingual DIRECTED RF: 0 albuterol sulfate [Ventolin HFA] 200 PUFF HFA aerosol inhaler 1 - 2 puff Inhalation QID PRN PRNRF: 0 budesonide-formoterol [Symbicort] 60 PUFF HFA aerosol inhaler 1 puff Inhalation BID RF: 0 famotidine 20 mg Tablet 20 mg PO BID Qty: 14 RF: 0 hydrocortisone 2.5 % Cream 0 g topical TID Qty: 0 RF: 0 triamcinolone acetonide 0.1 % Cream 0 g topical TID Qty: 0 RF: 0 lidocaine [Aspercreme (lidocaine HCl)] 4 % Adhesive Patch,Medicated 1 patch TOPICAL DAILY RF: 0 fluoxetine 20 mg capsule 20 mg PO DAILY RF: 0 atorvastatin 20 mg tablet 20 mg PO HS RF: 0 Discharge Instructions Activity:: Activity as Tolerated Equipment/Supplies:: No Equipment Needed Diet:: As Tolerated Discharge Orders Discharge Orders: Discharge Order (Routine); Ordered 02/21/20 Ordered By: Franco Rosales DS: Summary Status at Discharge Functional status at discharge: independent ambulation Overall status at discharge: patient is progressing back to baseline Mental Status: mental status grossly normal Speech and Movement: speech and movement normal Mood: congruent mood Affect: normal affect Exam Psych Mental Status: mental status grossly normal Speech and Movement: speech and movement normal Mood: congruent mood Affect: normal affect DS: Data Vitals/I&O Vitals and I&O: Vital Signs Temperature 36.9 C 02/21/20 07:38 Temperature Source Tympanic 02/21/20 07:38 Pulse 83 02/21/20 07:38 Pulse Rhythm Regular 02/21/20 07:50 Pulse 109 H 02/17/20 20:01 Respiratory Rate 19 02/21/20 07:38 Respiratory Effort Non-Labored 02/21/20 07:50 Respiratory Depth Normal 02/21/20 07:50 Respiratory Pattern Normal 02/21/20 07:50 Blood Pressure 137/87 02/21/20 07:38 Blood Pressure Mean 72 02/17/20 20:00 Blood Pressure Position Sitting 02/17/20 15:23 Pulse Oximetry 98 02/21/20 07:38 Oxygen Delivery Method Room Air 02/21/20 07:38 Oxygen Flow Rate 0 02/21/20 07:38 Pain Level 0 02/21/20 07:38 Comment 02/20/20 15:56 Intake & Output 02/20/20 02/20/20 02/21/20 11:59 23:59 11:59 Intake Total 240 / 720 480 / 720 360.5 / 360.5 Output Total 200 / 450 250 / 450 1300 / 1300 Balance 40 / 270 230 / 270 -939.5 / -939.5 Intake: IV 0.5 / 0.5 Oral 240 / 720 480 / 720 360 / 360 Output: Urine 200 / 450 250 / 450 1300 / 1300 Other: Urine Color Yellow Yellow Pale Yellow Urine Appearance Clear Clear Clear Urine Odor Normal Comment Void x1 in the toilet/Incontinent x1 of a moderate amount of urine in the briefs. Briefs were changed. Stool Size Small Stool Characteristics Formed Hard Voiding Methods Toilet Toilet Toilet [facility] Medical History Abnormal CT scan, bladder Asthma CAD (coronary artery disease) Cellulitis Disorder of both eustachian tubes Drug rash Folate deficiency H/O: HTN (hypertension) History of asthma History of depression History of tobacco use Hyperlipidemia Hypertension Low back pain Macrocytosis Peripheral neuropathy Rash, skin Tremor Unintentional weight loss Vitamin B12 deficiency (dietary) anemia Social History Smoking/Tobacco Use Status: Former Tobacco Use Alcohol Intake: never Drug use: Never Do you feel safe at home: Yes Do you feel safe in your relationship?: Yes
--- NOTE | 2020-02-21 11:19 | CMPROGNOTE_ITS ---
- If Service Date Differs Date of service: 02/21/20 Time of Service: 11:19 Care Management Progress Note S/O: Jamilah will be discharged to SB-1 status today. She will work with PT with a goal of regaining strength to enable her to return home to independent living. A: Jamilah is a 74 year old woman admitted on 02/17/20 with a UTI and weakness P: Jamilah will likely return home with a resumption of services when medically ready. Plan remains for Jamilah to enter swing bed 1 status for continued streng thening prior to discharging home alone with VNA support. She will follow up with her PCP and discharge plan of care. CM will continue to support Jamilah and her family and assess for discharge planning needs. Transportation to be determined.
--- NOTE | 2020-02-21 11:47 | IN_ITS ---
Date of service: 02/21/20 Time of Service: 11:15 PT Notes Visit Reasons: Weakness SWING BED EVAL Referring Doctor: Franco Rosales PT Orders: PT CONSULT: Swingbed evaluation Precautions: Standard, fall risk Patient Profile/Admitting Diagnosis: 74-year-old female admitted for management of UTI in the presence of COPD on 02/17/20. Patient had a prior admission on 01/16/2020 with the same diagnosis. She was status post a rehab stay. She refuses to return to rehab, due to poor facility conditions and care. She wishes to return home. She has received inpatient PT care since admission, now eligible for swingbed status with ultimate goal of returning home with VNA suppo rt. PMHX: Medical History Abnormal CT scan, bladder Asthma CAD (coronary artery disease) Cellulitis Disorder of both eustachian tubes Drug rash Folate deficiency H/O: HTN (hypertension) History of asthma History of depression History of tobacco use Hyperlipidemia Hypertension Low back pain Macrocytosis Peripheral neuropathy Rash, skin Tremor Unintentional weight loss Vitamin B12 deficiency (dietary) anemia Social History/Home Situation: Jamilah lives alone in an apartment with 2 steps to enter, rails on both sides but she states that they are wide so she is only able to hold on one side at a time. She states that she receives Meals on Wheels Mondays and Fridays only and had been able to manage on her own for the other days of the week. She has a neighbor who comes in every day to help take care of her dog and cat. She was independent with all aspects of ADLs and had not had a need of any assistive device, as of 1.5 - 2 months ago. She was admitted on 01/15 for UTI, with functional limitations requiring discharge to SNF at that time. Equipment Owned/DME: None Subjective: Reports appreciation of small strength gains since admission on 02/17/20. Realistic in regards to need for caregiver and inability to function independently. She is strong is denying return to [facility]. She does not have a life line, but would like one. Denies any discomfort. Objective: General Observation: Good color, lying reclined in bed. Rested. She looks much more energetic than a few days ago, when I evaluated her for inpatient PT. Mental Status: Alert and oriented x 4 Pain: 0/10 ROM: Right Upper Extremity: Shoulder Flexion allows about 110 degrees. Shoulder abduction allows about 100 degrees. Elbow flexion WFL. Wrist flexion WFL. Opening and closing of hand WFL. Left Upper Extremity: Shoulder Flexion allows about 110 degrees. Shoulder abduction allows about 100 degrees. Elbow flexion WFL. Wrist flexion WFL. Opening and closing of hand WFL. Right Lower Extremity: Hip flexion allows about 10 degrees beyond 90 while seated at edge of bed.. Hip abduction WFL. Knee flexion up to 120 degrees. Ankle dorsiflexion up to 10 degrees beyond neutral. Ankle plantarflexion WFL. Left Lower Extremity: Hip flexion allows about 10 degrees beyond 90 while seated at edge of bed.. Hip abduction WFL. Knee flexion up to 120 degrees. Ankle d orsiflexion up to 10 degrees beyond neutral. Ankle plantarflexion WFL. Strength: Right Upper Extremity: Shoulder flexors 4-/5. Shoulder abductors 3+/5. Elbow flexors 4/5. Elbow extensors 4/5. Agronomy Instructor weak but functional. Left Upper Extremity: Shoulder flexors 4-/5. Shoulder abductors 3+/5. Elbow flexors 4/5. Elbow extensors 4/5. Agronomy Instructor weak but functional. Right Lower Extremity: Hip flexors 3+/5. Hip abductors 3+/5. Knee flexors 4/5. Knee extensors 4/5. Ankle dorsiflexors 4/5. Ankle plantarflexors 4/5. Left Lower Extremity: Hip flexors 3+/5. Hip abductors 3+/5. Knee flexors 4/5. Knee extensors 4/5. Ankle dorsiflexors 4/5. Ankle plantarflexors 4/5. Sensation: Intact as to pain and pressure on bilateral lower extremities. Bed Mobility/Transfers: Supine to sit SBA, HOB 0 degrees. But, requires significant effort and a lot cueing and direction in order to achieve. Stand to sit SBA, requires use of front wheel walker Bed to chair supervision, requires use of front wheel walker Chair to bed supervision, requires use of front wheel walker Gait: 200 feet using front wheeled walker supervision Balance: Static Sitting: Normal Dynamic Sitting: Fair Static Standing: Fair Dynamic Standing: Fair Stage IV Balance test: Fails to stage II. Special Tests: Mobility Limitations Standardized [employer] AM-PAC 6 clicks Basic Mobility Inpatient Short Form: Raw Score: 21 Standardized Score: [facility] Score: 29% disability Informed Consent/Education: Patient instructed in purpose of PT consult and plan of care. Treatment: Swingbed PT evaluation Therapeutic Procedures: As documented on flow sheet, to be scanned into EMR. Patient require skilled instruction for proper movement pattern throughout. Assessment: Patient is a 74 year old female referred to physical therapy services with the diagnosis of weakness secondary to deconditioned after recovering from a UTI, in the presence of COPD. She is S/P prior admission on 01/15 for the same complications, required discharge to SNF, due to functional deficits leaving her unable to return home. Patient presents with clinical signs and symptoms consistent with progressive weakness, as demonstrated by the following impairment level findings: UE and LE weakness and poor performance with Stage 4 balance test. Impairments are contributing to the following functional limitations: [facility] score of 29% disability, poor balance, SBA with functional transfers, struggles with sit to supine (and vice versa), unsafe for return home. Patient requires PT service to improve functional status, and improve strength for safe return home. Patient is assessed as a High 52472 complexity based on the following: History: See comorbidities, recent admission and independent living situation. Examination: See above Presentation: Low Decision Making: Easy Goals: Goals X1 week 1. Supine-Sit Supervision, minimal effort, HOB 0 degrees. 2. Sit-Supine Supervision, minimal effort, HOB 0 degrees. 3. Sit-Stand distant supervision at RW 4. Stand-Sit distant supervision at RW 5. Bed-Chair distant supervision with RW 6. Chair-Bed distant supervision with RW 7. Gait 350 ft with RW, distant supervision 8. Stairs 3, with rail, supervision 9. Independent with home exercise program 10. Balance maintained at fair with all dynamic weightbearing activities. Passes Stage I and II of Stage IV balance test. Plan of Care/Treatment Plan: 1-2x/day, 7 days/week x 1 week. Plan of care has been reviewed with the FASTENER TECHNOLOGIST providing the service under Physical Therapy direction. Initiate Physical Therapy intervention for strengthening, bed mobility, transfers, gait, stairs, balance training, use of assistive device. DISCHARGE RECOMMENDATIONS: 24/ VNA. Patient will require RW for safety and fall prevention with functional ambulation and transfers. TREATMENT CODE/TIME: 48503, 80303, 40 min
--- NOTE | 2020-02-21 12:21 | PT.INTREAT ---
Date of service: 02/21/20 Time of Service: 12:21 PT Notes Visit Reasons: Weakness Inpatient Physical Therapy Treatment Note [facility] Date: 02/20/2020 PRECAUTIONS: Fall SUBJECTIVE: Jamilah reports that she is not feeling well today, but would like to participate in PT as much as she is able. OBJECTIVE: PAIN: No c/o pain BED MOBILITY/TRANSFERS Supine-sit: Min A with HOB at 30 degrees Sit-supine: SBA with HOB flat Sit-stand: SBA Stand-sit: SBA GAIT Assistive Device: FWW Weight bearing: Full Assist: SBA Distance: 260' Deviation: Slow keyla, stand rest x4 THEREX: Patient was instructed in a resisted UE and LE strengthening program, in a seated position, as per flow sheet. She was issued 2.5# ankle weights and orange Theraband, and requires verbal and visual cueing for proper exercise performance. ASSESSMENT: Patient tolerated a progression in gait distance, well, with FWW support, demonstrating slow keyla. She would benefit from continued gait training with use of least restrictive assistive device and global strengthening for improved mobility and continued progression toward independence and baseline level of function. PLAN: Continue with gait training with least restrictive device TREATMENT CODE/TIME: Session 1: 35 minutes; 75305, 23350 Session 2: 20 minutes; 84708 x2
== END 2020-02-21 13:21 | disposition swing bed (61) | DRG 948 ==
LOC: ER 19:32 → MS 20:50
PROVIDERS: Family Medicine; Admitting Provider General Practice; Emergency Provider Emergency Medicine; PCP Internal Medicine; Visit Provider General Practice
DX: R53.1 Weakness (principal); Z68.1 Body mass index [BMI] 19.9 or less, adult; E87.1 Hypo-osmolality and hyponatremia; E87.6 Hypokalemia; R09.02 Hypoxemia; D64.9 Anemia, unspecified; J45.909 Unspecified asthma, uncomplicated; I25.10 Atherosclerotic heart disease of native coronary artery without angina pectoris; I10 Essential (primary) hypertension; E78.5 Hyperlipidemia, unspecified; Z87.891 Personal history of nicotine dependence; F32.9 Major depressive disorder, single episode, unspecified; M54.5 Low back pain; G62.9 Polyneuropathy, unspecified; D53.8 Other specified nutritional anemias; R63.4 Abnormal weight loss; R25.1 Tremor, unspecified
CPT/HCPCS: 36415; 71275; 80048; 80053; 93005; 94640; 96361; 96365; 96366; 97110; 97162; 97530; 99222; 99232; 99239; 99285; 99309; U0003; 71046; 73502; 73700; 74018; 81003; 81015; 82607; 82746; 83735; 83880; 84484; 85025; 85379; 85610; 85730; 87086; 93010; J0696; J3490; Q9967

== ENCOUNTER 2020-02-21 13:21 | Inpatient (IN) | payer MEDICARE, SELFPAY ==
--- NOTE | 2020-02-21 10:57 | W.PM.HP.N ---
Date of service: 02/21/20 Time of Service: 10:57 Assessment and Plan Assessment and plan (1) Weakness: Status: Acute Assessment and plan: No specific etiology noted. Working with PT. Encouraging good oral intake. Mild anemia; megaloblastic d/t folate def. Supplementing. (2) CAD (coronary artery disease): Status: Chronic Assessment and plan: No angina, palpitations, SOA She is on a BB and statin. ASA 81mg daily initiated. (3) Hypertension: Status: Chronic Assessment and plan: Generally has been controlled while in hospital acute stay. Cont metoprolol 25mg BID Qualifiers: Hypertension type: essential hypertension Qualified Code(s): I10 - Essential (primary) hypertension (4) COPD (chronic obstructive pulmonary disease): Status: Chronic Assessment and plan: No acute exacerbation. Prn albuterol. Symbicort BID. (5) Hyperlipidemia: Status: Acute Assessment and plan: Cont Atorvastatin. Qualifiers: Hyperlipidemia type: unspecified Qualified Code(s): E78.5 - Hyperlipidemia, unspecified History of Present Illness History of Present Illness Chief Complaint: Weakness Narrative: This is a 74 female with h/o UTI. Here 01/15 with UTI/weakness (similar to prior UTI symptom). She is s/p a course of Rehab of only 6 days. She was not happy with the care at the rehab facility and went back home. She presented with several days of weakness. No dysuria, frequency or back pain. In ER findings of note for pyuria, given dose of Rocephin. Other findings of elevated d-Dimer (1795, though this was similarly elevated 01/15 and had neg CTA at that time. Note also she is on Xarelto for AF). Other findings of O2 sat 86, with h/o COPD, though baseline sats 90s. Denies CP or SOB. CTA chest negative for acute findings / no pulmonary embolism. Her urine culture grew mixed tim in less than 100,000cfu's. Antibiotic was stopped. She did have 2 episodes of sudden nausea with emesis x1 at time of one episode. She is eating well and has no complaints other than diminished overall strength. She is working well with PT and is motivated to improve so she can return home. Her hgb readings were variable between 9.6 and 11.1. The later was on 02/20/2020. Her folate was low and she was started on supplementation. D/C to swing bed for further rehab efforts with plan to transition back to her independent living at home. Review of Systems All systems reviewed & are unremarkable except as noted in HPI and below PFSH Medical History Abnormal CT scan, bladder Asthma CAD (coronary artery disease) Cellulitis Disorder of both eustachian tubes Drug rash Folate deficiency H/O: HTN (hypertension) History of asthma History of depression History of tobacco use Hyperlipidemia Hypertension Low back pain Macrocytosis Peripheral neuropathy Rash, skin Tremor Unintentional weight loss Vitamin B12 deficiency (dietary) anemia Social History Smoking/Tobacco Use Status: Former Tobacco Use Alcohol Intake: never Drug use: Never Do you feel safe at home: Yes Do you feel safe in your relationship?: Yes Meds Home Medications and Allergies Home Medications Medication Instructions Recorded Confirmed Type aspirin,buffd-calcium carb-mag 325 mg PO DAILY 01/29/13 02/13/20 History loratadine [Claritin] 10 mg PO DAILY 01/29/13 02/17/20 History albuterol sulfate [Ventolin HFA] 1 - 2 puff INHALATION QID PRN PRN 12/07/16 02/17/20 History budesonide-formoterol [Symbicort] 1 puff INHALATION BID 12/07/16 02/17/20 History metoprolol tartrate 25 mg PO BID 12/07/16 02/17/20 History nitroglycerin [Nitrostat] 0.4 mg SUBLINGUAL DIRECTED 12/07/16 02/17/20 History famotidine 20 mg PO BID #14 tab 01/08/19 02/13/20 Rx hydrocortisone 0 g TOPICAL TID #0 g 01/08/19 02/13/20 Rx triamcinolone acetonide 0 g TOPICAL TID #0 g 01/08/19 02/19/20 Rx mecobalamin (vitamin B12) 1,000 1,000 mcg PO DAILY 12/26/19 02/17/20 History mcg chewable tablet rivaroxaban 20 mg tablet 20 mg PO DAILY 02/13/20 02/17/20 History lidocaine [Aspercreme (lidocaine 1 patch TOPICAL DAILY 02/17/20 02/17/20 History HCl)] atorvastatin 20 mg PO HS 02/19/20 02/19/20 History fluoxetine 20 mg PO DAILY 02/19/20 02/19/20 History Allergies Allergy/AdvReac Type Severity Reaction Status Date / Time lisinopril Allergy Intermediate lips Unverified 02/17/20 19:06 swelled sulfamethoxazole Allergy Intermediate Hives Unverified 02/17/20 19:06 [From Bactrim] trimethoprim [From Bactrim] Allergy Intermediate Hives Unverified 02/17/20 19:06 Penicillins AdvReac Intermediate Hives Unverified 02/17/20 19:06 Exam Const General: cooperative and no acute distress Nutritional Appearance: underweight Orientation: alert and oriented x3 Eyes Sclera: sclerae normal Pupils: PERRL Resp Effort & Inspection: normal respiratory effort Auscultation: clear to auscultation bilaterally Cardio Rate: regular rate Rhythm: regular rhythm Heart Sounds: S1 normal and S2 normal GI Palpation: soft and nontender Auscultation: normal bowel sounds Skin General skin exam: no rashes or lesions noted Extrem General: no pedal edema and no calf tenderness Psych Appearance: grossly normal Mental Status: mental status grossly normal Affect: normal affect Attitude: cooperative COVID-19 Screening Have you,or household,traveled outside [place] in last 14 days?: No
--- NOTE | 2020-02-21 14:45 | CHAPLAIN ---
Jamilah said she is feeling some better. She asked for a newspaper because she said she hasn't read one in days and is feeling disconnected. I will continue to visit her.
--- NOTE | 2020-02-21 16:21 | CMSA_ITS ---
- If Service Date Differs Date of service: 02/21/20 Time of Service: 16:21 SB Psychosocial/Act.Assessment - Social Supports PREVIOUS FUNCTIONAL STATUS/SOCIAL/FAMILY SUPPORTS:: Jamilah lives alone in an apartment in [facility]. She has several close friends who check on her regularly and help her whenever needed. Jamilah's closest relative is a nephew who lives in [place], [place]. Jamilah stated that prior to becoming ill in November, she was very independent and active. - Medical History PAST MEDICAL HISTORY/PAST SURGICAL HISTORY:: Medical History . Abnormal CT scan, bladder. Asthma. CAD (coronary artery disease). Cellulitis. Disorder of both eustachian tubes. Drug rash. Folate deficiency. H/O: HTN (hypertension). History of asthma. History of depression. History of tobacco use. Hyperlipidemia. Hypertension. Low back pain. Macrocytosis. Peripheral neuropathy. Rash, skin. Tremor. Unintentional weight loss. Vitamin B12 deficiency (dietary) anemia
--- NOTE | 2020-02-21 16:28 | PT.INTREAT ---
Date of service: 02/21/20 Time of Service: 16:29 PT Notes Visit Reasons: UTI, WEAKNESS Inpatient Physical Therapy Treatment Note [facility] Date: 02/21/2020 PRECAUTIONS: Fall SUBJECTIVE: Jamilah is agreeable to participating in PT. She states that she would like to be able to get strong enough to return to home upon discharge and be able to care for her dog. OBJECTIVE: PAIN: No c/o pain BED MOBILITY/TRANSFERS Supine-sit: SBA with HOB flat with verbal cueing Sit-supine: SBA with HOB flat with verbal cueing Sit-stand: S Stand-sit: S Bed-chair: S Chair-bed: S GAIT Assistive Device: FWW Weight bearing: Full Assist: S Distance: 150' x2 Deviation: Slow keyla, standing rest x4 THEREX: Patient was instructed in several global strengthening exercises, including functional [id number] and resisted functional step-ups utilizing 2.5# ankle weights. She requires verbal and visual cueing for proper exercise performance and seated rests between exercises. TOILETING: Patient toileted x2 with supervision for transfers ASSESSMENT: Patient continues to demonstrate need for skilled therapeutic intervention for global strengthening for increased gait distance and activity tolerance. PLAN: Continue with global strengthening and gait training TREATMENT CODE/TIME: 45 minutes; 20984 x2, 26641
--- NOTE | 2020-02-21 17:35 | CM.SWINGPC ---
- If Service Date Differs Date of service: 02/21/20 Time of Service: 17:35 Swingbed Plan of Care Plan of care: SWING BED PROGRAM ACTIVITIES/DISCHARGE PLAN OF CARE ACTIVITIES PLAN Date: Identified Need: Intervention/Plan: Initials DISCHARGE PLAN Date: Identified Need: Intervention/Plan: Initials
[2020-02-21 19:00] VITALS: BP 102/68; PULSE 91; RESP 17; TEMP 36.5; O2SAT 97
[2020-02-21 19:40] VITALS: BP 110/73
[2020-02-21] MEDS: Metoprolol 25 MG TAB PO (20:23)
[2020-02-21] MEDS: Atorvastatin 20 MG TAB PO (20:23)
[2020-02-21] MEDS: Budesonide/Formoterol 160/4.5 6 GM 60 PUFF INH IH (20:24)
[2020-02-21] MEDS: Acetaminophen 325 MG TAB 650 MG PO (21:25)
[2020-02-21] MEDS: Patch Removal 1 EACH TP (21:41)
[2020-02-22 07:38] VITALS: BP 126/72; PULSE 77; RESP 18; TEMP 36.3; O2SAT 98
[2020-02-22] MEDS: Lidocaine 5% Patch 1 PATCH TD (07:39)
[2020-02-22] MEDS: Folic Acid 1 MG TAB PO (07:40)
[2020-02-22] MEDS: Metoprolol 25 MG TAB PO ×2 (07:40→20:23)
[2020-02-22] MEDS: Loratidine 10 MG TAB PO (07:40)
[2020-02-22] MEDS: Aspirin 81 MG CHEW PO (07:40)
[2020-02-22] MEDS: Cyanocobalamin 500 MCG TAB 1000 MCG PO (07:40)
[2020-02-22] MEDS: Rivaroxaban 10 MG TABLET 20 MG PO (07:40)
[2020-02-22] MEDS: FLUoxetine 20 MG CAP PO (07:40)
[2020-02-22] MEDS: Potassium Chloride 20 MEQ TABCR PO (07:41)
[2020-02-22] MEDS: Budesonide/Formoterol 160/4.5 6 GM 60 PUFF INH IH ×2 (08:09→20:23)
--- NOTE | 2020-02-22 12:46 | PT.INTREAT ---
PT Notes Visit Reasons: UTI, WEAKNESS Inpatient Physical Therapy Treatment Note [facility] Date: 02/22/20 SUBJECTIVE: Jamilah reports that she is very tired this am. She offers no complaints to me. OBJECTIVE: [] BED MOBILITY/TRANSFERS Supine-sit: S Sit-supine: S Sit-stand: S Stand-sit:S GAIT Assistive Device: FWW Weight bearing: FWB Assist: S Distance: 150'x2 THEREX:completes a global LE strength and stabilization program, incorporating functional mobility. See flowsheet for details. Cues needed for proper muscle recruitment ASSESSMENT: Tolerated session well. Cues needed for proper muscle recruitment. She is steady on her feet, and independent functional mobility PLAN: continue with PT POC. Progressing functional mobility for safe d/c to home. TREATMENT CODE/TIME: 35 min. [id number], [id number]
[2020-02-22] MEDS: Atorvastatin 20 MG TAB PO (20:22)
[2020-02-22] MEDS: Patch Removal 1 EACH TP (20:23)
[2020-02-22] MEDS: Acetaminophen 325 MG TAB 650 MG PO (20:52)
[2020-02-23 07:45] VITALS: BP 128/71; PULSE 75; RESP 16; TEMP 36.4; O2SAT 98
[2020-02-23] MEDS: Lidocaine 5% Patch 1 PATCH TD (07:46)
[2020-02-23] MEDS: FLUoxetine 20 MG CAP PO (07:47)
[2020-02-23] MEDS: Metoprolol 25 MG TAB PO ×2 (07:47→19:43)
[2020-02-23] MEDS: Cyanocobalamin 500 MCG TAB 1000 MCG PO (07:47)
[2020-02-23] MEDS: Potassium Chloride 20 MEQ TABCR PO (07:47)
[2020-02-23] MEDS: Rivaroxaban 10 MG TABLET 20 MG PO (07:47)
[2020-02-23] MEDS: Aspirin 81 MG CHEW PO (07:47)
[2020-02-23] MEDS: Loratidine 10 MG TAB PO (07:47)
[2020-02-23] MEDS: Folic Acid 1 MG TAB PO (07:47)
[2020-02-23] MEDS: Budesonide/Formoterol 160/4.5 6 GM 60 PUFF INH IH ×2 (08:06→19:43)
--- NOTE | 2020-02-23 12:45 | PT.INTREAT ---
PT Notes Visit Reasons: UTI, WEAKNESS Inpatient Physical Therapy Treatment Note [facility] Date: 02/23/2020 SUBJECTIVE:Jamilah states that she is doing better. She feels like she is ready to go home, but not sure she can handle taking her dog for a walk just yet. She is anxious to get back home so she can care for her dog. OBJECTIVE: [] BED MOBILITY/TRANSFERS Supine-sit: S Sit-stand: S Stand-sit: S Bed-Chair: S Chair-bed:S GAIT Assistive Device: FWW Weight bearing: FWB Assist: S Distance: 150' + 200' THEREX: completed a global LE strength and stabilization routine, see flowsheet for details. Progressions made without complaints. ASSESSMENT: tolerated session well. Moves slowly but no LOB noted. Functionally is independent with transfers and ambulation with FWW. She toilets self independently as well. PLAN: continue PT POC TREATMENT CODE/TIME: 45 min beginning at 905. [id number], [id number]
[2020-02-23] MEDS: Acetaminophen 325 MG TAB 650 MG PO ×2 (16:14→20:51)
[2020-02-23] MEDS: Atorvastatin 20 MG TAB PO (19:43)
[2020-02-23] MEDS: Patch Removal 1 EACH TP (19:44)
[2020-02-23] MEDS: Mylanta Suspension 30 ML CUP PO (22:00)
[2020-02-24] MEDS: Acetaminophen 325 MG TAB 650 MG PO (05:03)
[2020-02-24] MEDS: Mylanta Suspension 30 ML CUP PO (05:08)
[2020-02-24 07:47] VITALS: BP 130/87; PULSE 80; RESP 17; TEMP 36.9; O2SAT 95
[2020-02-24] MEDS: Budesonide/Formoterol 160/4.5 6 GM 60 PUFF INH IH ×2 (08:10→20:07)
--- NOTE | 2020-02-24 08:24 | PDOC.CMPRO ---
- If Service Date Differs Date of service: 02/24/20 Time of Service: 08:24 Care Management Progress Note S/O:Jamilah has been working with PT and has been eating well. She states she feels stronger and is really hopeful that she will be ready to go home at the end of her swing bed stay. At times she states she gets bored but has refused items from the Activity cart to date. P:Jamilah will be discharged home with a resumption of home health services.
[2020-02-24 09:06] LABS: Abs Immature Grans 0.01 10^3/uL (0.0-0.06); Absolute Basophil Count 0.03 10^3/uL (0.0-0.2); Absolute Eosinophil Count 0.06 10^3/uL (0.0-0.7); Absolute Monocyte Count 0.56 10^3/uL (0.1-0.8); Absolute Neutrophil Count 2.98 10^3/uL (1.2-6.7); Basophils % 0.6; Eosinophils % 1.3; HGB 10.5 g/dL (11.2-15.7); Immature Grans % 0.2; Lymphocytes % 23.2; MCH 36.7 pg (27.0-33.0); MCHC 33.9 % (32.0-36.0); MCV 108.4 fL (80-95); MPV 9.3 fL (8.0-11.0); Monocytes % 11.8; Neutrophils % 62.9; Nucleated RBC 0 %; Platelet Count 322 10^3/uL (130-400); RBC 2.86 10^6/uL (3.93-5.22); RDW 12.1 % (11.7-14.6); RDW-SD 48.7 fL; WBC 4.74 10^3/uL (4.4-10.8)
[2020-02-24] MEDS: Folic Acid 1 MG TAB PO (09:09)
[2020-02-24] MEDS: Aspirin 81 MG CHEW PO (09:09)
[2020-02-24] MEDS: Metoprolol 25 MG TAB PO ×2 (09:10→20:07)
[2020-02-24] MEDS: Loratidine 10 MG TAB PO (09:10)
[2020-02-24] MEDS: FLUoxetine 20 MG CAP PO (09:10)
[2020-02-24] MEDS: Potassium Chloride 20 MEQ TABCR PO (09:10)
[2020-02-24] MEDS: Rivaroxaban 10 MG TABLET 20 MG PO (09:10)
[2020-02-24] MEDS: Lidocaine 5% Patch 1 PATCH TD (09:11)
[2020-02-24] MEDS: Cyanocobalamin 500 MCG TAB 1000 MCG PO (09:11)
[2020-02-24 09:23] LABS: Diff Comment RBC Morph Reviewed; Macrocytosis 3+; Polychromasia Present
[2020-02-24] MEDS: Polyethylene Glycol 3350 17 GM PACKET PO (09:28)
[2020-02-24 09:39] LABS: Anion Gap 4.4 mmol/L (3-11); BUN 7 mg/dL (7-18); CO2 28.6 mmol/L (21.0-32.0); CREATININE 0.71 mg/dL (0.55-1.02); Calcium 8.8 mg/dL (8.5-10.1); Chloride 99 mmol/L (98-107); Glucose 95 mg/dL (74-106); Magnesium 1.9 mg/dL (1.8-2.4); Potassium 3.8 mmol/L (3.5-5.1); Sodium 132 mmol/L (136-145)
[2020-02-24 09:41] LABS: ALT 14 U/L (14-59); AST 23 U/L (15-37); Albumin 2.4 g/dL (3.4-5.0); Alkaline Phosphatase 123 U/L (46-116); Bilirubin, Direct 0.09 mg/dL (0.00-0.20); Bilirubin, Total 0.2 mg/dL (0.2-1.0); Total Protein 6.2 g/dL (6.4-8.2)
[2020-02-24] MEDS: Pantoprazole 40 MG TABCR PO (09:45)
--- NOTE | 2020-02-24 11:23 | PT.INIE ---
Date of service: 02/21/20 Time of Service: 11:15 PT Notes Visit Reasons: UTI, WEAKNESS Referring Doctor: Franco Rosales PT Orders: PT CONSULT: Swingbed evaluation Precautions: Standard, fall risk Patient Profile/Admitting Diagnosis: 74-year-old female admitted for management of UTI in the presence of COPD on 02/17/20. Patient had a prior admission on 01/16/2020 with the same diagnosis. She was status post a rehab stay. She refuses to return to rehab, due to poor facility conditions and care. She wishes to return home. She has received inpatient PT care since admission, now eligible for swingbed status with ultimate goal of returning home with VNA support. PMHX: Medical History Abnormal CT scan, bladder Asthma CAD (coronary artery disease) Cellulitis Disorder of both eustachian tubes Drug rash Folate deficiency H/O: HTN (hypertension) History of asthma History of depression History of tobacco use Hyperlipidemia Hypertension Low back pain Macrocytosis Peripheral neuropathy Rash, skin Tremor Unintentional weight loss Vitamin B12 deficiency (dietary) anemia Social History/Home Situation: Jamilah lives alone in an apartment with 2 steps to enter, rails on both sides but she states that they are wide so she is only able to hold on one side at a time. She states that she receives Meals on Wheels Mondays and Fridays only and had been able to manage on her own for the other days of the week. She has a neighbor who comes in every day to help take care of her dog and cat. She was independent with all aspects of ADLs and had not had a need of any assistive device, as of 1.5 - 2 months ago. She was admitted on 01/15 for UTI, with functional limitations requiring discharge to SNF at that time. Equipment Owned/DME: None Subjective: Reports appreciation of small strength gains since admission on 02/17/20. Realistic in regards to need for caregiver and inability to function independently. She is strong is denying return to [facility]. She does not have a life line, but would like one. Denies any discomfort. Objective: General Observation: Good color, lying reclined in bed. Rested. She looks much more energetic than a few days ago, when I evaluated her for inpatient PT. Mental Status: Alert and oriented x 4 Pain: 0/10 ROM: Right Upper Extremity: Shoulder Flexion allows about 110 degrees. Shoulder abduction allows about 100 degrees. Elbow flexion WFL. Wrist flexion WFL. Opening and closing of hand WFL. Left Upper Extremity: Shoulder Flexion allows about 110 degrees. Shoulder abduction allows about 100 degrees. Elbow flexion WFL. Wrist flexion WFL. Opening and closing of hand WFL. Right Lower Extremity: Hip flexion allows about 10 degrees beyond 90 while seated at edge of bed.. Hip abduction WFL. Knee flexion up to 120 degrees. Ankle dorsiflexion up to 10 degrees beyond neutral. Ankle plantarflexion WFL. Left Lower Extremity: Hip flexion allows about 10 degrees beyond 90 while seated at edge of bed.. Hip abduction WFL. Knee flexion up to 120 degrees. Ankle dorsiflexion up to 10 degrees beyond neutral. Ankle plantarflexion WFL. Strength: Right Upper Extremity: Shoulder flexors 4-/5. Shoulder abductors 3+/5. Elbow flexors 4/5. Elbow extensors 4/5. Power Project Manager weak but functional. Left Upper Extremity: Shoulder flexors 4-/5. Shoulder abductors 3+/5. Elbow flexors 4/5. Elbow extensors 4/5. Power Project Manager weak but functional. Right Lower Extremity: Hip flexors 3+/5. Hip abductors 3+/5. Knee flexors 4/5. Knee extensors 4/5. Ankle dorsiflexors 4/5. Ankle plantarflexors 4/5. Left Lower Extremity: Hip flexors 3+/5. Hip abductors 3+/5. Knee flexors 4/5. Knee extensors 4/5. Ankle dorsiflexors 4/5. Ankle plantarflexors 4/5. Sensation: Intact as to pain and pressure on bilateral lower extremities. Bed Mobility/Transfers: Supine to sit SBA, HOB 0 degrees. But, requires significant effort and a lot cueing and direction in order to achieve. Stand to sit SBA, requires use of front wheel walker Bed to chair supervision, requires use of front wheel walker Chair to bed supervision, requires use of front wheel walker Gait: 200 feet using front wheeled walker supervision Balance: Static Sitting: Normal Dynamic Sitting: Fair Static Standing: Fair Dynamic Standing: Fair Stage IV Balance test: Fails to stage II. Special Tests: Mobility Limitations Standardized Measure [employer] AM-PAC 6 clicks Basic Mobility Inpatient Short Form: Raw Score: 21 Standardized Score: [facility] Score: 29% disability Informed Consent/Education: Patient instructed in purpose of PT consult and plan of care. Treatment: Swingbed PT evaluation Therapeutic Procedures: As documented on flow sheet, to be scanned into EMR. Patient require skilled instruction for proper movement pattern throughout. Assessment: Patient is a 74 year old female referred to physical therapy services with the diagnosis of weakness secondary to deconditioned after recovering from a UTI, in the presence of COPD. She is S/P prior admission on 01/15 for the same complications, required discharge to SNF, due to functional deficits leaving her unable to return home. Patient presents with clinical signs and symptoms consistent with progressive weakness, as demonstrated by the following impairment level findings: UE and LE weakness and poor performance with Stage 4 balance test. Impairments are contributing to the following functional limitations: [facility] score of 29% disability, poor balance, SBA with functional transfers, struggles with sit to supine (and vice versa), unsafe for return home. Patient requires PT service to improve functional status, and improve strength for safe return home. Patient is assessed as a High 16544 complexity based on the following: History: See comorbidities, recent admission and independent living situation. Examination: See above Presentation: Low Decision Making: Easy Goals: Goals X1 week 1. Supine-Sit Supervision, minimal effort, HOB 0 degrees. 2. Sit-Supine Supervision, minimal effort, HOB 0 degrees. 3. Sit-Stand distant supervision at RW 4. Stand-Sit distant supervision at RW 5. Bed-Chair distant supervision with RW 6. Chair-Bed distant supervision with RW 7. Gait 350 ft with RW, distant supervision 8. Stairs 3, with rail, supervision 9. Independent with home exercise program 10. Balance maintained at fair with all dynamic weightbearing activities. Passes Stage I and II of Stage IV balance test. Plan of Care/Treatment Plan: 1-2x/day, 7 days/week x 1 week. Plan of care has been reviewed with the MICROARRAY ANALYST providing the service under Physical Therapy direction. Initiate Physical Therapy intervention for strengthening, bed mobility, transfers, gait, stairs, balance training, use of assistive device. DISCHARGE RECOMMENDATIONS: 24/ VNA. Patient will require RW for safety and fall prevention with functional ambulation and transfers. TREATMENT CODE/TIME: 99360, 17143, 40 min
--- NOTE | 2020-02-24 12:40 | PT.INTREAT ---
Date of service: 02/24/20 Time of Service: 12:40 PT Notes Visit Reasons: UTI, WEAKNESS Inpatient Physical Therapy Treatment Note [facility] Date: 02/24/20 PRECAUTIONS: Fall SUBJECTIVE: Jamilah states that she is feeling a little better than she was over the weekend. She states that she has not eaten much or been up out of bed much over the past few days. OBJECTIVE: PAIN: No c/o pain BED MOBILITY/TRANSFERS Supine-sit: S in a.m.; I with HOB flat in p.m. Sit-stand: S in a.m.; I in p.m. Stand-sit: S in a.m.; I in p.m. GAIT Assistive Device: FWW Weight bearing: Full Assist: S Distance: 250' in a.m.; 150 in p.m. Deviation: Slow pace THEREX: Patient was instructed in a resisted global strengthening program, including timed high knee marches, hip abduction, and heel raises in standing, as well as functional [id number], and scap retraction, tricep kickbacks, bicep curls, and horizontal shoulder abduction, as per flow sheet. Patient requires brief rest between each exercise due to increased fatigue. ASSESSMENT: Patient tolerated a progression in ther ex program, tolerating increased number of exercises performed in standing, as well as increased reps. She is demonstrating independence with bed mobility and transfers at this time, although requires increased time for all activities performed. PLAN: Continue with gait training and global strengthening for continued progression toward baseline level of function. TREATMENT CODE/TIME: Session 1: 15 minutes; [id number] Session 2: 35 minutes; 06484, 59716
--- NOTE | 2020-02-24 14:55 | PHA.REVIEW ---
Pharmacy Admission Review - Admission Clinical Review (Last Reviewed 02/21/20 @ 10:58 by Franco Rosales MD) Weakness (Acute) Hyperlipidemia (Acute) lisinopril Allergy (Intermediate, Unverified 02/17/20 19:06) lips swelled sulfamethoxazole [From Bactrim] Allergy (Intermediate, Unverified 02/17/20 19:06) Hives trimethoprim [From Bactrim] Allergy (Intermediate, Unverified 02/17/20 19:06) Hives Penicillins Adverse Reaction (Intermediate, Unverified 02/17/20 19:06) Hives Height 5 ft 4 in Weight 52.617 kg - Renal Dosing Renal Dosing: BUN 7 mg/dL (7-18) 02/24/20 08:53 Creatinine 0.71 mg/dL (0.55-1.02) 02/24/20 08:53 Medications needing adjustments: Reviewed (Crcl ~50.47 mL/min current meds okay.) - Anticoagulation Anticoagulation: Hgb 10.5 g/dL (11.2-15.7) L 02/24/20 08:53 Hct 31.0 % (36.0-46.0) L 02/24/20 08:53 Plt Count 322 10^3/uL (130-400) 02/24/20 08:53 Creatinine 0.71 mg/dL (0.55-1.02) 02/24/20 08:53 DVT Prohphylaxis: N/A Therapeutic Anticoagulation: Reviewed Medications: Rivaroxaban - Opiate Usage Evaluate Pain Scale/Pains Meds: N/A - Relevant Labs Sodium 132 mmol/L (136-145) L 02/24/20 08:53 Potassium 3.8 mmol/L (3.5-5.1) 02/24/20 08:53 Chloride 99 mmol/L (98-107) 02/24/20 08:53 Magnesium 1.9 mg/dL (1.8-2.4) 02/24/20 08:53 Electrolytes, C-Reactive P, ESR: Reviewed - DM Control DM Control: Glucose 95 mg/dL (74-106) 02/24/20 08:53 Insulin Dosing: N/A - Heart Failure/MS EF%, JULIETA's, B-Blockers, Diuretics: N/A - BP Control BP Control: Blood Pressure 130/87 If elevated: N/A - Qtc Review If Elevated: N/A - IV to PO Switch IV Medications: Reviewed - Home Meds Home Med List reviewed: Reviewed (Aspirin may enhance the bleed risk of rivaroxaban.) Relevent Home Meds Not ordered & why?: famotidine (med not confirmed), hydrocortisone, nitroglycerin (PRN), triamcinolone - Current meds Current Medication Order Review: Intervened (Discontinued duplicate med orders.) - Comments Comments/Follow Ups: Watch VS, labs, and for med changes.
[2020-02-24] MEDS: Atorvastatin 20 MG TAB PO (20:07)
[2020-02-24] MEDS: Patch Removal 1 EACH TP (20:09)
[2020-02-25 07:15] VITALS: BP 125/81; PULSE 70; RESP 17; TEMP 36; O2SAT 98
[2020-02-25] MEDS: Budesonide/Formoterol 160/4.5 6 GM 60 PUFF INH IH ×2 (07:39→20:17)
[2020-02-25] MEDS: Lidocaine 5% Patch 1 PATCH TD (09:21)
[2020-02-25] MEDS: Cyanocobalamin 500 MCG TAB 1000 MCG PO (09:22)
[2020-02-25] MEDS: Folic Acid 1 MG TAB PO (09:22)
[2020-02-25] MEDS: FLUoxetine 20 MG CAP PO (09:22)
[2020-02-25] MEDS: Rivaroxaban 10 MG TABLET 20 MG PO (09:22)
[2020-02-25] MEDS: Aspirin 81 MG CHEW PO (09:23)
[2020-02-25] MEDS: Metoprolol 25 MG TAB PO ×2 (09:23→20:17)
[2020-02-25] MEDS: Potassium Chloride 20 MEQ TABCR PO (09:23)
[2020-02-25] MEDS: Loratidine 10 MG TAB PO (09:23)
[2020-02-25] MEDS: Pantoprazole 40 MG TABCR PO (09:23)
--- NOTE | 2020-02-25 12:32 | PT.INTREAT ---
Date of service: 02/25/20 Time of Service: 12:33 PT Notes Visit Reasons: UTI, WEAKNESS Inpatient Physical Therapy Treatment Note [facility] Date: 02/25/20 PRECAUTIONS: Fall SUBJECTIVE: Jamilah is pleasant and agreeable to participating in PT this morning. She states that she is feeling much better today. OBJECTIVE: Jamilah is observed ambulating in hallway with FWW support and nursing staff PAIN: No c/o pain BED MOBILITY/TRANSFERS Supine-sit: I Sit-stand: I Stand-sit: I Bed-chair: I Chair-bed: I GAIT Assistive Device: FWW in a.m.; SPC No AD in p.m. Weight bearing: Full Assist: S with FWW; SBA with SPC CGA-SBA without AD Distance: 150 x2 in a.m.; 75' with SPC 50' + 150' without AD Deviation: Slow pace, 3# ankle weights in place in a.m.; Slow pace in p.m.; increased number of standing rests without AD THEREX: Patient was instructed in a resisted global strengthening program, including timed functional [id number] and step-ups, as well as resisted UE exercises, with 1# hand-held weights, performed in standing position. Patient requires seated rest between each exercise due to increased fatigue. In p.m., patient performed Nu Step biking x8 minutes at level 3, as well as 2# med ball toss forward/L/R, in standing without UE support, followed by cylindrical pillow/cone pick-up from floor from front/L/R without demonstrating LOB or unsteadiness. Patient requires brief rest between each exercise due to increased fatigue. STAIRS: Up/down 3x4 and 2x6 utilizing B rails and a step-to/step-over pattern and supervision with 3# ankle weights ASSESSMENT: Patient tolerated a progression in ther ex program and gait training, tolerating increased number of exercises performed in standing, as well as increased reps, as well as the addition of ankle weights with gait training. She is demonstrating independence with bed mobility and transfers at this time, although continues to require increased time for all activities performed. PLAN: Continue with gait training and global strengthening for continued progression toward baseline level of function. TREATMENT CODE/TIME: Session 1: 40 minutes; 68570, 60229 x2 Session 2: 45 minutes; 81718, 50999 x2
--- NOTE | 2020-02-25 14:34 | CHAPLAIN ---
Jamilah was up in her chair watching tv when I visited. She said she'd washed up and was feeling better. The plan, she explained is for her to stay here on Swing Bed for a couple of weeks to get stronger. She l lives in an apartment next to the [facility] and looks forward to going home with her dog.
[2020-02-25] MEDS: Atorvastatin 20 MG TAB PO (20:17)
[2020-02-25] MEDS: Patch Removal 1 EACH TP (20:18)
[2020-02-26] MEDS: Acetaminophen 325 MG TAB 650 MG PO ×2 (02:00→19:04)
[2020-02-26 07:31] VITALS: BP 127/76; PULSE 72; RESP 17; TEMP 36.1; O2SAT 95
[2020-02-26] MEDS: FLUoxetine 20 MG CAP PO (07:44)
[2020-02-26] MEDS: Cyanocobalamin 500 MCG TAB 1000 MCG PO (07:44)
[2020-02-26] MEDS: Rivaroxaban 10 MG TABLET 20 MG PO (07:44)
[2020-02-26] MEDS: Metoprolol 25 MG TAB PO ×2 (07:44→20:26)
[2020-02-26] MEDS: Lidocaine 5% Patch 1 PATCH TD (07:44)
[2020-02-26] MEDS: Folic Acid 1 MG TAB PO (07:44)
[2020-02-26] MEDS: Loratidine 10 MG TAB PO (07:44)
[2020-02-26] MEDS: Potassium Chloride 20 MEQ TABCR PO (07:45)
[2020-02-26] MEDS: Aspirin 81 MG CHEW PO (07:45)
[2020-02-26] MEDS: Pantoprazole 40 MG TABCR PO (07:45)
[2020-02-26] MEDS: Budesonide/Formoterol 160/4.5 6 GM 60 PUFF INH IH ×2 (08:03→20:26)
--- NOTE | 2020-02-26 10:28 | PT.INPN ---
Date of service: 02/26/20 Time of Service: 10:28 PT Notes Visit Reasons: UTI, WEAKNESS Inpatient Physical Therapy Progress Note Date: 02/26/2020 Dates of Service: 02/21/2020 through 02/26/2020 Referring Doctor: Franco Rosales PT Orders: PT CONSULT: Swingbed evaluation Precautions: Standard, fall risk Patient Profile/Admitting Diagnosis: 74-year-old female admitted for management of UTI in the presence of COPD on 02/17/20. Patient had a prior admission on 01/16/2020 with the same diagnosis. She was status post a rehab stay. She refuses to return to rehab, due to poor facility conditions and care. She wishes to return home. She has received inpatient PT care since admission, now eligible for swingbed status with ultimate goal of returning home with VNA support. PMHX: Medical History Abnormal CT scan, bladder Asthma CAD (coronary artery disease) Cellulitis Disorder of both eustachian tubes Drug rash Folate deficiency H/O: HTN (hypertension) History of asthma History of depression History of tobacco use Hyperlipidemia Hypertension Low back pain Macrocytosis Peripheral neuropathy Rash, skin Tremor Unintentional weight loss Vitamin B12 deficiency (dietary) anemia Social History/Home Situation: Jamilah lives alone in an apartment with 2 steps to enter, rails on both sides but she states that they are wide so she is only able to hold on one side at a time. She states that she receives Meals on Wheels Mondays and Fridays only and had been able to manage on her own for the other days of the week. She has a neighbor who comes in every day to help take care of her dog and cat. She was independent with all aspects of ADLs and had not had a need of any assistive device, as of 1.5 - 2 months ago. She was admitted on 01/15 for UTI, with functional limitations requiring discharge to SNF at that time. Equipment Owned/DME: None Subjective: Looking forward to going home soon and receiving continued PT. Objective: General Observation: Appears highly motivated to participate well with PT and go home. Mental Status: Alert and oriented x 4 Pain: 0/10 ROM: Right Upper Extremity: Shoulder Flexion allows about 110 degrees. Shoulder abduction allows about 100 degrees. Elbow flexion WFL. Wrist flexion WFL. Opening and closing of hand WFL. Left Upper Extremity: Shoulder Flexion allows about 110 degrees. Shoulder abduction allows about 100 degrees. Elbow flexion WFL. Wrist flexion WFL. Opening and closing of hand WFL. Right Lower Extremity: Hip flexion allows about 10 degrees beyond 90 while seated at edge of bed.. Hip abduction WFL. Knee flexion up to 120 degrees. Ankle dorsiflexion up to 10 degrees beyond neutral. Ankle plantarflexion WFL. Left Lower Extremity: Hip flexion allows about 10 degrees beyond 90 while seated at edge of bed.. Hip abduction WFL. Knee flexion up to 120 degrees. Ankle dorsiflexion up to 10 degrees beyond neutral. Ankle plantarflexion WFL. Strength: Right Upper Extremity: Shoulder flexors 4/5. Shoulder abductors 4/5. Elbow flexors 4/5. Elbow extensors 4/5. Resident Services Director weak but functional. Left Upper Extremity: Shoulder flexors 4/5. Shoulder abductors 4/5. Elbow flexors 4/5. Elbow extensors 4/5. Resident Services Director weak but functional. Right Lower Extremity: Hip flexors 4/5. Hip abductors 4/5. Knee flexors 4/5. Knee extensors 4/5. Ankle dorsiflexors 4/5. Ankle plantarflexors 4/5. Left Lower Extremity: Hip flexors /5. Hip abductors /5. Knee flexors 4/5. Knee extensors 4/5. Ankle dorsiflexors 4/5. Ankle plantarflexors 4/5. Sensation: Intact as to pain and pressure on bilateral lower extremities. Bed Mobility/Transfers: Rolling independent Supine to sit independent Sit to supine independent Sit to stand independent Stand to sit independent Bed to chair independent Chair to bed independent Gait: 130 feet with 2-3 standing rests +150 feet with 3-4 standing rests (approximately 1 minute each rest) using an assistive device with standby assist. No SOB noted. No LOB noted. Balance: Static Sitting: Normal Dynamic Sitting: Fair Static Standing: Fair Dynamic Standing: Fair 4-stage Balance Test: Able to maintain feet together and semi-tandem stance for 10 seconds each but is unable to perform full tandem and 1 legged standing indicating risk for falls. 30?second chair rise score: 11 Special Tests: Mobility Limitations Standardized Measure [facility] 6 clicks Basic Mobility Inpatient Short Form: Raw Score: 23 CMS Score: 11% disability Informed Consent/Education: Patient instructed in purpose of PT consult and plan of care. Assessment: Jamilah demonstrates significant functional mobility improvements in terms of strength, activity tolerance, balance skills and motivation level as indicated by current mobility level above and goal status below. She will continue to benefit from skilled PT services in order to reach highest mobility level in anticipation of discharge to home when medically cleared. Patient presents with clinical signs and symptoms consistent with current/admitting diagnoses that have resulted to mobility limitations, gait instability, generalized weakness, and impairment of motor control as demonstrated by the following impairment level findings: 1. Standing balance 2. Impaired activity tolerance Impairments are contributing to the following functional limitations: 1. Inability to safely ambulate without assistive device 2. Increase completion time for mobility ADL performance 3. Increased fall risk 4. Inability to negotiate steps alone safely Patient is assessed as a 12447 complexity based on the following: History: 74-year-old female with past medical history, functional deficits and impairment level findings as indicated above Examination:Demonstrable impairment in strength, balance, and range of motion with underlying impairments and functional limitations as documented above Presentation: Stable Decision Makin moderate complexity Goals: Goals X1 week 1. Supine-Sit Supervision, minimal effort, HOB 0 degrees. MET. Discharge GOAL. 2. Sit-Supine Supervision, minimal effort, HOB 0 degrees. MET. Discharge GOAL. 3. Sit-Stand distant supervision at RW. MET. Discharge GOAL. 4. Stand-Sit distant supervision at RW. MET. Discharge GOAL. 5. Bed-Chair distant supervision with RW. MET. Discharge GOAL. 6. Chair-Bed distant supervision with RW. MET. Discharge GOAL. 7. Gait 350 ft with RW, distant supervision NOT MET. CONTINUE. NEW GOAL: Dependent ambulation on level surfaces for at least 500 feet with no assistive devices, no LOB, and no SOB. 8. Stairs 3, with rail, supervision MET. Discharge GOAL. 9. Independent with home exercise program. NOT MET. CONTINUE. 10. Balance maintained at fair with all dynamic weightbearing activities. Passes Stage I and II of Stage IV balance test. MET. DISCHARGE GOAL. Upgrade to Normal static/dynamic standing balance. Plan of Care/Treatment Plan: 1-2x/day, 7 days/week x 1 week. Progress to independent ambulation without an assistive device. Proceed with intermediate to advanced level balance for size as tolerated to reduce fall risk at home. DISCHARGE RECOMMENDATIONS: Patient will benefit from home health PT services in order to progress mobility level using least restrictive assistive ambulatory device, assess home safety, identify additional equipment needs, and establish a functional maintenance program that will increase ability of patient to remain at home. TREATMENT CODE/TIME: 9753 0 x 30 minutes beginning at 10:28 AM.
--- NOTE | 2020-02-26 16:22 | PT.INTREAT ---
Date of service: 02/26/20 Time of Service: 16:22 PT Notes Visit Reasons: UTI, WEAKNESS Inpatient Physical Therapy Treatment Note [facility] Date: 02/26/20 PRECAUTIONS: Fall SUBJECTIVE: Jamilah is pleasant and excited to participate in PT. She reports that her nephew plans to visit her tomorrow afternoon. OBJECTIVE: PAIN: NO c/o pain BED MOBILITY/TRANSFERS Sit-stand: I Stand-sit: I Bed-chair: I Chair-bed: I GAIT Assistive Device: No AD Weight bearing: Full Assist: SBA Distance: 120' with 4 standing rests + 150' with 2 standing rests Deviation: C/o stiff back THEREX: Patient was instructed in a global strengthening program, including NuStep biking with increased resistance, forward/L/R lunge and taps, med ball toss, and Ras ball marches and resisted shoulder flexion. Patient continues to require seated rest between most exercises, although requires less recovery time. ASSESSMENT: Patient tolerated session without complaint. She was able to tolerate a progression in gait tolerance without AD, requiring less frequent standing rests. PLAN: Continue with balance retraining and gait training without use of AD. TREATMENT CODE/TIME: 50 minutes; 23950, 00626 x2
[2020-02-26] MEDS: Atorvastatin 20 MG TAB PO (20:26)
[2020-02-26] MEDS: Patch Removal 1 EACH TP (20:28)
[2020-02-27 07:25] VITALS: BP 131/84; PULSE 71; RESP 16; TEMP 36.8; O2SAT 96
[2020-02-27] MEDS: Budesonide/Formoterol 160/4.5 6 GM 60 PUFF INH IH ×2 (07:29→21:02)
[2020-02-27] MEDS: Lidocaine 5% Patch 1 PATCH TD (08:30)
[2020-02-27] MEDS: Rivaroxaban 10 MG TABLET 20 MG PO (08:30)
[2020-02-27] MEDS: Metoprolol 25 MG TAB PO ×2 (08:31→21:02)
[2020-02-27] MEDS: Aspirin 81 MG CHEW PO (08:31)
[2020-02-27] MEDS: Folic Acid 1 MG TAB PO (08:31)
[2020-02-27] MEDS: Potassium Chloride 20 MEQ TABCR PO (08:31)
[2020-02-27] MEDS: Pantoprazole 40 MG TABCR PO (08:31)
[2020-02-27] MEDS: Loratidine 10 MG TAB PO (08:31)
[2020-02-27] MEDS: FLUoxetine 20 MG CAP PO (08:31)
[2020-02-27] MEDS: Cyanocobalamin 500 MCG TAB 1000 MCG PO (08:31)
--- NOTE | 2020-02-27 11:41 | PDOC.CMACT ---
- If Service Date Differs Date of service: 02/27/20 Time of Service: 11:41 Care Management Activity Note S/O:Jamilah enjoys visiting with staff and talking with friends on the phone. She watches TV and ambulates with assistance. Jamilah has not been interested in items from the Activity Cart. Per Jamilah, she would enjoy pet therapy and music therapy if these programs are re-instated during her stay. P:Jamilah will be discharged home with a resumption of home health services. She will follow up with her PCP and discharge plan of care. Jamilah will transport with friends via private vehicle.[employer] will continue to support patient, family and discharge planning concerns.
--- NOTE | 2020-02-27 12:03 | W.NUTRFU ---
Date of service: 02/27/20 Time of Service: 12:03 Nutritional Follow up NOTE: Met with Jamilah today, she continues to follow regular meal plan, complete > 75% of meals. Weight has remained stable since admit, meeting 100% nutrient and fluid needs. Not at nutritional risk. will continue to follow. Time Spent in Nutritional Counseling and Treatment: 10 min spent face to face
--- NOTE | 2020-02-27 12:53 | PT.INTREAT ---
Date of service: 02/27/20 Time of Service: 12:53 PT Notes Visit Reasons: UTI, WEAKNESS Inpatient Physical Therapy Treatment Note [facility] Date: 02/27/20 PRECAUTIONS: Fall SUBJECTIVE: Jamilah is pleasant and excited to participate in PT. She reports that her nephew plans to visit her tomorrow afternoon. OBJECTIVE: PAIN: No c/o pain BED MOBILITY/TRANSFERS Sit-stand: I Stand-sit: I Bed-chair: I Chair-bed: I GAIT Assistive Device: No AD Weight bearing: Full Assist: SBA Distance: 150' with 1 standing rest + 150' with 1 standing rest Deviation: Patient requires significant encouragement to decrease number of standing rests taken GAIT (p.m.): Patient completed gait training without assistive device over uneven surfaces, including: concrete, carpet, rough, grass/leaves, linoleum. Patient does require standing rests throughout, as well as seated rest x3. She continues to require SBA for safety without use of assistive device. She does not demonstrate SOB with gait training. THEREX: Patient was instructed in a global strengthening program, including NuStep biking for increased time, Ras ball resisted marches, resisted shoulder flexion and abduction, to fatigue, cone weave and cone tap. Standing on an Airex pad, she was instructed in mini squats, resisted marches, resisted elbow flexion/extension, and UE extension and scap retraction with orange Theraband. Patient demonstrates decreased need for seated rests, requiring seated rest between every 2-3 exercises performed. ASSESSMENT: Patient tolerated session without complaint. She was able to tolerate a progression in her ther ex program, tolerating increased resistance, as well as the addition of performing exercises on Airex pads for promotion of improved global stability, requiring decreased need for seated rests. PLAN: Continue with balance retraining, global strengthening, and gait training without use of AD. TREATMENT CODE/TIME: Session 1: 45 minutes; 04315, 24058 x2 Session 2: 40 minutes; [id number] x3
[2020-02-27] MEDS: Acetaminophen 325 MG TAB 650 MG PO (15:52)
--- NOTE | 2020-02-27 16:00 | CHAPLAIN ---
Jamilah was reading the newspaper when I visited. She was happy to have been outside for PT today. Jamilah is here on swing bed for a few more days to gain some strength before returning to her apartment in [facility]. Jamilah watched the Presidential Debate on Monday and talked about that. She continues to be pleasant and interested in conversation.
[2020-02-27] MEDS: Patch Removal 1 EACH TP (20:45)
[2020-02-27] MEDS: Atorvastatin 20 MG TAB PO (21:02)
[2020-02-28 07:14] VITALS: BP 124/75; PULSE 77; RESP 17; TEMP 36.5; O2SAT 98
[2020-02-28] MEDS: Budesonide/Formoterol 160/4.5 6 GM 60 PUFF INH IH ×2 (07:29→19:38)
[2020-02-28] MEDS: Lidocaine 5% Patch 1 PATCH TD (07:57)
[2020-02-28] MEDS: Metoprolol 25 MG TAB PO ×2 (07:58→19:35)
[2020-02-28] MEDS: Rivaroxaban 10 MG TABLET 20 MG PO (07:58)
[2020-02-28] MEDS: Loratidine 10 MG TAB PO (07:58)
[2020-02-28] MEDS: Potassium Chloride 20 MEQ TABCR PO (07:58)
[2020-02-28] MEDS: Aspirin 81 MG CHEW PO (07:58)
[2020-02-28] MEDS: FLUoxetine 20 MG CAP PO (07:58)
[2020-02-28] MEDS: Cyanocobalamin 500 MCG TAB 1000 MCG PO (07:58)
[2020-02-28] MEDS: Folic Acid 1 MG TAB PO (07:59)
[2020-02-28] MEDS: Pantoprazole 40 MG TABCR PO (07:59)
--- NOTE | 2020-02-28 08:38 | W.PM.PROGNOT ---
Date of Service Date of service: 02/28/20 Time of Service: 08:39 Assessment and Plan Assessment and plan (1) Weakness: Status: Acute Assessment and plan: No specific etiology noted. Working with PT and progressing. Encouraging good oral intake. Mild anemia; megaloblastic d/t folate def. Supplementing. (2) CAD (coronary artery disease): Status: Chronic Assessment and plan: No angina, palpitations She is on a BB and statin. ASA 81mg daily. (3) Hypertension: Status: Chronic Assessment and plan: Generally has been controlled while in hospital acute stay. Cont metoprolol 25mg BID Qualifiers: Hypertension type: essential hypertension Qualified Code(s): I10 - Essential (primary) hypertension (4) COPD (chronic obstructive pulmonary disease): Status: Chronic Assessment and plan: No acute exacerbation. Prn albuterol. Symbicort BID. (5) Hyperlipidemia: Status: Acute Assessment and plan: Cont Atorvastatin. Qualifiers: Hyperlipidemia type: unspecified Qualified Code(s): E78.5 - Hyperlipidemia, unspecified (6) Discharge planning issues: Status: Acute Assessment and plan: plan to discharge to home on Monday. case management following. case discussed with Dr Tavarez who is in agreement Subjective Subjective Patient reports: no new complaints, feels better, tolerating liquids well, tolerating a regular diet, voiding w/o difficulty and bowel movement Interval history since last seen: Working with physical therapy making progress. Medically she has remained stable with no active issues Exam Const General: cooperative and no acute distress Nutritional Appearance: underweight Orientation: alert and oriented x3 Eyes Sclera: sclerae normal Pupils: PERRL Resp Effort & Inspection: normal respiratory effort Auscultation: clear to auscultation bilaterally Cardio Rate: regular rate Rhythm: regular rhythm Heart Sounds: S1 normal and S2 normal GI Palpation: soft and nontender Auscultation: normal bowel sounds Skin General skin exam: no rashes or lesions noted, dry skin (Dry flaky to lower extremities) and other (Chronic discoloration to bilateral lower extremities) Extrem General: no pedal edema and no calf tenderness Psych Appearance: grossly normal Mental Status: mental status grossly normal Affect: normal affect Attitude: cooperative Objective Last Vital Signs Temp 36.5 C 02/28/20 07:14 Pulse 77 02/28/20 07:14 Resp 17 10/02/20 07:14 BP 124/75 02/28/20 07:14 Pulse Ox 98 02/28/20 07:14
--- NOTE | 2020-02-28 15:08 | PT.INTREAT ---
Date of service: 02/28/20 Time of Service: 14:00 PT Notes Visit Reasons: UTI, WEAKNESS Inpatient Physical Therapy Treatment Note [facility] Date: 02/28/20 SUBJECTIVE: Jamilah states that she is doing well. She is looking forward to going home and being with her dog. OBJECTIVE: [] BED MOBILITY/TRANSFERS Supine-sit: I Sit-stand: I Stand-sit: I GAIT Assistive Device: no AD Weight bearing: FWB Assist: SBA Distance: 350' in am and 350' in pm Deviation: she did take several standing rests, however they were very short. THEREX:see flowsheet for details. Mainly focused on stabilization as well as balance. STAIRS:up and down 3, 4 steps and 2, 6 steps. ASSESSMENT: tolerated session well. Encouragement to push herself and explained to her the importance of progressing her endurance. No LOB noted but is fearful of falling and tends to hang on. PLAN: will continue to progress following PT POC. TREATMENT CODE/TIME: 35 min in am beginning at 0905 and 40 min in pm beginning at 1330. [id number]
[2020-02-28 16:14] VITALS: BP 112/74; PULSE 75; RESP 18; TEMP 36.4; O2SAT 97
[2020-02-28] MEDS: Atorvastatin 20 MG TAB PO (19:35)
[2020-02-28] MEDS: Patch Removal 1 EACH TP (19:45)
[2020-02-28] MEDS: Acetaminophen 325 MG TAB 650 MG PO (21:01)
[2020-02-29 07:36] VITALS: BP 135/81; PULSE 71; RESP 18; TEMP 36.6; O2SAT 98
[2020-02-29] MEDS: Budesonide/Formoterol 160/4.5 6 GM 60 PUFF INH IH ×2 (08:21→20:33)
[2020-02-29] MEDS: Polyethylene Glycol 3350 17 GM PACKET PO (08:33)
[2020-02-29] MEDS: Loratidine 10 MG TAB PO (08:33)
[2020-02-29] MEDS: Rivaroxaban 10 MG TABLET 20 MG PO (08:33)
[2020-02-29] MEDS: Metoprolol 25 MG TAB PO ×2 (08:33→20:32)
[2020-02-29] MEDS: Folic Acid 1 MG TAB PO (08:33)
[2020-02-29] MEDS: Pantoprazole 40 MG TABCR PO (08:33)
[2020-02-29] MEDS: Potassium Chloride 20 MEQ TABCR PO (08:33)
[2020-02-29] MEDS: Cyanocobalamin 500 MCG TAB 1000 MCG PO (08:34)
[2020-02-29] MEDS: FLUoxetine 20 MG CAP PO (08:34)
[2020-02-29] MEDS: Aspirin 81 MG CHEW PO (08:34)
[2020-02-29] MEDS: Lidocaine 5% Patch 1 PATCH TD (08:34)
--- NOTE | 2020-02-29 10:19 | PTTR_ITS ---
Date of service: 02/29/20 Time of Service: 10:19 PT Notes Visit Reasons: UTI, WEAKNESS Inpatient Physical Therapy Treatment Note [facility] Date: 02/29/20 PRECAUTIONS: Fall SUBJECTIVE: Jamilah is pleasant and excited to participate in PT. She reports fe eling a little wobbly today. OBJECTIVE: Patient observed I ambulating within room PAIN: No c/o pain BED MOBILITY/TRANSFERS Sit-stand: I Stand-sit: I Bed-chair: I Chair-bed: I GAIT Assistive Device: No AD FWW Weight bearing: Full Assist: SBA without AD I with FWW Distance: 150' with 1 standing rest + 150' with 1 standing rest 150' with FWW without stand rest Deviation: Patient requires significant encouragement to decrease number of standing rests taken, LOB x1 - self recovered, improved stability with FWW THEREX: Patient was instructed in a global strengthening program, including NuStep biking at increased resistance, standing forward/backward/side high-knee marches, forward/backward tandem walking, and cervical flexion/extension and rotation L/R with feet close together. She was also instructed in squats, heel raises, and UE extension and scap retraction with orange Theraband, all standing on Airex pad. Patient demonstrates decreased need for seated rests, requiring seated rest between every 2-3 exercises performed. ASSESSMENT: Patient tolerated session with complaint of feeling wobbly today, she also c/o increased fatigue. She was able to tolerate a progression in her ther ex program, tolerating increased repetitions, as well as performing exercises on Airex pads for promotion of improved global stability, requiring decreased need for seated rests. PLAN: Continue with balance retraining, global strengthening, and gait training without use of AD. TREATMENT CODE/TIME: Session 1: 45 minutes; 77932, 49167 x2
[2020-02-29] MEDS: Atorvastatin 20 MG TAB PO (20:32)
[2020-02-29] MEDS: Acetaminophen 325 MG TAB 650 MG PO (20:32)
[2020-02-29] MEDS: Patch Removal 1 EACH TP (20:48)
[2020-03-01 07:15] VITALS: BP 132/81; PULSE 70; RESP 17; TEMP 36.5; O2SAT 98
[2020-03-01] MEDS: Rivaroxaban 10 MG TABLET 20 MG PO (08:13)
[2020-03-01] MEDS: Lidocaine 5% Patch 1 PATCH TD (08:13)
[2020-03-01] MEDS: Aspirin 81 MG CHEW PO (08:13)
[2020-03-01] MEDS: Folic Acid 1 MG TAB PO (08:14)
[2020-03-01] MEDS: Loratidine 10 MG TAB PO (08:14)
[2020-03-01] MEDS: Metoprolol 25 MG TAB PO ×2 (08:14→19:20)
[2020-03-01] MEDS: Potassium Chloride 20 MEQ TABCR PO (08:14)
[2020-03-01] MEDS: Pantoprazole 40 MG TABCR PO (08:14)
[2020-03-01] MEDS: FLUoxetine 20 MG CAP PO (08:14)
[2020-03-01] MEDS: Cyanocobalamin 500 MCG TAB 1000 MCG PO (08:15)
[2020-03-01] MEDS: Budesonide/Formoterol 160/4.5 6 GM 60 PUFF INH IH ×2 (08:18→19:20)
--- NOTE | 2020-03-01 10:13 | PT.INTREAT ---
Date of service: 03/01/20 Time of Service: 10:17 PT Notes Visit Reasons: UTI, WEAKNESS Inpatient Physical Therapy Treatment Note [facility] Date: 03/01/20 PRECAUTIONS: Fall SUBJECTIVE: Jamilah reports that she walked with nursing several times yesterday after morning PT session. She states that she feels ready to be discharged to home tomorrow, although she is concerned about her meals. OBJECTIVE: Patient observed I ambulating within room PAIN: No c/o pain BED MOBILITY/TRANSFERS Sit-stand: I Stand-sit: I Bed-chair: I Chair-bed: I GAIT Assistive Device: No AD FWW Weight bearing: Full Assist: SBA without AD I with FWW Distance: 260' with stand rest x4 + 150' without stand rest + 150' with stand rest x1 260' with FWW without stand rest Deviation: Patient requires significant encouragement to decrease number of standing rests taken, improved stability with FWW, continuous cues for increased step height THEREX: Patient was instructed in squats, heel raises, and high knee marches (with min hold), as well as UE extension and scap retraction with blue Theraband, all standing on Airex pad. She also was instructed in resisted bicep curls and shoulder abduction with 3# hand weights. Patient demonstrates decreased need for seated rests, requiring seated or standing rest between every 2-3 exercises performed. ASSESSMENT: Patient tolerated session with complaint of increased LE fatigue with increased gait training. She was able to tolerate a progression in her ther ex program, tolerating increased repetitions and resistance, as well as performing exercises on Airex pads for promotion of improved global stability, requiring decreased need for seated rests. PLAN: Continue with balance retraining, global strengthening, and gait training without use of AD. TREATMENT CODE/TIME: Session 1: 40 minutes; 95882 x2, [id number]
[2020-03-01] MEDS: Acetaminophen 325 MG TAB 650 MG PO (14:12)
[2020-03-01] MEDS: Atorvastatin 20 MG TAB PO (19:20)
[2020-03-01] MEDS: Patch Removal 1 EACH TP (19:21)
[2020-03-02 07:21] VITALS: BP 146/82; PULSE 75; RESP 16; TEMP 37; O2SAT 98
[2020-03-02] MEDS: Budesonide/Formoterol 160/4.5 6 GM 60 PUFF INH IH (07:46)
[2020-03-02] MEDS: Lidocaine 5% Patch 1 PATCH TD (07:51)
[2020-03-02] MEDS: Cyanocobalamin 500 MCG TAB 1000 MCG PO (07:55)
[2020-03-02] MEDS: Potassium Chloride 20 MEQ TABCR PO (07:55)
[2020-03-02] MEDS: Rivaroxaban 10 MG TABLET 20 MG PO (07:56)
[2020-03-02] MEDS: Folic Acid 1 MG TAB PO (07:56)
[2020-03-02] MEDS: Metoprolol 25 MG TAB PO (07:56)
[2020-03-02] MEDS: FLUoxetine 20 MG CAP PO (07:56)
[2020-03-02] MEDS: Aspirin 81 MG CHEW PO (07:57)
[2020-03-02] MEDS: Loratidine 10 MG TAB PO (07:57)
[2020-03-02] MEDS: Pantoprazole 40 MG TABCR PO (07:57)
--- NOTE | 2020-03-02 09:24 | INDS_ITS ---
Date of service: 03/02/20 Time of Service: 09:24 PT Notes Visit Reasons: UTI, WEAKNESS Physical Therapy Inpatient Discharge Summary Date: 03/02/2020 Dates of Service: 02/21/2020 through 03/02/2020 Referring Doctor: Franco Rosales PT Orders: PT CONSULT: Swingbed evaluation Precautions: Standard, fall risk Patient Profile/Admitting Diagnosis: 74-year-old female admitted for management of UTI in the presence of COPD on 02/17/20. Patient had a prior admission on 01/16/2020 with the same diagnosis. She was status post a rehab stay. She refuses to return to rehab, due to poor facility conditions and care. She wishes to return home. Swing bed level 1 as of 02/21/2020. PMHX: Medical History Abnormal CT scan, bladder Asthma CAD (coronary artery disease) Cellulitis Disorder of both eustachian tubes Drug rash Folate deficiency H/O: HTN (hypertension) History of asthma History of depression History of tobacco use Hyperlipidemia Hypertension Low back pain Macrocytosis Peripheral neuropathy Rash, skin Tremor Unintentional weight loss Vitamin B12 deficiency (dietary) anemia Social History/Home Situation: Jamilah lives alone in an apartment with 2 steps to enter, rails on both sides but she states that they are wide so she is only able to hold on one side at a time. She states that she receives Meals on Wheels Mondays and Fridays only and had been able to manage on her own for the other days of the week. She has a neighbor who comes in every day to help take care of her dog and cat. She was independent with all aspects of ADLs and had not had a need of any assistive device, as of 1.5 - 2 months ago. She was admitted on 01/15 for UTI, with functional limitations requiring discharge to SNF at that time. Equipment Owned/DME: None Subjective: Looking forward to going home soon and receiving continued PT. Objective: General Observation: Appears highly motivated to participate well with PT and go home. Mental Status: Alert and oriented x 4 Pain: 0/10 ROM: Right Upper Extremity: Shoulder Flexion allows about 110 degrees. Shoulder abduction allows about 100 degrees. Elbow flexion WFL. Wrist flexion WFL. Opening and closing of hand WFL. Left Upper Extremity: Shoulder Flexion allows about 110 degrees. Shoulder abduction allows about 100 degrees. Elbow flexion WFL. Wrist flexion WFL. Opening and closing of hand WFL. Right Lower Extremity: Hip flexion allows about 10 degrees beyond 90 while seated at edge of bed.. Hip abduction WFL. Knee flexion up to 120 degrees. Ankle dorsiflexion up to 10 degrees beyond neutral. Ankle plantarflexion WFL. Left Lower Extremity: Hip flexion allows about 10 degrees beyond 90 while seated at edge of bed.. Hip abduction WFL. Knee flexion up to 120 degrees. Ankle dorsiflexion up to 10 degrees beyond neutral. Ankle plantarflexion WFL. Strength: Right Upper Extremity: Shoulder flexors 4/5. Shoulder abductors 4/5. Elbow flexors 4/5. Elbow extensors 4/5. [employer] Specialist weak but functional. Left Upper Extremity: Shoulder flexors 4/5. Shoulder abductors 4/5. Elbow flexors 4/5. Elbow extensors 4/5. [employer] Specialist weak but functional. Right Lower Extremity: Hip flexors 4/5. Hip abductors 4/5. Knee flexors 4/5. Knee extensors 4/5. Ankle dorsiflexors 4/5. Ankle plantarflexors 4/5. Left Lower Extremity: Hip flexors 4/5. Hip abductors /5. Knee flexors 4/5. Knee extensors 4/5. Ankle dorsiflexors 4/5. Ankle plantarflexors 4/5. Sensation: Intact as to pain and pressure on bilateral lower extremities. Bed Mobility/Transfers: Rolling independent Supine to sit independent Sit to supine independent Sit to stand independent Stand to sit independent Bed to chair independent Chair to bed independent Gait: Lap 1 for 4 minutes and 48 seconds covering 260 feet. Lap 2 for 3 minutes and 01 seconds covering 260 feet. Lap 3 for 2 minutes and 26 seconds covering 260 feet. All laps done using no assistive device with standby assist only. Swing through gait pattern. No LOB. No SOB. Required 1-2 standing rests for each lap. No dizziness, chest pain, and headache reported. Balance: Static Sitting: Normal Dynamic Sitting: Normal Static Standing: Good Dynamic Standing: Good 4-stage Balance Test: Able to maintain feet together and semi-tandem stance for 10 seconds each but is unable to perform full tandem and 1 legged standing indicating risk for falls. 30?second chair rise score: 13 Special Tests: Mobility Limitations Standardized Measure [employer] AM-PAC 6 clicks Basic Mobility Inpatient Short Form: Raw Score: 24 CMS Score: 0% disability Assessment: Jamilah has demonstrated significant functional mobility improvements for this episode of care as indicated by current mobility level and gait speed above as well as goal status below. She will continue to benefit from skilled PT services in order to reach highest mobility level and regain community ambulation without no assistive device in anticipation of discharge to home when medically cleared. Goals: 1. Gait 350 ft with RW, distant supervision MET. 2. NEW GOAL: Independent ambulation on level surfaces for at least 500 feet with no assistive devices, no LOB, and no SOB. NOT MET. CONTINUE with HH PT. 3. Independent with home exercise program. NOT MET. CONTINUE with HH PT. 4. NEW GOAL: Upgrade to Normal static/dynamic standing balance. NOT MET. CONTINUE with HH PT. DISCHARGE RECOMMENDATIONS: Patient will benefit from home health PT services in order to progress mobility level using least restrictive assistive ambulatory device, assess home safety, identify additional equipment needs, and establish a functional maintenance program that will increase ability of patient to remain at home. TREATMENT CODE/TIME: 35159 x 28 minutes beginning at 9:24 AM. Thank you for the opportunity to participate in the care of this patient. Lanny Pedraza PT, DPT, CLT [facility] [place], [place]
--- NOTE | 2020-03-02 09:29 | DSE_ITS ---
Date of service: 03/02/20 Time of Service: 09:29 DS: Diagnosis Discharge Diagnosis (1) Weakness: Start date: 03/02/20 Start time: 09:29 Status: Acute Asessment and Plan: No specific etiology Working with PT. Discharging to home with Resumption of home health Encouraging good oral intake. Mild anemia; megaloblastic d/t folate def. Supplementing. (2) CAD (coronary artery disease): Start date: 03/02/20 Start time: 09:30 Status: Chronic Asessment and Plan: On BB and statin, continue as outpatient ASA 81 mg daily No Angina, palpitations or SOB (3) Hypertension: Start date: 03/02/20 Start time: 09:32 Status: Chronic Asessment and Plan: Overall controlled while in acute care and swing bed. continue metoprolol 25 mg BID (4) COPD (chronic obstructive pulmonary disease): Start date: 03/02/20 Start time: 09:32 Status: Chronic Asessment and Plan: Albuterol prn and Symbicort BID (5) Hyperlipidemia: Start date: 03/02/20 Start time: 09:32 Status: Acute Asessment and Plan: Continue Atorvastatin above case discussed with Dr. Knott who is in agreement. Discharge Plan Disposition Patient Disposition: HOME W/HOME HEALTH SERVICE Condition: Stable Discharge Details Reason For Visit: UTI, WEAKNESS Admit Date/Time: 02/21/20 13:21 Admit Provider: Franco Rosales Attending Provider: Franco Rosales Primary Care Provider: Jose Gonzalez Hospital Course Hospital Course: 74 y.o female with h/o UTI. She was here on 01/15 with similar symptoms UTI/Weakness. She was at rehab for 6 days prior to admission then left and went back home because she was not happy with the rehab facility. Presentation to ED consisted of several days of weakness, without dysuria, frequency or back pain. ED found pyuria and Ms. Jiang was given a dose of rocephin. Elevated d-dimer, but was also elevated on 01/15 and CTA was negative. Oxygen level was in the mid 80's requiring oxygen though she does have COPD, denies SOB, or CP. Urine culture grew mixed tim less than 100,000. Antibiotic was stopped. She was placed on SB status for further care of her weakness. Physical therapy worked with her she did well, and they feel she is motivated and can return home with resumption of PT/OT and RN. Home Meds and New Rx's Prescriptions: New potassium chloride [Klor-Con M20] 20 mEq Tablet,Er Particles/Crystals 20 meq PO DAILY Qty: 14 RF: 0 aspirin 81 mg Tablet,Chewable 81 mg PO DAILY Qty: 30 RF: 0 folic acid 1 mg Tablet 1 mg PO QAM Qty: 30 RF: 0 Continued Xarelto 20 mg tablet 20 mg PO DAILY RF: 0 mecobalamin (vitamin B12) 1,000 mcg tablet,chewable 1,000 mcg PO DAILY RF: 0 loratadine [Claritin] 10 MG tablet 10 mg PO DAILY RF: 0 metoprolol tartrate 50 MG tablet 25 mg PO BID RF: 0 nitroglycerin [Nitrostat] 0.4 MG tablet, sublingual 0.4 mg Sublingual DIRECTED RF: 0 albuterol sulfate [Ventolin HFA] 200 PUFF HFA aerosol inhaler 1 - 2 puff Inhalation QID PRN PRNRF: 0 budesonide-formoterol [Symbicort] 60 PUFF HFA aerosol inhaler 1 puff Inhalation BID RF: 0 famotidine 20 mg Tablet 20 mg PO BID Qty: 14 RF: 0 hydrocortisone 2.5 % Cream 0 g topical TID Qty: 0 RF: 0 triamcinolone acetonide 0.1 % Cream 0 g topical TID Qty: 0 RF: 0 lidocaine [Aspercreme (lidocaine HCl)] 4 % Adhesive Patch,Medicated 1 patch TOPICAL DAILY RF: 0 fluoxetine 20 mg capsule 20 mg PO DAILY RF: 0 atorvastatin 20 mg tablet 20 mg PO HS RF: 0 Discontinued aspirin,buffd-calcium carb-mag 325 MG tablet 325 mg PO DAILY RF: 0 Discharge Instructions Instructions: Weakness (DC), Urinary Tract Infection in Older Adults (DC) Additional Instructions: Follow up with PCP in 1-2 weeks. Resume HH with nursing, PT/OT Referrals: Drake Flores MD [ [facility] STAFF PHYSICIAN] - (Dr Flores's office will call you with a date and time) Activity:: Activity as Tolerated Equipment/Supplies:: No Equipment Needed Diet:: Low Sodium Discharge Orders Discharge Orders: Discharge Order (Routine); Ordered 03/02/20 Ordered By: Carol Marquez DS: Summary Status at Discharge Functional status at discharge: uses cane/walker Overall status at discharge: patient is progressing back to baseline Mental Status: mental status grossly normal Speech and Movement: speech and movement normal Mood: congruent mood Affect: normal affect Exam Const General: cooperative and no acute distress Nutritional Appearance: underweight Orientation: alert and oriented x3 Eyes Sclera: sclerae normal Pupils: PERRL Resp Effort & Inspection: normal respiratory effort Auscultation: clear to auscultation bilaterally Cardio Rate: regular rate Rhythm: regular rhythm Heart Sounds: S1 normal and S2 normal GI Palpation: soft and nontender Auscultation: normal bowel sounds Skin General skin exam: no rashes or lesions noted, dry skin (Dry flaky to lower extremities) and other (Chronic discoloration to bilateral lower extremities) Extrem General: no pedal edema and no calf tenderness Psych Appearance: grossly normal Mental Status: mental status grossly normal Speech and Movement: speech and movement normal Mood: congruent mood Affect: normal affect Attitude: cooperative DS: Data Vitals/I&O Vitals and I&O: Vital Signs Temperature 37.0 C 03/02/20 07:21 Temperature Source Tympanic 03/02/20 07:21 Pulse 75 03/02/20 07:21 Pulse Rhythm Regular 03/02/20 07:59 Respiratory Rate 16 03/02/20 07:21 Respiratory Effort Non-Labored 03/02/20 07:59 Respiratory Depth Normal 03/02/20 07:59 Respiratory Pattern Normal 03/02/20 07:59 Blood Pressure 146/82 H 03/02/20 07:21 Pulse Oximetry 98 03/02/20 07:21 Oxygen Delivery Method Room Air 03/02/20 07:21 Oxygen Flow Rate 0 03/02/20 07:21 Pain Level 0 03/02/20 07:21 Intake & Output 03/01/20 03/01/20 03/02/20 11:59 23:59 11:59 Intake Total 450 / 1170 720 / 1170 Balance 450 / 1170 720 / 1170 Intake: Oral 450 / 1170 720 / 1170 Other: Urine Color Yellow Urine Appearance Clear Clear Clear Comment pt voiding independently. Voiding Methods Toilet Toilet Toilet [facility] Medical History Abnormal CT scan, bladder Asthma CAD (coronary artery disease) Cellulitis Disorder of both eustachian tubes Drug rash Folate deficiency H/O: HTN (hypertension) History of asthma History of depression History of tobacco use Hyperlipidemia Hypertension Low back pain Macrocytosis Peripheral neuropathy Rash, skin Tremor Unintentional weight loss Vitamin B12 deficiency (dietary) anemia Social History Smoking/Tobacco Use Status: Former Tobacco Use Alcohol Intake: never Drug use: Never Do you feel safe at home: Yes Do you feel safe in your relationship?: Yes
--- NOTE | 2020-03-02 12:39 | PDOC.CMDIS ---
- If Service Date Differs Date of service: 03/02/20 Time of Service: 12:39 LACE Index Scoring Tool - Questions: Length of Stay (in days): 14 or more Acuity (Admit via E.D.?): Yes Comorbidities: Congestive Heart Failure E.D. Visits: 2 - Answers: Total Score: 14 Risk of Readmission: High Risk Care Management Discharge Reason for Hospitalization: UTI, Weakness Discharge Plan: Jamilah will return home with a resumption of [facility] RN, PT. verified that her prescriptions were sent to [facility] in [facility], and they will be available for her to pick them up tomorrow. Per provider, she does not need these medications today. A friend will drive her home via private vehicle. She will follow up with her PCP and discharge plan of care. She is happy to be going home. Patient/Family Education Needs: Review discharge instructions regarding activity levels and medications, discussion of self care needs including ask me three and goals of care. Services Needed at Discharge: Home Health Care Services ([facility] RN, PT)
== END 2020-03-02 13:50 | disposition home health service (06) | DRG 948 ==
PROVIDERS: Internal Medicine; Admitting Provider Family Medicine; PCP Internal Medicine; Visit Provider Family Medicine
DX: R53.1 Weakness (principal); Z68.1 Body mass index [BMI] 19.9 or less, adult; D53.1 Other megaloblastic anemias, not elsewhere classified; I25.10 Atherosclerotic heart disease of native coronary artery without angina pectoris; I10 Essential (primary) hypertension; J44.9 Chronic obstructive pulmonary disease, unspecified; E78.5 Hyperlipidemia, unspecified; J45.909 Unspecified asthma, uncomplicated; F32.9 Major depressive disorder, single episode, unspecified; Z87.891 Personal history of nicotine dependence; M54.5 Low back pain; G62.9 Polyneuropathy, unspecified; R63.6 Underweight
CPT/HCPCS: 80048; 80076; 90686; 94640; 97110; 97161; 97530; 99305; 99309; 99316; 83735; 85025; J3490

== ENCOUNTER 2020-04-27 02:29 | Outpatient (CLI) | payer MEDICARE, SELFPAY ==
[2020-04-28 21:13] LABS: COVID-19 RT-PCR Result NEGATIVE (Negative)
== END 2020-04-27 02:49 ==
PROVIDERS: PCP Internal Medicine; Visit Provider Urology
DX: Z11.59 Encounter for screening for other viral diseases (principal); Z01.818 Encounter for other preprocedural examination
CPT/HCPCS: U0003

== ENCOUNTER 2020-04-30 08:23 | Day surgery (SDC) | payer MEDICARE, SELFPAY ==
--- NOTE | 2020-03-02 15:22 | CHAPLAIN ---
Jamilah was happy to tell me that she is going home today. She lives in an apartment next to the [facility]. Jamilah is looking forward to seeing her cat, and getting her dog back from a friend who is caring for her. Jamilah said she worked with PT this morning and is feeling good about being discharged. She plans to walk outside, possibly with PT from Home Health. We talked about the labyrinth that is on the tenriism lawn next door and how she might enjoy walking on that, and how and why people find labyrinths helpful as a way to meditate, or clear your mind, while also continuing to move.
--- NOTE | 2020-04-28 14:19 | NUR.NOTE ---
Pt. was instructed to be NPO after midnight, water until 0530 in the morning, and to take her Metoprolol and Inhalers the morning of surgery. She was instructed to hold all supplements from 12/1 until after procedure, and per PCP to hold Xarelto x 2 days. She was also informed she needed to have a ride home set up in place PRIOR to arrival and that DSU will require that person's name and phone number upon arrival. Pt. repeated instructions back to this RN, with stated understanding. Nursing Note:
--- NOTE | 2020-04-30 06:56 | HPE_ITS ---
Date of service: 04/30/20 Time of Service: 08:39 Assessment and Plan Assessment and plan (1) Urinary bladder neoplasm: Status: Acute Assessment and plan: We will perform cystoscopy, bladder biopsy and f ulguration of the visible lesions to obtain a tissue diagnosis, and instillation of mitomycin-C into the bladder. History of Present Illness History of Present Illness Chief Complaint: Bladder tumor Narrative: This is a 75-year-old woman who was initially admitted to the hospital with new onset atrial fibrillation. She was also complaining of weight loss and weakness. She was evaluated with a CT scan which demonstrated some nonspecific thickening of the bladder wall. She then underwent cystoscopy in my office which revealed multiple small papillary lesions in the bladder. Some of the lesions were within bladder diverticuli. 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 She is agreeable to cystoscopy, biopsy and fulguration of these lesions as well as instillation of mitomycin-C into the bladder. She has no gross hematuria. Review of Systems Narrative: c/o weakness and weight loss. No fevers or chills No vision change No diabetes or thyroid dysfunction Chronic shortness of breath. No recent cough or hemoptysis No chest pain. Hx Atrial Fibrillation No nausea, vomiting, hepatitis, ulcers, jaundice No seizures, strokes or peripheral neuropathy Hx anemia. Anticoagulants due to A Fib No gout PFSH Medical History Abnormal CT scan, bladder Asthma CAD (coronary artery disease) Cellulitis Disorder of both eustachian tubes Drug rash Folate deficiency H/O: HTN (hypertension) History of asthma History of depression History of tobacco use Hyperlipidemia Hypertension Low back pain Macrocytosis Peripheral neuropathy Rash, skin Tremor Unintentional weight loss Vitamin B12 deficiency (dietary) anemia Surgical History (Updated 04/30/20 @ 08:56 by Ashlyn Solo) Hx of eye surgery Social History Smoking/Tobacco Use Status: Former Tobacco Use Quit Date: 05/29/89 Smoking risk assessment performed?: Yes Alcohol Intake: never Drug use: Never Substance use type: does not use Do you feel safe at home: Yes Do you feel safe in your relationship?: Yes Meds Home Medications and Allergies Home Medications Medication Instructions Recorded Confirmed Type loratadine [Claritin] 10 mg PO DAILY 01/29/13 04/28/20 History albuterol sulfate [Ventolin HFA] 1 - 2 puff INHALATION QID PRN PRN 12/07/16 04/28/20 History budesonide-formoterol [Symbicort] 1 puff INHALATION BID 12/07/16 04/28/20 History metoprolol tartrate 25 mg PO BID 12/07/16 04/28/20 History nitroglycerin [Nitrostat] 0.4 mg SUBLINGUAL DIRECTED 12/07/16 04/28/20 History famotidine 20 mg PO BID #14 tab 01/08/19 04/28/20 Rx hydrocortisone 0 g TOPICAL TID #0 g 01/08/19 04/28/20 Rx triamcinolone acetonide 0 g TOPICAL TID #0 g 01/08/19 04/28/20 Rx mecobalamin (vitamin B12) 1,000 1,000 mcg PO DAILY 12/26/19 04/28/20 History mcg chewable tablet rivaroxaban 20 mg tablet 20 mg PO DAILY 02/13/20 04/28/20 History lidocaine [Aspercreme (lidocaine 1 patch TOPICAL DAILY 02/17/20 04/28/20 History HCl)] atorvastatin 20 mg PO HS 02/19/20 04/28/20 History fluoxetine 20 mg PO DAILY 02/19/20 04/28/20 History folic acid 1 mg PO QAM #30 tab 03/02/20 04/28/20 Rx potassium chloride [Klor-Con M20] 20 meq PO DAILY #14 tab 03/02/20 04/28/20 Rx Allergies Allergy/AdvReac Type Severity Reaction Status Date / Time lisinopril Allergy Intermediate lips Unverified 04/28/20 14:12 swelled sulfamethoxazole Allergy Intermediate Hives Unverified 04/28/20 14:12 [From Bactrim] trimethoprim [From Bactrim] Allergy Intermediate Hives Unverified 04/28/20 14:12 Penicillins AdvReac Intermediate Hives Unverified 04/28/20 14:12 Exam Const General: cooperative and comfortable Neck Neck: supple Resp Effort & Inspection: normal respiratory effort Auscultation: clear to auscultation bilaterally Cardio Rate: regular rate Rhythm: regular rhythm GI Palpation: soft and no masses Neuro General: patient alert, patient awake and patient oriented x3 COVID-19 Screening Have you, or household traveled for leisure in last 14 days?: No Had IN PERSON contact w/suspected or confirmed C-19 person: No
[2020-04-30 08:47] VITALS: BP 120/78; PULSE 76; RESP 20; TEMP 36.8; O2SAT 97
[2020-04-30] MEDS: Ciprofloxacin 250 MG TAB PO (09:23)
[2020-04-30] MEDS: Lactated Ringers 1,000 ML 80 ML IV (09:32)
[2020-04-30] MEDS: Lidocaine 2% Jelly 6 ML SYR (10:47)
--- NOTE | 2020-04-30 11:00 | BLADDER_PTH ---
PATIENT: Jamilah Jiang LOC: [facility] U#:[id number] AGE/SX: 75/F ROOM: RE04/30/[address]: Drake Flores MD : [id number] BED: DIS: 04/30/2020 SPEC #: [id number] RECD: 04/30/20 12:32 STATUS: BERNARD REQ #: [id number] PATRICIO: 04/30/20 11:[address]: Drake Flores DEPT: Surgical Specimen RECD BY: Carolina Gonzalez ENTERED: 04/30/20 12:33 SP TYPE: Bladder OTHR DR: Jose Gonzalez Tissues: 1 - BLADDER BIOPSY Procedures: SPECIAL STAIN 2 GROSS AND MICRO LEVEL 4 Comments: [id number]
--- NOTE | 2020-04-30 11:07 | W.PM.DSUDISC ---
Discharge Plan Disposition Patient Disposition: HOME Condition: Stable Discharge Details Reason For Visit: bladder surgery Attending Provider: Drake Flores Primary Care Provider: Jose Gonzalez Home Meds and New Rx's Prescriptions: No Action Xarelto 20 mg tablet 20 mg PO DAILY RF: 0 mecobalamin (vitamin B12) 1,000 mcg tablet,chewable 1,000 mcg PO DAILY RF: 0 loratadine [Claritin] 10 MG tablet 10 mg PO DAILY RF: 0 metoprolol tartrate 50 MG tablet 25 mg PO BID RF: 0 nitroglycerin [Nitrostat] 0.4 MG tablet, sublingual 0.4 mg Sublingual DIRECTED RF: 0 albuterol sulfate [Ventolin HFA] 200 PUFF HFA aerosol inhaler 1 - 2 puff Inhalation QID PRN PRNRF: 0 budesonide-formoterol [Symbicort] 60 PUFF HFA aerosol inhaler 1 puff Inhalation BID RF: 0 famotidine 20 mg Tablet 20 mg PO BID Qty: 14 RF: 0 hydrocortisone 2.5 % Cream 0 g topical TID Qty: 0 RF: 0 triamcinolone acetonide 0.1 % Cream 0 g topical TID Qty: 0 RF: 0 potassium chloride [Klor-Con M20] 20 mEq Tablet,Er Particles/Crystals 20 meq PO DAILY Qty: 14 RF: 0 folic acid 1 mg Tablet 1 mg PO QAM Qty: 30 RF: 0 lidocaine [Aspercreme (lidocaine HCl)] 4 % Adhesive Patch,Medicated 1 patch TOPICAL DAILY RF: 0 fluoxetine 20 mg capsule 20 mg PO DAILY RF: 0 atorvastatin 20 mg tablet 20 mg PO HS RF: 0 Discharge Instructions Additional Instructions: Leave catheter clamped with Mitomycin C in bladder for 1 to 2 hours then drain bladder and remove catheter - unclamp/drain/remove catheter sooner prn pain OK to restart Xaralto on 05/01 Followup appt @ 2 weeks for pathology results Activity:: Activity as Tolerated Shower/Bathe:: 24 hours Diet:: As Tolerated Discharge Orders Discharge Orders: Discharge Order (Routine); Ordered 04/30/20 Ordered By: Drake Flores DS: Diagnosis Discharge Diagnosis (1) Urinary bladder neoplasm: Status: Acute
--- NOTE | 2020-04-30 11:13 | W.PM.OP ---
Date of service: 04/30/20 Time of Service: 11:13 Operative Note Operative Note DATE OF PROCEDURE: 04/30/20 PRE-OP DIAGNOSIS: Bladder mass POST-OP DIAGNOSIS: same With pathology pending PROCEDURE: Cystoscopy, bladder biopsy with fulguration, instillation of Mitomycin C into bladder SURGEON: Drake Flores ANESTHESIA: other (General without intubation) ESTIMATED BLOOD LOSS: 5 COMPLICATIONS: None Patient was transported to: same day Patient's condition: stable Implants: 16 Mosotho perez catheter Indications: This is a 75-year-old woman who presented to the emergency room with weakness and weight loss. She was found to be in atrial fibrillation. As part of her evaluation, a CT of the abdomen and pelvis was performed. There were some nonspecific abnormalities associated with the bladder and the radiologist recommended a urologic evaluation. I did a cystoscopy in my office which showed some bladder diverticuli or mucosal abnormalities. She presents for biopsy and fulguration as well as instillation of mitomycin-C into the bladder Findings: Multiple small erythematous mucosal patches Procedure Description: Patient was brought to the operating room on 04/30/2020. After successful induction of general anesthesia without intubation, she was placed in the dorsal lithotomy position. Her genitalia was prepped and draped. 2% Xylocaine jelly was instilled into the urethra to act as a local anesthetic. A 22 Mosotho rigid cystoscope was passed through the urethra into the bladder. The bladder was inspected using a 30 and a 70 degree lens. Both ureteral orifice ease appeared normal with no blood seen coming from either side. Some whitish debris was found at the base of the bladder between the trigone and the bladder neck. A small diverticulum was seen on the left lateral bladder wall. There was some increased erythema on the mucosa within the diverticulum and the mucosa appeared somewhat shaggy. An additional shaggy patch of mucosa was seen up towards the dome and on the right lateral bladder wall. 2 of these areas of mucosal abnormality were biopsied using cold cup biopsy forceps the biopsies were taken from the left-sided diverticulum in the right bladder wall. The biopsy sites were then cauterized with bipolar cautery. The additional areas of mucosal abnormality were cauterized without taking a biopsy. At the completion of the procedure, the cystoscope was removed. A 16 Mosotho Perez catheter was passed through the urethra into the bladder. The catheter balloon was inflated with 10 cc of sterile water. Once the catheter had drained the bladder, a solution containing 40 mg of mitomycin-C mixed and 40 mL of saline was instilled into the bladder. The catheter was clamped leaving the solution in place. The patient tolerated this procedure with no complications. She will follow-up in 1 to 2 weeks to review her surgical pathology.
[2020-04-30 12:30] VITALS: BP 144/79; PULSE 72; RESP 16; TEMP 36.2; O2SAT 99
== END 2020-04-30 13:48 | disposition home or self-care (01) ==
PROVIDERS: PCP Internal Medicine; Visit Provider Urology
PROC: 0TBB8ZX Excision of Bladder, Via Natural or Artificial Opening Endoscopic, Diagnostic (ICD-10-PCS; CPT 52204; principal; 2020-04-30 09:30)
PROC: (CPT 52204; 2020-04-30 09:30)
DX: N32.3 Diverticulum of bladder (principal); N30.20 Other chronic cystitis without hematuria; I25.10 Atherosclerotic heart disease of native coronary artery without angina pectoris; I10 Essential (primary) hypertension; E78.5 Hyperlipidemia, unspecified; R63.4 Abnormal weight loss
CPT/HCPCS: 52204; 51720; 88305; NC; 88313; J1100; J2405; J9280

== ENCOUNTER → 2020-05-14 11:02 | Outpatient (BNVA) | payer MEDICARE, SELFPAY | PROVIDERS: PCP Internal Medicine; Referring Provider Internal Medicine; Visit Provider Urology | DX: Z48.816 Encounter for surgical aftercare following surgery on the genitourinary system (principal); N32.89 Other specified disorders of bladder; I10 Essential (primary) hypertension | CPT/HCPCS: 99213 ==

== ENCOUNTER 2020-11-23 20:44 | Outpatient (REF) | payer MEDICARE, SELFPAY ==
[2020-11-23 21:31] LABS: HCT 35.6 % (36.0-46.0); HGB 11.9 g/dL (11.2-15.7); MCH 35.7 pg (27.0-33.0); MCHC 33.4 % (32.0-36.0); MCV 106.9 fL (80-95); MPV 10.8 fL (8.0-11.0); Platelet Count 213 10^3/uL (130-400); RBC 3.33 10^6/uL (3.93-5.22); RDW 13.2 % (11.7-14.6); RDW-SD 51.6 fL; WBC 5.56 10^3/uL (4.4-10.8)
[2020-11-23 21:56] LABS: ALT 22 U/L (14-59); AST 32 U/L (15-37); Albumin 3.2 g/dL (3.4-5.0); Alkaline Phosphatase 191 U/L (46-116); Anion Gap 9.9 mmol/L (3-11); BUN 3 mg/dL (7-18); Bilirubin, Total 0.7 mg/dL (0.2-1.0); CO2 26.1 mmol/L (21.0-32.0); CREATININE 0.7 mg/dL (0.55-1.02); Calcium 8.6 mg/dL (8.5-10.1); Chloride 93 mmol/L (98-107); Glucose 70 mg/dL (74-106); Potassium 3.7 mmol/L (3.5-5.1); Sodium 129 mmol/L (136-145); TSH 1.73 uIU/mL (0.36-3.74); Total Protein 7.5 g/dL (6.4-8.2)
[2020-11-23 21:58] LABS: Folate > 20.0 ng/mL (8.6-20.0)
[2020-11-23 22:20] LABS: NT-proBNP 272 pg/mL (<300)
== END 2020-11-23 20:45 | disposition home or self-care (01) ==
LOC: NCHCN 20:44
PROVIDERS: PCP Internal Medicine; Visit Provider Internal Medicine
DX: R60.9 Edema, unspecified (principal); I48.0 Paroxysmal atrial fibrillation; I25.10 Atherosclerotic heart disease of native coronary artery without angina pectoris; J45.30 Mild persistent asthma, uncomplicated; I10 Essential (primary) hypertension; G62.9 Polyneuropathy, unspecified
CPT/HCPCS: 80053; 85027; 82746; 83880; 84443

== ENCOUNTER 2020-12-10 16:22 | Outpatient (REF) | payer MEDICARE, SELFPAY ==
[2020-12-10 21:26] LABS: Anion Gap 6.2 mmol/L (3-11); BUN 13 mg/dL (7-18); CO2 26.8 mmol/L (21.0-32.0); CREATININE 0.8 mg/dL (0.55-1.02); Calcium 8.6 mg/dL (8.5-10.1); Chloride 98 mmol/L (98-107); Glucose 105 mg/dL (74-106); Potassium 4.6 mmol/L (3.5-5.1); Sodium 131 mmol/L (136-145)
== END 2020-12-10 16:23 | disposition home or self-care (01) ==
LOC: NCHCN 16:22
PROVIDERS: PCP Internal Medicine; Visit Provider Internal Medicine
DX: E87.1 Hypo-osmolality and hyponatremia (principal); R60.9 Edema, unspecified
CPT/HCPCS: 80048

== ENCOUNTER 2020-12-14 18:26 | Outpatient (REF) | payer MEDICARE, SELFPAY ==
[2020-12-15 16:57] LABS: Osmolality Serum 276 mOsm/kg (275-295)
== END 2020-12-14 18:27 | disposition home or self-care (01) ==
LOC: NCHCN 18:26
PROVIDERS: PCP Internal Medicine; Visit Provider Internal Medicine
DX: E87.1 Hypo-osmolality and hyponatremia (principal)
CPT/HCPCS: 83930

== ENCOUNTER 2020-12-15 12:00 | Outpatient (REF) | payer MEDICARE, SELFPAY ==
[2020-12-16 19:29] LABS: Osmolality, Urine 296 mOsm/kg (150-1,150)
== END 2020-12-15 12:01 | disposition home or self-care (01) ==
LOC: NCHCN 12:00
PROVIDERS: PCP Internal Medicine; Visit Provider Internal Medicine
DX: E87.1 Hypo-osmolality and hyponatremia (principal)
CPT/HCPCS: 83935

== ENCOUNTER → 2020-12-16 01:56 | Outpatient (CLI) | payer MEDICARE, SELFPAY ==
--- NOTE | 2020-12-16 09:13 | DI.RAD_ITS ---
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 TECHNIQUE: 2D digital imaging was performed. COMPARISON: CR XR CHEST 2V PA LATERAL from 01/03/2019 CR XR CHEST 2V PA LATERAL from 01/03/2019 CR,XR XR CHEST 2V PA LATERAL from 02/17/2020 FINDINGS: Heart size is normal. The mediastinum is not widened. Lungs are clear. No infiltrates nor pleural effusions. Mild tenting of the right hemidiaphragm appears unchanged. Also unchanged from December 2018 IMPRESSION: No acute pulmonary findings. DATA REPOSITORY: RADIATION DOSE DELIVERED:
== END ==
PROVIDERS: PCP Internal Medicine; Visit Provider Internal Medicine
DX: E87.1 Hypo-osmolality and hyponatremia (principal); J45.30 Mild persistent asthma, uncomplicated
CPT/HCPCS: 71046

== ENCOUNTER 2021-03-15 13:35 | Outpatient (REF) | payer MEDICARE, SELFPAY ==
[2021-03-15 21:31] LABS: ALT 18 U/L (14-59); AST 25 U/L (15-37); Albumin 3.9 g/dL (3.4-5.0); Alkaline Phosphatase 160 U/L (46-116); BUN 9 mg/dL (7-18); Bilirubin, Total 0.6 mg/dL (0.2-1.0); CREATININE 0.7 mg/dL (0.55-1.02); Calcium 8.7 mg/dL (8.5-10.1); Chloride 98 mmol/L (98-107); Glucose 72 mg/dL (74-106); Potassium 4.8 mmol/L (3.5-5.1); Sodium 134 mmol/L (136-145); Total Protein 8.2 g/dL (6.4-8.2)
[2021-03-15 21:34] LABS: HCT 37.2 % (36.0-46.0); MCH 35.3 pg (27.0-33.0); MCHC 32.3 % (32.0-36.0); MCV 109.4 fL (80-95); Platelet Count 195 10^3/uL (130-400); RDW 13.2 % (11.7-14.6); RDW-SD 53.1 fL
== END 2021-03-15 13:36 | disposition home or self-care (01) ==
LOC: NCHCN 13:35
PROVIDERS: PCP Internal Medicine; Visit Provider Family Medicine
DX: I10 Essential (primary) hypertension (principal); E87.1 Hypo-osmolality and hyponatremia; I48.0 Paroxysmal atrial fibrillation; J45.30 Mild persistent asthma, uncomplicated
CPT/HCPCS: 80053; 85027

== ENCOUNTER 2021-03-27 15:10 | Emergency (ER) | payer MEDICARE, SELFPAY ==
[2021-03-27 15:16] VITALS: BP 164/84; PULSE 95; RESP 18; TEMP 37; O2SAT 94
--- NOTE | 2021-03-27 15:58 | W.ED.GENAD ---
Discharge Plan Disposition Patient Disposition: HOME Condition: Improving Discharge Details Clinical Impression: Laceration of right lower leg without complication Primary Care Provider: Jose Gonzalez ED Provider: Silver Saenz Home Meds and New Rx's Prescriptions: Continued Xarelto 20 mg tablet 20 mg PO DAILY RF: 0 mecobalamin (vitamin B12) 1,000 mcg tablet,chewable 1,000 mcg PO DAILY RF: 0 loratadine [Claritin] 10 MG tablet 10 mg PO DAILY RF: 0 metoprolol tartrate 50 MG tablet 25 mg PO BID RF: 0 nitroglycerin [Nitrostat] 0.4 MG tablet, sublingual 0.4 mg Sublingual DIRECTED RF: 0 albuterol sulfate [Ventolin HFA] 200 PUFF HFA aerosol inhaler 1 - 2 puff Inhalation QID PRN PRNRF: 0 budesonide-formoterol [Symbicort] 60 PUFF HFA aerosol inhaler 1 puff Inhalation BID RF: 0 famotidine 20 mg Tablet 20 mg PO BID Qty: 14 RF: 0 hydrocortisone 2.5 % Cream 0 g topical TID Qty: 0 RF: 0 triamcinolone acetonide 0.1 % Cream 0 g topical TID Qty: 0 RF: 0 potassium chloride [Klor-Con M20] 20 mEq Tablet,Er Particles/Crystals 20 meq PO DAILY Qty: 14 RF: 0 folic acid 1 mg Tablet 1 mg PO QAM Qty: 30 RF: 0 lidocaine [Aspercreme (lidocaine)] 4 % Adhesive Patch,Medicated 1 patch TOPICAL DAILY RF: 0 fluoxetine 20 mg capsule 20 mg PO DAILY RF: 0 atorvastatin 20 mg tablet 20 mg PO HS RF: 0 Discharge Instructions Instructions: Laceration (ED) Additional Instructions: Remove Dawson bandage this evening when you are home and at rest. Leave dressing in place for 48 hours and then may remove. May use gentle soap and water cleanse, pat dry and redress or leave to air daily after initial 48 hours. Return for suture removal in 7 to 10 days time. Return sooner if you have a fever, foul-smelling discharge from the wound or any other acute concerns. Medical Decision Making 75-year-old female presents for evaluation of right calf laceration. As she was exiting her car to go to the grocery store she cut the leg on the door edge. She does take rivaroxaban a due to ongoing bleeding she was transported by EMS. Patient's tetanus is up-to-date and she has recently been well. The wound was anesthetized, irrigated, examined in a bloodless field without evidence of foreign body. Wound was closed with 15 interrupted 4-0 nylon sutures with good wound edge approximation. Dressed at the bedside. Patient understands homecare. She will return for suture removal. She is stable and improved. HPI General Mode of arrival: ambulatory. Date/Time Provider Initiated Documentation: 03/27/21 15:12. Limitations to Documentation: no limitations. Information obtained by: patient. History of Present Illness 75 year old F presents to the emergency department with the chief complaint of Right calf laceration, described as moderate, Quality is described as constant, and is localized to the right and lower extremity. Patient reports no radiation. Patient started experiencing this minute(s) and it has been constant. No relieving factors improve symptom(s), No exacerbating factors reported . Patient notes no other symptoms.. Patient did receive the following treatments prior to arrival, other (Tetanus up-to-date) Related Data Home Medications Medication Instructions Recorded Confirmed loratadine [Claritin] 10 mg PO DAILY 01/29/13 03/27/21 albuterol sulfate [Ventolin HFA] 1 - 2 puff INHALATION QID PRN PRN 12/07/16 03/27/21 budesonide-formoterol [Symbicort] 1 puff INHALATION BID 12/07/16 03/27/21 metoprolol tartrate 25 mg PO BID 12/07/16 03/27/21 nitroglycerin [Nitrostat] 0.4 mg SUBLINGUAL DIRECTED 12/07/16 03/27/21 famotidine 20 mg PO BID #14 tab 01/08/19 03/27/21 hydrocortisone 0 g TOPICAL TID #0 g 01/08/19 03/27/21 triamcinolone acetonide 0 g TOPICAL TID #0 g 01/08/19 03/27/21 mecobalamin (vitamin B12) 1,000 1,000 mcg PO DAILY 12/26/19 03/27/21 mcg chewable tablet rivaroxaban 20 mg tablet 20 mg PO DAILY 02/13/20 03/27/21 lidocaine [Aspercreme (lidocaine)] 1 patch TOPICAL DAILY 02/17/20 03/27/21 atorvastatin 20 mg PO HS 02/19/20 03/27/21 fluoxetine 20 mg PO DAILY 02/19/20 03/27/21 folic acid 1 mg PO QAM #30 tab 03/02/20 03/27/21 potassium chloride [Klor-Con M20] 20 meq PO DAILY #14 tab 03/02/20 03/27/21 Previous Rx's Medication Instructions Recorded famotidine 20 mg PO BID #14 tab 01/08/19 hydrocortisone 0 g TOPICAL TID #0 g 01/08/19 triamcinolone acetonide 0 g TOPICAL TID #0 g 01/08/19 folic acid 1 mg PO QAM #30 tab 03/02/20 potassium chloride [Klor-Con M20] 20 meq PO DAILY #14 tab 03/02/20 Allergies Allergy/AdvReac Type Severity Reaction Status Date / Time lisinopril Allergy Intermediate lips Unverified 03/27/21 15:23 swelled sulfamethoxazole Allergy Intermediate Hives Unverified 03/27/21 15:23 [From Bactrim] trimethoprim [From Bactrim] Allergy Intermediate Hives Unverified 03/27/21 15:23 Penicillins AdvReac Intermediate Hives Unverified 03/27/21 15:23 General Stated Complaint: Laceration TY: 3 Review of Systems Narrative: No fall or injury. Tetanus up-to-date. Otherwise well. 6 systems reviewed and negative. [facility] Medical History Abnormal CT scan, bladder Asthma CAD (coronary artery disease) Cellulitis Disorder of both eustachian tubes Drug rash Folate deficiency H/O: HTN (hypertension) History of asthma History of depression History of tobacco use Hyperlipidemia Hypertension Low back pain 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 Peripheral neuropathy Rash, skin Tremor Unintentional weight loss Vitamin B12 deficiency (dietary) anemia Surgical History Hx of eye surgery Social History Smoking/Tobacco Use Status: Former Tobacco Use Quit Date: 05/29/89 Smoking risk assessment performed?: Yes Alcohol Intake: never Drug use: Never Substance use type: does not use Details: ptstates that she did drink a bloody ki today Do you feel safe at home: Yes Do you feel safe in your relationship?: Yes Exam Narrative Exam Narrative: GEN: awake, alert, oriented 3. Pleasant, well groomed, interactive. HEAD: Normocephalic, atraumatic EYES: PERRL, EOMI NECK: Full ROM, no MILLER, no menigismus Chest, normal respiratory effort, no distress EXT: Full ROM, right lateral calf with approximately 10 cm curvilinear laceration through the depth of the dermis. No significant deep tissue involvement, no foreign body Neuro: Grossly normal neurologic exam, conversant, interactive. Psych: Speech fluent, thoughts congruent, affect normal Course Vital Signs Vital signs: Vital Signs Temperature 37 C 03/27/21 15:16 Pulse 95 H 03/27/21 15:16 Respiratory Rate 18 03/27/21 15:16 Blood Pressure 164/84 H 03/27/21 15:16 Pulse Oximetry 94 03/27/21 15:16 Temperature 37 C 03/27/21 15:16 Temperature Source Temporal Artery Scan 03/27/21 15:16 Pulse 95 H 03/27/21 15:16 Respiratory Rate 18 03/27/21 15:16 Respiratory Effort 03/27/21 15:20 Blood Pressure 164/84 H 03/27/21 15:16 Blood Pressure Position Supine 03/27/21 15:16 Pulse Oximetry 94 03/27/21 15:16 Oxygen Delivery Method Room Air 03/27/21 15:16 Oxygen Flow Rate 0 03/27/21 15:16 Procedures Laceration Laceration 1: Site: lower extremity Side (If applicable): right Size (cm): 10 Description: linear Depth: simple, single layer Local Anesthetic: Lidocaine 1% Amount of anesthesia used (mL): 5 Pre-repair: wound explored, irrigated extensively and deep structures intact Skin layer closed with: nylon Size (cm): 4-0 Number of sutures: 15 Technique: simple, interrupted PAWSS Have you Been Recently Intoxicated or Drunk Within the Last 30 days?: Unable to Obtain Have you Ever Experienced Previous Episodes of Alcohol Withdrawal?: Unable to Obtain Have you ever Experienced Withdrawal Seizures?: Unable to Obtain Have you ever Experienced Delirium Tremens(DT)s?: Unable to Obtain Have you ever undergone Alcohol Rehabilitation Treatment (i.e, inpt ot outpatient treatment programs)?: Unable to Obtain Have you ever Experienced Blackouts?: Unable to Obtain Have you ever Combined Alcohol with other Downers within the last 90 days?: Unable to Obtain Have you ever Combined Alcohol with any other Substance of Abuse during the last 90 days?: Unable to Obtain Evidence of Increased Autonomic Activity (i.e. HR>120, tremor, sweating, agitation, nausea)?: No Result: 0
[2021-03-27 16:18] VITALS: BP 160/80; PULSE 85; RESP 16; TEMP 36.3; O2SAT 94
== END 2021-03-27 16:40 | disposition home or self-care (01) ==
LOC: ER 16:23
PROVIDERS: Emergency Provider Emergency Medicine; PCP Internal Medicine
DX: S81.811A Laceration without foreign body, right lower leg, initial encounter (principal); W26.8XXA Contact with other sharp object(s), not elsewhere classified, initial encounter; Z79.01 Long term (current) use of anticoagulants
CPT/HCPCS: 12004

== ENCOUNTER → 2021-04-01 01:55 | Outpatient (CLI) | payer MEDICARE, SELFPAY ==
--- NOTE | 2021-04-01 | DI.CT_ITS ---
Exam(s) CT CHEST WO EXAM: CT CHEST WO CLINICAL HISTORY: F/U KOREY PULMONARY NODULE, R91.1. TECHNIQUE: Multi planar reconstructions were performed. CONTRAST MATERIAL: None COMPARISON: CT CT CHEST PE CTA from 02/17/2020 CR XR CHEST 2V PA LATERAL from 12/16/2020 FINDINGS: CHEST: LUNGS: COPD emphysematous changes are again noted. The previously described 4 millimeter nodule in t he left lung apex is actually less evident on the present study. There is an unchanged similar size pleural based nodule in the posterior right lung apex. On the present study there is a [address] noncalcified nodule in the anterior segment of the left upper lobe, anterior to the heart behind the left side of the sternum. (Series 3/image 36) no other significant focal left lung findings and no pleural effusion. There is mild infiltrate evident in the right lower lobe (series 3/image 33). Also some mild subpleural infiltrate lower down in the right lower lobe (series 3/image 39); this is unchanged from the prior study of January 2020. There are no pleural effusions on either side. So me mucus is seen on the dependent wall of the distal right mainstem bronchus. No lesions seen in eit her mainstem bronchus. Also some mucus seen in the dependent wall of the trachea. MEDIASTINUM: There is no obvious hilar nor mediastinal adenopathy. Visualized thyroid unremarkable.No obvious axillary adenopathy CARDIAC: Heart size is normal. There is no pericardial effusion.Coronary artery calcification is not ed. Diameter of the ascending thoracic aorta is within normal limits. VISUALIZED UPPER ABDOMEN: OSSEOUS: No significant osseous lesions.No new compression fractures.. IMPRESSION: 1. Compared to the prior CT scan of 02/17/2020 the previously described small 4 millimeter nodule in the left lung apex is no longer seen. Findings as described above which are mostly unchanged the exc eption of a new 6 x 5 millimeter nodular infiltrate in the anterior segment of the left lower lobe, i nterposed between the anterior aspect of the heart and the left side of the sternum. There is also s mall area of new infiltrate in the right lower lobe, not malignant-appearing. There are no pleural e ffusions nor intrathoracic adenopathy. 2. Recommend follow-up CT scan in 6 months, earlier if clinically indicated. RADIATION DOSE DELIVERED: 456.42mGy.cm Total DLP DATA REPOSITORY: All CT scans at this facility are submitted to the National Radiology Data Registry (NRDR) Dose Index Registry (DIR) with the [employer] ([employer]). RADIATION OPTIMIZATION: All CT scans at this facility use at least one of these dose optimization te chniques: automated exposure control; mA and/or kV adjustment per patient size (includes targeted exa ms where dose is matched to clinical indication); or iterative reconstruction.
== END ==
PROVIDERS: PCP Internal Medicine; Visit Provider Family Medicine
DX: R91.1 Solitary pulmonary nodule (principal); R91.8 Other nonspecific abnormal finding of lung field; J44.9 Chronic obstructive pulmonary disease, unspecified
CPT/HCPCS: 71250

== ENCOUNTER 2021-08-24 15:14 | Outpatient (REF) | payer MEDICARE, SELFPAY ==
[2021-08-24 21:37] LABS: ALT 14 U/L (14-59); AST 22 U/L (15-37); Albumin 3.3 g/dL (3.4-5.0); Alkaline Phosphatase 264 U/L (46-116); Anion Gap 5.9 mmol/L (3-11); BUN 9 mg/dL (7-18); Bilirubin, Total 0.3 mg/dL (0.2-1.0); CO2 28.1 mmol/L (21.0-32.0); CREATININE 0.6 mg/dL (0.55-1.02); Calcium 8.3 mg/dL (8.5-10.1); Chloride 101 mmol/L (98-107); Glucose 80 mg/dL (74-106); Potassium 4.9 mmol/L (3.5-5.1); Sodium 135 mmol/L (136-145)
== END 2021-08-24 15:15 | disposition home or self-care (01) ==
LOC: NCHCN 15:14
PROVIDERS: PCP Internal Medicine; Visit Provider Family Medicine
DX: I10 Essential (primary) hypertension (principal); R60.0 Localized edema; F10.99 Alcohol use, unspecified with unspecified alcohol-induced disorder
CPT/HCPCS: 80053

== ENCOUNTER 2021-09-20 02:39 | Outpatient (CLI) | payer MEDICARE, SELFPAY ==
--- NOTE | 2021-09-20 07:30 | DI.US_ITS ---
Exam(s) US ABDOMEN EXAM: US ABDOMEN CLINICAL HISTORY: PERIPHERAL NEUROPATHY, G60.9; ABNL LFTS, R94.5 TECHNIQUE: Ultrasound abdomen performed using standard protocol. COMPARISON: US US ABDOMEN from 01/27/2020 FINDINGS: ABDOMINAL AORTA AND IVC: Visualized portions normal caliber. PANCREAS: Normal where visualized. LIVER: Normal. Hepatopedal flow in the Portal Vein. The liver measures 13.9 cm long. GALLBLADDER:No evidence of cholelithiasis. No evidence of wall thickening. No pericholecystic fluid i dentified. BILIARY SYSTEM: Common bile duct measures < 7 mm. No intrahepatic biliary ductal dilation. SANDERS'S SIGN: Negative. KIDNEYS: Kidneys are symmetric in size. No evidence of renal calculi. No evidence of hydronephrosis. No renal mass or cyst identified. SPLEEN: Not enlarged. ASCITES: None seen. IMPRESSION: Normal sonographic appearance of the upper abdomen. DATA REPOSITORY:
== END 2021-09-20 02:59 ==
PROVIDERS: PCP Internal Medicine; Visit Provider Family Medicine
DX: G60.9 Hereditary and idiopathic neuropathy, unspecified (principal); R94.5 Abnormal results of liver function studies
CPT/HCPCS: 76700

== ENCOUNTER 2021-09-27 16:47 | Outpatient (REF) | payer MEDICARE, SELFPAY ==
[2021-09-27 21:31] LABS: HCT 31.7 % (36.0-46.0); HGB 9.9 g/dL (11.2-15.7); MCHC 31.2 % (32.0-36.0); MCV 106 fL (80-95); Platelet Count 245 10^3/uL (130-400); RDW 14.7 % (11.7-14.6); RDW-SD 57.1 fL; WBC 5.42 10^3/uL (4.4-10.8)
[2021-09-27 21:39] LABS: ALT 13 U/L (14-59); AST 25 U/L (15-37); Albumin 3.3 g/dL (3.4-5.0); Alkaline Phosphatase 206 U/L (46-116); BUN 19 mg/dL (7-18); Bilirubin, Total 0.6 mg/dL (0.2-1.0); CREATININE 0.9 mg/dL (0.55-1.02); Calcium 8.7 mg/dL (8.5-10.1); Chloride 101 mmol/L (98-107); Glucose 91 mg/dL (74-106); Potassium 4.7 mmol/L (3.5-5.1); Sodium 137 mmol/L (136-145); Total Protein 7.8 g/dL (6.4-8.2)
[2021-09-29 11:26] LABS: Hepatitis C Ab w Rflx HCV PCR Negative (Negative)
== END 2021-09-27 16:48 | disposition home or self-care (01) ==
LOC: NCHCN 16:47
PROVIDERS: PCP Internal Medicine; Visit Provider Family Medicine
DX: I48.0 Paroxysmal atrial fibrillation (principal); F10.10 Alcohol abuse, uncomplicated; R60.0 Localized edema; J45.30 Mild persistent asthma, uncomplicated; Z11.59 Encounter for screening for other viral diseases
CPT/HCPCS: 80053; 85027; 86803

== ENCOUNTER 2021-10-13 11:38 | Outpatient (REF) | payer MEDICARE, SELFPAY ==
[2021-10-13 14:59] LABS: Ferritin 17 ng/mL (8-252); Vitamin B12 913 pg/mL (193-986)
[2021-10-13 15:09] LABS: Folate > 20.0 ng/mL (8.6-20.0)
[2021-10-13 16:04] LABS: Iron 29 ug/dL (50-170); Total Iron Binding Capacity 420 ug/dL (250-450); Transferrin Sat 7 % (15-50)
== END 2021-10-13 11:39 | disposition home or self-care (01) ==
LOC: NCHCN 11:38
PROVIDERS: PCP Internal Medicine; Visit Provider Family Medicine
DX: D64.9 Anemia, unspecified (principal); D75.89 Other specified diseases of blood and blood-forming organs; I10 Essential (primary) hypertension; I48.0 Paroxysmal atrial fibrillation; J44.9 Chronic obstructive pulmonary disease, unspecified
CPT/HCPCS: 87077; 82607; 82728; 82746; 83540; 83550; 87086; 87186

== ENCOUNTER 2021-10-22 00:16 | Outpatient (CLI) | payer MEDICARE, SELFPAY ==
--- NOTE | 2021-10-22 10:10 | DI.CT_ITS ---
Exam(s) CT CHEST WO EXAM: CT CHEST WO CLINICAL HISTORY: LT UPPER LOBE PULMONARY NODULE, R91.1, 6-MO F/U TECHNIQUE: Imaging Protocol: Axial computed tomography images with coronal and sagittal reformatted images were created and reviewed CONTRAST MATERIAL: Noncontrast COMPARISON: CT CT CHEST PE CTA from 02/17/2020 CR XR CHEST 2V PA LATERAL from 12/16/[address] CHEST WO from 04/01/2021 FINDINGS: Tracheobronchial tree: No bronchiectasis or mucous plugging. Mediastinum and Guillermina: No dominant adenopathy or fluid collection. Pulmonary parenchyma: Increase in size of previously noted nodule in the anterior left upper lobe. Th is lies directly adjacent to the pericardial fat and measures 8 by 6 x 7 millimeters, increasing from 6 x 5 on the prior exam. No additional nodules are identified. Underlying emphysematous and fibrotic changes. Area of atelectasis in the posterior right upper lobe adjacent to the fissure. Pleura: No effusion or pneumothorax. Heart: The heart is mildly dilated. coronary artery calcifications are seen. Aorta: Thoracic aorta n on-dilated. Atherosclerotic changes. Upper abdomen: Unremarkable. Lymph nodes: Within normal limits. Bones: Interval development of a T5 compression fracture. Stable mild compression fractures of T7, T8 and T9. Degenerative disc changes, greater in the lower thoracic and upper lumbar levels. Soft tissues: Unremarkable. IMPRESSION: Interval increase in size of anterior left upper lobe nodule. Biopsy recommended. RADIATION DOSE DELIVERED: 464.92mGy.cm Total DLP DATA REPOSITORY: All CT scans at this facility are submitted to the National Radiology Data Registry (NRDR) Dose Index Registry (DIR) with the [employer] (ACR). RADIATION OPTIMIZATION: All CT scans at this facility use at least one of these dose optimization te chniques: automated exposure control; mA and/or kV adjustment per patient size (includes targeted exa ms where dose is matched to clinical indication); or iterative reconstruction.
== END 2021-10-22 00:36 ==
PROVIDERS: PCP Internal Medicine; Visit Provider Family Medicine
DX: R91.1 Solitary pulmonary nodule (principal); J43.8 Other emphysema
CPT/HCPCS: 71250

== ENCOUNTER 2022-01-04 19:54 | Outpatient (REF) | payer MEDICARE, SELFPAY ==
[2022-01-04 14:34] LABS: Abs Immature Grans 0.01 10^3/uL (0.0-0.06); Absolute Basophil Count 0.04 10^3/uL (0.0-0.2); Absolute Eosinophil Count 0.16 10^3/uL (0.0-0.7); Absolute Lymphocyte Count 0.78 10^3/uL (1.2-3.4); Absolute Monocyte Count 0.59 10^3/uL (0.1-0.8); Absolute Neutrophil Count 2.92 10^3/uL (1.2-6.7); Basophils % 0.9; Eosinophils % 3.6; HCT 36.7 % (36.0-46.0); HGB 12.4 g/dL (11.2-15.7); Immature Grans % 0.2; Lymphocytes % 17.3; MCH 34.9 pg (27.0-33.0); MCHC 33.8 % (32.0-36.0); MCV 103 fL (80-95); Monocytes % 13.1; Neutrophils % 64.9; Platelet Count 233 10^3/uL (130-400); RBC 3.55 10^6/uL (3.93-5.22); RDW 17.2 % (11.7-14.6)
[2022-01-04 14:58] LABS: ALT 19 U/L (14-59); AST 26 U/L (15-37); Alkaline Phosphatase 173 U/L (46-116); Anion Gap 6.1 mmol/L (3-11); BUN 8 mg/dL (7-18); Bilirubin, Total 0.8 mg/dL (0.2-1.0); CO2 27.9 mmol/L (21.0-32.0); CREATININE 0.6 mg/dL (0.55-1.02); Calcium 8.8 mg/dL (8.5-10.1); Chloride 93 mmol/L (98-107); Ferritin 101 ng/mL (8-252); Glucose 74 mg/dL (74-106); Potassium 5.1 mmol/L (3.5-5.1); Sodium 127 mmol/L (136-145); Total Protein 8.4 g/dL (6.4-8.2)
== END 2022-01-04 19:55 | disposition home or self-care (01) ==
LOC: NCHCN 19:54
PROVIDERS: PCP Internal Medicine; Visit Provider Family Medicine
DX: D64.9 Anemia, unspecified (principal); J44.9 Chronic obstructive pulmonary disease, unspecified; R60.9 Edema, unspecified; R26.81 Unsteadiness on feet
CPT/HCPCS: 80053; 82728; 85025

== ENCOUNTER 2022-07-18 17:55 | Outpatient (REF) | payer MEDICARE, SELFPAY ==
[2022-07-18 20:47] LABS: HCT 31.9 % (36.0-46.0); HGB 10.3 g/dL (11.2-15.7); MCH 36.1 pg (27.0-33.0); MCHC 32.3 % (32.0-36.0); MCV 112 fL (80-95); Platelet Count 354 10^3/uL (130-400); RBC 2.85 10^6/uL (3.93-5.22); RDW 13.2 % (11.7-14.6); RDW-SD 54.5 fL; WBC 7.51 10^3/uL (4.4-10.8)
[2022-07-18 21:10] LABS: ALT 18 U/L (14-59); AST 25 U/L (15-37); Albumin 3.5 g/dL (3.4-5.0); Alkaline Phosphatase 227 U/L (46-116); Anion Gap 7.9 mmol/L (3-11); BUN 10 mg/dL (7-18); Bilirubin, Total 0.4 mg/dL (0.2-1.0); CO2 29.1 mmol/L (21.0-32.0); CREATININE 0.7 mg/dL (0.55-1.02); Calcium 8.7 mg/dL (8.5-10.1); Chloride 91 mmol/L (98-107); Estimated GFR 88.47 (mL/min/1.73m2); Ferritin 32 ng/mL (8-252); Glucose 82 mg/dL (74-106); Potassium 5.2 mmol/L (3.5-5.1); Sodium 128 mmol/L (136-145); Total Protein 8.2 g/dL (6.4-8.2)
== END 2022-07-18 17:56 | disposition home or self-care (01) ==
LOC: NCHCN 17:55
PROVIDERS: PCP Internal Medicine; Visit Provider Family Medicine
DX: D64.9 Anemia, unspecified (principal); E87.1 Hypo-osmolality and hyponatremia; I10 Essential (primary) hypertension
CPT/HCPCS: 80053; 85027; 82728

== ENCOUNTER 2022-09-21 13:15 | Outpatient (REF) | payer MEDICARE, SELFPAY ==
[2022-09-21 21:55] LABS: Abs Immature Grans 0.06 10^3/uL (0.0-0.06); Absolute Basophil Count 0.04 10^3/uL (0.0-0.2); Absolute Eosinophil Count 0.05 10^3/uL (0.0-0.7); Absolute Lymphocyte Count 0.53 10^3/uL (1.2-3.4); Absolute Monocyte Count 0.52 10^3/uL (0.1-0.8); Absolute Neutrophil Count 8.95 10^3/uL (1.2-6.7); Basophils % 0.4; Eosinophils % 0.5; Immature Grans % 0.6; Lymphocytes % 5.2; MCH 32.2 pg (27.0-33.0); MCHC 33.3 % (32.0-36.0); MCV 97 fL (80-95); MPV 10.3 fL (8.0-11.0); Monocytes % 5.1; Neutrophils % 88.2; Platelet Count 457 10^3/uL (130-400); RBC 3.73 10^6/uL (3.93-5.22); RDW 15.4 % (11.7-14.6); RDW-SD 54.1 fL; WBC 10.15 10^3/uL (4.4-10.8)
[2022-09-21 22:12] LABS: ALT 704 U/L (14-59); Albumin 2.7 g/dL (3.4-5.0); Anion Gap 8.3 mmol/L (3-11); BUN 21 mg/dL (7-18); Bilirubin, Total 2.7 mg/dL (0.2-1.0); CO2 23.7 mmol/L (21.0-32.0); CREATININE 1.1 mg/dL (0.55-1.02); Calcium 9.3 mg/dL (8.5-10.1); Chloride 98 mmol/L (98-107); Estimated GFR 51.43 (mL/min/1.73m2); Glucose 91 mg/dL (74-106); Potassium 4.9 mmol/L (3.5-5.1); Sodium 130 mmol/L (136-145); Total Protein 7.8 g/dL (6.4-8.2)
[2022-09-21 22:42] LABS: AST 1690 U/L (15-37); Alkaline Phosphatase 1240 U/L (46-116); ETHANOL BLOOD < 3.0 mg/dL (<10)
== END 2022-09-21 13:16 | disposition home or self-care (01) ==
LOC: NCHCN 13:15
PROVIDERS: PCP Internal Medicine; Visit Provider Family Medicine
DX: R26.81 Unsteadiness on feet (principal); F10.99 Alcohol use, unspecified with unspecified alcohol-induced disorder; I10 Essential (primary) hypertension
CPT/HCPCS: 80053; 80320; 85025

== ENCOUNTER 2022-09-22 07:13 | Observation (INO) | payer MEDICARE, SELFPAY ==
[2022-09-22] VITALS (35 sets, daily range): BP systolic 100–160; BP diastolic 35–83; PULSE 90–127; RESP 12–22; TEMP 36.3–36.9; O2SAT 82–97
[2022-09-22] MEDS: Normal Saline 500 ML 1000 ML IV (07:40)
[2022-09-22] MEDS: Ondansetron 4 MG/2 ML VIAL ×2 (07:44→13:50)
--- NOTE | 2022-09-22 08:01 | ED.GENADUL_ITS ---
Discharge Plan Disposition Patient Disposition: Admit to [facility] Condition: Stable Discharge Details Clinical Impression: Thrombocytosis, NICKY (acute kidney injury), Acute UTI, Acetaminophen toxicity, Elevated INR, Abnormal LFTs Primary Care Provider: Jose Gonzalez ED Provider: Remigio French [place] Meds and New Rx's Prescriptions: New ondansetron 4 mg tablet,disintegrating 4 mg PO BID 5 Days Qty: 10 0RF Continued Xarelto 20 mg tablet 20 mg PO DAILY Rx Instructions: must administer with evening meal mecobalamin (vitamin B12) 1,000 mcg tablet,chewable 1,000 mcg PO DAILY loratadine [Claritin] 10 MG tablet 10 mg PO DAILY metoprolol tartrate 50 MG tablet 25 mg PO BID nitroglycerin [Nitrostat] 0.4 MG tablet, sublingual 0.4 mg Sublingual DIRECTED albuterol sulfate [Ventolin HFA] 200 PUFF HFA aerosol inhaler 1 - 2 puff Inhalation QID PRN PRN budesonide-formoterol [Symbicort] 60 PUFF HFA aerosol inhaler 1 puff Inhalation BID famotidine 20 mg Tablet 20 mg PO BID Qty: 14 0RF Patient Comments: patient reports not taking hydrocortisone 2.5 % Cream 0 g topical TID Qty: 0 0RF triamcinolone acetonide 0.1 % Cream 0 g topical TID Qty: 0 0RF potassium chloride [Klor-Con M20] 20 mEq Tablet,Er Particles/Crystals 20 meq PO DAILY Qty: 14 0RF folic acid 1 mg Tablet 1 mg PO QAM Qty: 30 0RF lidocaine [Aspercreme (lidocaine)] 4 % Adhesive Patch,Medicated 1 patch TOPICAL DAILY fluoxetine 20 mg capsule 20 mg PO DAILY Patient Comments: TAKE ONE CAPSULE BY MOUTH EVERY DAY atorvastatin 20 mg tablet 20 mg PO HS Patient Comments: TAKE ONE TABLET BY MOUTH AT BEDTIME Medical Decision Making This is an overall quite well-appearing afebrile and not tachycardic 77-year-old female with symptoms of dysuria and frequency and outpatient diagnosis of UTI. Her vital signs were initially significant for tachycardia however this occurred in the setting of dry heaving. Patient received ODT ondansetron and her dry heaving has resolved. Her heart rate has normalized. I considered withdrawal from ethanol however the patient reports that she has not had anything to drink in the past 5 weeks. We will obtain a serum ethanol level. She is not tremulous nor does she have any tongue fasciculations to suggest withdrawal from alcohol. She has no flank pain nor fevers to suggest pyelonephritis. She has never had ureterolithiasis and has no abdominal pain so my suspicion is exceedingly low for infected stone. She is having no chest pain to suggest ACS. No perineal pain to suggest Melva's gangrene. My suspicion was low for sepsis so I did not send a lactate nor draw empiric blood cultures. We will treat with 2 g of ceftriaxone and have patient take her outpatient course of cephalexin as previously prescribed by her PCP. Will ensure that she has not developed an NICKY and does not have any acute electrolyte abnormalities. 8:50 AM CBC with no leukocytosis. No anemia. No macrocytosis. Patient does have thrombocytosis Improved compared to prior. Ethanol negative. Labs consistent with NICKY. No anion gap. Mild hyponatremia. Patient is tolerating p.o. I have asked health insulation power unit tender Elissa to have the patient seen by her primary care provider within the week and to have repeat labs drawn to ensure that her NICKY has resolved. We will proceed with empiric trial of expectant outpatient management. Monitor reveals sinus tachycardia. 9:15 AM Patient's heart rate was in the 1 teens. As result I hung an additional 500 cc of fluid. Patient was drinking water as well in the emergency department. Patient is also incontinent of urine. Given that she had been diagnosed with a urinary tract infection yesterday I did not feel that she requires straight catheter to obtain a second urinalysis as I did not think that it would change control analyst. Per chart review patient has had tachycardia in the past up into the 120s at various times. Her most recent heart rates however for the past several years have been normal. Will monitor patient to ensure that her heart rate normalizes. She also reports that she has not taken her metoprolol tartrate 25 mg so we will redose this now and recheck her labs to ensure that her NICKY is resolving. 10:02 AM Patient's creatinine improved slightly down to 1.1. Her potassium increased slightly to 5.3. She is pending her metoprolol dose in the ED. Of note patient has had mild hyperkalemia in the past. She has also had hypokalemia. She is no t on any potassium sparing diuretics. I have requested an outpatient repeat BMP. 10:55 AM I spoke with Dr. Rosa from the patient's PCP office. He had seen her yesterday and was concerned about her safety at home. He was concerned that she had been drinking again. He was concerned about her markedly elevated LFTs. Given that she is on rivaroxaban and that she is a fall risk we will plan on hospitalizing her. We will recheck LFTs and add on an ammonia although my suspicion for hepatic encephalopathy is low as patient is alert and oriented to person place and time.Patient confirms DNI DNR. Given her elevated alkaline phosphatase will order right upper quadrant ultrasound. 11:07 AM I spoke with Dr. Soliz who will plan on touching base with the patient's primary care office. He requested an acute hepatitis panel. We will also obtain dry CT abdomen pelvis to assess for mass. From labs yesterday AST is greater than ALT which is consistent with possible alcoholic hepatitis. Given alkaline phosphatase elevation is certainly possible that patient could have biliary stasis versus obstruction. 12:[address] scan with no obvious acute pathology. Ultrasound of right upper quadrant negative. LFTs slightly improved compared to yesterday. Acetaminophen slightly elevated but within normal limits at 12 mcg/mL. I met with the patient and she did report that she had a headache several days ago for which she took 22 acetaminophen tablets each of which were 325 mg. This results in a daily dose of 7150 mg. This certainly exceeds her maximum daily dose of 4 g/day. It is however less than the toxic dose at 200 mg/kg. Nonetheless we will consult poison control. 2 PM Poison control advised NAC. He advised Q12 hr labs. Total NAC duration 21 hours. I spoke again with Dr. Soliz who graciously helped hospitalize the patient. Patient's salicylate level was negative. I screened her for suicidal ideation which she denied. Chronic conditions affecting the care of the patient: Prior UTIs History obtained from an outside historian: N/A External record review: N/A Medications: ODT ondansetron ECG interpretation: Narrow complex sinus tachycardia at a rate of 108. Normal axis. Intervals within normal limits. T wave flattening in lead III and aVF.no acute injury pattern. Compared to prior dated 2019 T wave flattening in inferior leads is more pronounced. Sinus tachycardia is persistent. Her INR was slightly elevated at 1.4. Social determinants of health affecting disposition: Lives alone Management discussed with: PCP & hospitalist Treatment/interventions considered: Hospitalization but will proceed with empiric trial of expectant outpatient management Response to therapies provided: Nausea resolved following ondansetron HPI General Date/Time Provider Initiated Documentation: 09/22/22 08:01 . HPI Narrative: This is a 77-year-old female with history of prior UTIs arriving to the emergency department in setting of dry heaving. Patient reports that yesterday she was diagnosed with a urinary tract infection by her PCP. She reports that her symptoms began approximately 10 days ago and she has had dark urine and dysuria. She has not been vomiting but she does feel nauseous. She also endorses chills. She lives alone. She is not having any abdominal pain. She denies history of ureterolithiasis. She has a prior history of alcohol use but reports that she has not had anything to drink since August 13, 2022. She denies fevers and flank pain. She has not taken any recent falls. She has an outpatient prescription from her PCP for cephalexin. Related Data Home Medications Medication Instructions Recorded Confirmed loratadine 10 mg tablet (Claritin) 10 mg PO DAILY 01/29/13 09/22/22 albuterol sulfate 90 mcg/actuation 1 - 2 puff inhalation QID PRN PRN 12/07/16 09/22/22 aerosol inhaler (Ventolin HFA) budesonide-formoterol HFA 160 1 puff inhalation BID 12/07/16 09/22/22 mcg-4.5 mcg/actuation aerosol inhaler (Symbicort) metoprolol tartrate 50 mg tablet 25 mg PO BID 12/07/16 09/22/22 nitroglycerin 0.4 mg sublingual 0.4 mg sublingual DIRECTED 12/07/16 09/22/22 tablet (Nitrostat) famotidine 20 mg tablet 20 mg PO BID #14 tabs 01/08/19 09/22/22 hydrocortisone 2.5 % topical cream 0 g topical TID #0 grams 01/08/19 09/22/22 triamcinolone acetonide 0.1 % 0 g topical TID #0 grams 01/08/19 09/22/22 topical cream mecobalamin (vitamin B12) 1,000 1,000 mcg PO DAILY 12/26/19 09/22/22 mcg chewable tablet rivaroxaban 20 mg tablet (Xarelto) 20 mg PO DAILY 02/13/20 09/22/22 lidocaine 4 % topical patch 1 patch topical DAILY 02/17/20 09/22/22 (Aspercreme (lidocaine)) atorvastatin 20 mg tablet 20 mg PO HS 02/19/20 09/22/22 fluoxetine 20 mg capsule 20 mg PO DAILY 02/19/20 09/22/22 folic acid 1 mg tablet 1 mg PO QAM #30 tabs 03/02/20 09/22/22 potassium chloride 20 mEq 20 meq PO DAILY #14 tabs 03/02/20 09/22/22 tablet,extended release(part/cryst) (Klor-Con M) ondansetron 4 mg disintegrating 4 mg PO BID 5 days #10 tabs 09/22/22 tablet Previous Rx's Medication Instructions Recorded famotidine 20 mg tablet 20 mg PO BID #14 tabs 01/08/19 hydrocortisone 2.5 % topical cream 0 g topical TID #0 grams 01/08/19 triamcinolone acetonide 0.1 % 0 g topical TID #0 grams 01/08/19 topical cream folic acid 1 mg tablet 1 mg PO QAM #30 tabs 03/02/20 potassium chloride 20 mEq 20 meq PO DAILY #14 tabs 03/02/20 tablet,extended release(part/cryst) (Klor-Con M) ondansetron 4 mg disintegrating 4 mg PO BID 5 days #10 tabs 09/22/22 tablet Allergies Allergy/AdvReac Type Severity Reaction Status Date / Time lisinopril Allergy Intermediate lips Unverified 03/27/21 15:23 swelled sulfamethoxazole Allergy Intermediate Hives Unverified 03/27/21 15:23 [From Bactrim] trimethoprim [From Bactrim] Allergy Intermediate Hives Unverified 03/27/21 15:23 Penicillins AdvReac Intermediate Hives Unverified 03/27/21 15:23 General Stated Complaint: GenMedical TY: 3 PFSH All Active Problems (Updated 09/22/22 @ 14:08 by Remigio French MD) Thrombocytosis (Acute) NICKY (acute kidney injury) (Acute) Acute UTI (Acute) Acetaminophen toxicity (Acute) Elevated INR (Acute) Abnormal LFTs (Acute) Laceration of right lower leg without complication (Acute) Malakoplakia of bladder (Acute) DVT prophylaxis (Acute) Discharge planning issues (Acute) UTI (urinary tract infection) (Acute) Failure to thrive (Acute) Hyponatremia (Acute) Hypomagnesemia (Acute) Neuropathy (Acute) Weakness (Acute) New onset a-fib (Acute) Urinary bladder neoplasm (Acute) DNR (do not resuscitate) (Acute) Physician orders for life-sustaining treatment (POLST) form indicates patient wish for [id number] status (Acute) Urinary tract infection (Acute) COPD (chronic obstructive pulmonary disease) (Chronic) Anemia (Chronic) Hypokalemia (Acute) Abnormal CT scan, bladder (Acute) Hyperlipidemia (Acute) Asthma (Chronic) CAD (coronary artery disease) (Chronic) Hypertension (Chronic) Medical History (Updated 09/22/22 @ 14:08 by Remigio French MD) Cellulitis Disorder of both eustachian tubes Drug rash Folate deficiency H/O: HTN (hypertension) History of asthma History of depression History of tobacco use Low back pain Macrocytosis Palliative care patient dobbertin Peripheral neuropathy Rash, skin Tremor Unintentional weight loss Vitamin B12 deficiency (dietary) anemia Surgical History Hx of eye surgery Social History Smoking/Tobacco Use Status: Former Tobacco Use Quit Date: 05/29/89 Smoking risk assessment performed?: Yes Alcohol Intake: never Drug use: Never Substance use type: does not use Details: ptstates that she did drink a bloody ki today Do you feel safe at home: Yes Do you feel safe in your relationship?: Yes Exam Narrative Exam Narrative: General: Well-appearing in no acute distress speaking in complete sentences. Patient sitting upright in bed reading the newspaper. Head: Normocephalic, atraumatic. Eye: Pupils equal, round reactive to light. Extraocular eye movements intact. No conjunctival injection. No scleral icterus. Ear, nose, mouth, throat: Grossly normal inspection. Normal voice, handling secretions normally. No tongue fasciculations. Neck: Trachea midline. Cardiovascular: Well-perfused distal extremities. Regular rate and rhythm Respiratory: Nonlabored respiration. Clear lungs bilaterally Gastrointestinal: Nondistended abdomen. Soft nontender abdomen Musculoskeletal: No edema. Moving all 4 extremities spontaneously. Skin: Normal for age and race, grossly normal temperature and turgor. No acute rash. Neurologic: Alert and appropriate, no apparent acute deficits. Not tremulous. Psychiatric: Mood and manner are appropriate. Grooming and personal hygiene are appropriate. Course Vital Signs Vital signs: Vital Signs Temperature 36.3 C L 09/22/22 07:15 Pulse 123 H 09/22/22 07:15 Respiratory Rate 20 09/22/22 07:15 Blood Pressure 160/83 H 09/22/22 07:15 Pulse Oximetry 96 09/22/22 07:15 Temperature 36.3 C L 09/22/22 07:15 Temperature Source Oral 09/22/22 07:15 Pulse 123 H 09/22/22 07:15 Respiratory Rate 20 09/22/22 07:49 Respiratory Effort Normal, Non-Labored 09/22/22 07:49 Respiratory Depth Normal 09/22/22 07:49 Respiratory Pattern Normal 09/22/22 07:49 Blood Pressure 160/83 H 09/22/22 07:15 Blood Pressure Position Supine 09/22/22 07:15 Pulse Oximetry 96 09/22/22 07:15 Oxygen Delivery Method Room Air 09/22/22 07:15 Oxygen Flow Rate 0 09/22/22 07:15 Pain Level 10 09/22/22 07:15 PAWSS Have you Been Recently Intoxicated or Drunk Within the Last 30 days?: Yes Have you Ever Experienced Previous Episodes of Alcohol Withdrawal?: No Have you ever Experienced Withdrawal Seizures?: No Have you ever Experienced Delirium Tremens(DT)s?: No Have you ever undergone Alcohol Rehabilitation Treatment (i.e, inpt ot ou tpatient treatment programs)?: No Have you ever Experienced Blackouts?: No Have you ever Combined Alcohol with other Downers within the last 90 days?: No Have you ever Combined Alcohol with any other Substance of Abuse during the last 90 days?: No Positive Blood Alcohol level on Presentation? [PCS.BAL]: No Evidence of Increased Autonomic Activity (i.e. HR>120, tremor, sweating, agitation, nausea)?: No Result: 1
[2022-09-22 08:19] LABS: Abs Immature Grans 0.06 10^3/uL (0.0-0.06); Absolute Basophil Count 0.04 10^3/uL (0.0-0.2); Absolute Eosinophil Count 0.08 10^3/uL (0.0-0.7); Absolute Lymphocyte Count 0.84 10^3/uL (1.2-3.4); Absolute Monocyte Count 0.51 10^3/uL (0.1-0.8); Absolute Neutrophil Count 7.73 10^3/uL (1.2-6.7); Basophils % 0.4; Eosinophils % 0.9; HCT 31.9 % (36.0-46.0); HGB 11.3 g/dL (11.2-15.7); Immature Grans % 0.6; Lymphocytes % 9.1; MCH 32.9 pg (27.0-33.0); MCHC 35.4 % (32.0-36.0); MCV 93 fL (80-95); MPV 9.6 fL (8.0-11.0); Monocytes % 5.5; Neutrophils % 83.5; Platelet Count 425 10^3/uL (130-400); RBC 3.43 10^6/uL (3.93-5.22); RDW 15.8 % (11.7-14.6); RDW-SD 53.1 fL; WBC 9.26 10^3/uL (4.4-10.8)
[2022-09-22 08:26] LABS: Anion Gap 7.1 mmol/L (3-11); BUN 22 mg/dL (7-18); CO2 23.9 mmol/L (21.0-32.0); CREATININE 1.3 mg/dL (0.55-1.02); Chloride 97 mmol/L (98-107); Estimated GFR 42.09 (mL/min/1.73m2); Glucose 88 mg/dL (74-106); Potassium 4.9 mmol/L (3.5-5.1); Sodium 128 mmol/L (136-145)
[2022-09-22 08:29] LABS: ETHANOL BLOOD < 3.0 mg/dL (<10)
[2022-09-22] MEDS: cefTRIAXone 2 GM/50 ML BAG IVPB (08:39)
[2022-09-22] MEDS: Normal Saline 500 ML IV (09:13)
--- NOTE | 2022-09-22 09:50 | NUR.NOTE ---
Nursing Note:Referral faxed to PCP for acute kidney injury/needs repeat labs in 1 week.
[2022-09-22 09:55] LABS: Anion Gap 4.9 mmol/L (3-11); BUN 22 mg/dL (7-18); CO2 24.1 mmol/L (21.0-32.0); CREATININE 1.1 mg/dL (0.55-1.02); Calcium 8.6 mg/dL (8.5-10.1); Chloride 100 mmol/L (98-107); Estimated GFR 51.43 (mL/min/1.73m2); Glucose 81 mg/dL (74-106); Potassium 5.3 mmol/L (3.5-5.1); Sodium 129 mmol/L (136-145)
[2022-09-22] MEDS: Metoprolol CR 25 MG TABCR PO (10:02)
--- NOTE | 2022-09-22 10:02 | NUR.NOTE ---
Nursing Note: pt rude to staff and swearing at staff when pt feels that she does not get what she wants. This RN answered call light, pt was told a med would be checked on but she would need to give us a few minutes to do so. pt unhappy with answer, this RN left room and closed door too muchr, pt yelled for RN to open door. This RN opened door and stated she cant yell into the waiting room pt then responded you're such a bitch. pt has been informed it is unacceptable to speak to staff in such a manner.
--- NOTE | 2022-09-22 10:45 | RT.EKG_ITS ---
APPROVED REPORT Exam: Resting ECG Reason for Exam: Tachycardia Patient Location: E HR:108 bpm ECG Measurements Heart Rate 108 AXIS VA 164 P 53 QRSd 70 QRS 9 QT 346 T 41 QTc 464 Conclusion Sinus tachycardia...rate> 99 Ventricular premature complex...V complex w/ short R-R interval Low voltage, extremity and precordial leads...extremity<0.5mV, precordial<1.0mV Narrow complex sinus tachycardia at a rate of 108. Normal axis. Intervals within normal limits. T wave flattening in lead III and aVF.no acute injury pattern. Compared to prior dated 2019 T wave fla ttening in inferior leads is more pronounced. Sinus tachycardia is persistent.
--- NOTE | 2022-09-22 10:45 | DI.US_ITS ---
Exam(s) US ABDOMEN LIMITED EXAM: US ABDOMEN LIMITED CLINICAL HISTORY: Abnormal LFTs TECHNIQUE: Ultrasound abdomen performed using standard protocol. COMPARISON: CT CT ABDOMEN PELVIS WO from 09/22/2022 FINDINGS: PANCREAS: Normal where visualized. LIVER: There is a lobulated contour the liver. Hepatopedal flow in the Portal Vein. The liver measur es in 15.3 cm length. GALLBLADDER: No evidence of cholelithiasis. No evidence of wall thickening. No pericholecystic fluid identified. The gallbladder measures 5 cm in transverse diameter. BILIARY SYSTEM: Common bile duct measures < 7 mm. No intrahepatic biliary ductal dilation. SANDERS'S SIGN: Negative. RIGHT KIDNEY: Kidney is normal in size. No evidence of renal calculi. No evidence of hydronephrosis. No renal mass or cyst identified. ASCITES: None seen. IMPRESSION: Hydropic gallbladder. No evidence of cholelithiasis or biliary ductal dilatation. DATA REPOSITORY:
--- NOTE | 2022-09-22 11:00 | DI.CT_ITS ---
Exam(s) CT ABDOMEN PELVIS WO EXAM: CT ABDOMEN PELVIS WO CLINICAL HISTORY: Abnormal LFTs. TECHNIQUE: Imaging Protocol: Axial computed tomography images with coronal and sagittal reformatted images were created and reviewed. COMPARISON: CT CT CHEST PE ABD PELVIS W from 01/26/[address] CHEST PE CTA from 02/17/2020 FINDINGS: ABDOMEN: Lung Bases: Coronary artery calcification and/or stents are present. Liver: There is fatty infiltration of the liver. No measurable mass. Gallbladder and biliary tract: The gallbladder is distended. No stones or biliary ductal dilatation is seen. No pericholecystic fluid is seen. Overall the size of the gallbladder is unchanged compare d to the prior examination. Pancreas: Normal density, no abnormal calcifications or inflammatory process. Spleen: Normal. Kidneys: Normal size, contour and axis.No radiodense stones or obstructive uropathy. No masses seen. Adrenal glands: No mass is seen. Lymph nodes: Within normal limits. Abdominal Aorta: Abdominal portion non-dilated. Atherosclerosis is present. PELVIS: Bladder:The urinary bladder is incompletely distended but grossly unremarkable. Bowel: There is diverticulosis seen in the colon, but no evidence of acute diverticulitis. There is some thickening of the wall of the ascending colon, the bowel is incompletely distended which may con tribute to this finding. No evidence of appendicitis. Peritoneal cavity: No ascites, collection or mesenteric inflammatory response. No free air. Reproductive organs: Unremarkable as visualized. Bones: Within normal limits for the patient's age. There is a left convex curvature of the lumbar sp ine. Soft Tissues: Within normal limits. IMPRESSION: 1. Fatty infiltration of the liver. 2. Mild thickening of the wall of the ascending colon. This may be due to underdistention. Colitis cannot be excluded. Please correlate clinically. 3. Unchanged appearance of a distended gallbladder. No radiopaque stones are seen. No biliary ducta l dilatation. RADIATION DOSE DELIVERED: 942.14mGy.cm Total DLP DATA REPOSITORY: All CT scans at this facility are submitted to the National Radiology Data Registry (NRDR) Dose Index Registry (DIR) with the [employer] (ACR). RADIATION OPTIMIZATION: All CT scans at this facility use at least one of these dose optimization te chniques: automated exposure control; mA and/or kV adjustment per patient size (includes targeted exa ms where dose is matched to clinical indication); or iterative reconstruction.
[2022-09-22 12:04] LABS: Acetaminophen 12 ug/mL (10-30)
[2022-09-22 12:06] LABS: Ammonia 18 umol/L (11-32)
[2022-09-22 12:10] LABS: ALT 504 U/L (14-59); AST 1004 U/L (15-37); Albumin 2.3 g/dL (3.4-5.0); Alkaline Phosphatase 1152 U/L (46-116); Bilirubin, Direct 2.3 mg/dL (0.0-0.2); Bilirubin, Total 2.7 mg/dL (0.2-1.0); Total Protein 7.2 g/dL (6.4-8.2)
[2022-09-22 13:01] LABS: Salicylate < 2.8 mg/dL (<2.8)
[2022-09-22 13:17] LABS: Lab Add On Test DONE
[2022-09-22 13:36] LABS: Acetaminophen 43 ug/mL (10-30)
[2022-09-22 13:37] LABS: INR 1.4 (0.9-1.1); Prothrombin Time 14.3 sec (9.3-11.0)
--- NOTE | 2022-09-22 14:19 | PDOC.ERCMIN ---
- If Service Date Differs Date of service: 09/22/22 Time of Service: 14:19 Care Management Initial Assess REASON FOR HOSPITALIZATION:: Transaminitis, Tylenol Toxicity, UTI. PAST MEDICAL HISTORY/PAST SURGICAL HISTORY:: All Active Problems: Thrombocytosis (Acute), NICKY (acute kidney injury) (Acute), Acute UTI (Acute), Acetaminophen toxicity (Acute), Elevated INR (Acute), Abnormal LFTs (Acute), Laceration of right lower leg without complication (Acute), Malakoplakia of bladder (Acute), DVT prophylaxis (Acute), Discharge planning issues (Acute), UTI (urinary tract infection) (Acute), Failure to thrive (Acute), Hyponatremia (Acute), Hypomagnesemia (Acute), Neuropathy (Acute), Weakness (Acute), New onset a-fib (Acute),. Urinary bladder neoplasm (Acute), DNR (do not resuscitate) (Acute),. Physician orders for life-sustaining treatment (POLST) form indicates patient wish for [id number]-evj-xaafnwnovew status (Acute), Urinary tract infection (Acute), COPD (chronic obstructive pulmonary disease) (Chronic), Anemia (Chronic), Hypokalemia (Acute), Abnormal CT scan, bladder (Acute), Hyperlipidemia (Acute), Asthma (Chronic), CAD (coronary artery disease) (Chronic), and Hypertension (Chronic). Medical History: Cellulitis, Disorder of both eustachian tubes, Drug rash,. Folate deficiency, H/O: HTN (hypertension), History of asthma, History of depression, History of tobacco use, Low back pain, Macrocytosis, Palliative care patient - dobbertin, Peripheral neuropathy, Rash, skin, Tremor,. Unintentional weight loss, and Vitamin B12 deficiency (dietary) anemia. Surgical History: Hx of eye surgery. PREVIOUS FUNCTIONAL STATUS/SOCIAL/FAMILY SUPPORTS:: Jamilah resides alone in an apartment in [facility]. She states her closest relatives live in [place], [place]. She reports having lots of close friends in the community who are supportive of her. She shares she is indenpendent at baseline with her ADLs and enjoys going for walks in the [facility]. CURRENT FUNCTIONAL STATUS:: Jamilah is lying in bed when CM comes to meet with her. She is pleasant and easily engages in conversation. She states she is happy to be at [facility] because we always take good care of her when she doesn't feel well. 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 CM advises her Amelie is retired. ADVANCE DIRECTIVES:: On file; Jessica Miramontes is appointed at [facility]. Has patient been provided with info about the portal/API?: Yes Did the patient sign up for the portal?: No CODE STATUS:: Full Code INSURANCE COVERAGE / FINANCIAL ISSUES:: Medicare. CURRENT HOME/COMMUNITY SERVICES/EQUIPMENT:: Cleaning service 1x/week and MOWs. Walking stick and walker. PRIMARY CARE PHYSICIAN:: Tay Rosa MD ([facility]). POTENTIAL DISCHARGE NEEDS:: Follow up appointment with PCP. PATIENT/FAMILY EDUCATION NEEDS:: Review of discharge instructions including medications and follow up plan of care; discuss Ask Me Three. ANTICIPATED BARRIERS TO DISCHARGE:: None anticipated at this time. TRANSPORTATION:: Via private vehicle with a friend. PLAN:: Jamilah will likely be discharged home with no services when medically cleared by provider. She will follow up with her PCP and plan of care as instructed. She will be transported home by a friend via private vehicle when ready. CM will continue to support Jamilah and any discharge planning needs.
[2022-09-22 14:45] LABS: Bilirubin Small (Negative); Blood Trace-intact (Negative); Clarity Clear (Clear); Glucose Negative (Negative); Ketones 15 mg/dL (Negative); Leukocyte Esterase Negative (Negative); Nitrite Negative (Negative); Urobilinogen 0.2 mg/dL (Up to 0.2); pH 7.5 (5-8)
--- NOTE | 2022-09-22 14:47 | IN_ITS ---
Date of service: 09/22/22 Time of Service: 13:18 PT Notes Visit Reasons: Transaminitis, Tylenol Toxicity, UTI Physical Therapy Inpatient Initial Evaluation Date: 09/22/2022 Referring Doctor: Remigio French MD PT Orders: PT CONSULT: Please evaluate for safety of walking Precautions: Fall. Standard.? Activity as tolerated. Patient Profile/Admitting Diagnosis: Jamilah is a 77-year-old female who presented to the ED on 09/22/2022 chief complaints of weakness, nausea, dry heaving.? referral was cheyanne pena safety of walking. PMHX: All Active Problems?(Updated 09/22/22 @ 14:08 by Remigio French MD) Thrombocytosis (Acute) NICKY (acute kidney injury) (Acute) Acute UTI (Acute) Acetaminophen toxicity (Acute) Elevated INR (Acute) Abnormal LFTs (Acute) Laceration of right lower leg without complication (Acute) Malakoplakia of bladder (Acute) DVT prophylaxis (Acute) Discharge planning issues (Acute) UTI (urinary tract infection) (Acute) Failure to thrive (Acute) Hyponatremia (Acute) Hypomagnesemia (Acute) Neuropathy (Acute) Weakness (Acute) New onset a-fib (Acute) Urinary bladder neoplasm (Acute) DNR (do not resuscitate) (Acute) Physician orders for life-sustaining treatment (POLST) form indicates patient wish for [id number] status (Acute) Urinary tract infection (Acute) COPD (chronic obstructive pulmonary disease) (Chronic) Anemia (Chronic) Hypokalemia (Acute) Abnormal CT scan, bladder (Acute) Hyperlipidemia (Acute) Asthma (Chronic) CAD (coronary artery disease) (Chronic) Hypertension (Chronic) Medical History?(Updated 09/22/22 @ 14:08 by Remigio French MD) Cellulitis Disorder of both eustachian tubes Drug rash Folate deficiency H/O: HTN (hypertension) History of asthma History of depression History of tobacco use Low back pain Macrocytosis Palliative care patient dobbertinPeripheral neuropathy Rash, skin Tremor Unintentional weight loss Vitamin B12 deficiency (dietary) anemia Surgical History? Hx of eye surgery Social History/Home Situation: Jamilah lives alone in an apartment with 2 steps to enter, rails on both sides are wide apart.? Has meals on wheels Mondays and Fridays only and had been able to manage on her own for the other days of the week.? She has a neighbor who comes in every day to help take care of her dog and cat. Equipment Owned/DME: [employer] Subjective: Complains of worsening nausea. Dry heaving. Short of breath during walking. Reports of being tired and dehydrated. Lightheaded during short distance walking. Denies headache. Objective: General Observation: Telemetry monitoring in place.? IV through the right UE. Appears very fatigued and anxious about getting/moving. Mental Status: Alert and oriented x 4. Pain: Denies ROM: Right Upper Extremity: ? Shoulder Flexion lacks 50% of available range. Shoulder abduction lacks 505 of available range. Elbow flexion WFL. Wrist flexion WFL. Opening and closing of hand WFL. Left Upper Extremity:? Shoulder Flexion lacks 50% of available range. Shoulder abduction lacks 505 of available range. Elbow flexion WFL. Wrist flexion WFL. Opening and closing of hand WFL. Right Lower Extremity: Hip flexion lacks 505 of available range. Hip abduction WFL. Knee flexion WFL. Ankle dorsiflexion to neutral only. Ankle plantarflexion WFL. Left Lower Extremity: Hip flexion lacks 505 of available range. Hip abduction WFL. Knee flexion WFL. Ankle dorsiflexion to neutral only. Ankle plantarflexion WFL. Strength: Right Upper Extremity: Shoulder flexors 3-/5. Shoulder abductors 3-/5. Elbow flexors 3+/5. Elbow extensors. 3+/5. Medical Payment Poster weak but functional. Left Upper Extremity: Shoulder flexors 3-/5. Shoulder abductors 3-/5. Elbow flexors 3+/5. Elbow extensors 3+/5. Medical Payment Poster weak but functional. Right Lower Extremity: Hip flexors 3-/5. Hip abductors 4-/5. Knee flexors 3-/5. Knee extensors 4-/5. Ankle dorsiflexors 3-/5. Ankle plantarflexors 4-/5. Left Lower Extremity: Hip flexors 3-/5. Hip abductors 4-/5. Knee flexors 3-/5. Knee extensors 4-/5. Ankle dorsiflexors 3-/5. Ankle plantarflexors 4-/5. Sensation: Intact as to pain and pressure on bilateral lower extremities. Bed Mobility/Transfers: Supine to sit minimal assist to B LE Sit to supine minimla assist to B LE Stand to sit minimal assist Bed to chair minimal assist Chair to bed minimal assist Gait: 20 feet using front-wheeled walker with minimal assist using FWW.? Complained of worsening nausea and needing to sit down for fear she might vomit. Reported being lightheaded. Shortness of breath noted with desaturation to 87%-88% on room air, re-saturated back up to above 90% with rest. Balance: Static Sitting: Normal Dynamic Sitting: Normal Static Standing: Fair Dynamic Standing: Fair Special Tests: Mobility Limitations Standardized Measure [facility] 6 clicks Basic Mobility Inpatient Short Form: Raw Score: 18? CMS Score: 47% deficit? ? ? 4-Stage balance Test: Unable to maintain any of the 4 positions for 10 seconds: feet together, semi- tandem, full tandem, and one-legged stance indicating moderate to high risk for falls. Informed Consent/Education:? Patient instructed in purpose of PT consult and plan of care. Assessment: Difficulty with ambulation, generalized weakness resulting from admitting diagnoses, and lightheadedness are limiting ability of patient to thrive alone st home safely. Jamilah is a 77-year-old female who presented to the ED on 09/22/2022 chief complaints of weakness, nausea, dry heaving.? referral was made to assess for safety of walking. Patient presents with clinical signs and symptoms consistent with current/admitting diagnoses that have resulted to mobility limitations, gait instability, generalized weakness, and impairment of motor control as demonstrated by the following impairment level findings: 1.? Decreased strength to B UEs/LE major muscle groups 2.? Impaired standing balance 3.? Impaired activity tolerance 4.? Limitation of joint range of motion in B shoulders, hips, knees Impairments are contributing to the following functional limitations: 1.? Dependent bed mobility skills 2.? Increased dependence with transfers 3.? Inability to safely ambulate without assistive device and physical assistance 4.? Increase completion time for mobility ADL performance 5.? Increased fall risk 6.? Inability to negotiate steps alone safely Patient is assessed as a 11829 moderate complexity based on the following: History: 74-year-old female with impairment level findings, functional limitations, and past medical history as indicated above Examination: Demonstrable impairment in strength, balance, and mobility level with underlying impairments and functional limitations as documented above Presentation:Evolving Decision Makin moderate complexity Goals: N/A. PT evaluation and one treatment session only for functional mobility retraining. Plan of Care/Treatment Plan: N/A. PT evaluation and one treatment session only for functional mobility retraining. DISCHARGE RECOMMENDATIONS: SNF vs. PT. Will re-evalaute once admitted to [facility] for further medical management with receipt of new PT referral from hospitalist. TREATMENT CODE/TIME: 85456 x 20 minutes, 58867 x 12 minutes beginning at 13:18 PM. Thank you for the opportunity to participate in the care of this patient. Lanny Pedraza PT, DPT, CLT [facility] [place], [place]
[2022-09-22 14:57] LABS: Bacteria Rare HPF (Negative); C & S Indicated? No; Casts 0-2 Fine Granular LPF (Negative); Crystals Negative HPF (Negative); Epithelial Cells Few HPF (Negative); Mucus Negative (Negative); Other Cells Rare Transitional (Negative); RBC 0-2 HPF (0-2); WBC 0-2 HPF (0-5)
--- NOTE | 2022-09-22 16:36 | NUR.NOTE ---
Nursing Note: timo vernon was notified about recommendations from poison control r/t blood work and importance of timed studied. blood work times unchanged from 2300.
--- NOTE | 2022-09-22 16:43 | HPE_ITS ---
Date of service: 09/22/22 Time of Service: 16:43 Assessment and Plan Assessment and plan (1) Acetaminophen toxicity: Status: Acute Assessment and plan: She complained of a headache several days ago for which she took 22 acetaminophen tablets each of which were 325 mg.? This results in a daily dose of 7150 mg.? This certainly exceeds her maximum daily dose of 3 g/day.? It is however less than the toxic dose at 200 mg/kg.? Acetaminophen level 09/21/22 @ 12:45 was 43, 09/22/2022 @ 11:26 is 12 and 09/22/22 @ 16:22 is 4; will repeat at 2300 Poison control was consulted and it is recommended that she receive 3 bag tx NAC, q12h labs, Not suicidal - unintentional overdose trying to manage headache. ? (2) Acute UTI: Status: Acute Assessment and plan: Diagnosed by PCP and started on keflex pending culture; Ceftriaxone in ED, will continue; hx of E Coli in past UTI; susceptible to Ceftriaxone (3) NICKY (acute kidney injury): Status: Acute Assessment and plan: Creatinine 1.1, BUN 22; dehydrated / monitor NS 125 ml/h x 1 litre (4) Hyperkalemia: Status: Acute Assessment and plan: Potassium 5.3/ dehydrated, NS 125 ml/h/ monitor (5) Elevated INR: Status: Acute Assessment and plan: INR 1.4 - monitor (6) Abnormal LFTs: Status: Acute Assessment and plan: In setting of overdose of acetaminophen - monitor / trend AST 1004 ALT 504 Alk Phos 1152 (7) Hyponatremia: Status: Acute Assessment and plan: Sodium 129/monitor NS 125 ml/h (8) Weakness: Status: Acute Assessment and plan: PT ordered (9) Hypertension: Status: Chronic Assessment and plan: Continue home meds; Metoprolol 25 mg BID Qualifiers: Hypertension type: essential hypertension Qualified Code(s): I10 - Essential (primary) hypertension (10) CAD (coronary artery disease): Status: Chronic Assessment and plan: Hold atorvastin in setting of elevated liver enzymes (11) Hyperlipidemia: Status: Acute Assessment and plan: Hold Atorvastatin in setting of elevated liver enzymes Qualifiers: Hyperlipidemia type: unspecified Qualified Code(s): E78.5 - Hyperlipidemia, unspecified (12) Anemia: Status: Chronic Assessment and plan: Stable @ 11.3/31.9 ~ baseline Qualifiers: Anemia type: unspecified type Qualified Code(s): D64.9 - Anemia, unspecified (13) COPD (chronic obstructive pulmonary disease): Status: Chronic Assessment and plan: Stable at this time, no oxygen requirement, no exacerbation (14) DVT prophylaxis: Status: Acute Assessment and plan: Takes rivaroxaban at home; continue (15) Discharge planning issues: Status: Acute Assessment and plan: Home when stable after completion of NAC +/- PT/OT Discussed with Dr Knott History of Present Illness History of Present Illness Chief Complaint: Dysuria Narrative: This is a 77-year-old female with history of prior UTIs who presented to the emergency department for dry heaving.? Patient reported she was diagnosed with a urinary tract infection by her PCP 09/21/2022.? She reported her symptoms began approximately 10 days ago and she had dark urine and dysuria.? She had not been vomiting but she did have nausea. She also endorsed chills.? She lives alone.? She denied having any abdominal pain.? She denied history of ureterolithiasis.? She has a prior history of alcohol use but reported she has not had anything to drink since August 13, 2022.? She denied fevers and flank pain.? She denied recent falls.? She stated she had a headache several days ago for which she took 22 acetaminophen tablets each of which were 325 mg.? This results in a daily dose of 7150 mg.? This certainly exceeds her maximum daily dose of 3 g/day.? It is however less than the toxic dose at 200 mg/kg.??Poison control was consulted and they recommended NAC. Her LFTs were elevated. She is being treated outpatient for a UTI with Cefazolin. She was given Ceftriaxone IV in the ED. She is placed on the medical floor for observation and NAC administration. Review of Systems All systems reviewed & are unremarkable except as noted in HPI and below PFSH All Active Problems (Updated 09/22/22 @ 17:31 by Sabrina Padilla NP) Discharge planning issues (Acute) DVT prophylaxis (Acute) Hyperkalemia (Acute) NICKY (acute kidney injury) (Acute) Acute UTI (Acute) Acetaminophen toxicity (Acute) Elevated INR (Acute) Abnormal LFTs (Acute) Hyponatremia (Acute) Weakness (Acute) COPD (chronic obstructive pulmonary disease) (Chronic) Anemia (Chronic) Hyperlipidemia (Acute) CAD (coronary artery disease) (Chronic) Hypertension (Chronic) Medical History (Updated 09/22/22 @ 17:31 by Sabrina Padilla NP) Abnormal CT scan, bladder Asthma Cellulitis Disorder of both eustachian tubes DNR (do not resuscitate) Drug rash Failure to thrive Folate deficiency H/O: HTN (hypertension) History of asthma History of depression History of tobacco use Hypokalemia Hypomagnesemia Laceration of right lower leg without complication Low back pain 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 Neuropathy New onset a-fib Palliative care patient dobbertin Peripheral neuropathy Physician orders for life-sustaining treatment (POLST) form indicates patient wish for fr-bdw-qoopyjmiisb status Rash, skin Thrombocytosis Tremor Unintentional weight loss Urinary bladder neoplasm Urinary tract infection UTI (urinary tract infection) Vitamin B12 deficiency (dietary) anemia Surgical History Hx of eye surgery Social History Smoking/Tobacco Use Status: Former Tobacco Use Quit Date: 05/29/89 Smoking risk assessment performed?: Yes Alcohol Intake: never Drug use: Never Substance use type: does not use Details: ptstates that she did drink a bloody ki today Do you feel safe at home: Yes Do you feel safe in your relationship?: Yes Meds Allergies and Home Medications Allergies Allergy/AdvReac Type Severity Reaction Status Date / Time lisinopril Allergy Intermediate lips Unverified 03/27/21 15:23 swelled sulfamethoxazole Allergy Intermediate Hives Unverified 03/27/21 15:23 [From Bactrim] trimethoprim [From Bactrim] Allergy Intermediate Hives Unverified 03/27/21 15:23 Penicillins AdvReac Intermediate Hives Unverified 03/27/21 15:23 Home Medications Medication Instructions Recorded Confirmed Type loratadine 10 mg tablet (Claritin) 10 mg PO DAILY 01/29/13 09/22/22 History albuterol sulfate 90 mcg/actuation 1 - 2 puff inhalation QID PRN PRN 12/07/16 09/22/22 History aerosol inhaler (Ventolin HFA) budesonide-formoterol HFA 160 1 puff inhalation BID 12/07/16 09/22/22 History mcg-4.5 mcg/actuation aerosol inhaler (Symbicort) metoprolol tartrate 50 mg tablet 25 mg PO BID 12/07/16 09/22/22 History nitroglycerin 0.4 mg sublingual 0.4 mg sublingual DIRECTED 12/07/16 09/22/22 History tablet (Nitrostat) famotidine 20 mg tablet 20 mg PO BID #14 tabs 01/08/19 09/22/22 Rx hydrocortisone 2.5 % topical cream 0 g topical TID #0 grams 01/08/19 09/22/22 Rx triamcinolone acetonide 0.1 % 0 g topical TID #0 grams 01/08/19 09/22/22 Rx topical cream mecobalamin (vitamin B12) 1,000 1,000 mcg PO DAILY 12/26/19 09/22/22 History mcg chewable tablet rivaroxaban 20 mg tablet (Xarelto) 20 mg PO DAILY 02/13/20 09/22/22 History lidocaine 4 % topical patch 1 patch topical DAILY 02/17/20 09/22/22 History (Aspercreme (lidocaine)) atorvastatin 20 mg tablet 20 mg PO HS 02/19/20 09/22/22 History fluoxetine 20 mg capsule 20 mg PO DAILY 02/19/20 09/22/22 History folic acid 1 mg tablet 1 mg PO QAM #30 tabs 03/02/20 09/22/22 Rx potassium chloride 20 mEq 20 meq PO DAILY #14 tabs 03/02/20 09/22/22 Rx tablet,extended release(part/cryst) (Klor-Con M) ondansetron 4 mg disintegrating 4 mg PO BID 5 days #10 tabs 09/22/22 Rx tablet Exam Narrative Exam Narrative: General: Well-appearing in no acute distress speaking in complete sentences. Patient sitting upright in bed reading the newspaper. Head: Normocephalic, atraumatic. Eye: Pupils equal, round reactive to light. Extraocular eye movements intact. No conjunctival injection. No scleral icterus. Ear, nose, mouth, throat: Grossly normal inspection. Normal voice, handling secretions normally. No tongue fasciculations. Neck: Trachea midline. Cardiovascular: Well-perfused distal extremities. Regular rate and rhythm Respiratory: Nonlabored respiration. Clear lungs bilaterally Gastrointestinal: Nondistended abdomen. Soft nontender abdomen Musculoskeletal: No edema. Moving all 4 extremities spontaneously. Skin: Normal for age and race, grossly normal temperature and turgor. No acute rash. Neurologic: Alert and appropriate, no apparent acute deficits. Not tremulous. Psychiatric: Mood and manner are appropriate. Grooming and personal hygiene are appropriate. Results Labs 09/22/22 07:43 09/22/22 09:40 Labs: Laboratory Results - last 24 hr 09/21/22 09/22/22 09/22/22 12:45 07:43 07:43 WBC 9.26 RBC 3.43 L Hgb 11.3 Hct 31.9 L MCV 93 D MCH 32.9 MCHC 35.4 D RDW 15.8 H Plt Count 425 H MPV 9.6 Immature Gran % 0.6 Neutrophils % 83.5 Lymphocytes % 9.1 Monocytes % 5.5 Eosinophils % 0.9 Basophils % 0.4 Nucleated RBC % 0.0 Absolute Neutrophils 7.73 H Absolute Lymphocytes 0.84 L Absolute Monocytes 0.51 Absolute Eosinophils 0.08 Absolute Basophils 0.04 PT INR Sodium 128 L Potassium 4.9 Chloride 97 L Carbon Dioxide 23.9 Anion Gap 7.1 BUN 22 H Creatinine 1.3 H Est GFR (CKD-EPI 2020) 42.09 Glucose 88 Calcium 9.0 Total Bilirubin Conjugated Bilirubin AST ALT Alkaline Phosphatase Ammonia Total Protein Albumin Urine Color Urine Clarity Urine pH Ur Specific [place] Urine Protein Urine Ketones Urine Blood Urine Nitrite Urine Bilirubin Urine Urobilinogen Ur Leukocyte Esterase Urine RBC Urine WBC Ur Epithelial Cells Urine Crystals Urine Bacteria Urine Casts Urine Mucus Urine Other Ur Culture Indicated? Urine Glucose Salicylates Acetaminophen 43 H Ethyl Alcohol < 3.0 Add-On Test Request 09/22/22 09/22/22 09/22/22 09:40 11:23 11:26 WBC RBC Hgb Hct MCV MCH MCHC RDW Plt Count MPV Immature Gran % Neutrophils % Lymphocytes % Monocytes % Eosinophils % Basophils % Nucleated RBC % Absolute Neutrophils Absolute Lymphocytes Absolute Monocytes Absolute Eosinophils Absolute Basophils PT INR Sodium 129 L Potassium 5.3 H Chloride 100 Carbon Dioxide 24.1 Anion Gap 4.9 BUN 22 H Creatinine 1.1 H Est GFR (CKD-EPI 2020) 51.43 Glucose 81 Calcium 8.6 Total Bilirubin 2.7 H Conjugated Bilirubin 2.3 H AST 1004 H ALT 504 H Alkaline Phosphatase 1152 H Ammonia Total Protein 7.2 Albumin 2.3 L Urine Color Urine Clarity Urine pH Ur Specific [place] Urine Protein Urine Ketones Urine Blood Urine Nitrite Urine Bilirubin Urine Urobilinogen Ur Leukocyte Esterase Urine RBC Urine WBC Ur Epithelial Cells Urine Crystals Urine Bacteria Urine Casts Urine Mucus Urine Other Ur Culture Indicated? Urine Glucose Salicylates < 2.8 Acetaminophen Ethyl Alcohol Add-On Test Request 09/22/22 09/22/22 09/22/22 11:26 11:26 12:45 WBC RBC Hgb Hct MCV MCH MCHC RDW Plt Count MPV Immature Gran % Neutrophils % Lymphocytes % Monocytes % Eosinophils % Basophils % Nucleated RBC % Absolute Neutrophils Absolute Lymphocytes Absolute Monocytes Absolute Eosinophils Absolute Basophils PT INR Sodium Potassium Chloride Carbon Dioxide Anion Gap BUN Creatinine Est GFR (CKD-EPI 2020) Glucose Calcium Total Bilirubin Conjugated Bilirubin AST ALT Alkaline Phosphatase Ammonia 18 Total Protein Albumin Urine Color Urine Clarity Urine pH Ur Specific [place] Urine Protein Urine Ketones Urine Blood Urine Nitrite Urine Bilirubin Urine Urobilinogen Ur Leukocyte Esterase Urine RBC Urine WBC Ur Epithelial Cells Urine Crystals Urine Bacteria Urine Casts Urine Mucus Urine Other Ur Culture Indicated? Urine Glucose Salicylates Acetaminophen 12 Ethyl Alcohol Add-On Test Request DONE 09/22/22 09/22/22 13:20 14:35 WBC RBC Hgb Hct MCV MCH MCHC RDW Plt Count MPV Immature Gran % Neutrophils % Lymphocytes % Monocytes % Eosinophils % Basophils % Nucleated RBC % Absolute Neutrophils Absolute Lymphocytes Absolute Monocytes Absolute Eosinophils Absolute Basophils PT 14.3 H INR 1.4 H Sodium Potassium Chloride Carbon Dioxide Anion Gap BUN Creatinine Est GFR (CKD-EPI 2020) Glucose Calcium Total Bilirubin Conjugated Bilirubin AST ALT Alkaline Phosphatase Ammonia Total Protein Albumin Urine Color Yellow Urine Clarity Clear Urine pH 7.5 Ur Specific [place] 1.020 Urine Protein 100 H Urine Ketones 15 H Urine Blood Trace-intact H Urine Nitrite Negative Urine Bilirubin Small H Urine Urobilinogen 0.2 Ur Leukocyte Esterase Negative Urine RBC 0-2 Urine WBC 0-2 Ur Epithelial Cells Few Urine Crystals Negative Urine Bacteria Rare Urine Casts 0-2 Fine Granular Urine Mucus Negative Urine Other Rare Transitional Ur Culture Indicated? No Urine Glucose Negative Salicylates Acetaminophen Ethyl Alcohol Add-On Test Request Last Vital Signs Temp 36.8 C 09/22/22 14:48 Pulse 104 H 09/22/22 14:48 Resp 17 09/22/22 14:48 BP 104/64 09/22/22 14:48 Pulse Ox 93 09/22/22 14:48 PAWSS Have you Been Recently Intoxicated or Drunk Within the Last 30 days?: Yes Have you Ever Experienced Previous Episodes of Alcohol Withdrawal?: No Have you ever Experienced Withdrawal Seizures?: No Have you ever Experienced Delirium Tremens(DT)s?: No Have you ever undergone Alcohol Rehabilitation Treatment (i.e, inpt ot outpatient treatment programs)?: No Have you ever Experienced Blackouts?: No Have you ever Combined Alcohol with other Downers within the last 90 days?: No Have you ever Combined Alcohol with any other Substance of Abuse during the last 90 days?: No Positive Blood Alcohol level on Presentation? [PCS.BAL]: No Evidence of Increased Autonomic Activity (i.e. HR>120, tremor, sweating, agitation, nausea)?: No Result: 1 Time Spent Time spent with Patient: 40-54 minutes Time was spent: preparing to see the patient(eg.review tests), obtaining and/or reviewing separately otained hiistory, ordering medications,tests, procedures, referring, communicating with other health healthcare network pricing consultant, indepentently interpreting results, counseling the patient and care coordination
[2022-09-22] MEDS: Normal Saline 1,000 ML 125 ML IV (16:59)
[2022-09-22 17:05] LABS: Acetaminophen 4 ug/mL (10-30)
[2022-09-22] MEDS: Budesonide/Formoterol 160/4.5 6 GM 60 PUFF INH IH (19:31)
[2022-09-22] MEDS: Ondansetron O.D.T. 4 MG TABEF PO (20:40)
[2022-09-22] MEDS: Famotidine 20 MG TAB PO (20:40)
[2022-09-22] MEDS: Metoprolol 25 MG TAB PO (20:40)
[2022-09-22] MEDS: Triamcinolone 0.1% CR 15 GM TUBE TP (20:44)
[2022-09-22] MEDS: Magnesium Oxide 400 MG TAB PO (21:49)
[2022-09-22 23:37] LABS: ALT 387 U/L (14-59); AST 724 U/L (15-37); Albumin 1.9 g/dL (3.4-5.0); Bilirubin, Direct 1.9 mg/dL (0.0-0.2); Bilirubin, Total 2.1 mg/dL (0.2-1.0); Total Protein 6.2 g/dL (6.4-8.2)
[2022-09-22 23:38] LABS: Acetaminophen < 2 ug/mL (10-30); Alkaline Phosphatase 1115 U/L (46-116)
--- NOTE | 2022-09-23 | DI.CT_ITS ---
Exam(s) CT HEAD WO EXAM: CT HEAD WO CLINICAL HISTORY: headache, intractable. TECHNIQUE: Imaging Protocol: Axial computed tomography images with coronal and sagittal reformatted images were created and reviewed COMPARISON: CT HEAD WITHOUT CONTRAST from 08/22/2014 FINDINGS: Ventricles and Extra axial spaces: Normal in size and morphology for the patient's age. Hemorrhage: None. Cerebral parenchyma: Prominent atrophy, stable from prior.. White matter changes small vessel diseas e. Old right basal ganglia lacunar infarct. Midline shift: None. Brainstem/Cerebellum: Normal. Calvarium: Normal. Visualized Paranasal sinuses/Mastoids: Clear. Soft Tissues: Unremarkable. IMPRESSION: No acute intracranial process. RADIATION DOSE DELIVERED: 677.98mGy.cm Total DLP DATA REPOSITORY: All CT scans at this facility are submitted to the National Radiology Data Registry (NRDR) Dose Index Registry (DIR) with the [employer] (ACR). RADIATION OPTIMIZATION: All CT scans at this facility use at least one of these dose optimization te chniques: automated exposure control; mA and/or kV adjustment per patient size (includes targeted exa ms where dose is matched to clinical indication); or iterative reconstruction.
[2022-09-23 03:15] VITALS: BP 132/65; PULSE 104; RESP 20; TEMP 36.3; O2SAT 94
[2022-09-23 06:46] LABS: Abs Immature Grans 0.03 10^3/uL (0.0-0.06); Absolute Basophil Count 0.02 10^3/uL (0.0-0.2); Absolute Eosinophil Count 0.11 10^3/uL (0.0-0.7); Absolute Lymphocyte Count 0.94 10^3/uL (1.2-3.4); Absolute Monocyte Count 0.53 10^3/uL (0.1-0.8); Absolute Neutrophil Count 4.12 10^3/uL (1.2-6.7); Basophils % 0.3; Eosinophils % 1.9; HCT 29.6 % (36.0-46.0); HGB 10.5 g/dL (11.2-15.7); Immature Grans % 0.5; Lymphocytes % 16.3; MCH 32.6 pg (27.0-33.0); MCHC 35.5 % (32.0-36.0); MCV 92 fL (80-95); MPV 9.7 fL (8.0-11.0); Monocytes % 9.2; Neutrophils % 71.8; Platelet Count 337 10^3/uL (130-400); RBC 3.22 10^6/uL (3.93-5.22); RDW 15.9 % (11.7-14.6); RDW-SD 53.1 fL; WBC 5.75 10^3/uL (4.4-10.8)
[2022-09-23 06:59] LABS: Anion Gap 10.8 mmol/L (3-11); BUN 15 mg/dL (7-18); CO2 22.2 mmol/L (21.0-32.0); CREATININE 1.2 mg/dL (0.55-1.02); Calcium 8.2 mg/dL (8.5-10.1); Chloride 99 mmol/L (98-107); Estimated GFR 46.33 (mL/min/1.73m2); Glucose 105 mg/dL (74-106); Potassium 3.5 mmol/L (3.5-5.1); Sodium 132 mmol/L (136-145)
[2022-09-23 07:06] LABS: Acetaminophen < 2 ug/mL (10-30)
[2022-09-23 07:39] VITALS: BP 111/69; PULSE 93; RESP 20; TEMP 36.9; O2SAT 96
[2022-09-23] MEDS: Budesonide/Formoterol 160/4.5 6 GM 60 PUFF INH IH (07:58)
[2022-09-23] MEDS: cefTRIAXone 2 GM/50 ML BAG IVPB (09:25)
[2022-09-23] MEDS: Lidocaine 5% Patch 1 PATCH TD (09:26)
[2022-09-23] MEDS: Folic Acid 1 MG TAB PO (09:28)
[2022-09-23] MEDS: Cyanocobalamin 500 MCG TAB 1000 MCG PO (09:28)
[2022-09-23] MEDS: Famotidine 20 MG TAB PO (09:28)
[2022-09-23] MEDS: Rivaroxaban 10 MG TABLET 20 MG PO (09:29)
[2022-09-23] MEDS: Loratidine 10 MG TAB PO (09:29)
[2022-09-23] MEDS: Ondansetron O.D.T. 4 MG TABEF PO (09:29)
[2022-09-23] MEDS: Potassium Chloride 20 MEQ TABCR PO (09:29)
[2022-09-23] MEDS: Metoprolol 25 MG TAB PO (09:29)
[2022-09-23 10:28] LABS: Hepatitis A Antibody IgM Negative (Negative); Hepatitis B Core Antibody Negative (Negative); Hepatitis B surface Ag Negative (Negative); Hepatitis C Ab w Rflx HCV PCR Negative (Negative)
--- NOTE | 2022-09-23 10:46 | CMPROGNOTE_ITS ---
- If Service Date Differs Date of service: 09/23/22 Time of Service: 10:46 Care Management Progress Note S/O: A: Jamilah is a 77 year old female admitted to [facility] on 09/22/22 for transaminitis, tylenol toxicity, UTI. P: Jamilah will likely be discharged home with no services when medically cleared by provider. She will follow up with her PCP and plan of care as instructed. She will be transported home by a friend via private vehicle when ready. CM will continue to support Jamilah and any discharge planning needs.
[2022-09-23 11:18] VITALS: BP 133/84; PULSE 101; RESP 14; TEMP 36.4; O2SAT 94
--- NOTE | 2022-09-23 11:40 | W.PM.DS.N ---
Date of service: 09/23/22 Time of Service: 11:40 DS: Diagnosis Discharge Diagnosis (1) Acetaminophen toxicity: Status: Acute (2) Acute UTI: Status: Acute (3) NICKY (acute kidney injury): Status: Acute (4) Hyperkalemia: Status: Acute (5) Elevated INR: Status: Acute (6) Abnormal LFTs: Status: Acute (7) Hyponatremia: Status: Acute (8) Weakness: Status: Acute (9) Hypertension: Status: Chronic (10) CAD (coronary artery disease): Status: Chronic (11) Hyperlipidemia: Status: Acute (12) Anemia: Status: Chronic (13) COPD (chronic obstructive pulmonary disease): Status: Chronic Discharge Plan Disposition Patient Disposition: Home Condition: Stable Discharge Details Reason For Visit: Transaminitis, Tylenol Toxicity, UTI Admit Date/Time: 09/22/22 12:59 Admit Provider: Reji Knott Attending Provider: Reji Knott Primary Care Provider: Jose Gonzalez Hospital Course Hospital Course: This is a 77-year-old female with a history of alcohol use, fully anticoagulated on Xarelto COPD coronary artery disease hypertension who presents to the emergency department for evaluation of nausea and vomiting. She was being treated outpatient for urinary tract infection and started on antibiotics, cephalexin, she was also complaining of headache for which she had been taking acetaminophen for at home. And acetaminophen level was checked and she was noted to be elevated. They did contact poison control who did recommend treatment with NAC. She was admitted to the medical surgical unit for further monitoring and treatment. She received ceftriaxone to treat her urinary tract infection while inpatient and can discharge home to continue with her cephalexin as previously prescribed. Her liver functions slowly began to improve she had no further nausea and vomiting and was tolerating and advancing diet. She still continues to complain of her headache and in the setting of history of alcohol abuse and being fully anticoagulated I did obtain a CAT scan of her head which was unremarkable. She is stable and is requesting discharged home. She will follow-up outpatient with her primary care provider on Monday, September 26 return to the emergency department sooner if needed she should avoid Tylenol until further directed by her primary care provider and she should only take medications as prescribed only this was reviewed with her. Discharge discussed with Dr. Knott Home Meds and New Rx's Prescriptions: New ondansetron 4 mg tablet,disintegrating 4 mg PO BID 5 Days Qty: 10 0RF Continued Xarelto 20 mg tablet 20 mg PO DAILY Rx Instructions: must administer with evening meal mecobalamin (vitamin B12) 1,000 mcg tablet,chewable 1,000 mcg PO DAILY loratadine [Claritin] 10 MG tablet 10 mg PO DAILY metoprolol tartrate 50 MG tablet 25 mg PO BID nitroglycerin [Nitrostat] 0.4 MG tablet, sublingual 0.4 mg Sublingual DIRECTED albuterol sulfate [Ventolin HFA] 200 PUFF HFA aerosol inhaler 1 - 2 puff Inhalation QID PRN PRN budesonide-formoterol [Symbicort] 60 PUFF HFA aerosol inhaler 1 puff Inhalation BID famotidine 20 mg Tablet 20 mg PO BID Qty: 14 0RF Patient Comments: patient reports not taking hydrocortisone 2.5 % Cream 0 g topical TID Qty: 0 0RF triamcinolone acetonide 0.1 % Cream 0 g topical TID Qty: 0 0RF potassium chloride [Klor-Con M20] 20 mEq Tablet,Er Particles/Crystals 20 meq PO DAILY Qty: 14 0RF folic acid 1 mg Tablet 1 mg PO QAM Qty: 30 0RF lidocaine [Aspercreme (lidocaine)] 4 % Adhesive Patch,Medicated 1 patch TOPICAL DAILY fluoxetine 20 mg capsule 20 mg PO DAILY Patient Comments: TAKE ONE CAPSULE BY MOUTH EVERY DAY atorvastatin 20 mg tablet 20 mg PO HS Patient Comments: TAKE ONE TABLET BY MOUTH AT BEDTIME Discharge Instructions Instructions: Urinary Tract Infection in Women (ED) Additional Instructions: Please read all of the information that accompanies these instructions. You are diagnosed with a urinary tract infection for which you should take your antibiotics as previously prescribed by your primary care provider. Please keep appointment with your primary care provider on Monday September 26, 2022. Please return to the emergency department if develop nausea and vomiting that does not stop or if you develop any fevers. A prescription has been sent into your pharmacy for a medicine to treat nausea which you should take as directed. You should take medication only as directed. Do NOT exceed recommendations as it can have dangerous side effects on your liver, kidney, or other organs causing life threatening damage or . Stand Alone Forms: Nursing Discharge Form Referrals: Tay Rosa MD [ NON-[facility] STAFF PHYSICIAN] - 09/26/22 1:50 pm Activity:: Activity as Tolerated Equipment/Supplies:: No Equipment Needed Diet:: As Tolerated Discharge Orders Discharge Orders: Discharge Order (Routine); Ordered 09/23/22 Ordered By: Minnie Joshua DS: Summary Time Spent with Patient providing and/or coordinating discharge services: Greater than 30 minutes Status at Discharge Functional status at discharge: independent ambulation Overall status at discharge: patient is progressing back to baseline Mental Status: mental status grossly normal Speech and Movement: speech and movement normal Mood: congruent mood Affect: normal affect Exam Const General: cooperative and no acute distress Orientation: alert and oriented x3 Eyes Sclera: sclerae normal Pupils: PERRL Resp Effort & Inspection: normal respiratory effort Auscultation: clear to auscultation bilaterally Cardio Rate: regular rate Rhythm: regular rhythm GI Palpation: soft and nontender Auscultation: normal bowel sounds Skin General skin exam: no rashes or lesions noted, dry skin (Dry flaky to lower extremities) and other (Chronic discoloration to bilateral lower extremities) Extrem General: no pedal edema and no calf tenderness Psych Appearance: grossly normal Mental Status: mental status grossly normal Speech and Movement: speech and movement normal Mood: congruent mood Affect: normal affect Attitude: cooperative DS: Data Vitals/I&O Vitals and I&O: Vital Signs Temperature 36.4 C L 09/23/22 11:18 Temperature Source Tympanic 09/23/22 11:18 Pulse 101 H 09/23/22 11:18 Pulse Rhythm Irregular 09/23/22 09:41 Pulse 102 H 09/22/22 13:20 Respiratory Rate 14 09/23/22 11:18 Respiratory Effort Normal 09/23/22 09:41 Respiratory Depth Normal 09/23/22 09:41 Respiratory Pattern Normal 09/23/22 09:41 Blood Pressure 133/84 09/23/22 11:18 Blood Pressure Mean 81 09/22/22 13:37 Blood Pressure Position Supine 09/22/22 07:15 Pulse Oximetry 94 09/23/22 11:18 Oxygen Delivery Method Room Air 09/23/22 11:18 Oxygen Flow Rate 0 09/23/22 11:18 Pain Level 0 09/23/22 11:18 Intake & Output 09/22/22 09/22/22 09/23/22 11:59 23:59 11:59 Intake Total 1050 / 1297.65 247.65 / 1297.65 50 / 50 Output Total 400 / 400 Balance 1050 / 1297.65 247.65 / 1297.65 -350 / -350 Weight 63.503 kg 61.4 kg Intake: IV 1050 / 1297.65 247.65 / 1297.65 50 / 50 Output: Urine 400 / 400 Other: Urine Color Straw Urine Appearance Clear Cloudy Urine Odor Normal Comment could not measure Voiding Methods Bedside Commode Data Completed and Pending Labs on day of discharge: Labs from last 24 hours 09/23/22 09/23/22 09/23/22 13:30 13:30 06:15 WBC RBC Hgb Hct MCV MCH MCHC RDW Plt Count MPV Immature Gran % Neutrophils % Lymphocytes % Monocytes % Eosinophils % Basophils % Nucleated RBC % Absolute Neutrophils Absolute Lymphocytes Absolute Monocytes Absolute Eosinophils Absolute Basophils PT Pending INR Pending Sodium Potassium Chloride Carbon Dioxide Anion Gap BUN Creatinine Est GFR (CKD-EPI 2020) Glucose Calcium Magnesium Total Bilirubin Pending Conjugated Bilirubin Pending AST Pending ALT Pending Alkaline Phosphatase Pending Ammonia Total Protein Pending Albumin Pending Urine Color Urine Clarity Urine pH Ur Specific [place] Urine Protein Urine Ketones Urine Blood Urine Nitrite Urine Bilirubin Urine Urobilinogen Ur Leukocyte Esterase Urine RBC Urine WBC Ur Epithelial Cells Urine Crystals Urine Bacteria Urine Casts Urine Mucus Urine Other Ur Culture Indicated? Urine Glucose Salicylates Acetaminophen < 2 Add-On Test Request 09/23/22 09/23/22 09/22/22 06:15 06:15 23:08 WBC 5.75 RBC 3.22 L Hgb 10.5 L Hct 29.6 L MCV 92 MCH 32.6 MCHC 35.5 RDW 15.9 H Plt Count 337 MPV 9.7 Immature Gran % 0.5 Neutrophils % 71.8 Lymphocytes % 16.3 Monocytes % 9.2 Eosinophils % 1.9 Basophils % 0.3 Nucleated RBC % 0.0 Absolute Neutrophils 4.12 Absolute Lymphocytes 0.94 L Absolute Monocytes 0.53 Absolute Eosinophils 0.11 Absolute Basophils 0.02 PT INR Sodium 132 L Potassium 3.5 D Chloride 99 Carbon Dioxide 22.2 Anion Gap 10.8 BUN 15 Creatinine 1.2 H Est GFR (CKD-EPI 2020) 46.33 Glucose 105 Calcium 8.2 L Magnesium 2.0 Total Bilirubin 2.1 H Conjugated Bilirubin 1.9 H AST 724 H ALT 387 H Alkaline Phosphatase 1115 H Ammonia Total Protein 6.2 L Albumin 1.9 L Urine Color Urine Clarity Urine pH Ur Specific [place] Urine Protein Urine Ketones Urine Blood Urine Nitrite Urine Bilirubin Urine Urobilinogen Ur Leukocyte Esterase Urine RBC Urine WBC Ur Epithelial Cells Urine Crystals Urine Bacteria Urine Casts Urine Mucus Urine Other Ur Culture Indicated? Urine Glucose Salicylates Acetaminophen Add-On Test Request 09/22/22 09/22/22 09/22/22 23:08 16:22 14:35 WBC RBC Hgb Hct MCV MCH MCHC RDW Plt Count MPV Immature Gran % Neutrophils % Lymphocytes % Monocytes % Eosinophils % Basophils % Nucleated RBC % Absolute Neutrophils Absolute Lymphocytes Absolute Monocytes Absolute Eosinophils Absolute Basophils PT INR Sodium Potassium Chloride Carbon Dioxide Anion Gap BUN Creatinine Est GFR (CKD-EPI 2020) Glucose Calcium Magnesium Total Bilirubin Conjugated Bilirubin AST ALT Alkaline Phosphatase Ammonia Total Protein Albumin Urine Color Yellow Urine Clarity Clear Urine pH 7.5 Ur Specific [place] 1.020 Urine Protein 100 H Urine Ketones 15 H Urine Blood Trace-intact H Urine Nitrite Negative Urine Bilirubin Small H Urine Urobilinogen 0.2 Ur Leukocyte Esterase Negative Urine RBC 0-2 Urine WBC 0-2 Ur Epithelial Cells Few Urine Crystals Negative Urine Bacteria Rare Urine Casts 0-2 Fine Granular Urine Mucus Negative Urine Other Rare Transitional Ur Culture Indicated? No Urine Glucose Negative Salicylates Acetaminophen < 2 4 Add-On Test Request 09/22/22 09/22/22 09/22/22 13:20 12:45 11:26 WBC RBC Hgb Hct MCV MCH MCHC RDW Plt Count MPV Immature Gran % Neutrophils % Lymphocytes % Monocytes % Eosinophils % Basophils % Nucleated RBC % Absolute Neutrophils Absolute Lymphocytes Absolute Monocytes Absolute Eosinophils Absolute Basophils PT 14.3 H INR 1.4 H Sodium Potassium Chloride Carbon Dioxide Anion Gap BUN Creatinine Est GFR (CKD-EPI 2020) Glucose Calcium Magnesium Total Bilirubin Conjugated Bilirubin AST ALT Alkaline Phosphatase Ammonia 18 Total Protein Albumin Urine Color Urine Clarity Urine pH Ur Specific [place] Urine Protein Urine Ketones Urine Blood Urine Nitrite Urine Bilirubin Urine Urobilinogen Ur Leukocyte Esterase Urine RBC Urine WBC Ur Epithelial Cells Urine Crystals Urine Bacteria Urine Casts Urine Mucus Urine Other Ur Culture Indicated? Urine Glucose Salicylates Acetaminophen Add-On Test Request DONE 09/22/22 09/22/22 09/22/22 11:26 11:26 11:23 WBC RBC Hgb Hct MCV MCH MCHC RDW Plt Count MPV Immature Gran % Neutrophils % Lymphocytes % Monocytes % Eosinophils % Basophils % Nucleated RBC % Absolute Neutrophils Absolute Lymphocytes Absolute Monocytes Absolute Eosinophils Absolute Basophils PT INR Sodium Potassium Chloride Carbon Dioxide Anion Gap BUN Creatinine Est GFR (CKD-EPI 2020) Glucose Calcium Magnesium Total Bilirubin 2.7 H Conjugated Bilirubin 2.3 H AST 1004 H ALT 504 H Alkaline Phosphatase 1152 H Ammonia Total Protein 7.2 Albumin 2.3 L Urine Color Urine Clarity Urine pH Ur Specific [place] Urine Protein Urine Ketones Urine Blood Urine Nitrite Urine Bilirubin Urine Urobilinogen Ur Leukocyte Esterase Urine RBC Urine WBC Ur Epithelial Cells Urine Crystals Urine Bacteria Urine Casts Urine Mucus Urine Other Ur Culture Indicated? Urine Glucose Salicylates < 2.8 Acetaminophen 12 Add-On Test Request 09/21/22 12:45 WBC RBC Hgb Hct MCV MCH MCHC RDW Plt Count MPV Immature Gran % Neutrophils % Lymphocytes % Monocytes % Eosinophils % Basophils % Nucleated RBC % Absolute Neutrophils Absolute Lymphocytes Absolute Monocytes Absolute Eosinophils Absolute Basophils PT INR Sodium Potassium Chloride Carbon Dioxide Anion Gap BUN Creatinine Est GFR (CKD-EPI 2020) Glucose Calcium Magnesium Total Bilirubin Conjugated Bilirubin AST ALT Alkaline Phosphatase Ammonia Total Protein Albumin Urine Color Urine Clarity Urine pH Ur Specific [place] Urine Protein Urine Ketones Urine Blood Urine Nitrite Urine Bilirubin Urine Urobilinogen Ur Leukocyte Esterase Urine RBC Urine WBC Ur Epithelial Cells Urine Crystals Urine Bacteria Urine Casts Urine Mucus Urine Other Ur Culture Indicated? Urine Glucose Salicylates Acetaminophen 43 H Add-On Test Request PFSH All Active Problems (Updated 09/22/22 @ 17:31 by Sabrina Padilla NP) Discharge planning issues (Acute) DVT prophylaxis (Acute) Hyperkalemia (Acute) NICKY (acute kidney injury) (Acute) Acute UTI (Acute) Acetaminophen toxicity (Acute) Elevated INR (Acute) Abnormal LFTs (Acute) Hyponatremia (Acute) Weakness (Acute) COPD (chronic obstructive pulmonary disease) (Chronic) Anemia (Chronic) Hyperlipidemia (Acute) CAD (coronary artery disease) (Chronic) Hypertension (Chronic) Medical History (Updated 09/22/22 @ 17:31 by Sabrina Padilla NP) Abnormal CT scan, bladder Asthma Cellulitis Disorder of both eustachian tubes DNR (do not resuscitate) Drug rash Failure to thrive Folate deficiency H/O: HTN (hypertension) History of asthma History of depression History of tobacco use Hypokalemia Hypomagnesemia Laceration of right lower leg without complication Low back pain 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 Neuropathy New onset a-fib Palliative care patient dobbertin Peripheral neuropathy Physician orders for life-sustaining treatment (POLST) form indicates patient wish for [id number] status Rash, skin Thrombocytosis Tremor Unintentional weight loss Urinary bladder neoplasm Urinary tract infection UTI (urinary tract infection) Vitamin B12 deficiency (dietary) anemia Surgical History Hx of eye surgery Social History Smoking/Tobacco Use Status: Former Tobacco Use Quit Date: 05/29/89 Smoking risk assessment performed?: Yes Alcohol Intake: never Drug use: Never Substance use type: does not use Details: ptstates that she did drink a bloody ki today Do you feel safe at home: Yes Do you feel safe in your relationship?: Yes Time Spent with Patient Time Spent with Patient: 45-69 minutes Time was spent: preparing to see the patient(eg.review tests), obtaining and/or reviewing separately otained hiistory, ordering medications,tests, procedures, referring, communicating with other health director career services, indepentently interpreting results and counseling the patient
[2022-09-23 14:43] LABS: ALT 365 U/L (14-59); AST 641 U/L (15-37); Albumin 2.1 g/dL (3.4-5.0); Bilirubin, Direct 1.5 mg/dL (0.0-0.2); Bilirubin, Total 1.8 mg/dL (0.2-1.0); Total Protein 7.2 g/dL (6.4-8.2)
[2022-09-23 14:44] LABS: Alkaline Phosphatase 1646 U/L (46-116)
[2022-09-23 15:21] VITALS: BP 124/75; PULSE 64; RESP 24; TEMP 36.6; O2SAT 90
[2022-09-23] MEDS: Ketorolac 15 MG/ML VIAL IVP (15:36)
[2022-09-23] MEDS: Normal Saline Flush 10 ML SYR IVP (15:36)
--- NOTE | 2022-09-23 17:11 | CMDISCH_ITS ---
- If Service Date Differs Date of service: 09/23/22 Time of Service: 17:11 LACE Index Scoring Tool - Questions: Length of Stay (in days): 1 Acuity (Admit via E.D.?): Yes Comorbidities: Chronic Pulmonary Disease E.D. Visits: 1 - Answers: Total Score: 7 Risk of Readmission: Low Risk Care Management Discharge Reason for Hospitalization: Transaminitis, Tylenol Toxicity, UTI. Discharge Plan: Jamilah returned home today with no new services. She was transpor [place] via [facility] private vehicle, coordinated by CM. She will follow up with her PCP and discharge plan of care. She was happy to be going home. Patient/Family Education Needs: Review discharge instructions and limitations, discussion of self care needs including ask me three.
== END 2022-09-23 16:30 | disposition home or self-care (01) ==
LOC: ER 14:09 → MS 14:45
PROVIDERS: Family Medicine; Nurse Practitioner Family; Admitting Provider Internal Medicine; Emergency Provider Emergency Medicine; PCP Internal Medicine; Visit Provider Internal Medicine
DX: T39.1X1A Poisoning by 4-Aminophenol derivatives, accidental (unintentional), initial encounter (principal); N17.9 Acute kidney failure, unspecified; R79.89 Other specified abnormal findings of blood chemistry; N39.0 Urinary tract infection, site not specified; E87.5 Hyperkalemia; E87.1 Hypo-osmolality and hyponatremia; R53.1 Weakness; I10 Essential (primary) hypertension; E78.5 Hyperlipidemia, unspecified; I25.10 Atherosclerotic heart disease of native coronary artery without angina pectoris; D64.9 Anemia, unspecified; J44.9 Chronic obstructive pulmonary disease, unspecified; Z79.01 Long term (current) use of anticoagulants; D75.839 Thrombocytosis, unspecified; R00.0 Tachycardia, unspecified; E53.8 Deficiency of other specified B group vitamins; G62.9 Polyneuropathy, unspecified; Z66 Do not resuscitate; R74.01 Elevation of levels of liver transaminase levels
CPT/HCPCS: 36415; 80048; 80076; 86704; 86709; 86803; 87340; 93005; 94640; 96361; 96365; 96366; 96367; 96375; 97162; 97530; 99285; 70450; 74176; 76705; 80320; 80329; 81003; 81015; 82140; 83735; 85025; 85610; 93010; 99222; 99239; J0132; J1885; J2405; J7060

== ENCOUNTER 2022-09-26 15:27 | Outpatient (REF) | payer MEDICARE, SELFPAY ==
[2022-09-26 21:00] LABS: Abs Immature Grans 0.04 10^3/uL (0.0-0.06); Absolute Basophil Count 0.02 10^3/uL (0.0-0.2); Absolute Eosinophil Count 0.11 10^3/uL (0.0-0.7); Absolute Lymphocyte Count 0.76 10^3/uL (1.2-3.4); Absolute Monocyte Count 0.96 10^3/uL (0.1-0.8); Absolute Neutrophil Count 5.08 10^3/uL (1.2-6.7); Basophils % 0.3; Eosinophils % 1.6; HCT 30.2 % (36.0-46.0); HGB 10.3 g/dL (11.2-15.7); Immature Grans % 0.6; Lymphocytes % 10.9; MCH 32.2 pg (27.0-33.0); MCHC 34.1 % (32.0-36.0); MCV 94 fL (80-95); MPV 10.8 fL (8.0-11.0); Monocytes % 13.8; Neutrophils % 72.8; Platelet Count 226 10^3/uL (130-400); RDW 16.4 % (11.7-14.6); WBC 6.97 10^3/uL (4.4-10.8)
[2022-09-26 21:40] LABS: ALT 197 U/L (14-59); AST 213 U/L (15-37); Albumin 2.5 g/dL (3.4-5.0); Anion Gap 5.3 mmol/L (3-11); BUN 9 mg/dL (7-18); Bilirubin, Total 2.8 mg/dL (0.2-1.0); CO2 26.7 mmol/L (21.0-32.0); CREATININE 0.9 mg/dL (0.55-1.02); Calcium 8.7 mg/dL (8.5-10.1); Chloride 100 mmol/L (98-107); Estimated GFR 65.44 (mL/min/1.73m2); Glucose 104 mg/dL (74-106); Potassium 3.5 mmol/L (3.5-5.1); Sodium 132 mmol/L (136-145)
[2022-09-26 21:57] LABS: Alkaline Phosphatase 2096 U/L (46-116)
[2022-09-26 22:15] LABS: Prothrombin Time 47.1 sec (9.3-11.0)
[2022-09-26 22:21] LABS: INR 4.7 (0.9-1.1)
== END 2022-09-26 15:28 | disposition home or self-care (01) ==
LOC: NCHCN 15:27
PROVIDERS: PCP Internal Medicine; Visit Provider Family Medicine
DX: D64.9 Anemia, unspecified (principal); R26.81 Unsteadiness on feet; R74.8 Abnormal levels of other serum enzymes; I48.0 Paroxysmal atrial fibrillation; I10 Essential (primary) hypertension; Z79.01 Long term (current) use of anticoagulants
CPT/HCPCS: 80053; 85025; 85610

== ENCOUNTER 2022-09-27 12:55 | Inpatient (IN) | payer MEDICARE, SELFPAY ==
[2022-09-27] VITALS (16 sets, daily range): BP systolic 117–172; BP diastolic 68–105; PULSE 72–97; RESP 10–24; TEMP 36.8–36.9; O2SAT 93–98
--- NOTE | 2022-09-27 13:00 | RT.EKG_ITS ---
APPROVED REPORT Exam: Resting ECG Reason for Exam: liver injury Patient Location: E HR:109 bpm ECG Measurements Heart Rate 109 AXIS AK 163 P -49 QRSd 79 QRS 2 QT 369 T 1 QTc 497 Conclusion Sinus tachycardia with irregular rate...V-rate 78-142, variation>10% Anteroseptal infarct, age indeterminate...Q >35mS, T neg, V1-V2. Sinus with irregular rate, p waves visible, no stemi.
--- NOTE | 2022-09-27 13:06 | ED.GENADUL_ITS ---
Discharge Plan Disposition Patient Disposition: Admit to [facility] Discharge Details Chief Complaint: GenMedical Clinical Impression: Transaminitis, Hyperbilirubinemia, Elevated troponin Primary Care Provider: Jose Gonzalez ED Provider: Lilian Hand Home Meds and New Rx's Prescriptions: No Action Xarelto 20 mg tablet 20 mg PO DAILY Rx Instructions: must administer with evening meal mecobalamin (vitamin B12) 1,000 mcg tablet,chewable 1,000 mcg PO DAILY loratadine [Claritin] 10 MG tablet 10 mg PO DAILY metoprolol tartrate 50 MG tablet 25 mg PO BID nitroglycerin [Nitrostat] 0.4 MG tablet, sublingual 0.4 mg Sublingual DIRECTED albuterol sulfate [Ventolin HFA] 200 PUFF HFA aerosol inhaler 1 - 2 puff Inhalation QID PRN PRN budesonide-formoterol [Symbicort] 60 PUFF HFA aerosol inhaler 1 puff Inhalation BID famotidine 20 mg Tablet 20 mg PO BID Qty: 14 0RF Patient Comments: patient reports not taking hydrocortisone 2.5 % Cream 0 g topical TID Qty: 0 0RF triamcinolone acetonide 0.1 % Cream 0 g topical TID Qty: 0 0RF potassium chloride [Klor-Con M20] 20 mEq Tablet,Er Particles/Crystals 20 meq PO DAILY Qty: 14 0RF folic acid 1 mg Tablet 1 mg PO QAM Qty: 30 0RF lidocaine [Aspercreme (lidocaine)] 4 % Adhesive Patch,Medicated 1 patch TOPICAL DAILY fluoxetine 20 mg capsule 20 mg PO DAILY Patient Comments: TAKE ONE CAPSULE BY MOUTH EVERY DAY atorvastatin 20 mg tablet 20 mg PO HS Patient Comments: TAKE ONE TABLET BY MOUTH AT BEDTIME cephalexin 500 mg Capsule 500 mg PO BID Rx Instructions: FOR 7 DAYS Medical Decision Making 1320 -- 77-year-old female with a history of former alcohol use, hypertension, hyperlipidemia, atrial fibrillation, asthma who is DNR/DNI admitted here last week for acute liver injury in the setting of acetaminophen toxicity after unintentionally took too many tabs of Tylenol for headache after initially presented to the ED for complaint of nausea and vomiting on antibiotics for UTI presents per PCP office for worsening of her liver enzymes noted on repeat labs drawn yesterday after an ED follow-up visit in the PCP office. Patient reports today now in the ED I feel better than I have in a long time . Her blood pressure is moderately hypertensive. The remainder of vitals within normal limits. She has mild scleral icterus and questionable jaundice. Her lungs are clear bilaterally. Her abdomen is soft and nontender. She has no focal deficits or meningeal signs. An EKG notes a rate of 109, sinus with irregular rate, no P waves noted and no acute ischemic findings. As her symptoms have been improving and she has no acute complaints, would doubt an acute chest or abdominal abnormality such as pneumonia, cholecystitis, UTI on pyelonephritis. Her INR has been elevated and she has no acute complaint of chest pain or shortness of breath with reassuring heart rate and oxygen saturations so would doubt PE. She has no complaint of tearing or exertional chest pain to suggest dissection or ACS. Her acetaminophen [facility] was within normal limits so do not see an indication for repeat level. We will obtain repeat screening labs including ammonia, coagulation studies and likely CT imaging. Labs reviewed. Normal white blood cell count. Hemoglobin 11 which is improved compared to recent level at 10. INR yesterday 4.7, now much improved today to 1.5. Alk phos 280, slightly downtrending from yesterday's result of 2095 but however uptrending as of yesterday as it was 1646 on 09/23. AST remains elevated at 170 and ALT remains elevated at 174 however they are both downtrending. T. bili is elevated to 3.8 from yesterday's level of 2.8. Troponin is elevated to 126. Suspect type II demand ischemia in the setting of multiple electrolyte abnormalities as she has no acute complaint of chest pain or ischemic findings on EKG. Review of imaging including CT abdomen and pelvis without contrast last week noted fatty infiltration of the liver and mild thickening of the wall of the ascending colon and an ultrasound which noted a hydropic gallbladder bladder but no evidence of gallstones. Will obtain CT chest abdomen and pelvis with IV contrast in addition to gallbladder ultrasound. 1630 --repeat troponin downtrending to 114. 1700 --CT chest abdomen and pelvis notes: IMPRESSION: 1. There is significant infiltrate in the anterior segment of the right upper lobe.? This area appeared unremarkable on CT scan of the chest performed March 2021.? No associated pleural effusion nor obvious intrathoracic adenopathy. 2. There is a compression fracture of T5 which was not previously present and there is a fracture of the sternum which was not previously present.? These findings do not appear acute but have occurred since the CT scan of 04/01/2021.? There is no evidence of mediastinal hematoma. 3. The wall of the stomach appears edematous, somewhat difficult to assess without oral contrast in the stomach lumen but nevertheless appearing abnormal.? Can be further investigated with endoscopy. 4. Redundant sigmoid.? Diverticulosis of the entire left colon without evidence of obvious acute diverticulitis. 5.? Air is seen in the otherwise normal appearing urinary bladder. Gallbladder US notes: IMPRESSION: 1. No evidence of cholelithiasis nor dilatation of the biliary tree.? 2.? No other significant ultrasound findings in the right upper quadrant. 3.? There is no ascites. Case discussed with Dr. Lopez --recommends discussion with tertiary center as patient may have potential or developing liver failure and would need to be in a facility where there is gastroenterology. 1744 -- Case discussed with [facility] who recommends starting NAC, trend LFTs and INR and check an acetaminophen level. [facility] does not have any bed availability for transfer. I also discussed case with poison control who felt that Tylenol toxicity would not be the cause and would not recommend NAC and to assess for another source. I then discussed with [facility] who also does not have capacity but stated that patient's symptoms could be secondary to shock liver and would not suspect acute liverfailure as her INR is improving and she is mentating well. States that we can give NAC and although it may not be helpful it is generally harmless. If patient LFTs and INR are increasing or her mental status is deteriorating, would recommend transfer. I discussed with pharmacy and have ordered standard protocol for acetylcysteine including 3 bags which will be given over a 21-hour. With plan for recheck of LFTs at the 12-hour manuel. Patient is hemodynamically stable and agreeable with plan. She is alert and oriented x3 and requesting food. 1829 -- Case discussed with hospitalist who accepts patient for admission. Medical Records Medical records reviewed: Yes I reviewed the patient's medical records. Medical records narrative: 09/20/22 US abdomen limited IMPRESSION: Normal sonographic appearance of the upper abdomen. 09/22/22 US abdomen limited IMPRESSION: Hydropic gallbladder.? No evidence of cholelithiasis or biliary ductal dilatation.? 09/22/22 CT abdomen/pelvis w/o contrast IMPRESSION: 1. Fatty infiltration of the liver. 2. Mild thickening of the wall of the ascending colon.? This may be due to underdistention.? Colitis cannot be excluded.? Please correlate clinically. 3. Unchanged appearance of a distended gallbladder.? No radiopaque stones are seen.? No biliary ductal dilatation.? Imaging Data Radiologic Study: Radiologist's impression: CT CHEST/ABD/PEL W CLINICAL HISTORY: ? increasing LFTs, assess for gallbladder/liver dz. ? TECHNIQUE:? Imaging Protocol: Axial computed tomography images with coronal and sagittal reformatted images were created and reviewed CONTRAST MATERIAL:? Intravenous: Omnipaque 350 Contrast volume:100 ml Oral: None COMPARISON:? CT CT CHEST WO from 04/01/[address] ABDOMEN ? PELVIS WO from 09/22/2022 FINDINGS: CHEST: LUNGS: There are increased markings in the anterior segment of the right upper lobe consistent with infiltrate at this level.? No associated cavitation.? This area appeared unremarkable on CT scan of the chest performed March 2021.? There is relative sparing of the right middle lobe and right lower lobe and there are no significant focal findings in the left lung.? No pleural effusions on either side. There is mucous noted in the lower trachea. MEDIASTINUM: There is no hilar nor mediastinal adenopathy. Visualized thyroid unremarkable. CARDIAC: Heart size is upper normal.? There is heavy coronary artery calcification.No pericardial effusion.? The diameter of the ascending thoracic aorta is upper normal.? There is no evidence of aortic dissection. OSSEOUS: No significant osseous lesions.T5 compression fracture which is probably not acute but was not evident on the chest CT scan of March 2021..? There is also a nonacute appearing fracture of the mid sternum. ABDOMEN: There is no ascites. LIVER: There is a small 5 millimeter benign cyst in the right hepatic lobe.? No ominous focal hepatic lesions evident.? No dilated intrahepatic ducts.? GALLBLADDER/BILIARY: Gallbladder is again noted to be patulous but without obvious radiopaque calculi and no gallbladder wall edema nor pericholecystic fluid.? CBD diameter is upper normal for this age group.? No calculi seen within the CBD. PANCREAS: No evidence of pancreatic mass nor dilatation of the pancreatic duct.? SPLEEN: Spleen is not enlarged. There are no intrasplenic lesions.? Splenic and portal veins are patent. ADRENALS: There are no significant adrenal masses. KIDNEYS: No calculi nor hydronephrosis. No solid renal masses. Tiny cysts are noted in the inferior pole of the right kidney.? Not requiring further investigation. ABDOMINAL AORTA: Calcified but not enlarged.? Common iliac arteries are also calcified but not enlarged. LYMPH NODES: There is no retroperitoneal nor paraaortic adenopathy. ABDOMINAL WALL: No evidence of significant anterior abdominal wall nor inguinal hernia.? GI: The nondistended stomach appears edematous along both curvatures.? No surrounding fluid nor free air. No evidence of small bowel obstruction.? The sigmoid is noted to be quite redundant.? There is diverticulosis of the left side of the colon, without evidence of obvious diverticulitis. PELVIS:? LYMPH NODES: There is no intrapelvic nor inguinal adenopathy. GI: No evidence of appendicitis.The sigmoid is redundant extending up at of the pelvis.There is sigmoid diverticulosis as well as diverticuli in the left side of the colon distal to the splenic flexure.? There is no evidence of acute diverticulitis.? No free fluid.? No abscess. URINARY BLADDER: There is air seen within the urinary bladder.? Bladder wall is not thickened.? No obvious mass nor calculi within the urinary bladder REPRODUCTIVE: Uterus size age-appropriate.? No abnormal adnexal masses nor free fluid in the pelvis. OSSEOUS: Multilevel chronic degenerative disc disease in the thoracic and lumbar spine.? There is mild degenerative anterolisthesis L5 upon S1 due to facet arthropathy.? There are no pars defects at L5. IMPRESSION: 1. There is significant infiltrate in the anterior segment of the right upper lobe.? This area appeared unremarkable on CT scan of the chest performed March 2021.? No associated pleural effusion nor obvious intrathoracic adenopathy. 2. There is a compression fracture of T5 which was not previously present and there is a fracture of the sternum which was not previously present.? These findings do not appear acute but have occurred since the CT scan of 04/01/2021.? There is no evidence of mediastinal hematoma. 3. The wall of the stomach appears edematous, somewhat difficult to assess without oral contrast in the stomach lumen but nevertheless appearing abnormal.? Can be further investigated with endoscopy. 4. Redundant sigmoid.? Diverticulosis of the entire left colon without evidence of obvious acute diverticulitis. 5.? Air is seen in the otherwise normal appearing urinary bladder. US ABDOMEN LIMITED CLINICAL HISTORY:? elev bili,LFTs, hydropic liver on US, r/o acute dz TECHNIQUE:? Ultrasound abdomen performed using standard protocol. COMPARISON:? CT CT ABDOMEN ? PELVIS WO from 09/22/2022 US US ABDOMEN LIMITED from 09/22/2022 FINDINGS: There is no ascites evident. LIVER: There are no hepatic lesions evident nor dilatation of intrahepatic ducts. GALLBLADDER/BILIARY: There are no gallstones. No gallbladder wall edema nor pericholecystic fluid. The common hepatic duct isnot dilated, measuring 3-4mm at the level of neva hepatis. PANCREAS: There is no evidence of pancreatic mass nor dilatation of the pancreatic duct. RIGHT KIDNEY:No evidence of solid mass, calculus, nor hydronephrosis. No cortical cysts evident. IMPRESSION: 1.? No evidence of cholelithiasis nor dilatation of the biliary tree.? 2.? No other significant ultrasound findings in the right upper quadrant. 3.? There is no ascites. HPI General Mode of arrival: ambulatory . Date/Time Provider Initiated Documentation: 09/27/22 13:00 . Limitations to Documentation: no limitations . Information obtained by: patient . HPI Narrative: Patient is a 77-year-old female with a history of hypertension, hyperlipidemia, coronary artery disease, COPD who was admitted here last week for acute liver injury in the setting of acetaminophen toxicity as she had taken reportedly 22 tabs of acetaminophen for headache presents now after sent from PCP office after seen in follow-up yesterday after her recent admission and labs today show worsening LFTs. Dr. Rosa from [facility] had called stating he spoke to a Dr. Foley at [facility] who recommended patient come to the ED for further evaluation and likely admission or transfer. Patient reportedly presented to the ED last week in the setting of nausea and dry heaves after starting an antibiotic for UTI. Patient states right now I feel better than I have felt in a long time . Dr. Rosa reported that patient was altered last week but appeared oriented and mentating well yesterday in the office. Patient states she is still taking her antibiotic for her UTI. She was also reportedly shown to have an elevated INR from labs drawn yesterday and states she did take her Xarelto this morning but was advised by Dr. Rosa today to hold this medication for now. She denies any fever, sore throat, headache, chest pain, difficulty breathing, abdominal pain, nausea, vomiting, diarrhea or urinary symptoms. She states she uses a walker at baseline for ambulation. She states she feels hungry and plan to eat today but was planning to go to the store to burr picker food so has not eaten yet today. She states she took 1-2 tabs of ibuprofen yesterday for joint pain in her hands but has not taken any Tylenol since her discharge from the hospital. She states she has a former history of alcohol abuse but has not drank since July 2022. She denies any drug use. Related Data Home Medications Medication Instructions Recorded Confirmed loratadine 10 mg tablet (Claritin) 10 mg PO DAILY 01/29/13 09/27/22 albuterol sulfate 90 mcg/actuation 1 - 2 puff inhalation QID PRN PRN 12/07/16 09/27/22 aerosol inhaler (Ventolin HFA) budesonide-formoterol HFA 160 1 puff inhalation BID 12/07/16 09/27/22 mcg-4.5 mcg/actuation aerosol inhaler (Symbicort) metoprolol tartrate 50 mg tablet 25 mg PO BID 12/07/16 09/27/22 nitroglycerin 0.4 mg sublingual 0.4 mg sublingual DIRECTED 12/07/16 09/27/22 tablet (Nitrostat) famotidine 20 mg tablet 20 mg PO BID #14 tabs 01/08/19 09/27/22 hydrocortisone 2.5 % topical cream 0 g topical TID #0 grams 01/08/19 09/27/22 triamcinolone acetonide 0.1 % 0 g topical TID #0 grams 01/08/19 09/27/22 topical cream mecobalamin (vitamin B12) 1,000 1,000 mcg PO DAILY 12/26/19 09/27/22 mcg chewable tablet rivaroxaban 20 mg tablet (Xarelto) 20 mg PO DAILY 02/13/20 09/27/22 lidocaine 4 % topical patch 1 patch topical DAILY 02/17/20 09/27/22 (Aspercreme (lidocaine)) atorvastatin 20 mg tablet 20 mg PO HS 02/19/20 09/27/22 fluoxetine 20 mg capsule 20 mg PO DAILY 02/19/20 09/27/22 folic acid 1 mg tablet 1 mg PO QAM #30 tabs 03/02/20 09/27/22 potassium chloride 20 mEq 20 meq PO DAILY #14 tabs 03/02/20 09/27/22 tablet,extended release(part/cryst) (Klor-Con M) cephalexin 500 mg capsule 500 mg PO BID 09/23/22 09/27/22 Previous Rx's Medication Instructions Recorded famotidine 20 mg tablet 20 mg PO BID #14 tabs 01/08/19 hydrocortisone 2.5 % topical cream 0 g topical TID #0 grams 01/08/19 triamcinolone acetonide 0.1 % 0 g topical TID #0 grams 01/08/19 topical cream folic acid 1 mg tablet 1 mg PO QAM #30 tabs 03/02/20 potassium chloride 20 mEq 20 meq PO DAILY #14 tabs 03/02/20 tablet,extended release(part/cryst) (Klor-Con M) Allergies Allergy/AdvReac Type Severity Reaction Status Date / Time lisinopril Allergy Intermediate lips Unverified 09/27/22 13:05 swelled sulfamethoxazole Allergy Intermediate Hives Unverified 09/27/22 13:05 [From Bactrim] trimethoprim [From Bactrim] Allergy Intermediate Hives Unverified 09/27/22 13:05 Penicillins AdvReac Intermediate Hives Unverified 09/27/22 13:05 General Stated Complaint: GenMedical TY: 3 Review of Systems All systems reviewed & are unremarkable except as noted in HPI and below Constitutional Constitutional: Reports as per HPI, Denies chills and Denies fever(s) Eyes Eyes: Denies blurry vision ENT Ears, Nose, Mouth, and Throat: Denies dizziness, Denies sore throat and Denies throat swelling Cardiovascular Cardiovascular: Denies chest pain and Denies dyspnea Respiratory Respiratory: Denies cough and Denies dyspnea Gastrointestinal Gastrointestinal: Denies abdominal pain, Denies diarrhea and Denies vomiting Genitourinary Genitourinary: Denies hematuria and Denies dysuria Musculoskeletal Musculoskeletal: Denies back pain and Denies numbness Integumentary/Breasts Skin/Breast: Denies lesions and Denies rash Neurologic Neurologic: Denies dizziness, Denies localized weakness and Denies numbness Allergic/Immunologic Allergic/Immunologic: Denies throat swelling PFSH All Active Problems (Updated 09/27/22 @ 20:10 by Lilian Hand DO) Transaminitis (Acute) Hyperbilirubinemia (Acute) Elevated troponin (Acute) Elevated troponin level not due myocardial infarction (Acute) Vertebral compression fracture (Acute) Pneumonia (Acute) Hyperkalemia (Acute) NICKY (acute kidney injury) (Acute) Acute UTI (Acute) Acetaminophen toxicity (Acute) Elevated INR (Acute) Abnormal LFTs (Acute) Hyponatremia (Acute) Weakness (Acute) COPD (chronic obstructive pulmonary disease) (Chronic) Anemia (Chronic) Hyperlipidemia (Acute) CAD (coronary artery disease) (Chronic) Hypertension (Chronic) Medical History (Updated 09/27/22 @ 20:10 by Lilian Hand DO) Abnormal CT scan, bladder Asthma Cellulitis Disorder of both eustachian tubes DNR (do not resuscitate) Drug rash Failure to thrive Folate deficiency H/O: HTN (hypertension) History of asthma History of depression History of tobacco use Hypokalemia Hypomagnesemia Laceration of right lower leg without complication Low back pain 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 Neuropathy New onset a-fib Palliative care patient dobbertin Peripheral neuropathy Physician orders for life-sustaining treatment (POLST) form indicates patient wish for [id number] status Rash, skin Thrombocytosis Tremor Unintentional weight loss Urinary bladder neoplasm Urinary tract infection UTI (urinary tract infection) Vitamin B12 deficiency (dietary) anemia Surgical History Hx of eye surgery Social History Smoking/Tobacco Use Status: Former Tobacco Use Quit Date: 05/29/89 Smoking risk assessment performed?: Yes Alcohol Intake: never Drug use: Never Substance use type: does not use Do you feel safe at home: Yes Do you feel safe in your relationship?: Yes Exam Const General: cooperative and no acute distress Orientation: alert, awake and oriented x3 HENMT Head: normal to inspection Ears: hearing grossly normal bilaterally and external ears normal Face and sinus: normal facial exam Mouth: oral mucosae normal Teeth and gingiva: edentulous Throat: posterior oropharynx normal Eyes General: appearance normal, both eyes and all related structures Sclera: scleral abnormality bilaterally other (icterus, mild) Pupils: PERRL EOM: EOM intact bilaterally Neck Neck: normal visual inspection and No submandibular swelling Lymphatic: no lymphadenopathy noted Chest Chest: normal inspection of the chest and no tenderness Resp Effort & Inspection: normal respiratory effort and able to speak in complete sentences Auscultation: clear to auscultation bilaterally Cardio Rate: regular rate Rhythm: regular rhythm GI Inspection: normal to inspection Palpation: soft, not firm, not rigid and nontender Auscultation: normal bowel sounds Back/Spine/Pelvis Thoracic/Lumbar Spine: thoracic and lumbar spine normal to inspection Pelvis: no pain with anterior-posterior compression Skin General skin exam: no rashes or lesions noted Neuro General: patient alert, patient awake, patient oriented x3, moves all extremities and no meningeal signs Cranial Nerves: CN's II-XI intact bilaterally Cognition: normal cognition Speech: speech normal Motor: muscle tone normal throughout and strength 5/5 throughout Sensory Exam: no sensory deficits noted Extrem General: normal to inspection, full ROM, capillary refill normal, no calf tenderness bilaterally and no edema Psych Appearance: grossly normal Mental Status: mental status grossly normal Speech and Movement: speech and movement normal Affect: normal affect Course Vital Signs Vital signs: Respiratory Effort Normal, Non-Labored 09/27/22 13:02
[2022-09-27 13:20] LABS: Abs Immature Grans 0.05 10^3/uL (0.0-0.06); Absolute Basophil Count 0.04 10^3/uL (0.0-0.2); Absolute Eosinophil Count 0.29 10^3/uL (0.0-0.7); Absolute Lymphocyte Count 0.66 10^3/uL (1.2-3.4); Absolute Monocyte Count 0.83 10^3/uL (0.1-0.8); Absolute Neutrophil Count 6.29 10^3/uL (1.2-6.7); Basophils % 0.5; Eosinophils % 3.6; HCT 32.1 % (36.0-46.0); Immature Grans % 0.6; Lymphocytes % 8.1; MCH 32.5 pg (27.0-33.0); MCHC 34.3 % (32.0-36.0); MCV 95 fL (80-95); MPV 10.4 fL (8.0-11.0); Monocytes % 10.2; Platelet Count 206 10^3/uL (130-400); RBC 3.38 10^6/uL (3.93-5.22); RDW 16.9 % (11.7-14.6); RDW-SD 54.4 fL; WBC 8.16 10^3/uL (4.4-10.8)
[2022-09-27 13:32] LABS: Ammonia < 10 umol/L (11-32)
[2022-09-27 13:44] LABS: ALT 174 U/L (14-59); AST 170 U/L (15-37); Albumin 2.6 g/dL (3.4-5.0); BUN 9 mg/dL (7-18); Bilirubin, Total 3.8 mg/dL (0.2-1.0); CREATININE 0.8 mg/dL (0.55-1.02); Chloride 101 mmol/L (98-107); Estimated GFR 75.37 (mL/min/1.73m2); Glucose 84 mg/dL (74-106); Lipase 34 U/L (16-77); Magnesium 1.7 mg/dL (1.8-2.4); Potassium 3.8 mmol/L (3.5-5.1); Sodium 135 mmol/L (136-145); Total Protein 8.3 g/dL (6.4-8.2)
[2022-09-27 13:45] LABS: Alkaline Phosphatase 2080 U/L (46-116); ETHANOL BLOOD < 3.0 mg/dL (<10); INR 1.5 (0.9-1.1); PTT Activated 44.9 sec (21.5-31.9); Prothrombin Time 15.5 sec (9.3-11.0)
--- NOTE | 2022-09-27 13:45 | DI.US_ITS ---
Exam(s) US ABDOMEN LIMITED EXAM: US ABDOMEN LIMITED CLINICAL HISTORY: elev bili,LFTs, hydropic liver on US, r/o acute dz TECHNIQUE: Ultrasound abdomen performed using standard protocol. COMPARISON: CT CT ABDOMEN PELVIS WO from 09/22/2022 US US ABDOMEN LIMITED from 09/22/2022 FINDINGS: There is no ascites evident. LIVER: There are no hepatic lesions evident nor dilatation of intrahepatic ducts. GALLBLADDER/BILIARY: There are no gallstones. No gallbladder wall edema nor pericholecystic fluid. The common hepatic duct isnot dilated, measuring 3-4mm at the level of neva hepatis. PANCREAS: There is no evidence of pancreatic mass nor dilatation of the pancreatic duct. RIGHT KIDNEY:No evidence of solid mass, calculus, nor hydronephrosis. No cortical cysts evident. IMPRESSION: 1. No evidence of cholelithiasis nor dilatation of the biliary tree. 2. No other significant ultrasound findings in the right upper quadrant. 3. There is no ascites. DATA REPOSITORY:
--- NOTE | 2022-09-27 13:45 | DI.CT_ITS ---
Exam(s) CT CHEST/ABD/PEL W EXAM: CT CHEST/ABD/PEL W CLINICAL HISTORY: increasing LFTs, assess for gallbladder/liver dz. TECHNIQUE: Imaging Protocol: Axial computed tomography images with coronal and sagittal reformatted images were created and reviewed CONTRAST MATERIAL: Intravenous: Omnipaque 350 Contrast volume:100 ml Oral: None COMPARISON: CT CT CHEST WO from 04/01/[address] ABDOMEN PELVIS WO from 09/22/2022 FINDINGS: CHEST: LUNGS: There are increased markings in the anterior segment of the right upper lobe consistent with i nfiltrate at this level. No associated cavitation. This area appeared unremarkable on CT scan of th e chest performed March 2021. There is relative sparing of the right middle lobe and right lower lobe and there are no significant focal findings in the left lung. No pleural effusions on either si de. There is mucous noted in the lower trachea. MEDIASTINUM: There is no hilar nor mediastinal adenopathy. Visualized thyroid unremarkable. CARDIAC: Heart size is upper normal. There is heavy coronary artery calcification.No pericardial eff usion. The diameter of the ascending thoracic aorta is upper normal. There is no evidence of aortic dissection. OSSEOUS: No significant osseous lesions.T5 compression fracture which is probably not acute but was n ot evident on the chest CT scan of March 2021.. There is also a nonacute appearing fracture of th e mid sternum. ABDOMEN: There is no ascites. LIVER: There is a small 5 millimeter benign cyst in the right hepatic lobe. No ominous focal hepatic lesions evident. No dilated intrahepatic ducts. GALLBLADDER/BILIARY: Gallbladder is again noted to be patulous but without obvious radiopaque calculi and no gallbladder wall edema nor pericholecystic fluid. CBD diameter is upper normal for this age group. No calculi seen within the CBD. PANCREAS: No evidence of pancreatic mass nor dilatation of the pancreatic duct. SPLEEN: Spleen is not enlarged. There are no intrasplenic lesions. Splenic and portal veins are plaza nt. ADRENALS: There are no significant adrenal masses. KIDNEYS: No calculi nor hydronephrosis. No solid renal masses. Tiny cysts are noted in the inferior p ole of the right kidney. Not requiring further investigation. ABDOMINAL AORTA: Calcified but not enlarged. Common iliac arteries are also calcified but not enlarg ed. LYMPH NODES: There is no retroperitoneal nor paraaortic adenopathy. ABDOMINAL WALL: No evidence of significant anterior abdominal wall nor inguinal hernia. GI: The nondistended stomach appears edematous along both curvatures. No surrounding fluid nor free air. No evidence of small bowel obstruction. The sigmoid is noted to be quite redundant. There is divert iculosis of the left side of the colon, without evidence of obvious diverticulitis. PELVIS: LYMPH NODES: There is no intrapelvic nor inguinal adenopathy. GI: No evidence of appendicitis.The sigmoid is redundant extending up at of the pelvis.There is sigmo id diverticulosis as well as diverticuli in the left side of the colon distal to the splenic flexure. There is no evidence of acute diverticulitis. No free fluid. No abscess. URINARY BLADDER: There is air seen within the urinary bladder. Bladder wall is not thickened. No ob vious mass nor calculi within the urinary bladder REPRODUCTIVE: Uterus size age-appropriate. No abnormal adnexal masses nor free fluid in the pelvis. 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 There is mil d degenerative anterolisthesis L5 upon S1 due to facet arthropathy. There are no pars defects at L5. IMPRESSION: 1. There is significant infiltrate in the anterior segment of the right upper lobe. This area appear ed unremarkable on CT scan of the chest performed March 2021. No associated pleural effusion nor obvious intrathoracic adenopathy. 2. There is a compression fracture of T5 which was not previously present and there is a fracture of the sternum which was not previously present. These findings do not appear acute but have occurred s magdy the CT scan of 04/01/2021. There is no evidence of mediastinal hematoma. 3. The wall of the stomach appears edematous, somewhat difficult to assess without oral contrast in t he stomach lumen but nevertheless appearing abnormal. Can be further investigated with endoscopy. 4. Redundant sigmoid. Diverticulosis of the entire left colon without evidence of obvious acute dive rticulitis. 5. Air is seen in the otherwise normal appearing urinary bladder. Report called by myself to ER physician. RADIATION DOSE DELIVERED: 1,174.55mGy.cm Total DLP DATA REPOSITORY: All CT scans at this facility are submitted to the National Radiology Data Registry (NRDR) Dose Index Registry (DIR) with the [employer] ([employer]). RADIATION OPTIMIZATION: All CT scans at this facility use at least one of these dose optimization te chniques: automated exposure control; mA and/or kV adjustment per patient size (includes targeted exa ms where dose is matched to clinical indication); or iterative reconstruction.
[2022-09-27 13:46] LABS: Troponin I 126 ng/L (<or=60)
[2022-09-27] MEDS: Normal Saline - Diluent 50 ML VIAL IJ (14:34)
[2022-09-27] MEDS: Omnipaque 350 MG/ML 100 ML BTL IJ (14:35)
[2022-09-27] MEDS: Normal Saline 250 ML 500 ML IV (14:52)
[2022-09-27 15:15] LABS: Bilirubin Negative (Negative); Blood Negative (Negative); Clarity Clear (Clear); Glucose Negative (Negative); Ketones Negative (Negative); Leukocyte Esterase Negative (Negative); Nitrite Negative (Negative); Urobilinogen 0.2 mg/dL (Up to 0.2); pH 7.5 (5-8)
[2022-09-27 15:48] LABS: *AMPHETAMINES SCREEN URINE Negative (Negative); *BARBITURATES SCREEN URINE Negative (Negative); *BENZODIAZEPINES SCREEN URINE Negative (Negative); Cannabinoids THC Negative (Negative); Cocaine Screen,Urine Negative (Negative); METHADONE URINE SCREEN Negative (Negative); OPIATES URINE SCREEN Negative (Negative)
[2022-09-27 15:51] LABS: Tricyclic Antidepressants Negative (Negative)
[2022-09-27 16:50] LABS: Troponin I 114 ng/L (<or=60)
[2022-09-27 17:01] LABS: COVID-19 PCR Negative (Negative); Influenza A PCR Negative (Negative); Influenza B PCR Negative (Negative); RSV PCR Negative (Negative)
[2022-09-27 17:02] LABS: Source Nasopharynx
--- NOTE | 2022-09-27 18:35 | HPE_ITS ---
Date of service: 09/27/22 Time of Service: 18:35 Assessment and Plan Assessment and plan (1) Acetaminophen toxicity: Start date: 09/21/22 Status: Acute Assessment and plan: Patient did have acetaminophen overdose which was accidental and was treated for several days in the hospital with Mucomyst IV protocol with labs trending downward at discharge. Follow-up labs as outpatient showed some elevations in alkaline phosphatase but other liver enzymes were elevated but decreasing and PT/INR was erroneously reported as markedly elevated but upon repeat in the ED was only slightly elevated. She was initiated on Mucomyst IV protocol by the ED provider after discussion with [facility] provider. She will complete this protocol with labs being trended. If she is not doing well GI will be reconsulted. It is safe to continue her Xarelto which she held per PCP. Her acetaminophen level is not measurable at this time which is reassuring. She has not been taking Tylenol at home. She was a previous drinker only quitting a month or 2 prior to this admission. (2) Elevated INR: Start date: 09/27/22 Status: Acute Assessment and plan: INR management as outpatient was 4.7 but repeated with 1.5 which is reassuring. This will be trended daily with liver functions. Patient's Xarelto will be continued. (3) Abnormal LFTs: Start date: 09/27/22 Status: Acute Assessment and plan: Elevated liver function tests persist status post acetaminophen overdose and will be trended with trial of repeating Mucomyst IV protocol. Reconsult GI as needed. (4) Pneumonia: Start date: 09/27/22 Status: Acute Assessment and plan: Patient does have chronic COPD been a previous smoker and no change in symptoms recently but imaging did reveal a new infiltrate which will be treated with Rocephin and Zithromax IV being converted to oral therapy prior to discharge. (5) Vertebral compression fracture: Start date: 09/27/22 Status: Acute Assessment and plan: Incidental finding of vertebral compression fractures since last imaging with patient fairly asymptomatic. We will continue lidocaine patches and pain management without acetaminophen. (6) Elevated troponin level not due myocardial infarction: Start date: 09/27/22 Status: Acute Assessment and plan: Patient troponin was measured by the ED with no specific symptoms and it is trending downward. This may have been elevated with the previous admission and we will continue to trend with monitoring cardiac status. She is a DNR/DNI. She does not appear to have had a recent STEMI and this may have been from the strain of her recent overdose. She also has chronic atrial fibrillation. (7) CAD (coronary artery disease): Status: Chronic Assessment and plan: Patient is having no symptoms of ischemia but troponins will be trended since slightly elevated. Cardiac monitoring and follow-up EKG if any symptoms reconsider more aggressive treatment. She is a DNR/DNI. (8) Chronic atrial fibrillation: Status: Chronic Assessment and plan: Patient has rate control and will be continued on Xarelto with her INR only slightly elevated. Continue outpatient medical regimen. History of Present Illness History of Present Illness Chief Complaint: Elevated liver function test on lab follow-up Narrative: This is a 77-year-old female patient who presented to the ED prompted by her PCP because of abnormal follow-up on liver function test status post hospitalization 09/22/2022 with the patient had an unintentional overdose of acetaminophen and was treated with Mucomyst IV protocol. The patient feels better than she has in a long time and has been not drinking since July of this year prior to her unintentional overdose. She was a previous smoker. The patient's PT/INR was elevated markedly from previous measurements and the patient was told to hold her Xarelto and report to the ED for evaluation. 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 She also consulted poison control. One of the 3 recommended Mucomyst stated that it may help and would not be harmful. That was [facility]. Mucomyst IV protocol was initiated with patient obligated to an 18- hour treatment which will be carried through. We will trend hepatic panel. The patient's acetaminophen level was less than 2 and not measurable with the patient states she has not taken Tylenol at this time. Imaging did reveal possible right upper lobe pneumonia though the patient was not having any increased respiratory symptoms and this will be covered during her hospital stay. She was admitted for this treatment and at discharge can be converted to oral antibiotic therapy for her newfound infiltrate. She is not smoking but does take inhalers. Respiratory care will see her during her hospital stay. Her other chronic medical problems are stable and the patient is a DNR/DNI. Review of Systems Narrative: 13 point review of systems positive for slight swelling and tightness in legs, otherwise unrevealing or stable. PFSH All Active Problems (Updated 09/27/22 @ 22:56 by Maximiliano Nazario) Chronic atrial fibrillation (Chronic) Transaminitis (Acute) Hyperbilirubinemia (Acute) Elevated troponin (Acute) Elevated troponin level not due myocardial infarction (Acute) Vertebral compression fracture (Acute) Pneumonia (Acute) Hyperkalemia (Acute) NICKY (acute kidney injury) (Acute) Acute UTI (Acute) Acetaminophen toxicity (Acute) Elevated INR (Acute) Abnormal LFTs (Acute) Hyponatremia (Acute) Weakness (Acute) COPD (chronic obstructive pulmonary disease) (Chronic) Anemia (Chronic) Hyperlipidemia (Acute) CAD (coronary artery disease) (Chronic) Hypertension (Chronic) Medical History Abnormal CT scan, bladder Asthma Cellulitis Disorder of both eustachian tubes DNR (do not resuscitate) Drug rash Failure to thrive Folate deficiency H/O: HTN (hypertension) History of asthma History of depression History of tobacco use Hypokalemia Hypomagnesemia Laceration of right lower leg without complication Low back pain 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 Neuropathy New onset a-fib Palliative care patient dobbertin Peripheral neuropathy Physician orders for life-sustaining treatment (POLST) form indicates patient wish for [id number] status Rash, skin Thrombocytosis Tremor Unintentional weight loss Urinary bladder neoplasm Urinary tract infection UTI (urinary tract infection) Vitamin B12 deficiency (dietary) anemia Surgical History Hx of eye surgery Social History Smoking/Tobacco Use Status: Former Tobacco Use Quit Date: 05/29/89 Smoking risk assessment performed?: Yes Alcohol Intake: never Drug use: Never Substance use type: does not use Do you feel safe at home: Yes Do you feel safe in your relationship?: Yes Meds Allergies and Home Medications Allergies Allergy/AdvReac Type Severity Reaction Status Date / Time lisinopril Allergy Intermediate lips Unverified 09/27/22 13:05 swelled sulfamethoxazole Allergy Intermediate Hives Unverified 09/27/22 13:05 [From Bactrim] trimethoprim [From Bactrim] Allergy Intermediate Hives Unverified 09/27/22 13:05 Penicillins AdvReac Intermediate Hives Unverified 09/27/22 13:05 Home Medications Medication Instructions Recorded Confirmed Type loratadine 10 mg tablet (Claritin) 10 mg PO DAILY 01/29/13 09/27/22 History albuterol sulfate 90 mcg/actuation 1 - 2 puff inhalation QID PRN PRN 12/07/16 09/27/22 History aerosol inhaler (Ventolin HFA) budesonide-formoterol HFA 160 1 puff inhalation BID 12/07/16 09/27/22 History mcg-4.5 mcg/actuation aerosol inhaler (Symbicort) metoprolol tartrate 50 mg tablet 25 mg PO BID 12/07/16 09/27/22 History nitroglycerin 0.4 mg sublingual 0.4 mg sublingual DIRECTED 12/07/16 09/27/22 History tablet (Nitrostat) famotidine 20 mg tablet 20 mg PO BID #14 tabs 01/08/19 09/27/22 Rx hydrocortisone 2.5 % topical cream 0 g topical TID #0 grams 01/08/19 09/27/22 Rx triamcinolone acetonide 0.1 % 0 g topical TID #0 grams 01/08/19 09/27/22 Rx topical cream mecobalamin (vitamin B12) 1,000 1,000 mcg PO DAILY 12/26/19 09/27/22 History mcg chewable tablet rivaroxaban 20 mg tablet (Xarelto) 20 mg PO DAILY 02/13/20 09/27/22 History lidocaine 4 % topical patch 1 patch topical DAILY 02/17/20 09/27/22 History (Aspercreme (lidocaine)) atorvastatin 20 mg tablet 20 mg PO HS 02/19/20 09/27/22 History fluoxetine 20 mg capsule 20 mg PO DAILY 02/19/20 09/27/22 History folic acid 1 mg tablet 1 mg PO QAM #30 tabs 03/02/20 09/27/22 Rx potassium chloride 20 mEq 20 meq PO DAILY #14 tabs 03/02/20 09/27/22 Rx tablet,extended release(part/cryst) (Klor-Con M) cephalexin 500 mg capsule 500 mg PO BID 09/23/22 09/27/22 History Exam Narrative Exam Narrative: General: Patient appears older than stated age, thinly built and chronically ill-appearing. She is in no acute distress and almost jovial during conversation. She is alert and oriented to person, place and time. She is very talkative with some pressured speech. HEENT: Normocephalic, coarsened facial features, eyes with pupils equal and react to light symmetrically, extraocular movement intact and sclera anicteric. Oropharynx with dry mucosa and patient is edentulous. Neck: Supple without JVD. Back: Kyphotic without CVA tenderness. Lungs: Bronchovesicular breath sounds diffusely with poor to fair aeration, sparse intermittent inspiratory coarse crackles but no rhonchi and sparse expiratory wheeze with slight increased expiratory phase. No focalizing rales auscultated over right upper back. Breast: Exam deferred. Heart: Irregular irregular rhythm with normal rate, distant heart sounds with no murmur or gallop appreciated. Abdomen: Soft, palpable contour, no palpable hepatosplenomegaly or tense abdomen. Bowel sounds positive all quadrants. No focal guarding. Genitalia/rectal: Exam deferred. Extremities: Atrophic hyperpigmented skin over legs with nonpitting edema 1-2+, no clubbing or cyanosis. Fair cap refill. All joints have fair range of motion. Skin: Skin changes over legs as described otherwise pale, warm and dry. Neuro: Cranial nerves II through XII gross intact, no focal motor deficits. No tremor. Psych: Normal affect and mood with slightly pressured speech and euphoric affect. No abnormal thought processes. Remote and recent memory grossly intact. Results Imaging Imaging Studies: EXAM:? US ABDOMEN LIMITED CLINICAL HISTORY:? elev bili,LFTs, hydropic liver on US, r/o acute dz TECHNIQUE:? Ultrasound abdomen performed using standard protocol. COMPARISON:? CT CT ABDOMEN ? PELVIS WO from 09/22/2022 US US ABDOMEN LIMITED from 09/22/2022 FINDINGS: There is no ascites evident. LIVER: There are no hepatic lesions evident nor dilatation of intrahepatic ducts. GALLBLADDER/BILIARY: There are no gallstones. No gallbladder wall edema nor pericholecystic fluid. The common hepatic duct isnot dilated, measuring 3-4mm at the level of neva hepatis. PANCREAS: There is no evidence of pancreatic mass nor dilatation of the pancreatic duct. RIGHT KIDNEY:No evidence of solid mass, calculus, nor hydronephrosis. No cortical cysts evident. IMPRESSION: 1.? No evidence of cholelithiasis nor dilatation of the biliary tree.? 2.? No other significant ultrasound findings in the right upper quadrant. 3.? There is no ascites. Exam(s) CT CHEST/ABD/PEL W EXAM: ? CT CHEST/ABD/PEL W CLINICAL HISTORY: ? increasing LFTs, assess for gallbladder/liver dz. ? TECHNIQUE:? Imaging Protocol: Axial computed tomography images with coronal and sagittal reformatted images were created and reviewed CONTRAST MATERIAL:? Intravenous: Omnipaque 350 Contrast volume:100 ml Oral: None COMPARISON:? CT CT CHEST WO from 04/01/[address] ABDOMEN ? PELVIS WO from 09/22/2022 FINDINGS: CHEST: LUNGS: There are increased markings in the anterior segment of the right upper lobe consistent with infiltrate at this level.? No associated cavitation.? This area appeared unremarkable on CT scan of the chest performed March 2021.? There is relative sparing of the right middle lobe and right lower lobe and there are no significant focal findings in the left lung.? No pleural effusions on either side. There is mucous noted in the lower trachea. MEDIASTINUM: There is no hilar nor mediastinal adenopathy. Visualized thyroid unremarkable. CARDIAC: Heart size is upper normal.? There is heavy coronary artery calcification.No pericardial effusion.? The diameter of the ascending thoracic aorta is upper normal.? There is no evidence of aortic dissection. OSSEOUS: No significant osseous lesions.T5 compression fracture which is probably not acute but was not evident on the chest CT scan of March 2021..? There is also a nonacute appearing fracture of the mid sternum. ABDOMEN: There is no ascites. LIVER: There is a small 5 millimeter benign cyst in the right hepatic lobe.? No ominous focal hepatic lesions evident.? No dilated intrahepatic ducts.? GALLBLADDER/BILIARY: Gallbladder is again noted to be patulous but without obvious radiopaque calculi and no gallbladder wall edema nor pericholecystic fluid.? CBD diameter is upper normal for this age group.? No calculi seen within the CBD. PANCREAS: No evidence of pancreatic mass nor dilatation of the pancreatic duct.? SPLEEN: Spleen is not enlarged. There are no intrasplenic lesions.? Splenic and portal veins are patent. ADRENALS: There are no significant adrenal masses. KIDNEYS: No calculi nor hydronephrosis. No solid renal masses. Tiny cysts are noted in the inferior pole of the right kidney.? Not requiring further investigation. ABDOMINAL AORTA: Calcified but not enlarged.? Common iliac arteries are also jaime cified but not enlarged. LYMPH NODES: There is no retroperitoneal nor paraaortic adenopathy. ABDOMINAL WALL: No evidence of significant anterior abdominal wall nor inguinal hernia.? GI: The nondistended stomach appears edematous along both curvatures.? No surrounding fluid nor free air. No evidence of small bowel obstruction.? The sigmoid is noted to be quite redundant.? There is diverticulosis of the left side of the colon, without evidence of obvious diverticulitis. PELVIS:? LYMPH NODES: There is no intrapelvic nor inguinal adenopathy. GI: No evidence of appendicitis.The sigmoid is redundant extending up at of the pelvis.There is sigmoid diverticulosis as well as diverticuli in the left side of the colon distal to the splenic flexure.? There is no evidence of acute diverticulitis.? No free fluid.? No abscess. URINARY BLADDER: There is air seen within the urinary bladder.? Bladder wall is not thickened.? No obvious mass nor calculi within the urinary bladder REPRODUCTIVE: Uterus size age-appropriate.? No abnormal adnexal masses nor free fluid in the pelvis. OSSEOUS: Multilevel chronic degenerative disc disease in the thoracic and lumbar spine.? There is mild degenerative anterolisthesis L5 upon S1 due to facet arthropathy.? There are no pars defects at L5. IMPRESSION: 1. There is significant infiltrate in the anterior segment of the right upper lobe.? This area appeared unremarkable on CT scan of the chest performed March 2021.? No associated pleural effusion nor obvious intrathoracic adenopathy. 2. There is a compression fracture of T5 which was not previously present and there is a fracture of the sternum which was not previously present.? These findings do not appear acute but have occurred since the CT scan of 04/01/2021.? There is no evidence of mediastinal hematoma. 3. The wall of the stomach appears edematous, somewhat difficult to assess with out oral contrast in the stomach lumen but nevertheless appearing abnormal.? Can be further investigated with endoscopy. 4. Redundant sigmoid.? Diverticulosis of the entire left colon without evidence of obvious acute diverticulitis. 5.? Air is seen in the otherwise normal appearing urinary bladder. Labs 09/27/22 13:10 09/27/22 13:10 Labs: Laboratory Results - last 24 hr 09/27/22 09/27/22 09/27/22 13:10 13:10 13:10 WBC 8.16 RBC 3.38 L Hgb 11.0 L Hct 32.1 L MCV 95 MCH 32.5 MCHC 34.3 RDW 16.9 H Plt Count 206 MPV 10.4 Immature Gran % 0.6 Neutrophils % 77.0 Lymphocytes % 8.1 Monocytes % 10.2 Eosinophils % 3.6 Basophils % 0.5 Nucleated RBC % 0.0 Absolute Neutrophils 6.29 Absolute Lymphocytes 0.66 L Absolute Monocytes 0.83 H Absolute Eosinophils 0.29 Absolute Basophils 0.04 PT INR APTT Sodium 135 L Potassium 3.8 Chloride 101 Carbon Dioxide 27.0 Anion Gap 7.0 BUN 9 Creatinine 0.8 Est GFR (CKD-EPI 2020) 75.37 Glucose 84 Calcium 9.0 Magnesium 1.7 L Total Bilirubin 3.8 H AST 170 H ALT 174 H Alkaline Phosphatase 2080 H Ammonia < 10 L Troponin I 126 H* Total Protein 8.3 H Albumin 2.6 L Lipase 34 Urine Color Urine Clarity Urine pH Ur Specific Bruner Urine Protein Urine Ketones Urine Blood Urine Nitrite Urine Bilirubin Urine Urobilinogen Ur Leukocyte Esterase Urine Glucose Urine Opiates Screen Urine Methadone Screen Ur Barbiturates Screen Ur Tricyclics Screen Ur Amphetamines Screen U Benzodiazepines Scrn Urine Cocaine Screen Ur THC Screen Ethyl Alcohol < 3.0 COVID-19 Source SARS-CoV-2 (PCR) Influenza Type A (PCR) Influenza Type B (PCR) RSV (PCR) 09/27/22 09/27/22 09/27/22 13:10 13:10 15:00 WBC RBC Hgb Hct MCV MCH MCHC RDW Plt Count MPV Immature Gran % Neutrophils % Lymphocytes % Monocytes % Eosinophils % Basophils % Nucleated RBC % Absolute Neutrophils Absolute Lymphocytes Absolute Monocytes Absolute Eosinophils Absolute Basophils PT 15.5 H INR 1.5 H APTT 44.9 H Sodium Potassium Chloride Carbon Dioxide Anion Gap BUN Creatinine Est GFR (CKD-EPI 2020) Glucose Calcium Magnesium Total Bilirubin AST ALT Alkaline Phosphatase Ammonia Troponin I Total Protein Albumin Lipase Urine Color Yellow Urine Clarity Clear Urine pH 7.5 Ur Specific Bruner 1.020 Urine Protein Negative Urine Ketones Negative Urine Blood Negative Urine Nitrite Negative Urine Bilirubin Negative Urine Urobilinogen 0.2 Ur Leukocyte Esterase Negative Urine Glucose Negative Urine Opiates Screen Urine Methadone Screen Ur Barbiturates Screen Ur Tricyclics Screen Ur Amphetamines Screen U Benzodiazepines Scrn Urine Cocaine Screen Ur THC Screen Ethyl Alcohol Cancelled COVID-19 Source SARS-CoV-2 (PCR) Influenza Type A (PCR) Influenza Type B (PCR) RSV (PCR) 09/27/22 09/27/22 09/27/22 15:00 16:18 16:18 WBC RBC Hgb Hct MCV MCH MCHC RDW Plt Count MPV Immature Gran % Neutrophils % Lymphocytes % Monocytes % Eosinophils % Basophils % Nucleated RBC % Absolute Neutrophils Absolute Lymphocytes Absolute Monocytes Absolute Eosinophils Absolute Basophils PT INR APTT Sodium Potassium Chloride Carbon Dioxide Anion Gap BUN Creatinine Est GFR (CKD-EPI 2020) Glucose Calcium Magnesium Total Bilirubin AST ALT Alkaline Phosphatase Ammonia Troponin I 114 H* Total Protein Albumin Lipase Urine Color Urine Clarity Urine pH Ur Specific Bruner Urine Protein Urine Ketones Urine Blood Urine Nitrite Urine Bilirubin Urine Urobilinogen Ur Leukocyte Esterase Urine Glucose Urine Opiates Screen Negative Urine Methadone Screen Negative Ur Barbiturates Screen Negative Ur Tricyclics Screen Negative Ur Amphetamines Screen Negative U Benzodiazepines Scrn Negative Urine Cocaine Screen Negative Ur THC Screen Negative Ethyl Alcohol COVID-19 Source Nasopharynx SARS-CoV-2 (PCR) Negative Influenza Type A (PCR) Negative Influenza Type B (PCR) Negative RSV (PCR) Negative Last Vital Signs Temp 36.8 C 09/27/22 13:06 Pulse 84 09/27/22 14:01 Resp 20 09/27/22 15:46 BP 164/86 H 09/27/22 14:01 Pulse Ox 95 09/27/22 14:01 Time Spent Time spent with Patient: >75 minutes Time was spent: preparing to see the patient(eg.review tests), obtaining and/or reviewing separately otained hiistory, ordering medications,tests, procedures, referring, communicating with other health intensive care ambulance paramedic, indepentently interpreting results and care coordination
[2022-09-27 18:57] LABS: Acetaminophen < 2 ug/mL (10-30)
[2022-09-27 20:07] LABS: ALT 147 U/L (14-59); AST 151 U/L (15-37); Albumin 2.3 g/dL (3.4-5.0); Bilirubin, Direct 2.1 mg/dL (0.0-0.2); Bilirubin, Total 3.7 mg/dL (0.2-1.0); Total Protein 7.7 g/dL (6.4-8.2)
[2022-09-27 20:09] LABS: Alkaline Phosphatase 1940 U/L (46-116)
[2022-09-27 20:27] LABS: Troponin I 187 ng/L (<or=60)
--- NOTE | 2022-09-27 21:04 | NUR.NOTE ---
Nursing Note: Patient seems to have food instability. Patient does not want RN to throw away old sandwich that has been in room for hours. Patient put half eaten food containers in personal bag. Was very rude to RN when attempting to take patient upstairs, reassured her that there would be food and water upstairs for her. Patient very irritated with RN after that situation and was very rude when questions were asked. Was very short w/ RN.
[2022-09-27] MEDS: Famotidine 20 MG TAB PO (21:52)
[2022-09-27] MEDS: cefTRIAXone 1 GM/50 ML BAG IVPB (21:52)
[2022-09-27] MEDS: MAGNESIUM SULFATE 2 GM/50 ML BAG IVPB (21:52)
[2022-09-27] MEDS: Budesonide/Formoterol 160/4.5 6 GM 60 PUFF INH IH (23:23)
[2022-09-28] VITALS (9 sets, daily range): BP systolic 126–163; BP diastolic 67–98; PULSE 79–100; RESP 16–18; TEMP 36.5–37.7; O2SAT 93–98
[2022-09-28] MEDS: DOXYCYCLINE 100 MG in Normal Saline 100 ML IVPB ×3 (00:54→22:10)
[2022-09-28 02:49] LABS: Troponin I 296 ng/L (<or=60)
[2022-09-28 07:12] LABS: HCT 28.7 % (36.0-46.0); MCH 32.7 pg (27.0-33.0); MCHC 34.8 % (32.0-36.0); MCV 94 fL (80-95); MPV 11.2 fL (8.0-11.0); Platelet Count 182 10^3/uL (130-400); RBC 3.06 10^6/uL (3.93-5.22); RDW 17.2 % (11.7-14.6); RDW-SD 55.3 fL; WBC 6.28 10^3/uL (4.4-10.8)
[2022-09-28 07:16] LABS: Anion Gap 8.9 mmol/L (3-11); BUN 6 mg/dL (7-18); CO2 27.1 mmol/L (21.0-32.0); CREATININE 0.9 mg/dL (0.55-1.02); Calcium 8.5 mg/dL (8.5-10.1); Chloride 99 mmol/L (98-107); Estimated GFR 65.44 (mL/min/1.73m2); Glucose 109 mg/dL (74-106); Magnesium 1.8 mg/dL (1.8-2.4); Potassium 3.9 mmol/L (3.5-5.1); Sodium 135 mmol/L (136-145)
[2022-09-28 07:20] LABS: INR 1.2 (0.9-1.1); Prothrombin Time 12.6 sec (9.3-11.0)
[2022-09-28] MEDS: Budesonide/Formoterol 160/4.5 6 GM 60 PUFF INH IH ×2 (07:54→21:19)
[2022-09-28] MEDS: FLUoxetine 20 MG CAP PO (08:17)
[2022-09-28] MEDS: Famotidine 20 MG TAB PO ×2 (08:17→21:03)
[2022-09-28] MEDS: Potassium Chloride 20 MEQ TABCR PO (08:17)
[2022-09-28] MEDS: Folic Acid 1 MG TAB PO (08:17)
[2022-09-28] MEDS: Metoprolol 25 MG TAB PO ×2 (08:18→21:04)
[2022-09-28] MEDS: Loratidine 10 MG TAB PO (08:18)
[2022-09-28] MEDS: Normal Saline Flush 10 ML SYR IVP (08:19)
[2022-09-28] MEDS: Cyanocobalamin 500 MCG TAB 1000 MCG PO (08:19)
[2022-09-28] MEDS: Lidocaine 5% Patch 1 PATCH TP (08:22)
--- NOTE | 2022-09-28 09:43 | PDOC.CMIN ---
- If Service Date Differs Date of service: 09/28/22 Time of Service: 09:43 Care Management Initial Assess REASON FOR HOSPITALIZATION:: Acetominophen toxicity PAST MEDICAL HISTORY/PAST SURGICAL HISTORY:: All Active Problems (Updated 09/27/22 @ 22:56 by Maximiliano Nazario). Chronic atrial fibrillation (Chronic). Transaminitis (Acute). Hyperbilirubinemia (Acute). Elevated troponin (Acute). Elevated troponin level not due myocardial infarction (Acute). Vertebral compression fracture (Acute). Pneumonia (Acute). Hyperkalemia (Acute). NICKY (acute kidney injury) (Acute). Acute UTI (Acute). Acetaminophen toxicity (Acute). Elevated INR (Acute). Abnormal LFTs (Acute). Hyponatremia (Acute). Weakness (Acute). COPD (chronic obstructive pulmonary disease) (Chronic). Anemia (Chronic). Hyperlipidemia (Acute). CAD (coronary artery disease) (Chronic). Hypertension (Chronic). Medical History . Abnormal CT scan, bladder. Asthma. Cellulitis. Disorder of both eustachian tubes. DNR (do not resuscitate). Drug rash. Failure to thrive. Folate deficiency. H/O: HTN (hypertension). History of asthma. History of depression. History of tobacco use. Hypokalemia. Hypomagnesemia. Laceration of right lower leg without complication. Low back pain. Macrocytosis. Malakoplakia of bladder. Neuropathy. New onset a-fib. Palliative care patient. dobbertin. Peripheral neuropathy. Physician orders for life-sustaining treatment (POLST) form indicates patient wish for mg-fyo-qpqkyuhdcho status. Rash, skin. Thrombocytosis. Tremor. Unintentional weight loss. Urinary bladder neoplasm. Urinary tract infection. UTI (urinary tract infection). Vitamin B12 deficiency (dietary) anemia. Surgical History . Hx of eye surgery PREVIOUS FUNCTIONAL STATUS/SOCIAL/FAMILY SUPPORTS:: Jamilah resides alone in an apartment in [facility]. She states her closest relative is a nephew, Rosy, who lives in [place], [place]. She reports having lots of close friends in the community who are supportive of her. Jamilah shares she is independent at baseline with her ADLs and [place]She owns a car and continues to drive. CURRENT FUNCTIONAL STATUS:: Jamilah was sitting up in a chair watching TV when CM met with her. She engaged readily with CM, well known to her from previous hospital stays. Jamilah proudly informed CM that she stopped drinking alcohol completely on 08/08/22. She stated that she just was not interested in it anymore. She wryly pointed out that she has discovered that she has a lot more money now to spend on other things. Jamilah was recently hospitalized following an accidental overdose of acetominophen which she took over the course of a day to treat a bad headache. It has caused her liver damage and she identified being a lot weaker. She would likely benefit from home health PT when discharged. ADVANCE DIRECTIVES:: On file; Jessica Mriamontes is appointed at [facility]. Has patient been provided with info about the portal/API?: Yes Did the patient sign up for the portal?: No CODE STATUS:: DNR/DNI INSURANCE COVERAGE / FINANCIAL ISSUES:: Medicare CURRENT HOME/COMMUNITY SERVICES/EQUIPMENT:: Cleaning service 1x/week and MOWs. Walking stick and walker. PRIMARY CARE PHYSICIAN:: Tay Rosa MD [facility] POTENTIAL DISCHARGE NEEDS:: Follow up appointment with PCP. PATIENT/FAMILY EDUCATION NEEDS:: Review of discharge instructions including limitations, activity, medications and follow up plan of care; discuss Ask Me Three. TRANSPORTATION:: Via private vehicle with a friend. PLAN:: Jamilah will likely be discharged home with new services for home health PT when medically cleared by provider. She will follow up with her PCP and plan of care as instructed. She will be transported home by a friend via private vehicle. CM will continue to support Jamilah and any discharge planning needs. Readmission - Within the Past 30 Days Yes or No: Y - Date of First Admission Date of 1st Admission: 09/22/22 - Date of this Admission Date of Admission: 09/27/22 This admission was: Through ED
--- NOTE | 2022-09-28 10:30 | RT.EKG_ITS ---
APPROVED REPORT Exam: Resting ECG Reason for Exam: Elevated trop Patient Location: I HR:72 bpm ECG Measurements Heart Rate 72 AXIS NJ 164 P -11 QRSd 58 QRS -21 QT 392 T 28 QTc 430 Conclusion Sinus rhythm...normal P axis, V-rate 50- 99 Ventricular premature complex...V complex w/ short R-R interval Borderline left axis deviation...QRS axis (-15,-29) Low voltage, precordial leads...precordial leads <1.0mV
--- NOTE | 2022-09-28 11:10 | RESPIRATORY ---
Pt's own Ventolin inhaler found at her bedside. RT placed patient label on it and put in in medication cart with pt's prescribed Symbicort.
[2022-09-28 12:27] LABS: Troponin I 121 ng/L (<or=60)
[2022-09-28] MEDS: Refresh PLUS Eye Drops 0.4ml 1 EACH OU (14:12)
[2022-09-28] MEDS: Patch Removal 1 EACH TP (17:30)
--- NOTE | 2022-09-28 18:35 | PGE_ITS ---
Date of Service Date of service: 09/28/22 Time of Service: 18:35 Assessment and Plan Assessment and plan (1) Acetaminophen toxicity: Status: Resolved Assessment and plan: Tylenol level non detectable Trend liver enzymes Consult [facility] if no improvement (2) Elevated INR: Start date: 09/27/22 Status: Resolved Assessment and plan: Patient's Xarelto will be continued. (3) Abnormal LFTs: Start date: 09/27/22 Status: Acute Assessment and plan: Elevated liver function tests persist status post acetaminophen overdose; however improving slightly Consult [facility] as needed (4) Pneumonia: Start date: 09/27/22 Status: Acute Assessment and plan: Patient does have chronic COPD been a previous smoker and no change in symptoms recently but imaging did reveal a new infiltrate which will be treated with Rocephin and Zithromax IV Converted to oral therapy prior to discharge. (5) Vertebral compression fracture: Start date: 09/27/22 Status: Acute Assessment and plan: Incidental finding of vertebral compression fractures since last imaging with patient fairly asymptomatic. We will continue lidocaine patches and pain management without acetaminophen. (6) Elevated troponin level not due myocardial infarction: Start date: 09/27/22 Status: Acute Assessment and plan: Patient troponin was measured by the ED with no specific symptoms and it is trending downward. This may have been elevated with the previous admission and we will continue to trend with monitoring cardiac status. She is a DNR/DNI. She does not appear to have had a recent STEMI and this may have been from the strain of her recent overdose. She also has chronic atrial fibrillation. Troponin peaked at 296, down to 121 this afternoon No chest pain (7) CAD (coronary artery disease): Status: Chronic Assessment and plan: Patient is having no symptoms of ischemia but troponins will be trended since slightly elevated. Cardiac monitoring and follow-up EKG if any symptoms reconsider more aggressive treatment. She is a DNR/DNI. (8) Chronic atrial fibrillation: Status: Chronic Assessment and plan: Patient has rate control and will be continued on Xarelto with her INR only slightly elevated. Continue outpatient medical regimen. Subjective Subjective Patient reports: no new complaints, tolerating a regular diet and voiding w/o difficulty; denies diarrhea, nausea, vomiting or shortness of breath Interval history since last seen: Jamilah is feeling well today. She feels a little weak. She is up sitting in the chair comfortable. Exam Narrative Exam Narrative: General: Patient appears older than stated age, CAOx4 HEENT: Normocephalic, coarsened facial features, eyes with pupils equal and react to light symmetrically, extraocular movement intact and sclera anicteric. Oropharynx with dry mucosa and patient is edentulous. Neck: Supple without JVD. Back: Kyphotic without CVA tenderness. Lungs: Bronchovesicular breath sounds diffusely with fair aeration, no wheezing Breast: Exam deferred. Heart: Irregular irregular rhythm with normal rate, distant heart sounds with no murmur or gallop appreciated. Abdomen: Soft, palpable contour, no palpable hepatosplenomegaly or tense abdomen. Bowel sounds positive all quadrants. No focal guarding. Genitalia/rectal: Exam deferred. Extremities: Atrophic hyperpigmented skin over legs with nonpitting edema 1-2+, no clubbing or cyanosis. Cap refill ~ 3 sec. All joints have fair range of motion. Skin: Skin changes over legs as described otherwise pale, warm and dry. Neuro: Cranial nerves II through XII gross intact, no focal motor deficits. No tremor. Psych: Normal affect and mood with slightly pressured speech. No abnormal thought processes. Remote and recent memory grossly intact. Objective Last Vital Signs Temp 37.5 C 09/28/22 15:26 Pulse 89 09/28/22 15:26 Resp 18 09/28/22 15:26 BP 143/98 H 09/28/22 15:26 Pulse Ox 93 09/28/22 15:26 Laboratory Results - last 24 hr 09/27/22 09/27/22 09/27/22 16:18 18:03 19:52 WBC RBC Hgb Hct MCV MCH MCHC RDW Plt Count MPV PT INR Sodium Potassium Chloride Carbon Dioxide Anion Gap BUN Creatinine Est GFR (CKD-EPI 2020) Glucose Calcium Magnesium Total Bilirubin 3.7 H Conjugated Bilirubin 2.1 H AST 151 H ALT 147 H Alkaline Phosphatase 1940 H Troponin I 187 H* Total Protein 7.7 Albumin 2.3 L Acetaminophen < 2 09/28/22 09/28/22 09/28/22 02:10 06:33 06:33 WBC 6.28 RBC 3.06 L Hgb 10.0 L Hct 28.7 L MCV 94 MCH 32.7 MCHC 34.8 RDW 17.2 H Plt Count 182 MPV 11.2 H PT INR Sodium 135 L Potassium 3.9 Chloride 99 Carbon Dioxide 27.1 Anion Gap 8.9 BUN 6 L Creatinine 0.9 Est GFR (CKD-EPI 2020) 65.44 Glucose 109 H Calcium 8.5 Magnesium 1.8 Total Bilirubin Conjugated Bilirubin AST ALT Alkaline Phosphatase Troponin I 296 H* Total Protein Albumin Acetaminophen 09/28/22 09/28/22 06:33 11:53 WBC RBC Hgb Hct MCV MCH MCHC RDW Plt Count MPV PT 12.6 H INR 1.2 H Sodium Potassium Chloride Carbon Dioxide Anion Gap BUN Creatinine Est GFR (CKD-EPI 2020) Glucose Calcium Magnesium Total Bilirubin Conjugated Bilirubin AST ALT Alkaline Phosphatase Troponin I 121 H* Total Protein Albumin Acetaminophen Time Spent with Patient Time Spent with Patient: 25-34 minutes Time was spent: preparing to see the patient(eg.review tests), ordering medications,tests, procedures, referring, communicating with other health intensive care specialist, indepentently interpreting results, counseling the patient and care coordination
[2022-09-28] MEDS: cefTRIAXone 1 GM/50 ML BAG IVPB (21:05)
[2022-09-29] VITALS: PULSE 100
[2022-09-29 03:00] VITALS: BP 131/73; PULSE 77; RESP 16; TEMP 36.6; O2SAT 91
[2022-09-29 06:34] LABS: Abs Immature Grans 0.04 10^3/uL (0.0-0.06); Absolute Basophil Count 0.03 10^3/uL (0.0-0.2); Absolute Eosinophil Count 0.25 10^3/uL (0.0-0.7); Absolute Lymphocyte Count 0.88 10^3/uL (1.2-3.4); Absolute Monocyte Count 0.89 10^3/uL (0.1-0.8); Absolute Neutrophil Count 3.14 10^3/uL (1.2-6.7); Basophils % 0.6; Eosinophils % 4.8; HCT 29.4 % (36.0-46.0); HGB 10.1 g/dL (11.2-15.7); Immature Grans % 0.8; Lymphocytes % 16.8; MCH 32.7 pg (27.0-33.0); MCHC 34.4 % (32.0-36.0); MCV 95 fL (80-95); Platelet Count 192 10^3/uL (130-400); RBC 3.09 10^6/uL (3.93-5.22); RDW 17.6 % (11.7-14.6); RDW-SD 56.4 fL; WBC 5.23 10^3/uL (4.4-10.8)
[2022-09-29 07:00] VITALS: PULSE 90
[2022-09-29 07:07] LABS: Anion Gap 8.2 mmol/L (3-11); BUN 7 mg/dL (7-18); CO2 26.8 mmol/L (21.0-32.0); CREATININE 0.9 mg/dL (0.55-1.02); Calcium 8.8 mg/dL (8.5-10.1); Chloride 102 mmol/L (98-107); Estimated GFR 65.44 (mL/min/1.73m2); Glucose 94 mg/dL (74-106); Magnesium 1.7 mg/dL (1.8-2.4); Potassium 3.9 mmol/L (3.5-5.1); Sodium 137 mmol/L (136-145)
[2022-09-29 07:20] LABS: Troponin I 83 ng/L (<or=60)
[2022-09-29 07:21] VITALS: BP 169/82; PULSE 82; RESP 18; TEMP 37.2; O2SAT 92
[2022-09-29] MEDS: FLUoxetine 20 MG CAP PO (07:31)
[2022-09-29] MEDS: Refresh PLUS Eye Drops 0.4ml 1 EACH OU (07:31)
[2022-09-29] MEDS: Loratidine 10 MG TAB PO (07:32)
[2022-09-29] MEDS: Potassium Chloride 20 MEQ TABCR PO (07:33)
[2022-09-29] MEDS: Metoprolol 25 MG TAB PO (07:33)
[2022-09-29] MEDS: Lidocaine 5% Patch 1 PATCH TP (07:33)
[2022-09-29] MEDS: Famotidine 20 MG TAB PO (07:33)
[2022-09-29] MEDS: Folic Acid 1 MG TAB PO (07:33)
[2022-09-29] MEDS: Normal Saline Flush 10 ML SYR IVP (07:34)
[2022-09-29] MEDS: Cyanocobalamin 500 MCG TAB 1000 MCG PO (07:34)
[2022-09-29] MEDS: Budesonide/Formoterol 160/4.5 6 GM 60 PUFF INH IH (07:58)
--- NOTE | 2022-09-29 08:37 | PDOC.CMPRO ---
- If Service Date Differs Date of service: 09/29/22 Time of Service: 08:37 Care Management Progress Note S/O: A: Jamilah is a 77 year old woman admitted on 09/27/22 with toxic hepatitis and pneumonia P:Jamilah will likely be discharged home with new services for home health PT when medically cleared by provider. She will follow up with her PCP and plan of care as instructed. She will be transported home by a friend via private vehicle. CM will continue to support Jamilah and any discharge planning needs.
[2022-09-29] MEDS: MAGNESIUM SULFATE 2 GM/50 ML BAG IVPB (10:14)
[2022-09-29] MEDS: DOXYCYCLINE 100 MG in Normal Saline 100 ML IVPB (10:14)
[2022-09-29 11:03] LABS: Lab Add On Test DONE
--- NOTE | 2022-09-29 11:23 | W.PM.PROGNOT ---
Date of Service Date of service: 09/29/22 Time of Service: 11:23 Subjective Subjective Patient reports: no new complaints, tolerating a regular diet, voiding w/o difficulty, bowel movement and afebrile; denies diarrhea, nausea, vomiting or shortness of breath Interval history since last seen: Jamilah is awake and alert today Objective Last Vital Signs Temp 37.2 C 09/29/22 07:21 Pulse 82 09/29/22 07:21 Resp 18 09/29/22 07:21 BP 169/82 H 09/29/22 07:21 Pulse Ox 92 09/29/22 07:21 Laboratory Results - last 24 hr 09/28/22 09/29/22 09/29/22 11:53 06:10 06:10 WBC RBC Hgb Hct MCV MCH MCHC RDW Plt Count MPV Immature Gran % Neutrophils % Lymphocytes % Monocytes % Eosinophils % Basophils % Nucleated RBC % Absolute Neutrophils Absolute Lymphocytes Absolute Monocytes Absolute Eosinophils Absolute Basophils Sodium 137 Potassium 3.9 Chloride 102 Carbon Dioxide 26.8 Anion Gap 8.2 BUN 7 Creatinine 0.9 Est GFR (CKD-EPI 2020) 65.44 Glucose 94 Calcium 8.8 Magnesium 1.7 L Troponin I 121 H* 83 H* Add-On Test Request 09/29/22 09/29/22 06:10 06:10 WBC 5.23 RBC 3.09 L Hgb 10.1 L Hct 29.4 L MCV 95 MCH 32.7 MCHC 34.4 RDW 17.6 H Plt Count 192 MPV 11.0 Immature Gran % 0.8 Neutrophils % 60.0 Lymphocytes % 16.8 Monocytes % 17.0 Eosinophils % 4.8 Basophils % 0.6 Nucleated RBC % 0.0 Absolute Neutrophils 3.14 Absolute Lymphocytes 0.88 L Absolute Monocytes 0.89 H Absolute Eosinophils 0.25 Absolute Basophils 0.03 Sodium Potassium Chloride Carbon Dioxide Anion Gap BUN Creatinine Est GFR (CKD-EPI 2020) Glucose Calcium Magnesium Troponin I Add-On Test Request DONE
[2022-09-29 11:24] VITALS: BP 135/84; PULSE 77; RESP 20; TEMP 37.6; O2SAT 98
[2022-09-29 11:24] LABS: ALT 112 U/L (14-59); AST 124 U/L (15-37); Albumin 2.3 g/dL (3.4-5.0); Bilirubin, Direct 1.1 mg/dL (0.0-0.2); Bilirubin, Total 1.4 mg/dL (0.2-1.0); Total Protein 7.6 g/dL (6.4-8.2)
[2022-09-29 11:27] LABS: Alkaline Phosphatase 1663 U/L (46-116)
--- NOTE | 2022-09-29 13:54 | W.PM.DS.N ---
Date of service: 09/29/22 Time of Service: 13:55 DS: Diagnosis Discharge Diagnosis (1) Acetaminophen toxicity: Status: Resolved (2) Elevated INR: Status: Resolved (3) Abnormal LFTs: Status: Acute (4) Pneumonia: Status: Acute (5) Vertebral compression fracture: Status: Acute (6) Elevated troponin level not due myocardial infarction: Status: Acute (7) CAD (coronary artery disease): Status: Chronic (8) Chronic atrial fibrillation: Status: Chronic Discharge Plan Disposition Patient Disposition: Home W/Home Health Services Condition: Improving Discharge Details Reason For Visit: Toxic Hepatitis, Acetaminophen,Overdose, RUL Pneum Admit Date/Time: 09/27/22 18:40 Admit Provider: Maximiliano Nazario Attending Provider: Maximiliano Nazario Primary Care Provider: Jose Gonzalez Hospital Course Hospital Course: This is a 77-year-old female patient who presented to the ED prompted by her PCP because of abnormal follow-up on liver function test status post hospitalization 09/22/2022 with the patient had an unintentional overdose of acetaminophen and was treated with Acetylcysteine IV protocol.? The patient stated she felt better than she had in a long time and has been not drinking since July of this year prior to her unintentional overdose.? She was a previous smoker.? On 09/26/2022, the patient's INR was elevated markedly from previous measurements of 1.4 to 4.7 and the patient was told by her PCP to hold her Xarelto and report to the ED for evaluation.? In the ED her INR was 1.5.? The ED, the provider consulted with GI at [facility], [facility] [place] poison control.? One of the 3, [facility] [place] [facility], ?recommended Acetylcysteine started, it may help and would not be harmful. Acetylcysteine IV protocol was again initiated, though her acetaminophen level was undetectable.? The patient also stated she had not taken any acetaminophen since discharge to home. ?Imaging in the ED did revealed possible right upper lobe pneumonia though the patient was not having any increased respiratory symptoms, no fevers and had no respiratory complaints.? She stated she is not smoking but does use inhalers for wheezing.? The patient is a DNR/DNI.? She remained stable throughout her hospital stay and received ceftriaxone and doxycycline to treat her new infiltrate.? Her liver enzymes from admission are trending down. Total Bili down from 3.7 to 1.4; AST down from 151 to 124; Alk phos 1940 down to 1663.? She has no white count.? Other labs are unremarkable.? She was evaluated by PT and did well walking with a walker with no assistance.? She did not become short of breath and was steady.? She is being discharged to home with cefpodoxime for 5 more days to complete a 7 day course and told to continue her Xarelto as prescribed and to not take Tylenol or drink alcohol.? She will be followed by home health and they are asked to draw a liver panel and INR on Monday October 03, 2022.? She is discharged stable, improved. Discussed with Dr Rosales. Home Meds and New Rx's Prescriptions: New cefpodoxime 200 mg tablet 200 mg PO BID Qty: 10 0RF Rx Instructions: must administer with a meal/food Continued Xarelto 20 mg tablet 20 mg PO DAILY Rx Instructions: must administer with evening meal mecobalamin (vitamin B12) 1,000 mcg tablet,chewable 1,000 mcg PO DAILY loratadine [Claritin] 10 MG tablet 10 mg PO DAILY metoprolol tartrate 50 MG tablet 25 mg PO BID nitroglycerin [Nitrostat] 0.4 MG tablet, sublingual 0.4 mg Sublingual DIRECTED albuterol sulfate [Ventolin HFA] 200 PUFF HFA aerosol inhaler 1 - 2 puff Inhalation QID PRN PRN budesonide-formoterol [Symbicort] 60 PUFF HFA aerosol inhaler 1 puff Inhalation BID famotidine 20 mg Tablet 20 mg PO BID Qty: 14 0RF Patient Comments: patient reports not taking hydrocortisone 2.5 % Cream 0 g topical TID Qty: 0 0RF triamcinolone acetonide 0.1 % Cream 0 g topical TID Qty: 0 0RF potassium chloride [Klor-Con M20] 20 mEq Tablet,Er Particles/Crystals 20 meq PO DAILY Qty: 14 0RF folic acid 1 mg Tablet 1 mg PO QAM Qty: 30 0RF lidocaine [Aspercreme (lidocaine)] 4 % Adhesive Patch,Medicated 1 patch TOPICAL DAILY fluoxetine 20 mg capsule 20 mg PO DAILY Patient Comments: TAKE ONE CAPSULE BY MOUTH EVERY DAY atorvastatin 20 mg tablet 20 mg PO HS Patient Comments: TAKE ONE TABLET BY MOUTH AT BEDTIME Discontinued cephalexin 500 mg Capsule 500 mg PO BID Rx Instructions: FOR 7 DAYS Discharge Instructions Instructions: Cefpodoxime Proxetil (By mouth), Rivaroxaban (By mouth), Community Acquired Pneumonia (DC) Additional Instructions: RESUME Xarelto (Rivaroxaban) as prescribed, 20 mg daily. Take Cefpodoxime for your pneumonia, one (200 mg) twice a day for 5 days to completed a 7 day course of antibiotics. Have your labs checked by home health on Monday10/03/2022 and follow up with your PCP. Home health nursing, PT and OT will call you to arrange a time they can come out and see you. DO NOT drink alcohol. DO NOT take tylenol. Stand Alone Forms: Nursing Discharge Form Referrals: Jose Gonzalez MD [Primary Care Provider] - 10/04/22 9:00 am () Activity:: Activity as Tolerated Equipment/Supplies:: Walker Diet:: Low Sodium Discharge Orders Discharge Orders: Discharge Order (Routine); Ordered 09/29/22 Ordered By: Sabrina Padilla Other Ambulatory Orders: Basic Metabolic Panel (Routine) Location: None Selected Ordered By: Sabrina Padilla Complete Blood Count w/Diff (Routine) Location: None Selected Ordered By: Sabrina Padilla Liver Panel (Routine) Timeframe: 20221003 Location: None Selected Ordered By: Sabrina Padilla Prothrombin Time (Routine) Location: None Selected Ordered By: Sabrina Padilla DS: Summary Time Spent with Patient providing and/or coordinating discharge services: Greater than 30 minutes Status at Discharge Functional status at discharge: uses cane/walker Overall status at discharge: patient is back to baseline Mental Status: mental status grossly normal Speech and Movement: speech and movement normal Mood: congruent mood Affect: normal affect Exam Narrative Exam Narrative: General: Patient appears older than stated age, CAOx4 , sitting in the chair in the room, pleasant, conversant. HEENT: Normocephalic, coarsened facial features, eyes with pupils equal and react to light symmetrically, extraocular movement intact and sclera anicteric. Oropharynx with dry mucosa and patient is edentulous (dentures on bedstand). Neck: Supple without JVD. Back: Kyphotic without CVA tenderness. Lungs: Bronchovesicular breath sounds diffusely with fair aeration, no wheezing; speaking in full sentences Breast: Exam deferred. Heart: Irregular irregular rhythm with normal rate, distant heart sounds with no murmur or gallop appreciated. Abdomen: Soft, palpable contour, no palpable hepatosplenomegaly or tense abdomen. Bowel sounds positive all quadrants. No focal guarding. Genitalia/rectal: Exam deferred. Extremities: Atrophic hyperpigmented skin over legs with nonpitting edema 1-2+, no clubbing or cyanosis. Cap refill ~ 3 sec. All joints have fair range of motion. Skin: Skin changes over legs as described otherwise pale, warm and dry. Neuro: Cranial nerves II through XII gross intact, no focal motor deficits. No tremor. Psych: Normal affect and mood with slightly pressured speech. No abnormal thought processes. Remote and recent memory grossly intact. Psych Mental Status: mental status grossly normal Speech and Movement: speech and movement normal Mood: congruent mood Affect: normal affect DS: Data Vitals/I&O Vitals and I&O: Vital Signs Temperature 37.6 C H 09/29/22 11:24 Temperature Source Tympanic 09/29/22 11:24 Pulse 77 09/29/22 11:24 Pulse Rhythm Regular 09/29/22 07:21 Pulse 91 H 09/27/22 14:01 Respiratory Rate 20 09/29/22 11:24 Respiratory Effort Normal, Non-Labored 09/29/22 07:21 Respiratory Depth Normal 09/29/22 07:21 Respiratory Pattern Normal 09/29/22 07:21 Blood Pressure 135/84 09/29/22 11:24 Blood Pressure Mean 105 09/27/22 14:01 Pulse Oximetry 98 09/29/22 11:24 Oxygen Delivery Method Room Air 09/29/22 11:24 Oxygen Flow Rate 0 09/29/22 11:24 Pain Level 0 09/29/22 11:24 Comment BP calledover radio 09/28/22 15:26 Intake & Output 09/28/22 09/29/22 09/29/22 23:59 11:59 23:59 Intake Total 1610 / 3057.65 100 / 250 150 / 250 Output Total 1975 300 / 300 Balance 760 / 1081.65 -200 / -50 150 / -50 Weight 70.1 kg Intake: IV 50 / 597.65 100 / 250 150 / 250 Oral 1560 / 2460 Output: Urine 1975 300 / 300 Other: Urine Color Yellow Pale Yellow Urine Appearance Clear Clear Urine Odor Normal None Stool Size Small Stool Characteristics Soft Brown Voiding Methods Bedside Commode Toilet Data Completed and Pending Labs on day of discharge: Labs from last 24 hours 09/29/22 09/29/22 09/29/22 06:10 06:10 06:10 WBC 5.23 RBC 3.09 L Hgb 10.1 L Hct 29.4 L MCV 95 MCH 32.7 MCHC 34.4 RDW 17.6 H Plt Count 192 MPV 11.0 Immature Gran % 0.8 Neutrophils % 60.0 Lymphocytes % 16.8 Monocytes % 17.0 Eosinophils % 4.8 Basophils % 0.6 Nucleated RBC % 0.0 Absolute Neutrophils 3.14 Absolute Lymphocytes 0.88 L Absolute Monocytes 0.89 H Absolute Eosinophils 0.25 Absolute Basophils 0.03 Sodium Potassium Chloride Carbon Dioxide Anion Gap BUN Creatinine Est GFR (CKD-EPI 2020) Glucose Calcium Magnesium Total Bilirubin 1.4 H Conjugated Bilirubin 1.1 H AST 124 H ALT 112 H Alkaline Phosphatase 1663 H Troponin I Total Protein 7.6 Albumin 2.3 L Add-On Test Request DONE 09/29/22 09/29/22 06:10 06:10 WBC RBC Hgb Hct MCV MCH MCHC RDW Plt Count MPV Immature Gran % Neutrophils % Lymphocytes % Monocytes % Eosinophils % Basophils % Nucleated RBC % Absolute Neutrophils Absolute Lymphocytes Absolute Monocytes Absolute Eosinophils Absolute Basophils Sodium 137 Potassium 3.9 Chloride 102 Carbon Dioxide 26.8 Anion Gap 8.2 BUN 7 Creatinine 0.9 Est GFR (CKD-EPI 2020) 65.44 Glucose 94 Calcium 8.8 Magnesium 1.7 L Total Bilirubin Conjugated Bilirubin AST ALT Alkaline Phosphatase Troponin I 83 H* Total Protein Albumin Add-On Test Request [facility] All Active Problems (Updated 09/29/22 @ 11:35 by Sabrina Padilla NP) Chronic atrial fibrillation (Chronic) Transaminitis (Acute) Hyperbilirubinemia (Acute) Elevated troponin (Acute) Elevated troponin level not due myocardial infarction (Acute) Vertebral compression fracture (Acute) Pneumonia (Acute) Hyperkalemia (Acute) NICKY (acute kidney injury) (Acute) Acute UTI (Acute) Abnormal LFTs (Acute) Hyponatremia (Acute) Weakness (Acute) COPD (chronic obstructive pulmonary disease) (Chronic) Anemia (Chronic) Hyperlipidemia (Acute) CAD (coronary artery disease) (Chronic) Hypertension (Chronic) Medical History Abnormal CT scan, bladder Asthma Cellulitis Disorder of both eustachian tubes DNR (do not resuscitate) Drug rash Failure to thrive Folate deficiency H/O: HTN (hypertension) History of asthma History of depression History of tobacco use Hypokalemia Hypomagnesemia Laceration of right lower leg without complication Low back pain 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 Neuropathy New onset a-fib Palliative care patient dobbertin Peripheral neuropathy Physician orders for life-sustaining treatment (POLST) form indicates patient wish for jp-ezc-bjxnupjneom status Rash, skin Thrombocytosis Tremor Unintentional weight loss Urinary bladder neoplasm Urinary tract infection UTI (urinary tract infection) Vitamin B12 deficiency (dietary) anemia Surgical History Hx of eye surgery Social History Smoking/Tobacco Use Status: Former Tobacco Use Quit Date: 05/29/89 Smoking risk assessment performed?: Yes Alcohol Intake: never Drug use: Never Substance use type: does not use Do you feel safe at home: Yes Do you feel safe in your relationship?: Yes Time Spent with Patient Time Spent with Patient: 45-69 minutes Time was spent: preparing to see the patient(eg.review tests), ordering medications,tests, procedures, referring, communicating with other health foster care worker, indepentently interpreting results, counseling the patient and care coordination
--- NOTE | 2022-09-29 14:14 | CHAPLAIN ---
Jamilah was happy to tell me that she's being discharged today. Her car is here as she drove herself to the ED yesterday. Jamilah said Dr. Hand in the ED consulted with liver specialists at [facility] [place] [facility] [place] said the damage to her liver is reversible. She was relieved to hear that. Jamilah grew up in [place] and lives [place] to the [facility] where she was baptized and . According to Care Management notes, Jamilah stopped drinking a couple of months ago, and is happy to have money to spend on other things. Jamilah and I know each other from pervious admissions and from seeing each other in the community. She is always pleasant and easily engages in a conversation.
--- NOTE | 2022-09-29 14:27 | NUR.NOTE ---
Nursing Note: @1400 pt was seen by matty shaving her legs with electric razor. educated risk of bleeding with blood thinner, pt verbalizes.
--- NOTE | 2022-09-29 14:42 | IN_ITS ---
Date of service: 09/29/22 Time of Service: 13:05 PT Notes Visit Reasons: Toxic Hepatitis, Acetaminophen,Overdose, RUL Pneum Physical Therapy Inpatient Initial Evaluation Date: 09/29/2022 Referring Doctor: Sabrina Padilla NP PT Orders: PT CONSULT: Exacerbation chronic cond Precautions: Fall. Standard.? Activity as tolerated. Patient Profile/Admitting Diagnosis: Jamilah is a 77-year-old female admitted to the MedSur unit for management of acetaminophen toxicity, elevated troponin, normal LFTs, vertebral compression fracture, CAD and chronic AF. PMHX: All Active Problems?(Updated 09/27/22 @ 22:56 by Maximiliano Nazario) Chronic atrial fibrillation (Chronic) Transaminitis (Acute) Hyperbilirubinemia (Acute) Elevated troponin (Acute) Elevated troponin level not due myocardial infarction (Acute) Vertebral compression fracture (Acute) Pneumonia (Acute) Hyperkalemia (Acute) NICKY (acute kidney injury) (Acute) Acute UTI (Acute) Acetaminophen toxicity (Acute) Elevated INR (Acute) Abnormal LFTs (Acute) Hyponatremia (Acute) Weakness (Acute) COPD (chronic obstructive pulmonary disease) (Chronic) Anemia (Chronic) Hyperlipidemia (Acute) CAD (coronary artery disease) (Chronic) Hypertension (Chronic) Medical History? Abnormal CT scan, bladder Asthma Cellulitis Disorder of both eustachian tubes DNR (do not resuscitate) Drug rash Failure to thrive Folate deficiency H/O: HTN (hypertension) History of asthma History of depression History of tobacco use Hypokalemia Hypomagnesemia Laceration of right lower leg without complication Low back pain 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 Neuropathy New onset a-fib Palliative care patient dobbertinPeripheral neuropathy Physician orders for life-sustaining treatment (POLST) form indicates patient wish for ye-ahm-fbzvpudfatp status Rash, skin Thrombocytosis Tremor Unintentional weight loss Urinary bladder neoplasm Urinary tract infection UTI (urinary tract infection) Vitamin B12 deficiency (dietary) anemia Surgical History? Hx of eye surgery Social History/Home Situation: Jamilah lives alone in an apartment with 2 steps to enter, rails on both sides are wide apart.? Has meals on wheels Mondays and Fridays only and had been able to manage on her own for the other days of the week.? She has a neighbor who comes in every day to help take care of her dog and cat.? Equipment Owned/DME: [employer] Subjective: Feeling so much better. Seated on chair trying to finish shaving her legs using a safe shaver. Objective: General Observation: Telemetry monitoring in place.? Hematoma on R UE related to IV application. TECHNICAL SALES CONSULTANT Sabrina aware. Mental Status: Alert and oriented x 4.? Pain: Denies ROM: Right Upper Extremity: ? Shoulder Flexion lacks 25% of available range. Sh oulder abduction lacks 25% of available range. Elbow flexion WFL. Wrist flexion WFL. Opening and closing of hand WFL. Left Upper Extremity:? Shoulder Flexion lacks 25% of available range. Shoulder abduction lacks 25% of available range. Elbow flexion WFL. Wrist flexion WFL. Opening and closing of hand WFL. Right Lower Extremity: Hip flexion lacks 50% of available range. Hip abduction WFL. Knee flexion WFL. Ankle dorsiflexion to neutral only. Ankle plantarflexion WFL. Left Lower Extremity: Hip flexion lacks 50% of available range. Hip abduction WFL. Knee flexion WFL. Ankle dorsiflexion to neutral only. Ankle plantarflexion WFL. Strength: Right Upper Extremity: Shoulder flexors 3-/5. Shoulder abductors 3-/5. Elbow flexors 3+/5. Elbow extensors. 3+/5. [facility] Hospice weak but functional. Left Upper Extremity: Shoulder flexors 3-/5. Shoulder abductors 3-/5. Elbow flexors 3+/5. Elbow extensors 3+/5. [facility]osp[facility] weak but functional. Right Lower Extremity: Hip flexors 3-/5. Hip abductors 4-/5. Knee flexors 3-/5. Knee extensors 4-/5. Ankle dorsiflexors 3-/5. Ankle plantarflexors 4-/5. Left Lower Extremity: Hip flexors 3-/5. Hip abductors 4-/5. Knee flexors 3-/5. Knee extensors 4-/5. Ankle dorsiflexors 3-/5. Ankle plantarflexors 4-/5. Sensation: Intact as to pain and pressure on bilateral lower extremities. Bed Mobility/Transfers: Sit to stand independent Stand to sit independent Bed to chair independent Chair to bed independent Gait: 150 feet + 150 feet using FWW with supervision. Minimal SOB subsided with rest. No LOB. No path deviation. Balance: Static Sitting: Normal Dynamic Sitting: Normal Static Standing: Fair Dynamic Standing: Fair Special Tests: Mobility Limitations Standardized Measure [facility] AM-PAC 6 clicks Basic Mobility Inpatient Short Form: Raw Score: 24? CMS Score: 0% deficit? ? ? 4-Stage balance Test: Able to maintain feet together and R semi-tandem but unable to do so wit? full tandem and one-legged stance indicating risk for falls and need for AD use. Informed Consent/Education:? Patient instructed in purpose of PT consult and plan of care. Assessment: Patient presents with clinical signs and symptoms consistent with current/a dmitting diagnoses that have resulted to mobility limitations, gait instability, generalized weakness, and impairment of motor control as demonstrated by the following impairment level findings: 1.? Decreased strength to B shoulder and hip muscles (chonic) 2.? Impaired standing balance Impairments are contributing to the following functional limitations: 1.? Inability to safely ambulate without assistive device 2.? Increase completion time for mobility ADL performance 3.? Increased fall risk 4.? Inability to negotiate steps alone safely Patient is assessed as a 59614 moderate complexity based on the following: History: 74-year-old female with impairment level findings, functional limitations, and past medical history as indicated above Examination: Demonstrable impairment in strength, balance, and mobility level with underlying impairments and functional limitations as documented above Presentation:Evolving Decision Makin moderate complexity Goals: N/A.? PT evaluation and one treatment session only for functional mobility retraining. Plan of Care/Treatment Plan: N/A.? PT evaluation and one treatment session only for functional mobility retraining. DISCHARGE RECOMMENDATIONS: Resume OP PT for mobility progression to use of SPC. TREATMENT CODE/TIME: 85175 x? 25 minutes beginning at 13:05 PM. Thank you for the opportunity to participate in the care of this patient. Lanny Pedraza PT, DPT, CLT [facility] [place], [place]
--- NOTE | 2022-09-29 15:13 | PDOC.HHF2F ---
Home Health Referral Home Health Orders Clinical synopsis of why skilled professionals are needed: This is a 77-year-old female patient who presented to the ED prompted by her PCP because of abnormal follow-up on liver function test status post hospitalization 09/22/2022 with the patient had an unintentional overdose of acetaminophen and was treated with Acetylcysteine IV protocol.? The patient stated she felt better than she had in a long time and has been not drinking since July of this year prior to her unintentional overdose.? She was a previous smoker.? On 09/26/2022, the patient's INR was elevated markedly from previous measurements of 1.4 to 4.7 and the patient was told by her PCP to hold her Xarelto and report to the ED for evaluation.? In the ED her INR was 1.5.? The ED, the provider consulted with GI at [facility], [facility] [place] and poison control.? One of the 3, [facility] [place] [facility], ?recommended Acetylcysteine started, it may help and would not be harmful. Acetylcysteine IV protocol was again initiated, though her acetaminophen level was undetectable.? The patient also stated she had not taken any acetaminophen since discharge to home. ?Imaging in the ED did revealed possible right upper lobe pneumonia though the patient was not having any increased respiratory symptoms, no fevers and had no respiratory complaints.? She stated she is not smoking but does use inhalers for wheezing.? The patient is a DNR/DNI.? She remained stable throughout her hospital stay and received ceftriaxone and doxycycline to treat her new infiltrate.? Her liver enzymes from admission are trending down. Total Bili down from 3.7 to 1.4; AST down from 151 to 124; Alk phos 1940 down to 1663.? She has no white count.? Other labs are unremarkable.? She was evaluated by PT and did well walking with a walker with no assistance.? She did not become short of breath and was steady.? She is being discharged to home with cefpodoxime for 5 more days to complete a 7 day course and told to continue her Xarelto as prescribed and to not take Tylenol or drink alcohol.? She will be followed by home health and they are asked to draw a liver panel and INR on Monday October 03, 2022.? She is discharged stable, improved. Medical diagnosis necessitation home health referral: Pneumonia; transaminitis Registered Nurse: Check all that apply Instruct on new or changed medication(s)/assess compliance: Ordered Other: Draw labs: CBC w diff; BMP; Liver panel, PT/INR on Monday10/03/2022 - results to Dr Gonzalez Dx: R75.01; R79.1; J18.9 Physical Therapist: Check all that apply Increase strength & endurance for safe mobility at home: Ordered To design/establish home maintenance program: Ordered Fall reduction therapy program for patient with history of frequent falls: Ordered Home safety evaluation and teaching/gait training including stair management (if applicable): Ordered Occupational Therapist: Evaluate and treat for patient unable to perform ADL/IADL/self-care: Ordered Upper extremity strengthening, range and motion: Ordered Concaving Machine Operator: Assist with community resources: Ordered Assist with long-term care planning: Ordered Home Bound Status Requires the aid of supportive device (check all that apply): Walker Assistance of another person (Describe assistance and medical necessity): to ambulate safely on uneven ground she requires assistance of a person; uses walker 100% of the time Encounter Date and Reason: I certify that a FTF encounter for this patient was performed on September 29, 2022 and that such encounter was related to the primary reason the patient requires home health services. The encounter was conducted in the following manner: By me as the certifying physician, GLOBAL SALES EXECUTIVE, PA or By an inpatient physician, GLOBAL SALES EXECUTIVE or PA during an inpatient stay who communicated findings to me, Certification And Authentication I certify that I composed the above information based on my clinical judgment relating to this patient's medical condition and, if applicable, clinical findings communicated to me by the NPP or inpatient physician who performed the FTF encounter. Name of Provider that will be monitoring home health services: Jose Gonzalez
--- NOTE | 2022-09-29 15:23 | PDOC.CMDIS ---
- If Service Date Differs Date of service: 09/29/22 Time of Service: 15:23 LACE Index Scoring Tool - Questions: Length of Stay (in days): 2 Acuity (Admit via E.D.?): Yes Comorbidities: Chronic Pulmonary Disease, Liver or Renal Disease E.D. Visits: 2 - Answers: Total Score: 12 Risk of Readmission: High Risk Care Management Discharge Reason for Hospitalization: Acetominophen toxicity Discharge Plan: Jamilah will be discharged home with new services for home health PT, RN, OT and [employer]. She will follow up with her PCP and plan of care as instructed and will drive herself home. Patient/Family Education Needs: Review of discharge instructions including limitations, activity, medications and follow up plan of care; discuss Ask Me Three. Services Needed at Discharge: Home Health Care Services
== END 2022-09-29 15:53 | disposition home health service (06) | DRG 917 ==
LOC: ER 20:10 → MS 20:41
PROVIDERS: Nurse Practitioner Family; Admitting Provider Family Medicine; Emergency Provider Physician Assistant; PCP Internal Medicine; Visit Provider Family Medicine
DX: T39.1X1A Poisoning by 4-Aminophenol derivatives, accidental (unintentional), initial encounter (principal); J18.9 Pneumonia, unspecified organism; I48.20 Chronic atrial fibrillation, unspecified; J44.0 Chronic obstructive pulmonary disease with (acute) lower respiratory infection; N17.9 Acute kidney failure, unspecified; E87.1 Hypo-osmolality and hyponatremia; N39.0 Urinary tract infection, site not specified; M48.54XA Collapsed vertebra, not elsewhere classified, thoracic region, initial encounter for fracture; R79.1 Abnormal coagulation profile; R79.89 Other specified abnormal findings of blood chemistry; R74.8 Abnormal levels of other serum enzymes; I25.10 Atherosclerotic heart disease of native coronary artery without angina pectoris; R53.1 Weakness; R74.01 Elevation of levels of liver transaminase levels; Z79.01 Long term (current) use of anticoagulants; I10 Essential (primary) hypertension; E78.5 Hyperlipidemia, unspecified; Z66 Do not resuscitate; F10.91 Alcohol use, unspecified, in remission; Z87.891 Personal history of nicotine dependence; E87.5 Hyperkalemia; D64.9 Anemia, unspecified
CPT/HCPCS: 36415; 74177; 80048; 80053; 80076; 80307; 83690; 85027; 87637; 93005; 94640; 96361; 96365; 96366; 97161; 99285; 71260; 76705; 80320; 80329; 81003; 82140; 83735; 84484; 85025; 85610; 85730; 93010; 93306; 94664; 94760; 99223; 99232; 99239; J0132; J0696; J3490; J7060

== ENCOUNTER 2022-10-04 13:32 | Outpatient (REF) | payer MEDICARE, SELFPAY ==
[2022-10-04 14:44] LABS: Prothrombin Time 14.7 sec (9.3-11.0)
[2022-10-04 14:58] LABS: ALT 60 U/L (14-59); AST 77 U/L (15-37); Albumin 2.9 g/dL (3.4-5.0); Bilirubin, Total 1.6 mg/dL (0.2-1.0); Total Protein 8.4 g/dL (6.4-8.2)
[2022-10-04 15:03] LABS: Alkaline Phosphatase 1344 U/L (46-116)
[2022-10-04 15:21] LABS: INR 1.4 (0.9-1.1)
== END 2022-10-04 13:33 | disposition home or self-care (01) ==
LOC: NCHCN 13:32
PROVIDERS: PCP Internal Medicine; Visit Provider Family Medicine
DX: I10 Essential (primary) hypertension (principal); K71.8 Toxic liver disease with other disorders of liver; F10.20 Alcohol dependence, uncomplicated; I48.0 Paroxysmal atrial fibrillation
CPT/HCPCS: 80076; 85610

== ENCOUNTER 2023-02-06 15:14 | Outpatient (REF) | payer MEDICARE, SELFPAY ==
[2023-02-06 15:04] LABS: HCT 43.8 % (36.0-46.0); HGB 13.9 g/dL (11.2-15.7); MCHC 31.7 % (32.0-36.0); MCV 98 fL (80-95); MPV 10.6 fL (8.0-11.0); Platelet Count 253 10^3/uL (130-400); RBC 4.49 10^6/uL (3.93-5.22); RDW 14.1 % (11.7-14.6); RDW-SD 51.1 fL; WBC 6.27 10^3/uL (4.4-10.8)
[2023-02-06 16:06] LABS: ALT 55 U/L (14-59); AST 57 U/L (15-37); Albumin 3.8 g/dL (3.4-5.0); Alkaline Phosphatase 542 U/L (46-116); Anion Gap 7.1 mmol/L (3-11); BUN 14 mg/dL (7-18); Bilirubin, Total 0.6 mg/dL (0.2-1.0); CO2 27.9 mmol/L (21.0-32.0); CREATININE 0.7 mg/dL (0.55-1.02); Calcium 9.1 mg/dL (8.5-10.1); Chloride 98 mmol/L (98-107); Estimated GFR 88.47 (mL/min/1.73m2); Ferritin 98 ng/mL (8-252); Glucose 85 mg/dL (74-106); Potassium 4.6 mmol/L (3.5-5.1); Sodium 133 mmol/L (136-145); Total Protein 8.9 g/dL (6.4-8.2)
== END 2023-02-06 15:15 | disposition home or self-care (01) ==
LOC: NCHCN 15:14
PROVIDERS: PCP Internal Medicine; Visit Provider Family Medicine
DX: D64.9 Anemia, unspecified (principal); I10 Essential (primary) hypertension; I48.0 Paroxysmal atrial fibrillation
CPT/HCPCS: 80053; 85027; 82728

== ENCOUNTER 2024-08-14 12:53 | Outpatient (REF) | payer MEDICARE, SELFPAY ==
[2024-08-14 14:15] LABS: Abs Immature Grans 0.02 10^3/uL (0.0-0.06); Absolute Basophil Count 0.05 10^3/uL (0.0-0.2); Absolute Eosinophil Count 0.23 10^3/uL (0.0-0.7); Absolute Lymphocyte Count 1.27 10^3/uL (1.2-3.4); Absolute Monocyte Count 0.48 10^3/uL (0.1-0.8); Basophils % 0.9 %; Eosinophils % 4.1 %; HCT 44.9 % (36.0-46.0); HGB 14.1 g/dL (11.2-15.7); Immature Grans % 0.4 %; Lymphocytes % 22.9 %; MCH 31.8 pg (27.0-33.0); MCHC 31.4 % (32.0-36.0); MCV 101 fL (80-95); MPV 10.3 fL (8.0-11.0); Monocytes % 8.6 %; Neutrophils % 63.1 %; Platelet Count 223 10^3/uL (130-400); RBC 4.43 10^6/uL (3.93-5.22); RDW 14.4 % (11.7-14.6); RDW-SD 54.7 fL; WBC 5.55 10^3/uL (4.4-10.8)
[2024-08-14 14:44] LABS: Iron 119 ug/dL (50-170); Total Iron Binding Capacity 295 ug/dL (250-450); Transferrin Sat 40 % (15-50)
[2024-08-14 14:56] LABS: ALT 34 U/L (14-59); AST 40 U/L (15-37); Albumin 3.8 g/dL (3.4-5.0); Alkaline Phosphatase 427 U/L (46-116); Anion Gap 5.8 mmol/L (3-11); BUN 12 mg/dL (7-18); Bilirubin, Total 0.6 mg/dL (0.2-1.0); CO2 29.2 mmol/L (21.0-32.0); CREATININE 0.7 mg/dL (0.55-1.02); Calcium 8.7 mg/dL (8.5-10.1); Chloride 104 mmol/L (98-107); Estimated GFR 87.37 (mL/min/1.73m2); Ferritin 154 ng/mL (8-252); Glucose 74 mg/dL (74-106); Potassium 4.9 mmol/L (3.5-5.1); Sodium 139 mmol/L (136-145); Total Protein 8.3 g/dL (6.4-8.2); Vitamin B12 625 pg/mL (193-986)
[2024-08-15 13:16] LABS: GGT 415 U/L (5-55)
== END 2024-08-14 12:54 | disposition home or self-care (01) ==
LOC: NCHCN 12:53
PROVIDERS: PCP Family Medicine; Visit Provider Family Medicine
DX: D64.9 Anemia, unspecified (principal); I10 Essential (primary) hypertension; R74.8 Abnormal levels of other serum enzymes
CPT/HCPCS: 80053; 82607; 82728; 82977; 83540; 83550; 85025

== ENCOUNTER 2024-09-04 00:43 | Outpatient (CLI) | payer MEDICARE, SELFPAY ==
--- NOTE | 2024-09-04 | DI.US_ITS ---
Exam(s) US ABDOMEN LIMITED EXAM: US ABDOMEN LIMITED CLINICAL HISTORY: Abnl liver function, K76.89 TECHNIQUE: Ultrasound abdomen performed using standard protocol. COMPARISON: CT CT CHEST/ABD/PEL W from 09/27/2022 US US ABDOMEN LIMITED from 09/27/2022 FINDINGS: PANCREAS: Normal where visualized. LIVER: The liver has a lobulated contour. There is normal echogenicity. There does appear to be an enlarged left lobe. Hepatopetal flow in the Portal Vein. The liver measures in 13.0 cm length. No ev idence of a hepatic mass. GALLBLADDER: No evidence of cholelithiasis. No evidence of wall thickening. No pericholecystic fluid identified. BILIARY SYSTEM: Common bile duct measures < 7 mm. No intrahepatic biliary ductal dilation. SANDERS'S SIGN: Negative. RIGHT KIDNEY: Kidney is normal in size. No evidence of renal calculi. No evidence of hydronephrosis. No renal mass or cyst identified. ASCITES: None seen. IMPRESSION: 1. There is a lobulated contour of the liver which can be seen with hepatic cirrhosis. Please correl ate clinically. No evidence of a hepatic mass. There is normal flow through the portal vein. 2. Otherwise unremarkable examination. DATA REPOSITORY:
== END 2024-09-04 01:03 ==
LOC: DI 00:43
PROVIDERS: PCP Family Medicine; Visit Provider Family Medicine
DX: K76.89 Other specified diseases of liver (principal); K74.60 Unspecified cirrhosis of liver
CPT/HCPCS: 76705

== ENCOUNTER 2024-09-26 01:48 | Outpatient (CLI) | payer MEDICARE, SELFPAY ==
--- NOTE | 2024-09-26 | DI.DEXA_ITS ---
Exam(s) XR DEXA BONE DENSITY W/WO MANUEL EXAM: XR DEXA BONE DENSITY W/WO MANUEL CLINICAL HISTORY: SCREENING FOR OSTEOPOROSIS IN MENOPAUSAL STATE,Z78.0 TECHNIQUE: COMPARISON: No exams were available for comparison FINDINGS: Lateral Spine Image: Unremarkable. No compression deformities identified. Left hip: Total T-Score: -3.6 Total Z-Score: -1.5 T- and Z-scores: Findings are consistent with osteoporosis. Lumbar Spine: Total T-Score: -1.6 Total Z-Score: 1.1 T- and Z-scores: Findings are consistent with osteopenia. There is osteoporosis in the left forearm with a total T-score of -6.0 and a Z-score of -3.0. 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
== END 2024-09-26 02:08 ==
LOC: DI 01:49
PROVIDERS: PCP Family Medicine; Visit Provider Family Medicine
DX: Z78.0 Asymptomatic menopausal state (principal); Z13.820 Encounter for screening for osteoporosis; M81.0 Age-related osteoporosis without current pathological fracture
CPT/HCPCS: 77080

== ENCOUNTER 2025-02-13 13:42 | Outpatient (REF) | payer MEDICARE, SELFPAY ==
[2025-02-13 16:08] LABS: ALT 57 U/L (14-59); AST 60 U/L (15-37); Albumin 3.5 g/dL (3.4-5.0); Alkaline Phosphatase 825 U/L (46-116); Anion Gap 6.8 mmol/L (3-11); BUN 13 mg/dL (7-18); Bilirubin, Total 0.6 mg/dL (0.2-1.0); CO2 30.2 mmol/L (21.0-32.0); Calcium 9.3 mg/dL (8.5-10.1); Chloride 99 mmol/L (98-107); Estimated GFR 87.37 (mL/min/1.73m2); Glucose 74 mg/dL (74-106); Potassium 4.9 mmol/L (3.5-5.1); Sodium 136 mmol/L (136-145); Total Protein 8.1 g/dL (6.4-8.2)
[2025-02-13 17:10] LABS: GGT 911 U/L (5-55)
== END 2025-02-13 13:43 | disposition home or self-care (01) ==
LOC: NCHCN 13:42
PROVIDERS: PCP Family Medicine; Visit Provider Family Medicine
DX: K76.89 Other specified diseases of liver (principal)
CPT/HCPCS: 80053; 82977